=== PATIENT | female | born 1980 | race Caucasian/White ===

== ENCOUNTER 2024-07-22 09:44 | Outpatient (OUT) | payer OTHER, SELFPAY ==
[2024-07-22 10:13] LABS: Basophils Absolute Auto 0.1 10^3/uL (0.0-0.1); Basophils Percent Auto 0.7 % (0.2-2.0); Eosinophils Absolute Auto 0.2 10^3/uL (0.0-0.7); Eosinophils Percent Auto 1.9 % (0.9-7.0); Hematocrit 39.9 % (36.0-48.0); Hemoglobin 12.9 g/dL (12.0-16.0); Immature Granulocytes Abs Auto 0.02 10^3/uL (0.00-0.03); Immature Granulocytes Pct Auto 0.2 % (0.0-0.5); Lymphocytes Absolute Auto 3.5 10^3/uL (1.2-3.8); Lymphocytes Percent Auto 35.7 % (20.5-60.0); Mean Corpuscular HGB Conc 32.3 g/dL (29.9-35.2); Mean Corpuscular Hemoglobin 29.5 pg (26.7-34.0); Mean Corpuscular Volume 91.3 fL (81.0-99.0); Mean Platelet Volume 10.3 fL (9.5-13.5); Monocytes Absolute Auto 0.6 10^3/uL (0.3-0.8); Monocytes Percent Auto 6.1 % (1.7-12.0); Neutrophils Absolute Auto 5.4 10^3/uL (1.4-6.5); Neutrophils Percent Auto 55.4 % (43.0-75.0); Platelet Count 408 10^3/uL (150-450); Red Blood Count 4.37 10^6/uL (4.20-5.40); Red Cell Distribution Width 13.2 % (11.0-15.0); White Blood Count 9.7 10^3/uL (4.0-11.0)
[2024-07-22 10:34] LABS: Free T4 1.15 ng/dL (0.76-1.46)
[2024-07-22 10:35] LABS: Estimated Average Glucose 108 mg/dL; Glycohemoglobin A1C 5.4 % (4.5-6.2); Partial Thromboplastin Time 30.6 sec (22.3-36.2); Prothrombin Time 9.7 sec (9.0-11.6)
[2024-07-22 10:48] LABS: Thyroid Stimulating Hormone 0.806 uIU/mL (0.358-3.740)
[2024-07-22 11:08] LABS: HCG Quantitative <1 mIU/mL
[2024-07-22 11:19] LABS: INR <0.93
== END 2024-07-22 09:45 | disposition home or self-care (01) ==
LOC: LAB 09:44
PROVIDERS: PCP Nurse Practitioner; Visit Provider Obstetrics & Gynecology
DX: D21.9 Benign neoplasm of connective and other soft tissue, unspecified (principal)
CPT/HCPCS: 36415; 83036; 84439; 84443; 84702; 85025; 85610; 85730

== ENCOUNTER 2024-07-27 08:03 | Outpatient (OUT) | payer OTHER, SELFPAY ==
--- NOTE | 2024-07-27 08:04 | US_ITS ---
The [address] [address] Patient Name: SIOBHAN ROBLES MRN: [id number] date: 1980 Sex: F Assigned Patient Location: [facility] Current Patient Location: Accession/Order Number: [id number] Exam Date: 07/27/2024 08:05 Report Date: 07/28/2024 04:29 At the request of: KIT STOCKTON Procedure: US pelvis w/ transvaginal EXAMINATION: US pelvis w/ transvaginal HISTORY: FIBROIDS COMPARISON: No relevant comparison available. TECHNIQUE: Transabdominal and/or transvaginal sonographic examination was performed as indicated by examination type. FINDINGS: UTERUS: Rounded heterogeneous mass within anterior fundal myometrium, 4.1 x 3.9 x 3.5 cm. Uterus size: 10.1 x 6.5 x 7.5 cm ENDOMETRIUM: Normal homogeneous appearance. Endometrial thickness: 8 mm RIGHT OVARY: Normal size and appearance. Duplex Doppler demonstrates normal waveform and flow; resistive index 0.5. Ovary size: 2.9 x 1.5 x 1.4 cm LEFT OVARY: Normal size and appearance. Duplex Doppler demonstrates normal waveform and flow; resistive index 0.6. Ovary size: 3.9 x 2.0 x 2.7 cm CUL-DE-SAC: Unremarkable. No significant free fluid. BLADDER: Unremarkable. OTHER: None. US/US pelvis w/ transvaginal IMPRESSION: 1. Within the anterior fundal myometrium is a 4.1 cm mass favoring a leiomyoma. This appears to contact the myometrial-endometrial margin. Electronically authenticated by: JORGE LUIS GRIJALVA Date: 07/28/2024 04:29
== END 2024-07-27 08:04 | disposition home or self-care (01) ==
LOC: NOMS 08:03
PROVIDERS: PCP Nurse Practitioner; Visit Provider Physician Assistant
DX: D21.9 Benign neoplasm of connective and other soft tissue, unspecified (principal)
CPT/HCPCS: 76830; 76856

== ENCOUNTER 2024-08-01 13:10 | Outpatient (REF) | payer OTHER, SELFPAY ==
--- OUTSIDE RECORDS SUMMARY | 2024-08-01 13:21 | XMS_ITS | CCD ---
Author Organization [facility] ion [facility] Care Team Providers Care Mat Roller Name Role Phone GUILHERME, DR PARADA Admitting Unavailable GUILHERME, DR PARADA Attending Unavailable BRISTOL, DR ROMANO Primary Care Unavailable GUILHERME, DR PARADA Consulting Unavailable GUILHERME, DR PARADA Admitting Unavailable GUILHERME, DR PARADA Attending Unavailable BRISTOL, DR ROMANO Primary Care Unavailable GUILHERME, DR PARADA Admitting Unavailable GUILHERME, DR PARADA Attending Unavailable BRISTOL, DR ROMANO Primary Care Unavailable GUILHERME, DR PARADA Consulting Unavailable GUILHERME, DR PARADA Admitting Unavailable GUILHERME, DR PARADA Attending Unavailable BRISTOL, DR ROMANO Primary Care Unavailable GUILHERME, DR PARADA Consulting Unavailable MICKY, BAKARI Consulting Unavailable KUCHIPUDI, DARNELL Consulting Unavailable GUILHERME, DR PARADA Admitting Unavailable GUILHERME, DR PARADA Attending Unavailable BRISTOL, DR ROMANO Primary Care Unavailable GUILHERME, DR PARADA Consulting Unavailable ZIEBER, DR JORGE LUIS Smith Consulting Unavailable DeenaFabiana Primary Care Physician [phone] Deena, GURMEET Jung L Attending Unavailable Deena, GURMEET Jung L Admitting Unavailable Deena, GURMEET Jung L Attending Unavailable NOTAMARA PAREKH Referring Unavailable Unavailable Primary Care Provider Unavailabl e KARMA VANEGAS Attending Unavailable Allergies Allergy Classification Reported Allergen(s) Allergy Type Date of Onset Reaction(s) Facility (1 source) No Known Medication Allergies; Translations: [No Known Medication Allergies] Propensity to adverse reactions (disorder) [facility] Repository Problems Active Problems Problem Classification Problem Date Documented Da te Episodic/Chronic Abdominal pain (5 sources) Pelvic and perineal pain; Translations: [PELVIC AND PERINEAL PAIN] Onset: 07-09-2022 Episodic Administrative/social admission (1 source) Encounter for pre-employment examination; Translations: [Encounter for pre-employment examination] Onset: 12-01-2023 Episodic Allergic reactions (1 source) Eczema 06-05-2020 Episodic Anxiety disorders (1 source) Anxiety disorder, unspecified; Translations: [ANXIETY DISORDER UNSPECIFIED] Onset: 09-09-2022 Chronic Benign neoplasm of uterus (1 source) Leiomyoma of uterus, unspecified; Translations: [LEIOMYOMA OF UTERUS UNSPECIFIED] Onset: 09-09-2022 Episodic Menstrual disorders (6 sources) Excessive and frequent menstruation with irregular cycle; Translations: [Excessive and frequent menstruation with regular cycle] Onset: 09-02-2022 Chronic Nonmalignant breast conditions (1 source) Cellulitis of breast 06-06-2020 Episodic Other endocrine disorders (1 source) Polycystic ovarian syndrome; Translations: [POLYCYSTIC OVARIAN SYNDROME] Onset: 09-09-2022 Chronic Other endocrine disorders (1 source) Polycystic ovary syndrome 10-06-2023 Chronic Other female genital disorders (1 source) Hypertrophy of uterus; Translations: [HYPERTROPHY OF UTERUS] Onset: 09-09-2022 Episodic Residual codes; unclassified (1 source) Acquired absence of other specified parts of digestive tract; Translations: [ACQ ABSENCE OTH PART DIGESTV TRACT] Onset: 09-09-2022 Episodic Residual codes; unclassified (1 source) Tobacco user 06-06-2020 Episodic Unclassified (1 source) CONTACT W/AND (SUSP) EXPOS COVID-19; Translations: [CONTACT W/AND (SUSP) EXPOS COVID-19] Onset: 09-03-2022 Unclassified (3 sources) Patient encounter status 10-06-2023 Past or Other Problems Problem Classification Problem Date Documented Date Episodic/Chronic Immunizations and screening for infectious disease (1 source) Encounter for screening for human papillomavirus (HPV); Translations: [ENC SCREENING HUMAN PAPILLOMAVIRUS] Onset: 01-01-2022 Episodic Other screening for suspected conditions (not mental disorders or infectious disease) (4 sources) Encounter for screening for malignant neoplasm of cervix; Translations: [ENC SCREENING MALIG NEOPLASM CERV] Onset: 12-31-2021 Episodic Results Test Name Value Interpretation Reference Range Facility ALL CBC WITH AUTO DIFFon BASOPHILS ABSOLUTE AUTO 0.1 [facility] Basophils/100 WBC (Bld) 0.7 % 0.2 - 2.0 % [facility] Eosinophils/100 WBC (Bld) 1.9 % 0.9 - 7.0 % [facility] Erythrocyte distribution width (RBC) [Ratio] 13.2 % 11.0 - 15.0 % [facility] Hematocrit (Bld) [Volume fraction] 39.9 % 36.0 - 48.0 % [facility] Hemoglobin (Bld) [Mass/Vol] 12.9 g/dL 12.0 - 16.0 g/dL [facility] IMMATURE GRANULOCYTES ABS AUTO 0.02 [facility] Immature granulocytes/100 WBC (Bld) 0.2 % 0.0 - 0.5 % [facility] LYMPHOCYTES ABSOLUTE AUTO 3.5 [facility] Lymphocytes/100 WBC (Bld) 35.7 % 20.5 - 60.0 % [facility] MCH (RBC) [Entitic mass] 29.5 pg 26.7 - 34.0 pg [facility] MCHC (RBC) [Mass/Vol] 32.3 g/dL 29.9 - 35.2 g/dL [facility] MCV (RBC) [Entitic vol] 91.3 fL 81.0 - 99.0 fL [facility] MONOCYTES ABSOLUTE AUTO 0.6 [facility] Monocytes/100 WBC (Bld) 6.1 % 1.7 - 12.0 % [facility] NEUTROPHILS ABSOLUTE AUTO 5.4 [facility] Neutrophils/100 WBC (Bld) 55.4 % 43.0 - 75.0 % [facility] Platelet mean volume (Bld) [Entitic vol] 10.3 fL 9.5 - 13.5 fL [facility] PLT 408 [facility] RBC 4.37 [facility] WBC 9.7 [facility] XR CHEST 2 VWSon 12-01-2023 XR CHEST 2 VWS XR CHEST 2 VWS PA and lateral chest: HISTORY: Preemployment evaluation. 2 views of the chest are obtained. Cardiac and mediastinal contours are within normal limits. Lungs are clear. There is no vascular congestion, effusion, or pneumothorax. The osseous structures appear intact. IMPRESSION: No acute findings. Finalized by Ashok Chaudhary MD on 12/01/2023 1:43 PM Normal [facility] Reminderson 10-08-2023 Reminders - From: Fabiana Marquis To: [facility] - Clinical; Sent: 10/08/2023 09:06:01 EST Show up: 10/08/2023 09:06:00 EST Subject: Ambulatory Reminder Due Date/Time: 10/09/2023 09:05:00 EST Labs look good. Calcium is just below normal. She could start taking calcium supplement if she would like Results: Date Result Name Ind Value Ref Range 10/06/2023 16:38 WBC ((H)) 12.5 E9/L (4.0 - 11.0) 10/06/2023 16:38 RBC 4.6 E12/L (4.3 - 5.9) 10/06/2023 16:38 HGB 13.3 gm/dL (12.0 - 16.0) 10/06/2023 16:38 Hct 41.5 % (34.0 - 46.0) 10/06/2023 16:38 MCV 90.5 fL (80.0 - 100.0) 10/06/2023 16:38 MCH 28.9 pg (27.0 - 34.0) 10/06/2023 16:38 MCHC 32.0 gm/dL (31.4 - 36.0) 10/06/2023 16:38 RDW ((H)) 14.4 % (10.9 - 14.2) 10/06/2023 16:38 Platelet 383.0 E9/L (150.0 - 500.0) 10/06/2023 16:38 MPV 10.0 fL (6.4 - 10.8) 10/06/2023 16:38 Neutro Auto 58.4 % (36.0 - 75.0) 10/06/2023 16:38 Lymph Auto 33.9 % (14.0 - 50.0) 10/06/2023 16:38 [place] Auto 4.8 % (4.0 - 14.0) 10/06/2023 16:38 Eos Auto 2.5 % (0.0 - 8.0) 10/06/2023 16:38 Basophil Auto 0.4 % (0.0 - 2.0) 10/06/2023 16:38 Neutro Absolute 7.3 E9/L (2.0 - 7.5) 10/06/2023 16:38 Lymph Absolute ((H)) 4.2 E9/L (1.0 - 4.0) 10/06/2023 16:38 [place] Absolute 0.6 E9/L (0.2 - 1.0) 10/06/2023 16:38 Eos Absolute 0.3 E9/L (0.0 - 0.5) 10/06/2023 16:38 Basophil Absolute 0.1 E9/L (0.0 - 0.2) 10/06/2023 16:38 Glucose Lvl 90 mg/dL (55 - 199) 10/06/2023 16:38 BUN 8 mg/dL (5 - 21) 10/06/2023 16:38 Creatinine 0.9 mg/dL (0.5 - 1.3) 10/06/2023 16:38 eGFR >60 mL/min/1.73 m2 (>=59 - ) 10/06/2023 16:38 BUN/Creat Ratio ((L)) 9 (10 - 20) 10/06/2023 16:38 Sodium Lvl 138 mmol/L (135 - 145) 10/06/2023 16:38 Potassium Lvl 3.8 mmol/L (3.5 - 5.3) 10/06/2023 16:38 Chloride 105 mmol/L (101 - 111) 10/06/2023 16:38 CO2 27 mmol/L (21 - 31) 10/06/2023 16:38 AGAP 10 mEq/L (6 - 16) 10/06/2023 16:38 Calcium Lvl ((L)) 8.8 mg/dL (8.9 - 11.1) 10/06/2023 16:38 Alk Phos 81 Int._Unit/L (21 - 98) 10/06/2023 16:38 ALT 18 Int._Unit/L (6 - 46) 10/06/2023 16:38 AST 13 Int._Unit/L (5 - 43) 10/06/2023 16:38 Total Protein 6.8 gm/dL (6.0 - 7.8) 10/06/2023 16:38 Albumin Lvl 4.0 gm/dL (3.3 - 5.0) 10/06/2023 16:38 Globulin 2.8 gm/dL (1.4 - 4.0) 10/06/2023 16:38 A/G Ratio 1.4 (1.1 - 2.2) 10/06/2023 16:38 Bili Total 0.2 mg/dL (0.0 - 1.1) 10/06/2023 16:38 Chol 158 mg/dL (120 - 200) 10/06/2023 16:38 Trig 142 mg/dL ( - <=149) 10/06/2023 16:38 HDL 48 mg/dL 10/06/2023 16:38 LDL Direct 100 mg/dL ( - <=129) 10/06/2023 16:38 VLDL 28 mg/dL (7 - 40) 10/06/2023 16:38 TSH 2.38 mcIU/mL (0.34 - 5.60) Pt calls in and notified. Normal [facility] Auto Diffon 10-07-2023 Basophils/100 WBC (Bld) 0.4 % Normal 0.0-2.0 [facility] Comment on above: Order Comment: Order Added by Discern Expert. Performed By: #### 2 031489, 38477953, 3149268, 2261883, 8042308, 9592609 #### [facility] [address] [place] [address] Basophils/Leukocy victoria Auto (Bld) [Pure # fraction] 0.1 E9/L Normal 0.0-0.2 [facility] Comment on above: Order Comment: Order Added by Discern Expert. Performed By: #### 2 242958, 12820199, 9548229, 2891173, 5689059, 3326891 #### [facility] [address] [place] [address] Eosinophils/100 WBC (Bld) 2.5 % Normal 0.0-8.0 [facility] Comment on above: Order Comment: Order Added by Discern Expert. Performed By: #### 2 913274, 00210672, 4671350, 4355592, 4923460, 9588705 #### [facility] [address] [place] [address] Eosinophils/Leuko cytes Auto (Bld) [Pure # fraction] 0.3 E9/L Normal 0.0-0.5 [facility] Comment on above: Order Comment: Order Added by Discern Expert. Performed By: #### 2 617538, 50456799, 5624395, 5672118, 6809417, 0192524 #### [facility] [address] [place] [address] Lymphocytes/100 WBC (Bld) 33.9 % Normal 14.0-50.0 [facility] Comment on above: Order Comment: Order Added by Discern Expert. Performed By: #### 2 171909, 16445623, 6727953, 3880090, 6568786, 5439688 #### [facility] [address] [place] [address] Lymphocytes/Leuko cytes Auto (Bld) [Pure # fraction] 4.2 E9/L High 1.0-4.0 [facility] Comment on above: Order Comment: Order Added by Discern Expert. Performed By: #### 2 643114, 74374499, 0685468, 1147662, 6240796, 0895698 #### [facility] [address] [place] [address] Monocytes/100 WBC (Bld) 4.8 % Normal 4.0-14.0 [facility] Comment on above: Order Comment: Order Added by Discern Expert. Performed By: #### 2 050677, 25944057, 4353357, 5453062, 7921066, 3969251 #### [facility] [address] [place] [address] Monocytes/Leukocy victoria Auto (Bld) [Pure # fraction] 0.6 E9/L Normal 0.2-1.0 [facility] Comment on above: Order Comment: Order Added by Discern Expert. Performed By: #### 2 155166, 76888738, 3209431, 6043538, 0568488, 3212117 #### [facility] [address] [place] [address] Neutrophils/100 WBC (Bld) 58.4 % Normal 36.0-75.0 [facility] Comment on above: Order Comment: Order Added by Discern Expert. Performed By: #### 2 348105, 46976046, 8522683, 9253218, 8592249, 4838998 #### [facility] [address] [place] [address] Neutrophils/Leuko cytes Auto (Bld) [Pure # fraction] 7.3 E9/L Normal 2.0-7.5 [facility] Comment on above: Order Comment: Order Added by Discern Expert. Performed By: #### 2 996301, 17368849, 9681465, 7041715, 3897425, 0526405 #### [facility] [address] [place] [address] CBC w/ Auto Diffon Erythrocyte distribution width (RBC) [Ratio] 14.4 % High 10.9-14.2 [facility] Comment on above: Performed By: #### 2 137771, 09207099, 1647838, 2017048, 0663323, 2820867 #### [facility] [address] [place] [address] Hematocrit (Bld) [Volume fraction] 41.5 % Normal 34.0-46.0 [facility] Comment on above: Performed By: #### 2 033509, 87945102, 1773720, 1221317, 6903240, 4782286 #### [facility] [address] [place] [address] Hemoglobin (Bld) [Mass/Vol] 13.3 g/dL Normal 12.0-16.0 [facility] Comment on above: Performed By: #### 2 787992, 64774079, 2950451, 7218407, 1180821, 5284591 #### [facility] [address] [place] [address] MCH (RBC) [Entitic mass] 28.9 pg Normal 27.0-34.0 [facility] Comment on above: Performed By: #### 2 682152, 47390698, 9943678, 7331484, 0741127, 7423690 #### [facility] [address] [place] [address] MCHC (RBC) [Mass/Vol] 32.0 g/dL Normal 31.4-36.0 [facility] Comment on above: Performed By: #### 2 166553, 92226621, 4013957, 9936926, 5391668, 0346590 #### [facility] [address] [place] [address] MCV (RBC) [Entitic vol] 90.5 fL Normal 80.0-100.0 [facility] Comment on above: Performed By: #### 2 069549, 15783190, 8015841, 0296248, 7767920, 0144533 #### [facility] [address] [place], [place] [address] Platelet mean volume (Bld) [Entitic vol] 10.0 fL Normal 6.4-10.8 [facility] Comment on above: Performed By: #### 2 028781, 00385446, 9583188, 8800420, 8527757, 2117821 #### [facility] [address] [place] [address] Platelets (Bld) [#/Vol] 383.0 E9/L Normal 150.0-500.0 [facility] Comment on above: Performed By: #### 2 381793, 76213688, 7735587, 5492438, 5217389, 7085318 #### [facility] [address] [place] [address] RBC (Bld) [#/Vol] 4.6 E12/L Normal 4.3-5.9 [facility] Comment on above: Performed By: #### 2 790052, 70014242, 0958748, 5936431, 9056018, 0216112 #### [facility] [address] [place] [address] WBC corrected for nucl RBC Auto (Bld) [#/Vol] 12.5 E9/L High 4.0-11.0 [facility] Comment on above: Result Comment: Slid e reviewed by ZEYNEP. Performed By: #### 2 080163, 61657782, 7099780, 5912098, 1900297, 8790035 #### [facility] [address] [place] [address] CMPon 10-07-2023 Albumin [Mass/Vol] 4.0 g/dL Normal 3.3-5.0 [facility] Comment on above: Performed By: #### 2 265940, 72398179, 8543199, 9981401, 2861021, 1758859 #### [facility] [address] [place] [address] Albumin/Globulin [Mass ratio] 1.4 {ratio} Normal 1.1-2.2 [facility] Comment on above: Performed By: #### 2 794390, 81457832, 6509107, 6055132, 5887671, 2286190 #### [facility] [address] [place] [address] Alk Phos 81 Int._Unit/L Normal 21-98 [facility] Comment on above: Performed By: #### 2 069224, 63156501, 6405288, 7085691, 8318843, 0398361 #### [facility] [address] [place] [address] ALT 18 Int._Unit/L Normal 6-46 [facility] Comment on above: Performed By: #### 2 514416, 46641985, 3439581, 7738040, 0349620, 7676168 #### [facility] [address] [place] [address] Anion gap [Moles/Vol] 10 mmol/L Normal 6-16 [facility] Comment on above: Performed By: #### 2 683434, 55043551, 4938988, 6000313, 5009121, 2702267 #### [facility] [address] [place] [address] AST 13 Int._Unit/L Normal 5-43 [facility] Comment on above: Performed By: #### 2 383076, 86214196, 7082738, 1050065, 2773240, 5283181 #### [facility] [address] [place] [address] Bili Total 0.2 mg/dL Normal 0.0-1.1 [facility] Comment on above: Performed By: #### 2 871545, 92111117, 9666782, 5023346, 0231692, 4108447 #### [facility] [address] [place] [address] BUN/Creat Ratio 9 No Units Low 10-20 [facility] Comment on above: Performed By: #### 2 077594, 11754617, 9226391, 7505392, 9730243, 6770723 #### [facility] [address] [place] [address] Calcium [Mass/Vol] 8.8 mg/dL Low 8.9-11.1 [facility] Comment on above: Performed By: #### 2 647562, 25225782, 2613577, 7723533, 4291030, 5146096 #### [facility] [address] [place] [address] Chloride [Moles/Vol] 105 mmol/L Normal 101-111 [facility] Comment on above: Performed By: #### 2 818364, 07154938, 2411780, 3987137, 7428330, 3419851 #### [facility] [address] [place] [address] CO2 [Moles/Vol] 27 mmol/L Normal 21-31 [facility] Comment on above: Performed By: #### 2 505002, 84906075, 2200474, 5294855, 9118733, 5782339 #### [facility] [address] [place] [address] Creatinine [Mass/Vol] 0.9 mg/dL Normal 0.5-1.3 [facility] Comment on above: Performed By: #### 2 304605, 45502427, 4683691, 8922463, 2278121, 8950323 #### [facility] [address] [place] [address] Globulin (S) [Mass/Vol] 2.8 g/dL Normal 1.4-4.0 [facility] Comment on above: Performed By: #### 2 216559, 71071072, 1922352, 9170273, 7191944, 2197759 #### [facility] [address] [place] [address] Glucose [Mass/Vol] 90 mg/dL Normal 55-199 [facility] Comment on above: Performed By: #### 2 138392, 94025555, 2171886, 7290302, 5312331, 0942815 #### [facility] [address] [place] [address] Potassium [Moles/Vol] 3.8 mmol/L Normal 3.5-5.3 [facility] Comment on above: Performed By: #### 2 624403, 39219951, 6629026, 0983670, 5444611, 5418959 #### [facility] [address] [place] [address] Protein [Mass/Vol] 6.8 g/dL Normal 6.0-7.8 [facility] Comment on above: Performed By: #### 2 326485, 71177493, 1240174, 0542224, 7915713, 8823152 #### [facility] [address] [place] [address] Sodium [Moles/Vol] 138 mmol/L Normal 135-145 [facility] Comment on above: Performed By: #### 2 406104, 82593476, 6664681, 1678660, 3793602, 2448851 #### [facility] [address] [place] [address] Urea nitrogen [Mass/Vol] 8 mg/dL Normal 5-21 [facility] Comment on above: Performed By: #### 2 794916, 30662114, 3167202, 6850565, 7923265, 0210658 #### [facility] [address] [place] [address] Lipid Panelon 10-07-2023 Cholesterol [Mass/Vol] 158 mg/dL Normal 120-200 [facility] Comment on above: Performed By: #### 2 427296, 49273262, 5313541, 1185348, 1444211, 4762756 #### [facility] [address] [place] [address] Cholesterol in HDL [Mass/Vol] 48 mg/dL Invalid Interpretation Code [facility] Comment on above: Result Comment: '>= 60 LOW RISK' '<= 40 HIGH RISK' Performed By: #### 2 942445, 89549077, 5916275, 0193804, 8776609, 8355837 #### [facility] [address] [place] [address] Cholesterol in LDL [Mass/Vol] 100 mg/dL Normal <=129 [facility] Comment on above: Performed By: #### 2 126309, 22523669, 1535955, 8574061, 5070610, 0420626 #### [facility] [address] [place] [address] Cholesterol in VLDL [Mass/Vol] 28 mg/dL Normal 7-40 [facility] Comment on above: Performed By: #### 2 074382, 63850193, 2620941, 5337430, 4905924, 3570757 #### [facility] [address] [place] [address] Triglyceride [Mass/Vol] 142 mg/dL Normal <=149 [facility] Comment on above: Performed By: #### 2 364363, 17192860, 4462839, 4125808, 1658963, 4214993 #### [facility] [address] [place] [address] TSHon 10-07-2023 TSH Qn 2.38 m[IU]/L Normal 0.34-5.60 [facility] Comment on above: Performed By: #### 2 134835, 28893751, 2872059, 1747602, 1498315, 5275202 #### [facility] [address] [place] [address] eGFRon 10-07-2023 GFR/1.73 sq M.predicted among non-blacks MDRD (S/P/Bld) [Vol rate/Area] mL/min/{1.73_m2} Normal >=59 [facility] Comment on above: Order Comment: Order added by Discern Expert. Performed By: #### 2 547188, 87913420, 1993640, 0768611, 8033667, 4746745 #### [facility] [address] [place] [address] Ambulatory Visit Summaryon 1 12-07-2022 Ambulatory Visit Summary SIOBHAN ROBLES :1980 Visit Date:10/06/2023 Ambulatory Visit Instructions Your Diagnosis Wellness examination PCOS (polycystic ovarian syndrome) Vaping nicotine dependence, non-tobacco product Screening for hyperlipidemia Screening for thyroid disorder BMI 34.0-34.9,adult Your Care Team Attending Physician - Fabiana Marquis Primary Care Physician - Fabiana Marquis Procedures Performed Dilation and curettage (10/18/2014), Cholecystectomy (10/18/2008). Discharge Vitals Heart Rate (Peripheral) 88 Respiratory Rate 16 Blood Pressure 126/86 Height 165.5 cm Height 65 in Weight 95.1 kg Weight 209.22 lb BMI 34.72 Allergies No Known Allergies No Known Medication Allergies Problems Ongoing - Any problem that you are currently receiving treatment for. Cellulitis of left breast Eczema Menometrorrhagia PCOS (polycystic ovarian syndrome) Screening for hyperlipidemia Screening for thyroid disorder Tobacco use Wellness examination Patient Survey You may receive a survey via text or e-mail asking about your office visit. Please share your experience with us by completing your survey. We appreciate your feedback and thank you for choosing us for your care. Normal [facility] Ambulatory Visit Summary SIOBHAN ROBLES :1980 Visit Date:10/06/2023 Ambulatory Visit Instructions Your Diagnosis Wellness examination PCOS (polycystic ovarian syndrome) Vaping nicotine dependence, non-tobacco product Screening for hyperlipidemia Screening for thyroid disorder BMI 34.0-34.9,adult Your Care Team Attending Physician - Fabiana Marquis Primary Care Physician - Fabiana Marquis Procedures Performed Dilation and curettage (10/18/2014), Cholecystectomy (10/18/2008). Discharge Vitals Heart Rate (Peripheral) 88 Respiratory Rate 16 Blood Pressure 126/86 Height 165.5 cm Height 65 in Weight 95.1 kg Weight 209.22 lb BMI 34.72 Allergies No Known Allergies No Known Medication Allergies Problems Ongoing - Any problem that you are currently receiving treatment for. Cellulitis of left breast Eczema Menometrorrhagia PCOS (polycystic ovarian syndrome) Screening for hyperlipidemia Screening for thyroid disorder Tobacco use Wellness examination Patient Survey You may receive a survey via text or e-mail asking about your office visit. Please share your experience with us by completing your survey. We appreciate your feedback and thank you for choosing us for your care. 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 A1c 01/2022 5.4, Dr Matos Last provider: Dr Mccracken Any recent labs: around 08/2022 [facility] labs surgery Health Maintenance UTD: Colonoscopy: no Mammogram: had order but never had it done Pelvic/Pap: 08/2022 normal Acute: Current issues/complaints:FYI Pt states she will be having hysterectomy has to have that scheduled History of Present Illness pt presents today to establish care/ wellness visit Review of Systems PHQ Score Initial Depression Screen Score: 1 SCORE ROS - Provider Constitutional: no fever, no chills, no sweats, no fatigue Respiratory: no shortness of breath, no cough, no orthopnea, no wheezing. Cardiovascular: no chest pain, no palpitations, no edema. Neurologic: no headache, no dizziness, no numbness, no weakness. Physical Exam Vitals & Measurements HR: 88(Peripheral) RR: 16 BP: 126/86 SpO2: 99% HT: 65 in HT: 165.5 cm WT: 95.1 kg WT: 209.22 lb BMI: 34.72 General: alert, no acute distress ENMT: oral mucosa moist, no pharyngeal erythema or exudate Cardiovascular: regular rate and rhythm, normal peripheral perfusion Respiratory: Lungs CTA, respirations non labored Extremities: no deformity, no trauma Neurological: oriented x 4, LOC appropriate for age, CN II-XII intact, motor strength equal & normal bilaterally, speech normal Assessment/Plan 1. Wellness examination (Z00.00: Encounter for general adult medical examination without abnormal findings) pt presents today to establish care. needs annual wellness labs drawn today. physical exam WNL. labs drawn in office today. All questions answered. RTC as needed Ordered: CBC w/ Auto Diff Comprehensive Metabolic Panel Lipid Panel Thyroid Stimulating Hormone 2. PCOS (polycystic ovarian syndrome) (E28.2: Polycystic ovarian syndrome) has pcos was taking metformin but is no longer taking it. has fibroids and is going to schedule hyst with Dr. Guilherme cai Ordered: CBC w/ Auto Diff Comprehensive Metabolic Panel Lipid Panel Thyroid Stimulating Hormone 3. Vaping nicotine dependence, non-tobacco product (F17.200: Nicotine dependence, unspecified, uncomplicated) continue not smoking Ordered: CBC w/ Auto Diff Comprehensive Metabolic Panel Lipid Panel Thyroid Stimulating Hormone 4. Screening for hyperlipidemia (Z13.220: Encounter for screening for lipoid disorders) lipid panel drawn in office today Ordered: CBC w/ Auto Diff Comprehensive Metabolic Panel Lipid Panel Thyroid Stimulating Hormone 5. Screening for thyroid disorder (Z13.29: Encounter for screening for other suspected endocrine disorder) TSH drawn in office today Ordered: CBC w/ Auto Diff Comprehensive Metabolic Panel Lipid Panel Thyroid Stimulating Hormone 6. BMI 34.0-34.9,adult (Z68.34: Body mass index [BMI] 34.0-34.9, adult) BMI education complete Ordered: CBC w/ Auto Diff Comprehensive Metabolic Panel Lipid Panel Thyroid Stimulating Hormone Follow-up No qualifying data available Problem List/Past Medical History Ongoing Cellulitis of left breast Eczema Menometrorrhagia PCOS (polycystic ovarian syndrome) Screening for hyperlipidemia Screening for thyroid disorder Tobacco use Wellness examination Historical No qualifying data Procedure/Surgical History Dilation and curettage (10/18/2014), Cholecystectomy (10/18/2008). Medications No active medications Allergies No Known Allergies No Known Medication Allergies Social History Alcohol - Denies Alcohol Use, 06/06/2020 Tobacco Former smoker, quit more than 30 days ago Tobacco Use:. Current vaping or e-cigarette use Smokeless Tobacco Use:. Cigarettes, Ready to change: Yes. Household tobacco concerns: No., 10/06/2023 Family History Diabetes mellitus type 2: Mother and Father. Hypertension: Mother and Father. Renal failure syndrome: Mother. Normal [facility] Comment on above: Result Comment: Elec tronically Signed By: Deena LEVI, Fabiana Titus\.br\Date and Time Signed: 10/06/23 16:35 EST CBC AUTO DIFFon 08-31-2022 BASO # 0.1 103/ul Normal 0.0-0.1 [facility] Comment on above: Performed By: #### C BC #### [facility] [address] [place] [address] Dr. Demetri Rosales Basophils/100 WBC (Bld) 0.5 % Normal 0.2-2.0 [facility] Comment on above: Performed By: #### C BC #### [facility] [address] [place] [address] Dr. Demetri Rosales EO # 0.3 103/ul Normal 0.0-0.7 [facility] Comment on above: Performed By: #### C BC #### [facility] [address] [place] [address] Dr. Demetri Rosales Eosinophils/100 WBC (Bld) 2.6 % Normal 0.9-7.0 [facility] Comment on above: Performed By: #### C BC #### [facility] [address] [place] [address] Dr. Demetri Rosales Erythrocyte distribution width (RBC) [Ratio] 13.2 % Normal 11.0-15.0 [facility] Comment on above: Performed By: #### C BC #### [facility] [address] [place] [address] Dr. Demetri Rosales Hematocrit (Bld) [Volume fraction] 40.1 % Normal 36.0-48.0 [facility] Comment on above: Performed By: #### C BC #### [facility] [address] [place] [address] Dr. Demetri Rosales Hemoglobin (Bld) [Mass/Vol] 13.2 g/dL Normal 12.0-16.0 [facility] Comment on above: Performed By: #### C BC #### [facility] [address] [place] [address] Dr. Demetri Rosales IG # 0.04 10e3/ul Critically high 0.00-0.03 [facility] Comment on above: Performed By: #### C BC #### [facility] [address] [place] [address] Dr. Demetri Rosales IG % 0.4 % Normal 0.0-0.5 [facility] Comment on above: Performed By: #### C BC #### [facility] [address] [place] [address] Dr. Demetri Rosales LYMPH # 4.1 103/ul Critically high 1.2-3.8 [facility] Comment on above: Performed By: #### C BC #### [facility] [address] [place] [address] Dr. Demetri Rosales Lymphocytes/100 WBC (Bld) 38.2 % Normal 20.5-60.0 [facility] Comment on above: Performed By: #### C BC #### [facility] [address] [place] [address] Dr. Demetri Rosales MANUAL DIFF REQ NO Normal [facility] Comment on above: Performed By: #### C BC #### [facility] [address] [place] [address] Dr. Demetri Rosales MCH (RBC) [Entitic mass] 30.4 pg Normal 26.7-34.0 [facility] Comment on above: Performed By: #### C BC #### [facility] [address] [place] [address] Dr. Demetri Rosales MCHC (RBC) [Mass/Vol] 32.9 g/dL Normal 29.9-35.2 [facility] Comment on above: Performed By: #### C BC #### [facility] [address] [place] [address] Dr. Demetri Rosales MCV (RBC) [Entitic vol] 92.4 fL Normal 81.0-99.0 [facility] Comment on above: Performed By: #### C BC #### [facility] [address] [place] [address] Dr. Demetri Rosales MONO # 0.5 103/ul Normal 0.3-0.8 [facility] Comment on above: Performed By: #### C BC #### [facility] [address] [place] [address] Dr. Demetri Rosales Monocytes/100 WBC (Bld) 4.8 % Normal 1.7-12.0 [facility] Comment on above: Performed By: #### C BC #### [facility] [address] [place] [address] Dr. Demetri Rosales NEUT # 5.7 103/ul Normal 1.4-6.5 [facility] Comment on above: Performed By: #### C BC #### [facility] [address] [place] [address] Dr. Demetri Rosales Neutrophils/100 WBC (Bld) 53.5 % Normal 43.0-75.0 [facility] Comment on above: Performed By: #### C BC #### [facility] [address] [place] [address] Dr. Demetri Rosales Platelet mean volume (Bld) [Entitic vol] 10.0 fL Normal 9.5-13.5 [facility] Comment on above: Performed By: #### C BC #### [facility] [address] [place] [address] Dr. Demetri Rosales PLT 314 103/ul Normal 150-450 [facility] Comment on above: Performed By: #### C BC #### [facility] [address] [place] [address] Dr. Demetri Rosales RBC 4.34 106/ul Normal 4.20-5.40 [facility] Comment on above: Performed By: #### C BC #### [facility] [address] [place] [address] Dr. Demetri Rosales WBC 10.7 103/ul Normal 4.0-11.0 [facility] Comment on above: Performed By: #### C BC #### [facility] [address] [place] [address] Dr. Demetri Rosales Covid-19 PCR ([facility])on 08-18 SARS-CoV-2 (COVID-19) RNA ROMANA+probe Ql (Unsp spec) Not detected Normal NOT DETECTED [facility] Comment on above: Result Comment: This test is not yet approved or cleared by the [place] FDA. When there are no FDA-approved or cleared tests available, and other criteria are met, FDA can make tests available under an emergency access mechanism called an Emergency Use Authorization (EUA). The EUA for this test is supported by the [employer] of Health and Human Service's (HHS's) declaration that circumstances exist to justify the emergency use of in vitro diagnostics for the detection and/or diagnosis of the virus that causes COVID-19. This EUA will remain in effect (meaning this test can be used) for the duration of the COVID-19 declaration justifying emergency of IVDs, unless it is terminated or revoked by FDA (after which the test may no longer be used). When diagnostic testing is negative, the possibility of a false negative should be considered in the context of a patient's recent exposures and the presence of clinical signs and symptoms consistent with SARS-CoV-2. Performed By: #### C VDTB #### [facility] [address] [place] [address] Dr. Deemtri Rosales PREG QUANT HCGon 08-31-2022 HCG QUANT <1 Normal [facility] Comment on above: Performed By: #### P REGQNT #### [facility] [address] [place] [address] Dr. Demetri Rosales HCG RANGE SEE BELOW Normal [facility] Comment on above: Result Comment: 5-50 0.2-1 WEEK 50-500 1-2 WEEKS 100-5,000 2-3 WEEKS 500-10,000 3-4 WEEKS 1,000-50,000 4-5 WEEKS 10,000-100,000 5-6 WEEKS 15,000-200,000 6-8 WEEKS 10,000-100,000 2-3 MONTHS Performed By: #### P REGQNT #### [facility] [address] [address] [address] Demetri Rosales US PELVIS AND TRANSVAGon US PELVIS AND TRANSVAG EXAMINATION: US PELVIS AND TRANSVAG HISTORY: Pelvic and perineal pain COMPARISON: Ultrasound pelvis 01/02/2021 TECHNIQUE: Transabdominal and transvaginal sonographic examination. FINDINGS: UTERUS: Isoechoic 4.1 cm round mass within the anterior myometrium contacting the endometrial margin. A few small nabothian cysts within cervix. Uterus size: 9.7 x 6.7 x 6.3 cm ENDOMETRIUM: Normal homogeneous appearance. Endometrial thickness: 8 mm RIGHT OVARY: Contains a 3.1 cm benign-appearing cyst. Duplex Doppler demonstrates normal waveform and flow; resistive index 0.5. Ovary size: 3.8 x 3.6 x 2.7 cm LEFT OVARY: Normal size and appearance, containing a few dominant follicles. Duplex Doppler demonstrates normal waveform and flow; resistive index 0.3. Ovary size: 3.5 x 2.9 x 1.8 cm CUL-DE-SAC: Unremarkable. No significant free fluid. BLADDER: Unremarkable. OTHER: None. IMPRESSION: 1. Stable anterior uterine myometrial mass contacting the endometrial margin. 2. Benign-appearing ovarian cysts/follicles. Electronically authenticated by: JORGE LUIS GRIJALVA Date: 2022-07-09 13:59 Normal [facility] PAP ACOG PANEL 2: 30 to 65on 01-07-2022 . . Normal [facility] Comment on above: Result Comment: Perf ormed at: WB Performed By: #### [id number] #### [facility] [address] [address] [address] Demetri Rosales Age Gdln ACOG Testing 30-65 Normal [facility] Comment on above: Performed By: #### [id number] #### [facility] [address] [address] [address] Demetri Rosales DIAGNOSIS: Comment Normal [facility] Comment on above: Result Comment: NEGA TIVE FOR INTRAEPITHELIAL LESION OR MALIGNANCY. Performed at: WB Performed By: #### [id number] #### [facility] [address] [address] [address] Demetri Rosales HPV Aptima Negative Normal Negative [facility] Comment on above: Result Comment: This nucleic acid amplification test detects fourteen high-risk HPV types (16,18,31,33,35,39,45,51,52,56,58,59,66,68) without differentiation. Performed at: =G Performed By: #### [id number] #### [facility] [address] [place] [address] Dr. Demetri Rosales Methodology: Comment Normal [facility] Comment on above: Result Comment: This liquid based ThinPrep(R) pap test was screened with the use of an image guided system. Performed at: WB Performed By: #### [id number] #### [facility] [address] [place] [address] Dr. Demetri Rosales Note: Comment Normal [facility] Comment on above: Result Comment: The Pap smear is a screening test designed to aid in the detection of premalignant and malignant conditions of the uterine cervix. It is not a diagnostic procedure and should not be used as the sole means of detecting cervical cancer. Both false-positive and false-negative reports do occur. . Performed at: WB Performed By: #### [id number] #### [facility] [address] [place] [address] Dr. Demetri Rosales Performed by: Comment Normal [facility] Comment on above: Result Comment: Eva Casas, Supervisor [place] (ASCP) Performed at: WB Performed By: #### [id number] #### [facility] [address] [place] [address] Dr. Demetri Rosales Specimen adequacy: Comment Normal [facility] Comment on above: Result Comment: Sati sfactory for evaluation. Endocervical and/or squamous metaplastic cells (endocervical component) are present. Performed at: WB Performed By: #### [id number] #### [facility] [address] [place] [address] Dr. Demetri Rosales Encounters Encounter Date Encounter Type Care Provider Facility Start: 07-22-2024 End: 07-22-2024 Clinisync Result Encounter Karma Chriso DO Work Phone: [facility] Unsolicited Start: 07-22-2024 End: 07-22-2024 Clinisync Result Encounter Karma Vanegas DO Work Phone: [facility] Unsolicited Start: 07-17-2024 End: 07-18-2024 Telephone encounter Soni Myrick JUAQUIN Work Phone: [facility] Start: 07-17-2024 End: 07-17-2024 ambulatory KARMA VANEGAS Not Available Start: 12-01-2023 End: 12-05-2023 ambulatory TAMARA Boyle [facility] Start: 10-06-2023 End: 10-07-2023 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 Facility:[facility] Start: 10-06-2023 End: 10-06-2023 Lab Drop off Fabiana L Deena [facility] Start: 09-03-2022 Encounter for preprocedural laboratory examination DR KARMA VANEGAS [facility] Start: 09-02-2022 End: 09-02-[address] KARMA VANEGAS Facility:[facility] Start: 08-31-2022 End: 09-01-[address] KARMA VANEGAS Facility:[facility] Start: 08-31-2022 End: 09-01-2022 Encounter for preprocedural laboratory examination DR KARMA VANEGAS Facility:[facility] Start: 08-30-2022 Encounter for other preprocedural examination DR KARMA VANEGAS [facility] Start: 08-25-2022 End: 08-26-[address] KARMA VANEGAS Facility:[facility] Start: 08-25-2022 End: 08-26-2022 Encounter for other preprocedural examination DR KARMA VANEGAS Facility:[facility] Start: 07-09-2022 End: 07-10-[address] KARMA VANEGAS Facility:[facility] Start: 12-31-2021 End: 12-31-[address] KARMA VANEGAS Facility:[facility] Procedures Date Procedure Procedure Detail Performing Clinician Start: 07-22-2024 ALL CBC WITH AUTO DIFF Karma Vanegas DO Work Phone: Start: 10-18-2014 Dilation and curettage Fabiana Deena Start: 10-18-2008 Cholecystectomy Fabiana Bang hwab Plan of Treatment Date Care Activity Detail Author Start: 08-01-2024 End: 08-01-2024 Patient encounter procedure 08/01/2024 8:30 AM EDT Office Visit [facility] [address] [place] [address] Karma Vanegas, DO [address] [place] [address] [facility] Start: 07-27-2024 End: 07-27-2024 Professional / ancillary services management 07/27/2024 8:00 AM EDT Ancillary Procedure [facility] [address] [place] [address] [facility] Payers Date Payer Category Payer Unknown [id number] 2018 Private Health Insurance [facility] [id number] 2018-Present [address] [address] [place] [address] [id number] 2018 Private Health Insurance [id number] 1982 Unknown [id number] 1982 Unknown [id number] 1982 Unknown [id number] 1982 Unknown [id number] 1982 Unknown [id number] 1982 Unknown [id number] 1982 Unknown [id number] 1982 Unknown [id number] 1959 Unknown [id number] Social History Date Type Detail Facility Start: 10-06-2023 Tobacco smoking status Ex-smoker (finding) [facility] [place] Sex Assigned At Female [facility] Tobacco smoking status NHIS Tobacco smoking consumption unknown [facility] Work Phone: Start: 1980 Sex assigned at Not on file [facility] Telephone encounter Note 07-17-2024 Telephone Encounter - JUAQUIN Mixon - 07/17/2024 2:17 PM EDT Note Date & Type Note Facility 07-17-2024 Telephone encount er Note Obtain Op Report and any pathology from surgery in August 2022. [facility] Healthcare Note 07-17-2024 Telephone Encounter - JUAQUIN Mixon - 07/17/2024 2:17 PM EDT Note Date & Type Note Facility 07-17-2024 Miscellaneous Notes Formattin g of this note might be different from the original. Obtain Op Report and any pathology from surgery in August 2022. documented in this encounter [facility] Healthcare Evaluation + Plan note 10-06-2023 Note Date & Type Note Facility 10-06-2023 Evaluation + Plan note [facility] 10/06/23Comprehensive Metabolic Panel 10/06/23Lipid Panel 10/06/23Thyroid Stimulating Hormone 10/06/23 [facility] Clinical Note 09-02-2022 Note Date & Type Note Facility 09-02-2022 Note OP Note OPERATION DATE: 09/02/2022 PROCEDURE: D AND C hysteroscopy, diagnostic laparoscopy. PREOPERATIVE DIAGNOSIS: Menorrhagia, pelvic pain, enlarged uterus. POSTOPERATIVE DIAGNOSIS: Menorrhagia, pelvic pain, enlarged uterus, adenomyosis. ANESTHESIA: General. SURGEON: Karma Vanegas D.O. MACHINE ADJUSTER LEADER CASE TRIM: JOSETTE Pacheco URINE OUTPUT: Yellow and clear. BLOOD LOSS: 5 mL. FINDINGS: Fluffy appearing endometrium. No gross evidence of polyps, fibroids or malignancy. Both ostia seen. Normal appearing ovaries and tubes. Adenomyotic appearing uterus. SPECIMEN: Endometrial curettings. PROCEDURE: The patient was taken back to the Operating Room where she was placed in dorsal lithotomy position after given general anesthesia. The patient was prepped and draped in normal sterile fashion. A sponge stick was placed into the patient's vagina. Attention was turned to the patient's abdomen, where a small umbilical incision was made. The fascia was tented using Mervin clamps and the fascia was entered sharply. Confirmation of intra-abdominal placement of the 10 mm port was confirmed under direct visualization using a laparoscope. The patient's abdomen was then insufflated using CO2 gas with approximately 4 liters. A second port was placed left laterally, this was done under direct visualization with a 5 mm port. Survey of the patient's abdomen demonstrated normal liver and gallbladder. Survey of the patient's pelvic anatomy demonstrated normal appearing ovaries and tubes as well as normal appearing uterus. No endometrial implants could be noted, no evidence of any pelvic disease was seen, normal appearing pelvic cavity. All instruments were removed from the patient's abdomen. The patient's abdomen was desufflated of CO2 gas. The patient tolerated the procedure well. Sponge stick was removed from the patient's vagina. The patient's infraumbilical fascia was closed using #0 Vicryl on a GI needle. The patient's skin was closed laterally and infraumbilically using 4-0 Vicryl. The patient tolerated the procedure well. Sponge, lap and needle counts were correct x 2. The patient was taken to Recovery Room in stable condition. The patient was taken back to the Operating Room where she was prepped and draped in normal sterile fashion after being placed under general anesthesia without difficulty. She was also placed in the dorsal lithotomy position. A weighted speculum was placed in the patient's vagina. The anterior lip of the cervix was identified and grasped with a single tooth tenaculum. The patient's uterus was then sounded roughly to [ ] cm. The patient was then gently dilated using Hegar dilators. The hysteroscope was passed through the patient's cervix into the uterus. Both ostia were identified. Normal appearing endometrium. No gross evidence of polyps, fibroids or malignancy. The hysteroscope was then removed from the patient's uterus. At that point, gentle curettage was performed until a gritty texture was noted. The endometrial curettings were sent out to pathology. The single tooth tenaculum was then removed from the patient's anterior lip of the cervix where excellent hemostasis was noted. All instruments were removed from the patient's vagina. The patient tolerated the procedure well. Sponge, lap and needle counts were correct times two. The patient was taken to the Recovery Room in stable condition. [facility] course Narrative Note Date & Type Note Facility Hospital course Narrative No data available for this section [facility] Hospital Discharge instructions Note Date & Type Note Facility Hospital Discharge instructions No data available for this section [facility] Progress note Note Date & Type Note Facility Progress note No data available for this section [facility] Summary Purpose Family History No Family History Records Found No data available for this section No Family History Records FoundNo Family History Records FoundNo Family History Records Found Advance Directives No Advanced Directives Records FoundNo Advanced Directives Records FoundNo Advanced Directives Records FoundNo Advanced Directives Records Found Additional Source Comments INFORMATION SOURCE (unrecogn ized section and content) DATE CREATED AUTHOR 10/28/2022 [facility] DATE CREATED AUTHOR AUTHOR'S ORGANIZ ATION 10/08/2023 [facility] DATE CREATED AUTHOR AUTHOR'S ORGANIZ ATION 12/06/2023 [facility] DATE CREATED AUTHOR AUTHOR'S ORGANIZ ATION 07/29/2024 [facility] EPIC Patient Care team informatio n (unrecognized section and content) Personnel Name: Fabiana Marquis Address: Address: [address] [place] [phone] FOR RECORDS PERTAINING TO PATIENTS WHO ARE OR HAVE BEEN ENROLLED IN A CHEMICAL DEPENDENCY/SUBSTANCEABUSE PROGRAM, SOME INFORMATION MAY BE OMITTED. This clinical summary was aggregated from multiple sources. Caution should be exercised in using it in the provision of clinical care. This summary normalizes information from multiple sources, and as a consequence, information in this document may materially change the coding, format and clinical context of patient data. In addition, data may be omitted in some cases. CLINICAL DECISIONS SHOULD BE BASED ON THE PRIMARY CLINICAL RECORDS. [facility]. provides no warranty or guarantee of the accuracy or completeness of information in this document.
[2024-08-04 12:10] LABS: Age Gdln ACOG Testing Note (.); HPV Aptima Negative (Negative); IGP, Aptima HPV, rfx 16/18,45 Note (.)
== END 2024-08-01 13:11 | disposition home or self-care (01) ==
LOC: LAB 13:10
PROVIDERS: PCP Nurse Practitioner; Visit Provider Obstetrics & Gynecology
DX: Z01.419 Encounter for gynecological examination (general) (routine) without abnormal findings (principal)
CPT/HCPCS: 87624; 88175

== ENCOUNTER 2024-08-04 09:30 | Outpatient (OUT) | payer OTHER, SELFPAY ==
--- OUTSIDE RECORDS SUMMARY | 2024-08-04 09:35 | XMS_ITS | CCD ---
Author Organization [facility] ion [facility] Care Team Providers Care Erp Implementation Consultant Name Role Phone GUILHERME, DR PARADA Admitting [...] ZIEBER, DR JORGE LUIS Smith Consulting Unavailable Deena, Fabiana Titus Primary Care Physician Deena, PARTS PERSON Fabiana L Attending Unavailable Deena, PARTS PERSON Fabiana L Admitting Unavailable Deena, PARTS PERSON Fabiana L Attending Unavailable NOTAMARA PAREKH Referring Unavailable Unavailable Primary Care Provider Unavailabl e KARMA VANEGAS Attending Unavailable GUILHERMEKARMA Attending Unavailable Allergies Allergy Classification Reported Allergen(s) Allergy Type Date of Onset Reaction(s) Facility (1 source) No Known Medication Allergies; Translations: [No Known Medication Allergies] Propensity to adverse reactions (disorder) [facility] Repository Problems Active Problems Problem Classification Problem [...] Translations: [HYPERTROPHY OF UTERUS] Onset: 09-09-2022 Episodic Other screening for suspected conditions (not mental disorders or infectious disease) (6 sources) Encounter for screening for malignant neoplasm of cervix; Translations: [Patient encounter status] Onset: 12-31-2021 Episodic Residual codes; unclassified (1 source) Acquired [...] [ENC SCREENING HUMAN PAPILLOMAVIRUS] Onset: 01-01-2022 Episodic Results Test Name Value Interpretation Reference Range Facility ALL CBC WITH AUTO DIFFon BASOPHILS ABSOLUTE AUTO 0.1 [facility] Basophils/100 WBC (Bld) 0.7 % 0.2 - 2.0 % [facility] Eosinophils/100 WBC (Bld) 1.9 % 0.9 - 7.0 % [facility] Erythrocyte distribution width (RBC) [Ratio] 13.2 % 11.0 - 15.0 % [facility] Hematocrit (Bld) [Volume fraction] 39.9 % 36.0 - 48.0 % [facility] Hemoglobin (Bld) [Mass/Vol] 12.9 g/dL 12.0 - 16.0 g/dL [facility] IMMATURE GRANULOCYTES ABS AUTO 0.02 [facility] Immature granulocytes/100 WBC (Bld) 0.2 % 0.0 - 0.5 % [facility] LYMPHOCYTES ABSOLUTE AUTO 3.5 [facility] Lymphocytes/100 WBC (Bld) 35.7 % 20.5 - 60.0 % [facility] MCH (RBC) [Entitic mass] 29.5 pg 26.7 - 34.0 pg [facility] MCHC (RBC) [Mass/Vol] 32.3 g/dL 29.9 - 35.2 g/dL [facility] MCV (RBC) [Entitic vol] 91.3 fL 81.0 - 99.0 fL [facility] MONOCYTES ABSOLUTE AUTO 0.6 [facility] Monocytes/100 WBC (Bld) 6.1 % 1.7 - 12.0 % [facility] NEUTROPHILS ABSOLUTE AUTO 5.4 [facility] Neutrophils/100 WBC (Bld) 55.4 % 43.0 - 75.0 % [facility] Platelet mean volume (Bld) [Entitic vol] 10.3 fL 9.5 - 13.5 fL [facility] TBH EO # 0.2 [facility] PLT 408 [facility] RBC 4.37 [facility] WBC 9.7 [facility] XR CHEST 2 VWSon 12-01-2023 XR CHEST [...] Chaudhary MD on 12/01/2023 1:43 PM Normal [facility] Reminderson 10-08-2023 Reminders - From: Fabiana [...] 33.9 % (14.0 - 50.0) 10/06/2023 16:38 [place] Auto 4.8 % (4.0 - 14.0) 10/06/2023 16:38 Eos Auto 2.5 % (0.0 - 8.0) 10/06/2023 16:38 Basophil Auto 0.4 % (0.0 - 2.0) 10/06/2023 16:38 Neutro Absolute 7.3 E9/L (2.0 - 7.5) 10/06/2023 16:38 Lymph Absolute ((H)) 4.2 E9/L (1.0 - 4.0) 10/06/2023 16:38 Monona Absolute 0.6 E9/L (0.2 - 1.0) 10/06/2023 [...] 5.60) Pt calls in and notified. Normal [facility] Auto Diffon 10-07-2023 Basophils/100 WBC (Bld) 0.4 % Normal 0.0-2.0 [facility] Comment on above: Order Comment: Order Added by Discern Expert. Performed By: #### 2 [id number], [id number], 0678689, 1025224, 5392798, 3979634 #### [facility] [address] [place] [address] Basophils/Leukocy victoria Auto (Bld) [Pure # fraction] 0.1 E9/L Normal 0.0-0.2 [facility] Comment on above: Order Comment: Order Added by Discern Expert. Performed By: #### 2 621950, 01401095, 1456075, 2024355, 8518982, 2394429 #### [facility] [address] [place] [address] Eosinophils/100 WBC (Bld) 2.5 % Normal 0.0-8.0 [facility] Comment on above: Order Comment: Order Added by Discern Expert. Performed By: #### 2 046607, 11467987, 2788356, 8851560, 7079921, 1044480 #### [facility] [address] [place] [address] Eosinophils/Leuko cytes Auto (Bld) [Pure # fraction] 0.3 E9/L Normal 0.0-0.5 [facility] Comment on above: Order Comment: Order Added by Discern Expert. Performed By: #### 2 904418, 40686178, 4128578, 6751163, 8597290, 9659243 #### [facility] [address] [place] [address] Lymphocytes/100 WBC (Bld) 33.9 % Normal 14.0-50.0 [facility] Comment on above: Order Comment: Order Added by Discern Expert. Performed By: #### 2 975664, 15377724, 7480462, 9210617, 4696277, 3079254 #### [facility] [address] [place] [address] Lymphocytes/Leuko cytes Auto (Bld) [Pure # fraction] 4.2 E9/L High 1.0-4.0 [facility] Comment on above: Order Comment: Order Added by Discern Expert. Performed By: #### 2 115564, 53245286, 0434487, 1126131, 6802913, 3696045 #### [facility] [address] [place] [address] Monocytes/100 WBC (Bld) 4.8 % Normal 4.0-14.0 [facility] Comment on above: Order Comment: Order Added by Discern Expert. Performed By: #### 2 503465, 80853944, 4872609, 0664352, 8388603, 1336457 #### [facility] [address] [place] [address] Monocytes/Leukocy victoria Auto (Bld) [Pure # fraction] 0.6 E9/L Normal 0.2-1.0 [facility] Comment on above: Order Comment: Order Added by Discern Expert. Performed By: #### 2 353263, 92722455, 7938436, 0347684, 0920870, 3452542 #### [facility] [address] [place] [address] Neutrophils/100 WBC (Bld) 58.4 % Normal 36.0-75.0 [facility] Comment on above: Order Comment: Order Added by Discern Expert. Performed By: #### 2 329640, 23482932, 1329107, 0257647, 7398102, 1081011 #### [facility] [address] [place] [address] Neutrophils/Leuko cytes Auto (Bld) [Pure # fraction] 7.3 E9/L Normal 2.0-7.5 [facility] Comment on above: Order Comment: Order Added by Discern Expert. Performed By: #### 2 873575, 24033152, 7687724, 5220482, 4697084, 3809010 #### [facility] [address] [place] [address] CBC w/ Auto Diffon 3 Erythrocyte distribution width (RBC) [Ratio] 14.4 % High 10.9-14.2 [facility] Comment on above: Performed By: #### 2 128740, 83160383, 3878521, 4540903, 2745898, 1717681 #### [facility] [address] [place] [address] Hematocrit (Bld) [Volume fraction] 41.5 % Normal 34.0-46.0 [facility] Comment on above: Performed By: #### 2 016689, 50221923, 0497752, 5096569, 1909206, 4003569 #### [facility] [address] [place] [address] Hemoglobin (Bld) [Mass/Vol] 13.3 g/dL Normal 12.0-16.0 [facility] Comment on above: Performed By: #### 2 173225, 89386747, 1537507, 2380441, 2940053, 9239955 #### [facility] [address] [place] [address] MCH (RBC) [Entitic mass] 28.9 pg Normal 27.0-34.0 [facility] Comment on above: Performed By: #### 2 483141, 03891483, 2768014, 5068851, 3962965, 3415993 #### [facility] [address] [id number] MCHC (RBC) [Mass/Vol] 32.0 g/dL Normal 31.4-36.0 [facility] Comment on above: Performed By: #### 2 246638, 85268372, 5530179, 2790863, 0520483, 2501647 #### [facility] [address] [address] MCV (RBC) [Entitic vol] 90.5 fL Normal 80.0-100.0 [facility] Comment on above: Performed By: #### 2 251850, 74890988, 0481881, 9418507, 6871434, 0942662 #### [facility] [address] [place] [address] Platelet mean volume (Bld) [Entitic vol] 10.0 fL Normal 6.4-10.8 [facility] Comment on above: Performed By: #### 2 160134, 64206277, 3446618, 6680062, 5906531, 6921172 #### [facility] [address] [place], [place] [address] Platelets (Bld) [#/Vol] 383.0 E9/L Normal 150.0-500.0 [facility] Comment on above: Performed By: #### 2 360783, 99856820, 2345348, 1649430, 7200433, 3522025 #### [facility] [address] [place] [address] RBC (Bld) [#/Vol] 4.6 E12/L Normal 4.3-5.9 [facility] Comment on above: Performed By: #### 2 333972, 32445635, 5212613, 4142075, 8590817, 7864131 #### [facility] [address] [place] [address] WBC corrected for nucl RBC Auto (Bld) [#/Vol] 12.5 E9/L High 4.0-11.0 [facility] Comment on above: Result Comment: Slid e reviewed by ZEYNEP. Performed By: #### 2 191703, 91969558, 1155202, 3948400, 8696952, 0387017 #### [facility] [address] [place] [address] CMPon 10-07-2023 Albumin [Mass/Vol] 4.0 g/dL Normal 3.3-5.0 [facility] Comment on above: Performed By: #### 2 801879, 56760972, 1549489, 0059795, 7862786, 0775031 #### [facility] [address] [place] [address] Albumin/Globulin [Mass ratio] 1.4 {ratio} Normal 1.1-2.2 [facility] Comment on above: Performed By: #### 2 944267, 74523481, 4321791, 2496904, 7105069, 9991984 #### [facility] [address] [place] [address] Alk Phos 81 Int._Unit/L Normal 21-[address] [facility] Comment on above: Performed By: #### 2 542085, 05960518, 6770597, 9486507, 4682634, 3204285 #### [facility] [address] [place] [address] ALT 18 Int._Unit/L Normal 6-[address] [facility] Comment on above: Performed By: #### 2 512046, 46569214, 0606527, 9217550, 5177783, 7015933 #### [facility] [address] [place] [address] Anion gap [Moles/Vol] 10 mmol/L Normal 6-16 [facility] Comment on above: Performed By: #### 2 209519, 62756102, 0070576, 8717435, 0091154, 0635835 #### [facility] [address] [place] [address] AST 13 Int._Unit/L Normal 5-[address] [facility] Comment on above: Performed By: #### 2 990431, 66340248, 0121415, 5182586, 0223114, 4205301 #### [facility] [address] [place] [address] Bili Total 0.2 mg/dL Normal 0.0-1.1 [facility] Comment on above: Performed By: #### 2 297533, 17544153, 4135190, 9318290, 7714336, 9610361 #### [facility] [address] [place] [address] BUN/Creat Ratio 9 No Units Low 10-20 [facility] Comment on above: Performed By: #### 2 184201, 77853512, 5632407, 6278129, 6520938, 1594511 #### [facility] [address] [place] [address] Calcium [Mass/Vol] 8.8 mg/dL Low 8.9-11.1 [facility] Comment on above: Performed By: #### 2 977667, 64504375, 5518176, 9630688, 7253410, 0983513 #### [facility] [address] [place] [address] Chloride [Moles/Vol] 105 mmol/L Normal 101-111 [facility] Comment on above: Performed By: #### 2 523767, 19868947, 8418330, 2849562, 1832205, 8516074 #### [facility] [address] [place] [address] CO2 [Moles/Vol] 27 mmol/L Normal 21-31 [facility] Comment on above: Performed By: #### 2 326976, 00309265, 6557774, 5171082, 1789051, 1705032 #### [facility] [address] [place] [address] Creatinine [Mass/Vol] 0.9 mg/dL Normal 0.5-1.3 [facility] Comment on above: Performed By: #### 2 401886, 38880958, 7037189, 0614267, 7716116, 7312675 #### [facility] [address] [place] [address] Globulin (S) [Mass/Vol] 2.8 g/dL Normal 1.4-4.0 [facility] Comment on above: Performed By: #### 2 921440, 28184986, 5530795, 3715396, 8653500, 9104677 #### [facility] [address] [place] [address] Glucose [Mass/Vol] 90 mg/dL Normal 55-199 [facility] Comment on above: Performed By: #### 2 522205, 08796135, 0167421, 7815756, 4009585, 3675804 #### [facility] [address] [place] [address] Potassium [Moles/Vol] 3.8 mmol/L Normal 3.5-5.3 [facility] Comment on above: Performed By: #### 2 181665, 68817092, 0945107, 5677727, 5397486, 2669771 #### [facility] [address] [place] [address] Protein [Mass/Vol] 6.8 g/dL Normal 6.0-7.8 [facility] Comment on above: Performed By: #### 2 630851, 19374290, 5916421, 2898622, 3594276, 5693381 #### [facility] [address] [place] [address] Sodium [Moles/Vol] 138 mmol/L Normal 135-145 [facility] Comment on above: Performed By: #### 2 016142, 92402417, 4611064, 2264289, 4982775, 8310946 #### [facility] [address] [place] [address] Urea nitrogen [Mass/Vol] 8 mg/dL Normal 5-21 [facility] Comment on above: Performed By: #### 2 580000, 20213942, 1597635, 7322905, 0576535, 5888340 #### [facility] [address] [place] [address] Lipid Panelon 10-07-2023 Cholesterol [Mass/Vol] 158 mg/dL Normal 120-200 [facility] Comment on above: Performed By: #### 2 999843, 65462757, 3734561, 1366998, 6122505, 0997874 #### [facility] [address] [place] [address] Cholesterol in HDL [Mass/Vol] 48 mg/dL Invalid Interpretation Code [facility] Comment on above: Result Comment: '>= 60 LOW RISK' '<= 40 HIGH RISK' Performed By: #### 2 469046, 48106400, 3258397, 1880353, 7198435, 5884272 #### [facility] [address] [place] [address] Cholesterol in LDL [Mass/Vol] 100 mg/dL Normal <=129 [facility] Comment on above: Performed By: #### 2 043989, 49718798, 8681137, 4040141, 6559801, 4240524 #### [facility] [address] [place] [address] Cholesterol in VLDL [Mass/Vol] 28 mg/dL Normal 7-40 [facility] Comment on above: Performed By: #### 2 274538, 96442365, 9933470, 7888511, 4970805, 8971674 #### [facility] [address] [place] [address] Triglyceride [Mass/Vol] 142 mg/dL Normal <=149 [facility] Comment on above: Performed By: #### 2 542732, 19351966, 7925070, 3434683, 2361382, 2538320 #### [facility] [address] [place] [address] TSHon 12-21-2023 TSH Qn 2.38 m[IU]/L Normal 0.34-5.60 [facility] Comment on above: Performed By: #### 2 250405, 47544994, 1566850, 2540291, 5971825, 2735819 #### [facility] [address] [place] [address] eGFRon 10-07-2023 GFR/1.73 sq M.predicted among non-blacks MDRD (S/P/Bld) [Vol rate/Area] mL/min/{1.73_m2} Normal >=59 [facility] Comment on above: Order Comment: Order added by Discern Expert. Performed By: #### 2 555016, 94612468, 1351973, 4010657, 6227027, 4711795 #### [facility] [address] [place] [address] Ambulatory Visit Summaryon 1 12-07-2022 Ambulatory Visit [...] for choosing us for your care. Normal [facility] Ambulatory Visit Summary SIOBHAN ROBLES :1980 Visit [...] for choosing us for your care. Normal [facility] Family Medicine Office/Clini c Noteon 10-06-2023 Family Medicine Office/Clinic Note HPI Staff Siobhan is a 43 year old female presenting for [facility] Establish Care: History: Any previous diagnosis: Anxiety, PCOS History of seeing any specialist: immunohematologist A1c 01/2022 5.4, Dr Matos Last provider: Dr Mccracken Any recent labs: around 08/2022 [facility] labs surgery Health Maintenance UTD: Colonoscopy: [...] and Father. Renal failure syndrome: Mother. Normal [facility] Comment on above: Result Comment: Elec tronically Signed By: Deena LEVI, Fabiana Titus\.br\Date and Time Signed: 10/06/23 16:35 EST CBC AUTO DIFFon 08-31-2022 BASO # 0.1 103/ul Normal 0.0-0.1 [facility] Comment on above: Performed By: #### C BC #### [facility] [address] [place] [address] Dr. Demetri Rosales Basophils/100 WBC (Bld) 0.5 % Normal 0.2-2.0 [facility] Comment on above: Performed By: #### C BC #### [facility] [address] [place] [address] Dr. Demetri Rosales EO # 0.3 103/ul Normal 0.0-0.7 [facility] Comment on above: Performed By: #### C BC #### [facility] [address] [place] [address] Dr. Demetri Rosales Eosinophils/100 WBC (Bld) 2.6 % Normal 0.9-7.0 [facility] Comment on above: Performed By: #### C BC #### [facility] [address] [place] [address] Dr. Demetri Rosales Erythrocyte distribution width (RBC) [Ratio] 13.2 % Normal 11.0-15.0 [facility] Comment on above: Performed By: #### C BC #### [facility] [address] [place] [address] Dr. Demetri Rosales Hematocrit (Bld) [Volume fraction] 40.1 % Normal 36.0-48.0 [facility] Comment on above: Performed By: #### C BC #### [facility] [address] [place] [address] Dr. Demetri Rosales Hemoglobin (Bld) [Mass/Vol] 13.2 g/dL Normal 12.0-16.0 [facility] Comment on above: Performed By: #### C BC #### [facility] [address] [place] [address] Dr. Demetri Rosales IG # 0.04 10e3/ul Critically high 0.00-0.03 [facility] Comment on above: Performed By: #### C BC #### [facility] [address] [place] [address] Dr. Demetri Rosales IG % 0.4 % Normal 0.0-0.5 [facility] Comment on above: Performed By: #### C BC #### [facility] [address] [place] [address] Dr. Demetri Rosales LYMPH # 4.1 103/ul Critically high 1.2-3.8 [facility] Comment on above: Performed By: #### C BC #### [facility] [address] [place] [address] Dr. Demetri Rosales Lymphocytes/100 WBC (Bld) 38.2 % Normal 20.5-60.0 [facility] Comment on above: Performed By: #### C BC #### [facility] [address] [place] [address] Dr. Demetri Rosales MANUAL DIFF REQ NO Normal [facility] Comment on above: Performed By: #### C BC #### [facility] [address] [place] [address] Dr. Demetri Rosales MCH (RBC) [Entitic mass] 30.4 pg Normal 26.7-34.0 [facility] Comment on above: Performed By: #### C BC #### [facility] [address] [place] [address] Dr. Demetri Rosales MCHC (RBC) [Mass/Vol] 32.9 g/dL Normal 29.9-35.2 [facility] Comment on above: Performed By: #### C BC #### [facility] [address] [place] [address] Dr. Demetri Rosales MCV (RBC) [Entitic vol] 92.4 fL Normal 81.0-99.0 [facility] Comment on above: Performed By: #### C BC #### [facility] [address] [place] [address] Dr. Demetri Rosales MONO # 0.5 103/ul Normal 0.3-0.8 [facility] Comment on above: Performed By: #### C BC #### [facility] [address] [place] [address] Dr. Demetri Rosales Monocytes/100 WBC (Bld) 4.8 % Normal 1.7-12.0 [facility] Comment on above: Performed By: #### C BC #### [facility] [address] [place] [address] Dr. Demetri Rosales NEUT # 5.7 103/ul Normal 1.4-6.5 [facility] Comment on above: Performed By: #### C BC #### [facility] [address] [place] [address] Dr. Demetri Rosales Neutrophils/100 WBC (Bld) 53.5 % Normal 43.0-75.0 [facility] Comment on above: Performed By: #### C BC #### [facility] [address] [place] [address] Dr. Demetri Rosales Platelet mean volume (Bld) [Entitic vol] 10.0 fL Normal 9.5-13.5 [facility] Comment on above: Performed By: #### C BC #### [facility] [address] [place] [address] Dr. Demetri Rosales PLT 314 103/ul Normal 150-450 [facility] Comment on above: Performed By: #### C BC #### [facility] [address] [place] [address] Dr. Demetri Rosales RBC 4.34 106/ul Normal 4.20-5.40 [facility] Comment on above: Performed By: #### C BC #### [facility] [address] [place] [address] Dr. Demetri Rosales WBC 10.7 103/ul Normal 4.0-11.0 [facility] Comment on above: Performed By: #### C BC #### [facility] [address] [place] [address] Dr. Demetri Rosales Covid-19 PCR ([facility])on 08-18 SARS-CoV-2 (COVID-19) RNA ROMANA+probe Ql (Unsp spec) Not detected Normal NOT DETECTED [facility] Comment on above: Result Comment: This test is not yet approved or cleared by the [place] FDA. When there are no FDA-approved or cleared tests available, and other criteria are met, FDA can make tests available under an emergency access mechanism called an Emergency Use Authorization (EUA). The EUA for this test is supported by the [employer] Operator of Health and Human Service's (HHS's) declaration [...] SARS-CoV-2. Performed By: #### C VDTB #### [facility] [address] [place] [address] Dr. Demetri Rosales PREG QUANT HCGon 08-31-2022 HCG QUANT <1 Normal [facility] Comment on above: Performed By: #### P REGQNT #### [facility] [address] [place], [place] [address] Dr. Demetri Rosales HCG RANGE SEE BELOW Normal [facility] Comment on above: Result Comment: 5-50 0.2-1 WEEK 50-500 1-2 WEEKS 100-5,000 2-3 WEEKS 500-10,000 3-4 WEEKS 1,000-50,000 4-5 WEEKS 10,000-100,000 5-6 WEEKS 15,000-200,000 6-8 WEEKS 10,000-100,000 2-3 MONTHS Performed By: #### P REGQNT #### [facility] [address] [address] [address] Demetri Rosales US PELVIS AND TRANSVAGon [...] JORGE LUIS GRIJALVA Date: 2022-07-09 13:59 Normal [facility] PAP ACOG PANEL 2: 30 to 65on 01-07-2022 . . Normal [facility] Comment on above: Result Comment: Perf ormed at: WB Performed By: #### 4 [id number] #### [facility] [address] [address] [address] Demetri Rosales Age Gdln ACOG Testing 30-65 Normal [facility] Comment on above: Performed By: #### 4 177813 #### [facility] [address] [address] [address] Demetri Rosales DIAGNOSIS: Comment Normal [facility] Comment on above: Result Comment: NEGA TIVE FOR INTRAEPITHELIAL LESION OR MALIGNANCY. Performed at: WB Performed By: #### 4 [id number] #### [facility] [address] [address] [address] Demetri Rosales HPV Aptima Negative Normal Negative [facility] Comment on above: Result Comment: This nucleic acid amplification test detects fourteen high-risk HPV types (16,18,31,33,35,39,45,51,52,56,58,59,66,68) without differentiation. Performed at: =G Performed By: #### [id number] #### [facility] [address] [place] [address] Dr. Demetri Rosales Methodology: Comment Normal [facility] Comment on above: Result Comment: This liquid based ThinPrep(R) pap test was screened with the use of an image guided system. Performed at: WB Performed By: #### [id number] #### [facility] [address] [place] [address] Dr. Demetri Rosales Note: Comment Normal [facility] Comment on above: Result Comment: The Pap smear is a screening test designed to aid in the detection of premalignant and malignant conditions of the uterine cervix. It is not a diagnostic procedure and should not be used as the sole means of detecting cervical cancer. Both false-positive and false-negative reports do occur. . Performed at: WB Performed By: #### [id number] #### [facility] [address] [place] [address] Dr. Demetri Rosales Performed by: Comment Normal [facility] Comment on above: Result Comment: Eva Casas, Toll Patrolman (ASCP) Performed at: WB Performed By: #### [id number] #### [facility] [address] [place] [address] Dr. Demetri Rosales Specimen adequacy: Comment Normal [facility] Comment on above: Result Comment: Sati sfactory for evaluation. Endocervical and/or squamous metaplastic cells (endocervical component) are present. Performed at: WB Performed By: #### [id number] #### [facility] [address] [place] [address] Dr. Demetri Rosales Vital Signs Date Time Vital Sign Value Performing Clinician Radhai maninder 08-01-2024 08:47-0400 Body mass index (BMI) [Ratio] 29.92 kg/m2 Karmasarai Chriso [employer] Work Phone: [facility] 08-01-2024 08:47-0400 Body weight 84.1 kg Karma Guilherme DO Work Phone: [facility] 08-01-2024 08:47-0400 Diastolic blood pressure 74 mm[Hg] Karma Guilherme DO Work Phone: [facility] 08-01-2024 08:47-0400 Systolic blood pressure 116 mm[Hg] Karma Guilherme DO Work Phone: [facility] Encounters Encounter Date Encounter Type Care Provider Facility Start: 08-01-2024 End: 08-01-2024 Bamboo flowsheet Karma Guilherme DO Work Phone: [facility] Start: 08-01-2024 End: 08-01-2024 Bamboo flowsheet Karma Guilherme DO Work Phone: [facility] Start: 08-01-2024 End: 08-01-2024 Patient encounter procedure Karma Guilherme DO Work Phone: [facility] Work Phone: Start: 08-01-2024 End: 08-01-2024 Periodic preventive med est patient 40-64yrs Karma Guilherme DO Work Phone: [facility] Comment on above: Well woman exam with routine gynecological exam; Breast cancer screening by mammogram Start: 08-01-2024 End: 08-01-2024 ambulatory KARMA GUILHERME Not Available Start: 07-22-2024 End: 07-22-2024 Clinisync Result Encounter Karma Guilherme DO Work Phone: [facility] External Department Unsolicited Start: 07-22-2024 End: 07-22-2024 Clinisync Result Encounter Karma Guilherme DO Work Phone: [facility] External Department Unsolicited Start: 07-17-2024 End: 07-18-2024 Telephone encounter Soni REZA Work Phone: [facility] Start: 07-17-2024 End: 07-17-2024 ambulatory KARMA GUILHERME Not Available Start: 12-01-2023 End: 12-05-2023 ambulatory TAMARA Boyle [facility] Start: 10-06-2023 End: 10-07-2023 ambulatory PARTS PERSON Fabiana Titus Deena Facility[place] Start: 10-06-2023 End: 10-06-2023 Lab Drop off Fabiana Shaffer [facility] Start: 09-03-2022 Encounter for preprocedural laboratory examination DR KARMA VANEGAS [facility] Start: 09-02-2022 End: 09-02-[address] KARMA VANEGAS Facility:[facility] Start: 08-31-2022 End: 09-01-[address] KARMA VANEGAS Facility:[facility] Start: 08-31-2022 End: 09-01-2022 Encounter for preprocedural laboratory examination DR KARMA VANEGAS Facility:[facility] Start: 08-30-2022 Encounter for other preprocedural examination DR KARMA VANEGAS [facility] Start: 08-25-2022 End: 08-26-[address] KARMA [...] curettage Fabiana Deena Start: 10-18-2008 Cholecystectomy Fabiana Cuenca hwab Plan of Treatment Date Care Activity Detail Author Start: 10-02-2024 End: 10-02-2024 Patient encounter procedure 10/02/2024 1:30 PM EST Procedure Visit [facility] [address] [place] [id number] Karma Vanegas, DO [address] [place] [address] [facility] Start: 08-01-2024 End: 10-01-2025 MG Breast - bilateral Screening Bilateral screening mammogram Imaging Routine Breast cancer screening by mammogram Expected: 08/01/2024 (Approximate), Expires: 10/01/2025 [facility] Work Phone: Comment on above: Expected: 08/01/2024 (Approximate), Expires: 10/01/2025 Start: 08-01-2024 End: 08-01-2024 Patient encounter procedure [facility] Comment on above: Arrived Start: 07-27-2024 End: 07-27-2024 Professional / ancillary services management 07/27/2024 8:00 AM EDT Ancillary Procedure [facility] [address] [place] [id number] [facility] THIN PREP TIS PAP AN D HR HPV DNA THIN PREP TIS PAP AND HR HPV DNA Pathology and Cytology Routine Well woman exam with routine gynecological exam Ordered: 08/01/2024 [facility] Comment on above: Ordered: 08/01/2024 Payers Date Payer Category Payer Unknown [id number] 2018 Private Health Insurance [id number] 2018 Private Health Insurance [id number] 1980 Unknown [id number] 2.16.84 [id number] 1980 Unknown [id number] 2.16.84 [id number] 1982 Unknown [id number] 2.16.84 [id number] 1982 Unknown [id number] 2.16.84 [id number] 1982 Unknown [id number] 2.16.84 [id number] 1982 Unknown [id number] 2.16.8 [id number] 1982 Unknown [id number] 2.16.8 [id number] 1982 Unknown [id number] 2.16.84 [id number] 1982 Unknown [id number] 2.16.84 [id number] 1959 Unknown [id number] Social History Date Type Detail Facility Start: 10-06-2023 Tobacco smoking status Ex-smoker (finding) [facility] Sex Assigned At Female [facility] Tobacco smoking status PAIS Tobacco smoking consumption unknown [facility] Work Phone: Start: 1980 Sex assigned at Not on file [facility] History of Present illness Narrative 08-01-2024 Roseann Barbour - 08/01/2024 8:30 AM EDT Note Date & Type Note Facility 08-01-2024 History of Presen t illness Narrative Reason for Appointment: Patient ID: Siobhan Robles is a 44 y.o. female who presents for Well Women Visit Patient presents today for Annual Exam. MEDICATIONS No current outpatient medications ALLERGIES No Known Allergies PROBLEMS Active Ambulatory Problems Diagnosis Date Noted No Active Ambulatory Problems Resolved Ambulatory Problems Diagnosis Date Noted No Resolved Ambulatory Problems No Additional Past Medical History HISTORY PAST MEDICAL HISTORY SOCIAL HISTORY History reviewed. No pertinent past medical history. Social History Tobacco Use Smoking status: Not on file Smokeless tobacco: Not on file Substance Use Topics Alcohol use: Not on file Drug use: Not on file FAMILY HISTORY No family history on file. SURGICAL HISTORY Past Surgical History: Procedure Laterality Date CHOLECYSTECTOMY 2007 or 2009 DILATION AND CURETTAGE OF UTERUS x3....1st-not sure the date,, REVIEW OF SYSTEMS Review of Systems: Review of Systems Constitutional: Negative. HENT: Negative. Eyes: Negative. Respiratory: Negative. Cardiovascular: Negative. Gastrointestinal: Negative. Genitourinary: Positive for dyspareunia, menstrual problem and pelvic pain. Musculoskeletal: Negative. Skin: Negative. Neurological: Negative. All other systems reviewed and are negative. Hematological: Negative. Endocrine: Negative. Allergic/Immunologic: Negative. OBJECTIVE Objective: Physical Exam Constitutional: Appearance: Normal appearance. She is well-developed. Genitourinary: Vulva normal. Cardiovascular: Rate and Rhythm: Normal rate and regular rhythm. Pulmonary: Effort: Pulmonary effort is normal. Breath sounds: Normal breath sounds. Abdominal: General: Bowel sounds are normal. There is no distension. Palpations: Abdomen is soft. Tenderness: There is no abdominal tenderness. There is no guarding or rebound. Musculoskeletal: General: No swelling. Normal range of motion. Right lower leg: No edema. Left lower leg: No edema. Neurological: Mental Status: She is alert and oriented to person, place, and time. Skin: General: Skin is warm and dry. Psychiatric: Mood and Affect: Mood normal. Behavior: Behavior normal. Vitals and nursing note reviewed. Exam conducted with a university services program associate present. Vitals: Estimated body mass index is 29.92 kg/m as calculated from the following: Height as of 07/17/24: 5' 6 . Weight as of this encounter: 185 lb 6.4 oz. BP: 116/74 Patient's last menstrual period was 05/18/2024. ASSESSMENT & PLAN ICD-10-CM 1. Well woman exam with routine gynecological exam Z01.419 THIN PREP TIS PAP AND HR HPV DNA 2. Breast cancer screening by mammogram Z12.31 Bilateral screening mammogram Bilateral screening mammogram Annual Exam: Patient presents today for an annual exam. Patient states she is doing well but has complaints of bleeding and pelvic pain. Patient said she is having extremely irregular bleeding and she is tired of it. Patient had a D&C Hysteroscopy/Diagnostic Laparoscopy in the past and recent ultrasound performed on 07/28/2024 showed a 4.1 cm leiomyoma in the myometrial-endometrial margin. Discussed with the patient about moving forward with a hysterectomy and patient stated that she wishes to schedule at this time. Patient will be placed on surgical schedule and will return for pre op/endometrial biopsy appointment. Pap was obtained without difficulty during today's visit. Orders Placed This Encounter Procedures Bilateral screening mammogram Follow Up: Patient is to return for pre op/endometrial biopsy appointment. Documented by Glendy Love LPN on behalf of: Karma Vanegas DO documented in this encounter [facility] Telephone encounter Note 07-17-2024 Telephone Encounter - JUAQUIN Mixon - 07/17/2024 2:17 PM EDT Note Date & Type Note Facility 07-17-2024 Telephone encount er Note Obtain Op Report and any pathology from surgery in August 2022. [facility] Note 07-17-2024 Telephone Encounter - JUAQUIN Mixon - 07/17/2024 2:17 PM EDT Note Date & Type Note Facility 07-17-2024 Miscellaneous Notes Formattin g of this note might be different from the original. Obtain Op Report and any pathology from surgery in August 2022. documented in this encounter [facility] Evaluation + Plan note 10-06-2023 Note Date & Type Note Facility 10-06-2023 [facility] + [facility]06/23Comprehensive Metabolic Panel 10/06/23Lipid Panel 10/06/23Thyroid Stimulating Hormone 10/06/23 [facility] Clinical Note 09-02-2022 Note Date & Type Note Facility 09-02-2022 Note OP Note OPERATION DATE: 09/02/2022 PROCEDURE: D AND C hysteroscopy, diagnostic laparoscopy. PREOPERATIVE DIAGNOSIS: Menorrhagia, pelvic pain, enlarged uterus. POSTOPERATIVE DIAGNOSIS: Menorrhagia, pelvic pain, enlarged uterus, adenomyosis. ANESTHESIA: General. SURGEON: Karma Vanegas D.O. [employer]: JOSETTE Pacheco URINE OUTPUT: Yellow and clear. [...] the Recovery Room in stable condition. [facility] note Note Date & Type Note Facility Evaluation note Diagnosis Well woman exam with routine gynecological exam Routine gynecological examination Breast cancer screening by mammogram documented in this encounter [facility] Hospital course Narrative Note Date & Type Note Facility Hospital course Narrative No data available for this section [facility] Hospital Discharge instructions Note Date & Type Note Facility Hospital Discharge instructions No data available for this section [facility] Progress note Note Date & Type Note Facility Progress note No data available for this section [facility] Summary Purpose Family History No Family History Records Found No data available for this section No Family History Records FoundNo Family History Records FoundNo Family History Records Found Advance Directives No Advanced Directives Records FoundNo Advanced Directives Records FoundNo Advanced Directives Records FoundNo Advanced Directives Records Found Additional Source Comments INFORMATION SOURCE (unrecogn ized section and content) DATE CREATED AUTHOR 10/28/2022 [facility] DATE CREATED AUTHOR AUTHOR'S ORGANIZ ATION 10/08/2023 [facility] DATE CREATED AUTHOR AUTHOR'S ORGANIZ ATION 12/06/2023 [facility] DATE CREATED AUTHOR AUTHOR'S ORGANIZ ATION 08/03/[address] [facility] EPIC Patient Care team informatio n (unrecognized section and content) Personnel Name: Fabiana Marquis Address: Address: [address] [place] [address]- Reason for Visit (unrecogniz ed section and content) Reason Comments Well Women Visit FOR RECORDS PERTAINING TO PATIENTS WHO ARE [...] BE BASED ON THE PRIMARY CLINICAL RECORDS. [facility]. provides no warranty or guarantee of the accuracy or completeness of information in this document.
--- NOTE | 2024-08-04 10:02 | MM_ITS ---
Patient Name: SIOBHAN ROBLES MR#: [id number] : 1980 Exam Date: 08/04/2024 Ordering Doctor: DR Daren Vanegas . RADIOLOGY REPORT PROCEDURE: MM TOMOSYNTHESIS SCREENING BI COMPARISON: None. INDICATIONS: Screening Calculator Name NCI Breast Cancer Risk Assessment Tool 5 Year Breast Cancer Risk 0.60% Lifetime Breast Cancer Risk 9.70% Personal Breast Cancer No Personal Ovarian Cancer No Treatments None Family Cancers Grandmother-maternal with breast cancer at age 42; Grandmother-paternal with pancreatic cancer at age 74. LOCATION: [facility] BREAST COMPOSITION: The breasts are heterogeneously dense,which may obscure small masses. FINDINGS: DIAGNOSTIC CATEGORY 0--INCOMPLETE: NEED ADDITIONAL IMAGING EVALUATION. Scattered benign-appearing calcifications are present. Scattered benign-appearing lymph nodes are present. RIGHT BREAST: 8.3 mm partially circumscribed nodule upper outer quadrant, 10 o'clock position, mid to posterior. Ultrasound follow-up recommended. LEFT BREAST: No significant suspicious finding. RECOMMENDATIONS: ULTRASOUND: RIGHT BREAST PLEASE NOTE: A NORMAL MAMMOGRAM DOES NOT EXCLUDE THE POSSIBILITY OF BREAST CANCER. A CLINICALLY SUSPICIOUS PALPABLE LUMP SHOULD BE BIOPSIED. Dictated by: Clark Hay MD on 08/04/2024 at 12:43 Approved by: Clark Hay MD on 08/04/2024 at 12:45
== END 2024-08-04 09:31 | disposition home or self-care (01) ==
LOC: MAMMO 09:31
PROVIDERS: PCP Nurse Practitioner; Visit Provider Obstetrics & Gynecology
DX: Z12.31 Encounter for screening mammogram for malignant neoplasm of breast (principal); Z80.3 Family history of malignant neoplasm of breast; Z80.8 Family history of malignant neoplasm of other organs or systems
CPT/HCPCS: 77063; 77067

== ENCOUNTER 2024-08-07 11:33 | Outpatient (OUT) | payer OTHER, SELFPAY ==
--- OUTSIDE RECORDS SUMMARY | 2024-08-07 11:36 | XMS_ITS | CCD ---
Author Organization [facility] ion [facility] Care Team Providers Care Client Success Manager Name Role Phone GUILHERME, DR PARADA Admitting Unavailable GUILHERME, DR PARADA Attending Unavailable BRISTOL, DR ROAMNO Primary Care Unavailable GUILHERME, DR PARADA Consulting [...] Unavailable Deena, Fabiana Titus Primary Care Physician [phone] Deena, CHEMISTS Fabiana L Attending Unavailable Deena, CHEMISTS Fabiana L Admitting Unavailable Deena, CHEMISTS Fabiana L Attending Unavailable NOTAMARA PAREKH Referring Unavailable Unavailable Primary Care Provider Unavailabl e KARMA VANEGAS Attending Unavailable GUILHERMEKARMA Attending Unavailable Allergies Allergy Classification Reported Allergen(s) Allergy Type Date of Onset Reaction(s) Facility (1 source) No Known Medication Allergies; Translations: [No Known Medication Allergies] Propensity to adverse reactions (disorder) [facility] Repository Problems Active Problems Problem Classification Problem [...] Test Name Value Interpretation Reference Range Facility IGP,APTIMA HPV,AGE GDLNon AGE GDLN ACOG TESTING Note . [facility] Comment on above: TESTS RESULT FLAG UN ITS REF RANGE LAB Clinician Provided Cytology Information Source.............Cervix No. of containers..01 ThinPrep Vial Age Florenciao ACOG Victoria... FLAG LEGEND: L-Low Normal,H-High Normal,LL-Alert Low,HH-Alert High <-Panic Low,>-Panic High,A-Abnormal,AA-Critical Abnormal Performed at: 01 =G [address] [address] Chyna Guzmán MD, HPV APTIMA Negative Negative [facility] Comment on above: This nucleic acid am plification test detects fourteen high- risk HPV types (16,18,31,33,35,39,45,51,52,56,58,59,66,68) without differentiation. Performed at: =[address] [id number] Head Cager: Chyna Guzmán MD, Phone: [phone] Performed at: - [address] [id number] Head Cager: Chyna Guzmán MD, Phone: [phone] IGP, APTIMA HPV, RFX 16/18,45 Note . [facility] Comment on above: TESTS RESULT [facility] REF RANGE LAB DIAGNOSIS: 02 NEGATIVE FOR INTRAEPITHELIAL LESION OR MALIGNANCY. Specimen adequacy: 02 Satisfactory for evaluation. Endocervical and/or squamous metaplastic cells (endocervical component) are present. Performed by: 02 Angelica Cochran Nurse Emergency ([facility]) . 02 Note: Note 02 The Pap smear is a screening test designed to aid in the detection of premalignant and malignant conditions of the uterine cervix. It is not a diagnostic procedure and should not be used as the sole means of detecting cervical cancer. Both false-positive and false-negative reports do occur. Test Methodology: Note 02 This liquid based ThinPrep(R) pap test was screened with the use of an image guided system. HPV Genotype Reflex Note 02 Criteria not met, HPV Genotype not performed. FLAG LEGEND: L-Low Normal,H-High Normal,LL-Alert Low,HH-Alert High <-Panic Low,>-Panic High,A-Abnormal,AA-Critical Abnormal Performed at: [address] [place] [address] Chyna Guzmán MD, BRUSH-SPATULA CERVIX [facility] ALL CBC WITH AUTO DIFFon BASOPHILS ABSOLUTE AUTO 0.1 [facility] Basophils/100 WBC (Bld) 0.7 % 0.2 - 2.0 % [facility] Eosinophils/100 WBC (Bld) 1.9 % 0.9 - 7.0 % [facility] Erythrocyte distribution width (RBC) [Ratio] 13.2 % 11.0 - 15.0 % [facility] Hematocrit (Bld) [Volume fraction] 39.9 % 36.0 - 48.0 % [facility] Hemoglobin (Bld) [Mass/Vol] 12.9 g/dL 12.0 - 16.0 g/dL [facility] IMMATURE GRANULOCYTES ABS AUTO 0.02 [facility] Immature granulocytes/100 WBC (Bld) 0.2 % 0.0 - 0.5 % [facility] LYMPHOCYTES ABSOLUTE AUTO 3.5 [facility] Lymphocytes/100 WBC (Bld) 35.7 % 20.5 - 60.0 % [facility] MCH (RBC) [Entitic mass] 29.5 pg 26.7 - 34.0 pg [facility] MCHC (RBC) [Mass/Vol] 32.3 g/dL 29.9 - 35.2 g/dL [facility] MCV (RBC) [Entitic vol] 91.3 fL 81.0 - 99.0 fL [facility] MONOCYTES ABSOLUTE AUTO 0.6 [facility] Monocytes/100 WBC (Bld) 6.1 % 1.7 - 12.0 % [facility] NEUTROPHILS ABSOLUTE AUTO 5.4 [facility] Neutrophils/100 WBC (Bld) 55.4 % 43.0 - 75.0 % [facility] Platelet mean volume (Bld) [Entitic vol] 10.3 fL 9.5 - 13.5 fL [facility] TBH EO # 0.2 [facility] PLT [address] [facility] RBC 4.37 [facility] WBC 9.7 [facility] XR CHEST 2 VWSon 12-01-2023 XR [...] Chaudhary MD on 12/01/2023 1:43 PM Normal [facility] Reminderson 10-08-2023 Reminders - From: Fabiana Marquis [...] 33.9 % (14.0 - 50.0) 10/06/2023 16:38 [place] Auto 4.8 % (4.0 - 14.0) 10/06/2023 16:38 Eos Auto 2.5 % (0.0 - 8.0) 10/06/2023 16:38 Basophil Auto 0.4 % (0.0 - 2.0) 10/06/2023 16:38 Neutro Absolute 7.3 E9/L (2.0 - 7.5) 10/06/2023 16:38 Lymph Absolute ((H)) 4.2 E9/L (1.0 - 4.0) 10/06/2023 16:38 [place] Absolute 0.6 E9/L (0.2 - 1.0) 10/06/2023 [...] 5.60) Pt calls in and notified. Normal [facility] Auto Diffon 10-07-2023 Basophils/100 WBC (Bld) 0.4 % Normal 0.0-2.0 [facility] Comment on above: Order Comment: Order Added by Discern Expert. Performed By: #### 2 548114, 19655783, 4385309, 9803634, 1304641, 6824311 #### [facility] [address] [place] [address] Basophils/Leukocy victoria Auto (Bld) [Pure # fraction] 0.1 E9/L Normal 0.0-0.2 [facility] Comment on above: Order Comment: Order Added by Discern Expert. Performed By: #### 2 362011, 86470174, 7604641, 3393331, 4405314, 2587882 #### [facility] [address] [place] [address] Eosinophils/100 WBC (Bld) 2.5 % Normal 0.0-8.0 [facility] Comment on above: Order Comment: Order Added by Discern Expert. Performed By: #### 2 180631, 66379085, 6868677, 7506605, 1186320, 2253273 #### [facility] [address] [place] [address] Eosinophils/Leuko cytes Auto (Bld) [Pure # fraction] 0.3 E9/L Normal 0.0-0.5 [facility] Comment on above: Order Comment: Order Added by Discern Expert. Performed By: #### 2 632669, 49397512, 2619529, 6630365, 5000073, 3401187 #### [facility] [address] [place] [address] Lymphocytes/100 WBC (Bld) 33.9 % Normal 14.0-50.0 [facility] Comment on above: Order Comment: Order Added by Discern Expert. Performed By: #### 2 372833, 70451213, 8962086, 8175031, 0471356, 7899416 #### [facility] [address] [place] [address] Lymphocytes/Leuko cytes Auto (Bld) [Pure # fraction] 4.2 E9/L High 1.0-4.0 [facility] Comment on above: Order Comment: Order Added by Leana Expert. Performed By: #### 2 414608, 25788106, 8928510, 2879125, 7646106, 0426585 #### [facility] [address] [place] [address] Monocytes/100 WBC (Bld) 4.8 % Normal 4.0-14.0 [facility] Comment on above: Order Comment: Order Added by Leana Expert. Performed By: #### 2 108880, 29093689, 5088044, 1415753, 1754320, 8633293 #### [facility] [address] [place] [address] Monocytes/Leukocy victoria Auto (Bld) [Pure # fraction] 0.6 E9/L Normal 0.2-1.0 [facility] Comment on above: Order Comment: Order Added by Leana Expert. Performed By: #### 2 152872, 41552892, 6901149, 4462690, 5369065, 7599470 #### [facility] [address] [place] [address] Neutrophils/100 WBC (Bld) 58.4 % Normal 36.0-75.0 [facility] Comment on above: Order Comment: Order Added by Discern Expert. Performed By: #### 2 141576, 70857801, 4840144, 3412937, 1701777, 0739888 #### [facility] [address] [place] [address] Neutrophils/Leuko cytes Auto (Bld) [Pure # fraction] 7.3 E9/L Normal 2.0-7.5 [facility] Comment on above: Order Comment: Order Added by Discern Expert. Performed By: #### 2 207377, 68672169, 8101642, 3948057, 4258844, 3976964 #### [facility] [address] [place] [address] CBC w/ Auto Diffon 3 Erythrocyte distribution width (RBC) [Ratio] 14.4 % High 10.9-14.2 [facility] Comment on above: Performed By: #### 2 125547, 18928663, 3666744, 3754979, 6491685, 5320256 #### [facility] [address] [place] [address] Hematocrit (Bld) [Volume fraction] 41.5 % Normal 34.0-46.0 [facility] Comment on above: Performed By: #### 2 491125, 30093205, 6214956, 2418708, 7750652, 9304624 #### [facility] [address] [place] [address] Hemoglobin (Bld) [Mass/Vol] 13.3 g/dL Normal 12.0-16.0 [facility] Comment on above: Performed By: #### 2 341176, 84525269, 6545188, 0236036, 0520004, 3447324 #### [facility] [address] [place] [address] MCH (RBC) [Entitic mass] 28.9 pg Normal 27.0-34.0 [facility] Comment on above: Performed By: #### 2 225951, 51170864, 0617389, 3622924, 5175169, 3768487 #### [facility] [address] [place] [address] MCHC (RBC) [Mass/Vol] 32.0 g/dL Normal 31.4-36.0 [facility] Comment on above: Performed By: #### 2 983772, 56440510, 9667926, 4393276, 2132859, 8932974 #### [facility] [address] [place] [address] MCV (RBC) [Entitic vol] 90.5 fL Normal 80.0-100.0 [facility] Comment on above: Performed By: #### 2 521774, 23089258, 2886822, 7439249, 9098263, 7497370 #### [facility] [address] [place] [address] Platelet mean volume (Bld) [Entitic vol] 10.0 fL Normal 6.4-10.8 [facility] Comment on above: Performed By: #### 2 847731, 31590154, 6452745, 7287538, 9992012, 6038570 #### [facility] [address] [place] [address] Platelets (Bld) [#/Vol] 383.0 E9/L Normal 150.0-500.0 [facility] Comment on above: Performed By: #### 2 629076, 66827963, 9536166, 7280716, 9566995, 7646512 #### [facility] [address] [place] [address] RBC (Bld) [#/Vol] 4.6 E12/L Normal 4.3-5.9 [facility] Comment on above: Performed By: #### 2 034119, 01942208, 3752038, 7846281, 8342236, 2103818 #### [facility] [address] [place] [address] WBC corrected for nucl RBC Auto (Bld) [#/Vol] 12.5 E9/L High 4.0-11.0 [facility] Comment on above: Result Comment: Slid e reviewed by ZEYNEP. Performed By: #### 2 619261, 53319813, 8324182, 1505425, 9572373, 2768394 #### [facility] [address] [place] [address] CMPon 10-07-2023 Albumin [Mass/Vol] 4.0 g/dL Normal 3.3-5.0 [facility] Comment on above: Performed By: #### 2 234579, 82257435, 1567467, 4829060, 0992536, 3875211 #### [facility] [address] [place] [address] Albumin/Globulin [Mass ratio] 1.4 {ratio} Normal 1.1-2.2 [facility] Comment on above: Performed By: #### 2 768881, 28669570, 2301970, 7539924, 9169906, 5558414 #### [facility] [address] [place] [address] Alk Phos 81 Int._Unit/L Normal 21-98 [facility] Comment on above: Performed By: #### 2 527499, 44827821, 0277767, 0995281, 3709943, 7618400 #### [facility] [address] [place] [address] ALT 18 Int._Unit/L Normal 6-46 [facility] Comment on above: Performed By: #### 2 344494, 44450900, 7454064, 0846866, 3587033, 1908213 #### [facility] [address] [place] [address] Anion gap [Moles/Vol] 10 mmol/L Normal 6-16 [facility] Comment on above: Performed By: #### 2 227737, 50118670, 6019685, 5112757, 8567546, 7194385 #### [facility] [address] [place] [address] AST 13 Int._Unit/L Normal 5-43 [facility] Comment on above: Performed By: #### 2 346316, 21175888, 3230364, 6485970, 9492201, 7462788 #### [facility] [address] [place] [address] Bili Total 0.2 mg/dL Normal 0.0-1.1 [facility] Comment on above: Performed By: #### 2 379280, 51454455, 4880425, 7738787, 0023119, 7029541 #### [facility] [address] [place] [address] BUN/Creat Ratio 9 No Units Low 10-20 [facility] Comment on above: Performed By: #### 2 602086, 54721105, 1692681, 8905267, 1497359, 6248573 #### [facility] [address] [place] [address] Calcium [Mass/Vol] 8.8 mg/dL Low 8.9-11.1 [facility] Comment on above: Performed By: #### 2 959490, 91331876, 1951985, 7704202, 6613858, 5729956 #### [facility] [address] [place] [address] Chloride [Moles/Vol] 105 mmol/L Normal 101-111 [facility] Comment on above: Performed By: #### 2 242090, 47360834, 5233411, 0469093, 0550193, 4293139 #### [facility] [address] [place] [address] CO2 [Moles/Vol] 27 mmol/L Normal 21-31 [facility] Comment on above: Performed By: #### 2 296300, 12081083, 5311243, 9898478, 2733171, 9647960 #### [facility] [address] [place] [address] Creatinine [Mass/Vol] 0.9 mg/dL Normal 0.5-1.3 [facility] Comment on above: Performed By: #### 2 262143, 07617022, 5647965, 3673089, 4034965, 5584931 #### [facility] [address] [place] [address] Globulin (S) [Mass/Vol] 2.8 g/dL Normal 1.4-4.0 [facility] Comment on above: Performed By: #### 2 916507, 23849942, 9477458, 9599216, 9501838, 3876202 #### [facility] [address] [place] [address] Glucose [Mass/Vol] 90 mg/dL Normal 55-199 [facility] Comment on above: Performed By: #### 2 825644, 27240485, 0068380, 4654889, 7868405, 0227228 #### [facility] [address] [place] [address] Potassium [Moles/Vol] 3.8 mmol/L Normal 3.5-5.3 [facility] Comment on above: Performed By: #### 2 392259, 15250520, 1051298, 0696133, 3821112, 4541594 #### [facility] [address] [place] [address] Protein [Mass/Vol] 6.8 g/dL Normal 6.0-7.8 [facility] Comment on above: Performed By: #### 2 141770, 40856711, 9807202, 9400531, 4500113, 9795018 #### [facility] [address] [place] [address] Sodium [Moles/Vol] 138 mmol/L Normal 135-145 [facility] Comment on above: Performed By: #### 2 973004, 54026850, 3543498, 1810865, 9923781, 4023131 #### [facility] [address] [place] [address] Urea nitrogen [Mass/Vol] 8 mg/dL Normal 5-21 [facility] Comment on above: Performed By: #### 2 880594, 69707986, 5202583, 9193844, 8250760, 6361807 #### [facility] [address] [place] [address] Lipid Panelon 10-07-2023 Cholesterol [Mass/Vol] 158 mg/dL Normal 120-200 [facility] Comment on above: Performed By: #### 2 049237, 83545917, 0895886, 0098402, 6006613, 1151056 #### [facility] [address] [place] [address] Cholesterol in HDL [Mass/Vol] 48 mg/dL Invalid Interpretation Code [facility] Comment on above: Result Comment: '>= 60 LOW RISK' '<= 40 HIGH RISK' Performed By: #### 2 683844, 31756832, 0702038, 1784628, 2971094, 1715842 #### [facility] [address] [place] [address] Cholesterol in LDL [Mass/Vol] 100 mg/dL Normal <=129 [facility] Comment on above: Performed By: #### 2 086614, 12428259, 8353253, 4032436, 7375335, 0167233 #### [facility] [address] [place] [address] Cholesterol in VLDL [Mass/Vol] 28 mg/dL Normal 7-40 [facility] Comment on above: Performed By: #### 2 641638, 69552371, 8358450, 2285466, 9856440, 1902337 #### [facility] [address] [place] [address] Triglyceride [Mass/Vol] 142 mg/dL Normal <=149 [facility] Comment on above: Performed By: #### 2 131200, 12861068, 7924254, 8513384, 0639250, 2026570 #### [facility] [address] [place] [address] TSHon 10-07-2023 TSH Qn 2.38 m[IU]/L Normal 0.34-5.60 [facility] Comment on above: Performed By: #### 2 730384, 10592253, 4046301, 4154809, 6924592, 9035867 #### [facility] [address] [place] [address] eGFRon 10-07-2023 GFR/1.73 sq M.predicted among non-blacks MDRD (S/P/Bld) [Vol rate/Area] mL/min/{1.73_m2} Normal >=59 [facility] Comment on above: Order Comment: Order added by Discern Expert. Performed By: #### 2 856504, 08543152, 3678598, 8093234, 0755266, 9103307 #### [facility] [address] [place] [address] Ambulatory Visit Summaryon 1 12-07-2022 Ambulatory Visit Summary TRAVIS SIOBHAN C :1980 Visit Date:10/06/2023 Ambulatory Visit Instructions Your [...] for choosing us for your care. Normal [facility] Ambulatory Visit Summary SIOBHAN ROBLES :1980 Visit [...] for choosing us for your care. 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 Renal failure syndrome: Mother. Normal [facility] Comment on above: Result Comment: Elec tronically Signed By: Fabiana Marquis\.br\Date and Time Signed: 10/06/23 16:35 EST CBC AUTO DIFFon 08-31-2022 BASO # 0.1 103/ul Normal 0.0-0.1 [facility] Comment on above: Performed By: #### C BC #### [facility] [address] [address] [address] Demetri Rosales Basophils/100 WBC (Bld) 0.5 % Normal 0.2-2.0 [facility] Comment on above: Performed By: #### C BC #### [facility] [address] [place] [address] Dr. Demetri Rosales EO # 0.3 103/ul Normal 0.0-0.7 [facility] Comment on above: Performed By: #### C BC #### [facility] [address] [address] [address] Demetri Rosales Eosinophils/100 WBC (Bld) 2.6 % Normal 0.9-7.0 [facility] Comment on above: Performed By: #### C BC #### [facility] [address] [place] [address] Dr. Demetri Rosales Erythrocyte distribution width (RBC) [Ratio] 13.2 % Normal 11.0-15.0 [facility] Comment on above: Performed By: #### C BC #### [facility] [address] [place] [address] Dr. Demetri Rosales Hematocrit (Bld) [Volume fraction] 40.1 % Normal 36.0-48.0 [facility] Comment on above: Performed By: #### C BC #### [facility] [address] [place] [address] Dr. Demetri Rosales Hemoglobin (Bld) [Mass/Vol] 13.2 g/dL Normal 12.0-16.0 [facility] Comment on above: Performed By: #### C BC #### [facility] [address] [address] [address] Demetri Rosales IG # 0.04 10e3/ul Critically high 0.00-0.03 [facility] Comment on above: Performed By: #### C BC #### [facility] [address] [address] [address] Demetri Rosales IG % 0.4 % Normal 0.0-0.5 [facility] Comment on above: Performed By: #### C BC #### [facility] [address] [place] [address] Dr. Demetri Rosales LYMPH # 4.1 103/ul Critically high 1.2-3.8 [facility] Comment on above: Performed By: #### C BC #### [facility] [address] [place] [address] Dr. Demetri Rosales Lymphocytes/100 WBC (Bld) 38.2 % Normal 20.5-60.0 [facility] Comment on above: Performed By: #### C BC #### [facility] [address] [place] [address] Dr. Demetri Rosales MANUAL DIFF REQ NO Normal [facility] Comment on above: Performed By: #### C BC #### [facility] [address] [place] [address] Dr. Demetri Rosales MCH (RBC) [Entitic mass] 30.4 pg Normal 26.7-34.0 [facility] Comment on above: Performed By: #### C BC #### [facility] [address] [place] [address] Dr. Demetri Rosales MCHC (RBC) [Mass/Vol] 32.9 g/dL Normal 29.9-35.2 [facility] Comment on above: Performed By: #### C BC #### [facility] [address] [place] [address] Dr. Demetri Rosales MCV (RBC) [Entitic vol] 92.4 fL Normal 81.0-99.0 [facility] Comment on above: Performed By: #### C BC #### [facility] [address] [place] [address] Dr. Demetri Rosales MONO # 0.5 103/ul Normal 0.3-0.8 [facility] Comment on above: Performed By: #### C BC #### [facility] [address] [place] [address] Dr. Demetri Rosales Monocytes/100 WBC (Bld) 4.8 % Normal 1.7-12.0 [facility] Comment on above: Performed By: #### C BC #### [facility] [address] [place] [address] Dr. Demetri Rosales NEUT # 5.7 103/ul Normal 1.4-6.5 [facility] Comment on above: Performed By: #### C BC #### [facility] [address] [place] [address] Dr. Demetri Rosales Neutrophils/100 WBC (Bld) 53.5 % Normal 43.0-75.0 [facility] Comment on above: Performed By: #### C BC #### [facility] [address] [place] [address] Dr. Demetri Rosales Platelet mean volume (Bld) [Entitic vol] 10.0 fL Normal 9.5-13.5 [facility] Comment on above: Performed By: #### C BC #### [facility] [address] [place] [address] Dr. Demetri Rosales PLT 314 103/ul Normal 150-450 [facility] Comment on above: Performed By: #### C BC #### [facility] [address] [place] [address] Dr. Demetri Rosales RBC 4.34 106/ul Normal 4.20-5.40 [facility] Comment on above: Performed By: #### C BC #### [facility] [address] [place] [address] Dr. Demetri Rosales WBC 10.7 103/ul Normal 4.0-11.0 [facility] Comment on above: Performed By: #### C BC #### [facility] [address] [place] [address] Dr. Demetri Rosales Covid-19 PCR (CVDTB)on 08-18 SARS-CoV-2 (COVID-19) RNA ROMANA+probe Ql (Unsp spec) Not detected Normal NOT DETECTED [facility] Comment on above: Result Comment: This test is not yet approved or cleared by the [place] FDA. When there are no FDA-approved or cleared tests available, and other criteria are met, FDA can make tests available under an emergency access mechanism called an Emergency Use Authorization (EUA). The EUA for this test is supported by the [place] of Health and Human Service's (HHS's) declaration [...] consistent with SARS-CoV-2. Performed By: #### C VDTBH #### [facility] [address] [address] [address] Demetri Rosales PREG QUANT HCGon 08-31-2022 HCG QUANT <1 Normal [facility] Comment on above: Performed By: #### P REGQNT #### [facility] [address] [address] [address] Demetri Rosales HCG RANGE SEE BELOW Normal [facility] Comment on above: Result Comment: 5-50 0.2-1 WEEK 50-500 1-2 WEEKS 100-5,000 2-3 WEEKS 500-10,000 3-4 WEEKS 1,000-50,000 4-5 WEEKS 10,000-100,000 5-6 WEEKS 15,000-200,000 6-8 WEEKS 10,000-100,000 2-3 MONTHS Performed By: #### P REGQNT #### [facility] [address] [place] [address] Dr. Demetri Rosales US PELVIS AND TRANSVAGon [...] JORGE LUIS GRIJALVA Date: 2022-07-09 13:59 Normal [facility] PAP ACOG PANEL 2: 30 to 65on 01-07-2022 . . Normal [facility] Comment on above: Result Comment: Perf ormed at: WB Performed By: #### 4 [id number] #### [facility] [address] [place] [address] Dr. Demetri Rosales Age Gdln ACOG Testing 30-65 Normal [facility] Comment on above: Performed By: #### 4 [id number] #### [facility] [address] [address] [address] Demetri Rosales DIAGNOSIS: Comment Normal [facility] Comment on above: Result Comment: NEGA TIVE FOR INTRAEPITHELIAL LESION OR MALIGNANCY. Performed at: WB Performed By: [id number] #### [facility] [address] [place] [address] Dr. Demetri Rosales HPV Aptima Negative Normal Negative [facility] Comment on above: Result Comment: This nucleic acid amplification test detects fourteen high-risk HPV types (16,18,31,33,35,39,45,51,52,56,58,59,66,68) without differentiation. Performed at: =G Performed By: #### [id number] #### [facility] [address] [place] [address] Dr. Demetri Rosales Methodology: Comment [facility] Comment on above: Result Comment: This liquid based ThinPrep(R) pap test was screened with the use of an image guided system. Performed at: WB Performed By: #### [id number] #### [facility] [address] [place] [address] Dr. Demetri Rosales Note: Comment Normal [facility] Comment on above: Result Comment: The Pap smear is a screening test designed to aid in the detection of premalignant and malignant conditions of the uterine cervix. It is not a diagnostic procedure and should not be used as the sole means of detecting cervical cancer. Both false-positive and false-negative reports do occur. . Performed at: WB Performed By: #### [id number] #### [facility] [address] [place] [address] Dr. Demetri Rosales Performed by: Comment Normal [facility] Comment on above: Result Comment: Eva Casas, Nurse Emergency (ASCP) Performed at: WB Performed By: #### [id number] #### [facility] [address] [place] [address] Dr. Demetri Rosales Specimen adequacy: Comment [facility] Comment on above: Result Comment: Sati sfactory for evaluation. Endocervical and/or squamous metaplastic cells (endocervical component) are present. Performed at: WB Performed By: #### [id number] #### [facility] [address] [place] [address] Dr. Demetri Rosales Vital Signs Date Time Vital Sign Value Performing Clinician Nandini dickens 08-01-2024 08:47-0400 Body mass index (BMI) [Ratio] 29.92 kg/m2 [employer] Work Phone: [facility] 08-01-2024 08:47-0400 Body weight 84.1 kg [employer] Work Phone: [facility] 08-01-2024 08:47-0400 Diastolic blood pressure 74 mm[Hg] Karma Guilherme DO Work Phone: [facility] 08-01-2024 08:47-0400 Systolic blood pressure 116 mm[Hg] Karma Guilherme DO Work Phone: [facility] Healthcare Encounters Encounter Date Encounter Type Care Provider Facility Start: 08-01-2024 End: 08-01-2024 Bamboo flowsheet Karma Guilherme DO Work Phone: [facility] Start: 08-01-2024 End: 08-04-2024 Bamboo flowsheet Karma Guilherme DO Work Phone: [facility] Start: 08-01-2024 End: 08-04-2024 Clinisync Result Encounter Karma Guilherme DO Work Phone: [facility] External Department Unsolicited Start: 08-01-2024 End: 08-01-2024 Patient encounter procedure Karma Guilherme DO Work Phone: [facility] Work Phone: Start: 08-01-2024 End: 08-01-2024 Periodic preventive med est patient 40-64yrs Karma Guilherme DO Work Phone: [facility] Comment on above: Well woman exam with routine gynecological exam; Breast cancer screening by mammogram Start: 08-01-2024 End: 08-01-2024 ambulatory KARMA GUILHERME Not Available Start: 07-22-2024 End: 07-22-2024 Clinisync Result Encounter Karma Guilherme DO Work Phone: [facility] External Department Unsolicited Start: 07-22-2024 End: 07-22-2024 Clinisync Result Encounter Karma Guilherme DO Work Phone: [facility] External Department Unsolicited Start: 07-17-2024 End: 07-18-2024 Telephone encounter Soni REZA Work Phone: [facility] Start: 07-17-2024 End: 07-17-2024 ambulatory KARMA GUILHERME Not Available Start: 12-01-2023 End: 12-05-2023 ambulatory TAMARA Boyle [facility] Start: 10-06-2023 End: 10-07-2023 ambulatory CHEMISTS Fabiana Titus Deena Facility:[facility] Start: 10-06-2023 End: 10-06-2023 Lab Drop off Fabiana Shaffer [facility] Start: 09-03-2022 Encounter for preprocedural laboratory examination DR KARMA VANEGAS [facility] Start: 09-02-2022 End: 09-02-[address] KARMA VANEGAS Facility:[facility] Start: 08-31-2022 End: 09-01-[address] KARMA VANEGAS Facility:[facility] Start: 08-31-2022 End: 09-01-2022 Encounter for preprocedural laboratory examination DR KARMA VANEGAS Facility:[facility] Start: 08-30-2022 Encounter for other preprocedural examination DR KARMA VANEGAS [facility] Start: 08-25-2022 End: 08-26-[address] KARMA VANEGAS Facility:[facility] Start: 08-25-2022 End: 08-26-2022 Encounter for other preprocedural examination DR KARMA VANEGAS Facility:[facility] Start: 07-09-2022 End: 07-10-[address] KARMA VANEGAS Facility:[facility] Start: 12-31-2021 End: 12-31-[address] KARMA VANEGAS Facility:[facility] Procedures Date Procedure Procedure Detail Performing Clinician Start: 08-01-2024 IGP,APTIMA HPV,AGE GDLN Karma Vanegas DO Work Phone: Start: 07-22-2024 ALL CBC WITH AUTO DIFF Karma Vanegas DO Work Phone: Start: 10-18-2014 Dilation and curettage Fabiana Deena Start: 10-18-2008 Cholecystectomy Fabiana Cuenca hwab Plan of Treatment Date Care Activity Detail Author Start: 10-02-2024 End: 10-02-2024 Patient encounter procedure 10/02/2024 1:30 PM EST Procedure Visit [facility] [address] [place] [address] Karma Vanegas, DO [address] [place] [address] [facility] Start: 08-01-2024 End: 10-01-2025 MG Breast - bilateral Screening Bilateral screening mammogram Imaging Routine Breast cancer screening by mammogram Expected: 08/01/2024 (Approximate), Expires: 10/01/2025 [facility] Work Phone: Comment on above: Expected: 08/01/2024 (Approximate), Expires: 10/01/2025 Start: 08-01-2024 End: 08-01-2024 Patient encounter procedure [facility] Comment on above: Arrived Start: 07-27-2024 End: 07-27-2024 Professional / ancillary services management 07/27/2024 8:00 AM EDT Ancillary Procedure [facility] [address] [place] [address] [facility] THIN PREP TIS PAP AN D HR HPV DNA THIN PREP TIS PAP AND HR HPV DNA Pathology and Cytology Routine Well woman exam with routine gynecological exam Ordered: 08/01/2024 [facility] Comment on above: Ordered: 08/01/2024 Payers Date Payer Category Payer Unknown [id number] 2018 Private Health Insurance [id number] 2018 Private Health Insurance [id number] 1980 Unknown [id number] 2.16.84 [id number] 1980 Unknown [id number] 2.16.84 [id number] 1982 Unknown [id number] 2.16.84 [id number] 1982 Unknown [id number] 2.16.84 [id number] 1982 Unknown [id number] 2.16.84 [id number] 1982 Unknown [id number] 2.16.8 [id number] 1982 Unknown [id number] 2.16.8 [id number] 1982 Unknown [id number] 2.16.84 [id number] 1982 Unknown [id number] 2.16.84 [id number] 1959 Unknown [id number] Social History Date Type Detail Facility Start: 10-06-2023 Tobacco smoking status Ex-smoker (finding) [facility] [place] Sex Assigned At Female [facility] Tobacco smoking status [facility] Tobacco smoking consumption unknown [facility] Work [...] AND CURETTAGE OF UTERUS x3....1st-not sure the date,2nd-2020, -2021 REVIEW OF SYSTEMS Review of Systems: Review [...] nursing note reviewed. Exam conducted with a newspaper illustrator present. Vitals: Estimated body mass index is [...] Karma Vanegas DO documented in this encounter [facility] Telephone encounter Note 07-17-2024 Telephone Encounter - JUAQUIN Mixon - 07/17/2024 2:17 PM EDT Note Date & Type Note Facility 07-17-2024 Telephone encount er Note Obtain Op Report and any pathology from surgery in August 2022. [facility] Healthcare Note 07-17-2024 Telephone Encounter - JUAQUIN Mixon - 07/17/2024 2:17 PM EDT Note Date & Type Note Facility 07-17-2024 Miscellaneous Notes Formattin g of this note might be different from the original. Obtain Op Report and any pathology from surgery in August 2022. documented in this encounter [facility] Evaluation + Plan note 10-06-2023 Note Date & Type Note Facility 10-06-2023 Evaluation + Plan note Diagnostic Tests PendingPSYCHIATRIC w/ Auto Diff 10/06/23Comprehensive Metabolic Panel 10/06/23Lipid Panel 10/06/23Thyroid Stimulating Hormone 10/06/23 [facility] Clinical Note 09-02-2022 Note Date & Type Note Facility 09-02-2022 Note OP Note OPERATION DATE: 09/02/2022 PROCEDURE: D AND C hysteroscopy, diagnostic laparoscopy. PREOPERATIVE DIAGNOSIS: Menorrhagia, pelvic pain, enlarged uterus. POSTOPERATIVE DIAGNOSIS: Menorrhagia, pelvic pain, enlarged uterus, adenomyosis. ANESTHESIA: General. SURGEON: Karma Vanegas D.O. AUTOMATION TECH: JOSETTE Pacheco URINE OUTPUT: Yellow and clear. [...] the Recovery Room in stable condition. [facility] Evaluation note Note Date & Type Note Facility Evaluation note Diagnosis Well woman exam with routine gynecological exam Routine gynecological examination Breast cancer screening by mammogram documented in this encounter [facility] Hospital course Narrative Note Date & Type Note Facility Hospital course Narrative No data available for this section [facility] Hospital Discharge instructions Note Date & Type Note Facility Hospital Discharge instructions No data available for this section [facility] Progress note Note Date & Type Note Facility Progress note No data available for this section [facility] Summary Purpose Family History No Family History Records Found No data available for this section No Family History Records FoundNo Family History Records FoundNo Family History Records Found Advance Directives No Advanced Directives Records FoundNo Advanced Directives Records FoundNo Advanced Directives Records FoundNo Advanced Directives Records Found Additional Source Comments INFORMATION SOURCE (unrecogn ized section and content) DATE CREATED AUTHOR 10/28/2022 [facility] DATE CREATED AUTHOR AUTHOR'S ORGANIZ ATION 10/08/2023 [facility] DATE CREATED AUTHOR AUTHOR'S ORGANIZ ATION 12/06/2023 [facility] DATE CREATED AUTHOR AUTHOR'S ORGANIZ ATION 08/03/2024 [facility] EPIC Patient Care team informatio n (unrecognized section and content) Personnel Name: Fabiana Marquis Address: Address: [address] [place] [phone]- Reason for Visit (unrecogniz ed section and [...] BE BASED ON THE PRIMARY CLINICAL RECORDS. [facility]. provides no warranty or guarantee of the accuracy or completeness of information in this document.
--- NOTE | 2024-08-07 11:37 | US_ITS ---
Patient Name: SIOBHAN ROBLES MR#: [id number] : 1980 Exam Date: 08/07/2024 Ordering Doctor: DR Daren Vanegas . RADIOLOGY REPORT PROCEDURE: US BREAST RT LIMITED COMPARISON: MM TOMOSYNTHESIS SCREENING BI, 08/04/2024. INDICATIONS: Abnormal Mammogram TECHNIQUE: Breast ultrasound was performed, with evaluation focusing only on specific areas of concern. FINDINGS: DIAGNOSTIC CATEGORY 2--BENIGN FINDING: Ultrasound demonstrates 2 areas of anechoic echogenicity 1 at the 10 o'clock position measures 8.7 x 3.8 x 6.3 cm a 2nd at 10 o'clock position 1.3 cm from 1st lesion measures 0.6 x 0.6 x 0.6 cm. Two simple cysts are favored. The larger lesion corresponds to the mammographic abnormality. RECOMMENDATIONS: ROUTINE MAMMOGRAM AND CLINICAL EVALUATION IN 12 MONTHS. PLEASE NOTE: A NORMAL ULTRASOUND EXAMINATION DOES NOT EXCLUDE THE POSSIBILITY OF BREAST CANCER. A CLINICALLY SUSPICIOUS PALPABLE LUMP SHOULD BE BIOPSIED. Dictated by: Clark Hay MD on 08/07/2024 at 12:03 Approved by: Clark Hay MD on 08/07/2024 at 12:04
== END 2024-08-07 11:34 | disposition home or self-care (01) ==
LOC: US 11:33
PROVIDERS: PCP Nurse Practitioner; Visit Provider Obstetrics & Gynecology
DX: R92.8 Other abnormal and inconclusive findings on diagnostic imaging of breast (principal)
CPT/HCPCS: 76642

== ENCOUNTER 2024-10-02 15:26 | Outpatient (REF) | payer OTHER, SELFPAY ==
--- OUTSIDE RECORDS SUMMARY | 2024-10-04 15:49 | XMS_ITS | CCD ---
Author Organization [facility] ion [facility] Care Team Providers Care Telephone Coin Box Collector Name Role Phone GUILHERME, DR PARADA Admitting [...] Deena, Fabiana Titus Primary Care Physician Deena, SENIOR JAVA ARCHITECT Fabiana L Attending Unavailable Deena, SENIOR JAVA ARCHITECT Fabiana L Admitting Unavailable Deena, SENIOR JAVA ARCHITECT Fabiana L Attending Unavailable NOTAMARA PAREKH Referring Unavailable Unavailable Primary Care Provider Unavailabl e KARMA VANEGAS Attending Unavailable GUILHERMEKARMA Attending Unavailable Allergies Allergy Classification Reported Allergen(s) Allergy Type Date of Onset Reaction(s) Facility (1 source) No Known Medication Allergies; Translations: [No Known Medication Allergies] Propensity to adverse reactions (disorder) [facility] Repository Problems Active Problems Problem Classification [...] Low,>-Panic High,A-Abnormal,AA-Critical Abnormal Performed at: 01 =G [address] [phone] Chyna Guzmán MD, HPV APTIMA Negative Negative [facility] Comment on above: This nucleic acid am plification test detects fourteen high- risk HPV types (16,18,31,33,35,39,45,51,52,56,58,59,66,68) without differentiation. Performed at: =[address] [id number] Geek Squad Manager: Chyna Guzmán MD, Phone: [phone] Performed at: - [address] [id number] Geek Squad Manager: Chyna Guzmán MD, Phone: [phone] IGP, APTIMA HPV, RFX 16/18,45 Note . [facility] Comment on above: TESTS RESULT [facility] REF RANGE LAB DIAGNOSIS: 02 NEGATIVE FOR INTRAEPITHELIAL LESION OR MALIGNANCY. Specimen adequacy: 02 Satisfactory for evaluation. Endocervical and/or squamous metaplastic cells (endocervical component) are present. Performed by: 02 Angelica Cochran Leader Writer ([facility]) . 02 Note: Note 02 The Pap [...] Low,>-Panic High,A-Abnormal,AA-Critical Abnormal Performed at: [address] [place] [address] Chyna Guzmán MD, BRUSH-SPATULA CERVIX [facility] ALL CBC WITH AUTO DIFFon BASOPHILS ABSOLUTE AUTO 0.1 [facility] Basophils/100 WBC (Bld) 0.7 % 0.2 - 2.0 % [facility] Eosinophils/100 WBC (Bld) 1.9 % 0.9 - 7.0 % [facility] Erythrocyte distribution width (RBC) [Ratio] 13.2 % 11.0 - 15.0 % [facility] Hematocrit (Bld) [Volume fraction] 39.9 % 36.0 - 48.0 % [facility] Hemoglobin (Bld) [Mass/Vol] 12.9 g/dL 12.0 - 16.0 g/dL [facility] IMMATURE GRANULOCYTES ABS AUTO 0.02 [facility] Immature granulocytes/100 WBC (Bld) 0.2 % 0.0 - 0.5 % [facility] LYMPHOCYTES ABSOLUTE AUTO 3.5 [facility] Lymphocytes/100 WBC (Bld) 35.7 % 20.5 - 60.0 % [facility] MCH (RBC) [Entitic mass] 29.5 pg 26.7 - 34.0 pg [facility] MCHC (RBC) [Mass/Vol] 32.3 g/dL 29.9 - 35.2 g/dL [facility] MCV (RBC) [Entitic vol] 91.3 fL 81.0 - 99.0 fL [facility] MONOCYTES ABSOLUTE AUTO 0.6 [facility] Monocytes/100 WBC (Bld) 6.1 % 1.7 - 12.0 % [facility] NEUTROPHILS ABSOLUTE AUTO 5.4 [facility] Neutrophils/100 WBC (Bld) 55.4 % 43.0 - 75.0 % [facility] Platelet mean volume (Bld) [Entitic vol] 10.3 fL 9.5 - 13.5 fL [facility] TBH EO # 0.2 [facility] PLT 408 [facility] RBC 4.37 [facility] WBC 9.7 [facility] XR CHEST 2 VWSon 12-01-2023 XR CHEST [...] Chaudhary MD on 12/01/2023 1:43 PM Normal [facility] Reminderson 10-08-2023 Reminders - From: Fabiana Marquis [...] 33.9 % (14.0 - 50.0) 10/06/2023 16:38 [place] Auto 4.8 % (4.0 - 14.0) 10/06/2023 16:38 Eos Auto 2.5 % (0.0 - 8.0) 10/06/2023 16:38 Basophil Auto 0.4 % (0.0 - 2.0) 10/06/2023 16:38 Neutro Absolute 7.3 E9/L (2.0 - 7.5) 10/06/2023 16:38 Lymph Absolute ((H)) 4.2 E9/L (1.0 - 4.0) 10/06/2023 16:38 [place] Absolute 0.6 E9/L (0.2 - 1.0) 10/06/2023 [...] 5.60) Pt calls in and notified. Normal [facility] Auto Diffon 10-07-2023 Basophils/100 WBC (Bld) 0.4 % Normal 0.0-2.0 [facility] Comment on above: Order Comment: Order Added by Discern Expert. Performed By: #### 2 833477, 90008809, 4552632, 4182157, 7986596, 1768143 #### [facility] [address] [place] [address] Basophils/Leukocy victoria Auto (Bld) [Pure # fraction] 0.1 E9/L Normal 0.0-0.2 [facility] Comment on above: Order Comment: Order Added by Discern Expert. Performed By: #### 2 180583, 96938982, 3400068, 0506077, 7952897, 3449462 #### [facility] [address] [place] [address] Eosinophils/100 WBC (Bld) 2.5 % Normal 0.0-8.0 [facility] Comment on above: Order Comment: Order Added by Discern Expert. Performed By: #### 2 336066, 78010105, 5487047, 7483313, 9693473, 3388069 #### [facility] [address] [place] [address] Eosinophils/Leuko cytes Auto (Bld) [Pure # fraction] 0.3 E9/L Normal 0.0-0.5 [facility] Comment on above: Order Comment: Order Added by Discern Expert. Performed By: #### 2 263483, 04245698, 3256152, 0727528, 7913829, 1542441 #### [facility] [address] [place] [address] Lymphocytes/100 WBC (Bld) 33.9 % Normal 14.0-50.0 [facility] Comment on above: Order Comment: Order Added by Discern Expert. Performed By: #### 2 150337, 22729410, 9807861, 2842054, 5462183, 8351037 #### [facility] [address] [place] [address] Lymphocytes/Leuko cytes Auto (Bld) [Pure # fraction] 4.2 E9/L High 1.0-4.0 [facility] Comment on above: Order Comment: Order Added by Leana Expert. Performed By: #### 2 093057, 52656671, 2771127, 9878984, 4213350, 8885770 #### [facility] [address] [place] [address] Monocytes/100 WBC (Bld) 4.8 % Normal 4.0-14.0 [facility] Comment on above: Order Comment: Order Added by Leana Expert. Performed By: #### 2 997219, 69217529, 9480144, 5148061, 2187578, 2366385 #### [facility] [address] [place] [address] Monocytes/Leukocy victoria Auto (Bld) [Pure # fraction] 0.6 E9/L Normal 0.2-1.0 [facility] Comment on above: Order Comment: Order Added by Leana Expert. Performed By: #### 2 289759, 05002352, 5564135, 2880878, 4338392, 2403998 #### [facility] [address] [place] [address] Neutrophils/100 WBC (Bld) 58.4 % Normal 36.0-75.0 [facility] Comment on above: Order Comment: Order Added by Discern Expert. Performed By: #### 2 506753, 89174482, 1790923, 2681813, 8965234, 7928449 #### [facility] [address] [place] [address] Neutrophils/Leuko cytes Auto (Bld) [Pure # fraction] 7.3 E9/L Normal 2.0-7.5 [facility] Comment on above: Order Comment: Order Added by Discern Expert. Performed By: #### 2 092398, 86294899, 5063685, 4200107, 1259484, 8796309 #### [facility] [address] [place] [address] CBC w/ Auto Diffon 3 Erythrocyte distribution width (RBC) [Ratio] 14.4 % High 10.9-14.2 [facility] Comment on above: Performed By: #### 2 304535, 90758576, 9144863, 4827741, 7543148, 5263068 #### [facility] [address] [place] [address] Hematocrit (Bld) [Volume fraction] 41.5 % Normal 34.0-46.0 [facility] Comment on above: Performed By: #### 2 997229, 46046806, 6418916, 1067538, 9136951, 4350775 #### [facility] [address] [place] [address] Hemoglobin (Bld) [Mass/Vol] 13.3 g/dL Normal 12.0-16.0 [facility] Comment on above: Performed By: #### 2 055601, 58572600, 7951057, 2119247, 6480814, 9525963 #### [facility] [address] [place] [address] MCH (RBC) [Entitic mass] 28.9 pg Normal 27.0-34.0 [facility] Comment on above: Performed By: #### 2 420388, 73512202, 7868419, 2109946, 6593978, 0078227 #### [facility] [address] [place] [address] MCHC (RBC) [Mass/Vol] 32.0 g/dL Normal 31.4-36.0 [facility] Comment on above: Performed By: #### 2 245686, 30649857, 3955571, 0980424, 9246453, 7718650 #### [facility] [address] [place] [address] MCV (RBC) [Entitic vol] 90.5 fL Normal 80.0-100.0 [facility] Comment on above: Performed By: #### 2 065151, 60248003, 3764965, 0032296, 0430612, 1472088 #### [facility] [address] [place] [address] Platelet mean volume (Bld) [Entitic vol] 10.0 fL Normal 6.4-10.8 [facility] Comment on above: Performed By: #### 2 946601, 72073147, 9844536, 8032672, 3155152, 1883262 #### [facility] [address] [place] [address] Platelets (Bld) [#/Vol] 383.0 E9/L Normal 150.0-500.0 [facility] Comment on above: Performed By: #### 2 674869, 40502362, 7853936, 0370258, 0009437, 7079162 #### [facility] [address] [place] [address] RBC (Bld) [#/Vol] 4.6 E12/L Normal 4.3-5.9 [facility] Comment on above: Performed By: #### 2 088841, 45396780, 9396671, 2131861, 5853018, 0592247 #### [facility] [address] [place] [address] WBC corrected for nucl RBC Auto (Bld) [#/Vol] 12.5 E9/L High 4.0-11.0 [facility] Comment on above: Result Comment: Slid e reviewed by ZEYNEP. Performed By: #### 2 859229, 56101536, 6651088, 2660846, 1287922, 3901126 #### [facility] [address] [place] [address] CMPon 10-07-2023 Albumin [Mass/Vol] 4.0 g/dL Normal 3.3-5.0 [facility] Comment on above: Performed By: #### 2 297544, 59027625, 5329943, 1182000, 1209289, 0034968 #### [facility] [address] [place] [address] Albumin/Globulin [Mass ratio] 1.4 {ratio} Normal 1.1-2.2 [facility] Comment on above: Performed By: #### 2 333120, 12104300, 9020845, 3853668, 6939574, 5660774 #### [facility] [address] [place] [address] Alk Phos 81 Int._Unit/L Normal 21-98 [facility] Comment on above: Performed By: #### 2 970717, 60426051, 9396869, 4359519, 0567484, 5229839 #### [facility] [address] [place] [address] ALT 18 Int._Unit/L Normal 6-46 [facility] Comment on above: Performed By: #### 2 378571, 89531190, 2323857, 2812085, 1165695, 1832881 #### [facility] [address] [place] [address] Anion gap [Moles/Vol] 10 mmol/L Normal 6-16 [facility] Comment on above: Performed By: #### 2 107098, 63588846, 7227247, 7268090, 8625168, 1810318 #### [facility] [address] [place] [address] AST 13 Int._Unit/L Normal 5-43 [facility] Comment on above: Performed By: #### 2 637349, 94444462, 5439708, 0113127, 1135381, 8814620 #### [facility] [address] [place] [address] Bili Total 0.2 mg/dL Normal 0.0-1.1 [facility] Comment on above: Performed By: #### 2 156687, 64788672, 7288112, 6585817, 4095772, 5889770 #### [facility] [address] [place] [address] BUN/Creat Ratio 9 No Units Low 10-20 [facility] Comment on above: Performed By: #### 2 563643, 30826102, 1742376, 5074998, 1315846, 2224581 #### [facility] [address] [place] [address] Calcium [Mass/Vol] 8.8 mg/dL Low 8.9-11.1 [facility] Comment on above: Performed By: #### 2 149825, 84985386, 0920137, 0969052, 7137187, 0221275 #### [facility] [address] [place] [address] Chloride [Moles/Vol] 105 mmol/L Normal 101-111 [facility] Comment on above: Performed By: #### 2 959346, 15587582, 0843829, 5634150, 7049143, 5666932 #### [facility] [address] [place] [address] CO2 [Moles/Vol] 27 mmol/L Normal 21-31 [facility] Comment on above: Performed By: #### 2 493378, 92461611, 8102777, 0021961, 2068867, 9924429 #### [facility] [address] [place] [address] Creatinine [Mass/Vol] 0.9 mg/dL Normal 0.5-1.3 [facility] Comment on above: Performed By: #### 2 151737, 29242432, 1102471, 9062239, 3271457, 8421868 #### [facility] [address] [place] [address] Globulin (S) [Mass/Vol] 2.8 g/dL Normal 1.4-4.0 [facility] Comment on above: Performed By: #### 2 310938, 49926484, 6261210, 9794690, 6107655, 6629436 #### [facility] [address] [place] [address] Glucose [Mass/Vol] 90 mg/dL Normal 55-199 [facility] Comment on above: Performed By: #### 2 910188, 36511556, 5639242, 4891642, 6455407, 8927160 #### [facility] [address] [place] [address] Potassium [Moles/Vol] 3.8 mmol/L Normal 3.5-5.3 [facility] Comment on above: Performed By: #### 2 583696, 15983912, 4884405, 8463974, 2042737, 3410521 #### [facility] [address] [place] [address] Protein [Mass/Vol] 6.8 g/dL Normal 6.0-7.8 [facility] Comment on above: Performed By: #### 2 710614, 40397386, 5335451, 9824187, 2273193, 5657649 #### [facility] [address] [place] [address] Sodium [Moles/Vol] 138 mmol/L Normal 135-145 [facility] Comment on above: Performed By: #### 2 100152, 82063383, 7624184, 0962541, 2460858, 3846560 #### [facility] [address] [place] [address] Urea nitrogen [Mass/Vol] 8 mg/dL Normal 5-21 [facility] Comment on above: Performed By: #### 2 716787, 24833243, 3771391, 4442044, 8965446, 3497931 #### [facility] [address] [place] [address] Lipid Panelon 10-07-2023 Cholesterol [Mass/Vol] 158 mg/dL Normal 120-200 [facility] Comment on above: Performed By: #### 2 655500, 98832069, 3980893, 5058914, 4215689, 3288039 #### [facility] [address] [place] [address] Cholesterol in HDL [Mass/Vol] 48 mg/dL Invalid Interpretation Code [facility] Comment on above: Result Comment: '>= 60 LOW RISK' '<= 40 HIGH RISK' Performed By: #### 2 671614, 28246824, 7891155, 8169268, 1355758, 5685814 #### [facility] [address] [place] [address] Cholesterol in LDL [Mass/Vol] 100 mg/dL Normal <=129 [facility] Comment on above: Performed By: #### 2 539699, 31579677, 5490671, 7261207, 7034348, 3799701 #### [facility] [address] [place] [address] Cholesterol in VLDL [Mass/Vol] 28 mg/dL Normal 7-40 [facility] Comment on above: Performed By: #### 2 775311, 36169421, 0639587, 8437494, 7483582, 6893976 #### [facility] [address] [place] [address] Triglyceride [Mass/Vol] 142 mg/dL Normal <=149 [facility] Comment on above: Performed By: #### 2 300025, 76821368, 8694752, 8970200, 3124964, 8212610 #### [facility] [address] [place] [address] TSHon 10-07-2023 TSH Qn 2.38 m[IU]/L Normal 0.34-5.60 [facility] Comment on above: Performed By: #### 2 714557, 37434401, 6982471, 9299395, 2559497, 9508194 #### [facility] [address] [place] [address] eGFRon 10-07-2023 GFR/1.73 sq M.predicted among non-blacks MDRD (S/P/Bld) [Vol rate/Area] mL/min/{1.73_m2} Normal >=59 [facility] Comment on above: Order Comment: Order added by Discern Expert. Performed By: #### 2 998463, 83673898, 3870670, 9557647, 0490235, 4931853 #### [facility] [address] [place] [address] Ambulatory Visit Summaryon 1 12-07-2022 Ambulatory Visit [...] for choosing us for your care. Normal [facility] Ambulatory Visit Summary SIOBHAN ROBLES :1980 [...] for choosing us for your care. 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 Renal failure syndrome: Mother. Normal [facility] Comment on above: Result Comment: Elec tronically Signed By: Fabiana Marquis\.br\Date and Time Signed: 10/06/23 16:35 EST CBC AUTO DIFFon 08-31-2022 BASO # 0.1 103/ul Normal 0.0-0.1 [facility] Comment on above: Performed By: #### C BC #### [facility] [address] [address] [address] Demetri Rosales Basophils/100 WBC (Bld) 0.5 % Normal 0.2-2.0 [facility] Comment on above: Performed By: #### C BC #### [facility] [address] [place] [address] Dr. Demetri Rosales EO # 0.3 103/ul Normal 0.0-0.7 [facility] Comment on above: Performed By: #### C BC #### [facility] [address] [address] [address] Demetri Rosales Eosinophils/100 WBC (Bld) 2.6 % Normal 0.9-7.0 [facility] Comment on above: Performed By: #### C BC #### [facility] [address] [place] [address] Dr. Demetri Rosales Erythrocyte distribution width (RBC) [Ratio] 13.2 % Normal 11.0-15.0 [facility] Comment on above: Performed By: #### C BC #### [facility] [address] [place] [address] Dr. Demetri Rosales Hematocrit (Bld) [Volume fraction] 40.1 % Normal 36.0-48.0 [facility] Comment on above: Performed By: #### C BC #### [facility] [address] [place] [address] Dr. Demetri Rosales Hemoglobin (Bld) [Mass/Vol] 13.2 g/dL Normal 12.0-16.0 [facility] Comment on above: Performed By: #### C BC #### [facility] [address] [address] [address] Demetri Rosales IG # 0.04 10e3/ul Critically high 0.00-0.03 [facility] Comment on above: Performed By: #### C BC #### [facility] [address] [address] [address] Demetri Rosales IG % 0.4 % Normal 0.0-0.5 [facility] Comment on above: Performed By: #### C BC #### [facility] [address] [place] [address] Dr. Demetri Rosales LYMPH # 4.1 103/ul Critically high 1.2-3.8 [facility] Comment on above: Performed By: #### C BC #### [facility] [address] [place] [address] Dr. Demetri Rosales Lymphocytes/100 WBC (Bld) 38.2 % Normal 20.5-60.0 [facility] Comment on above: Performed By: #### C BC #### [facility] [address] [place] [address] Dr. Demetri Rosales MANUAL DIFF REQ NO Normal [facility] Comment on above: Performed By: #### C BC #### [facility] [address] [place] [address] Dr. Demetri Rosales MCH (RBC) [Entitic mass] 30.4 pg Normal 26.7-34.0 [facility] Comment on above: Performed By: #### C BC #### [facility] [address] [place] [address] Dr. Demetri Rosales MCHC (RBC) [Mass/Vol] 32.9 g/dL Normal 29.9-35.2 [facility] Comment on above: Performed By: #### C BC #### [facility] [address] [place] [address] Dr. Demetri Rosales MCV (RBC) [Entitic vol] 92.4 fL Normal 81.0-99.0 [facility] Comment on above: Performed By: #### C BC #### [facility] [address] [place] [address] Dr. Demetri Rosales MONO # 0.5 103/ul Normal 0.3-0.8 [facility] Comment on above: Performed By: #### C BC #### [facility] [address] [place] [address] Dr. Demetri Rosales Monocytes/100 WBC (Bld) 4.8 % Normal 1.7-12.0 [facility] Comment on above: Performed By: #### C BC #### [facility] [address] [place] [address] Dr. Demetri Rosales NEUT # 5.7 103/ul Normal 1.4-6.5 [facility] Comment on above: Performed By: #### C BC #### [facility] [address] [place] [address] Dr. Demetri Rosales Neutrophils/100 WBC (Bld) 53.5 % Normal 43.0-75.0 [facility] Comment on above: Performed By: #### C BC #### [facility] [address] [place] [address] Dr. Demetri Rosales Platelet mean volume (Bld) [Entitic vol] 10.0 fL Normal 9.5-13.5 [facility] Comment on above: Performed By: #### C BC #### [facility] [address] [place] [address] Dr. Demetri Rosales PLT 314 103/ul Normal 150-450 [facility] Comment on above: Performed By: #### C BC #### [facility] [address] [place] [address] Dr. Demetri Rosales RBC 4.34 106/ul Normal 4.20-5.40 [facility] Comment on above: Performed By: #### C BC #### [facility] [address] [place] [address] Dr. Demetri Rosales WBC 10.7 103/ul Normal 4.0-11.0 [facility] Comment on above: Performed By: #### C BC #### [facility] [address] [place] [address] Dr. Demetri Rosales Covid-19 PCR (CVDTB)on 08-18 SARS-CoV-2 (COVID-19) RNA ROMANA+probe Ql (Unsp spec) Not detected Normal NOT DETECTED [facility] Comment on above: Result Comment: This test is not yet approved or cleared by the [place] FDA. When there are no FDA-approved or cleared tests available, and other criteria are met, FDA can make tests available under an emergency access mechanism called an Emergency Use Authorization (EUA). The EUA for this test is supported by the Spot Wel[employer] of Health and Human Service's (HHS's) declaration [...] SARS-CoV-2. Performed By: #### C VDTBH #### [facility] [address] [address] [address] Demetri Rosales PREG QUANT HCGon 08-31-2022 HCG QUANT <1 Normal [facility] Comment on above: Performed By: #### P REGQNT #### [facility] [address] [address] [address] Demetri Rosales HCG RANGE SEE BELOW Normal [facility] Comment on above: Result Comment: 5-50 0.2-1 WEEK 50-500 1-2 WEEKS 100-5,000 2-3 WEEKS 500-10,000 3-4 WEEKS 1,000-50,000 4-5 WEEKS 10,000-100,000 5-6 WEEKS 15,000-200,000 6-8 WEEKS 10,000-100,000 2-3 MONTHS Performed By: #### P REGQNT #### [facility] [address] [place] [address] Dr. Demetri Rosales US PELVIS AND TRANSVAGon [...] JORGE LUIS GRIJALVA Date: 2022-07-09 13:59 Normal [facility] PAP ACOG PANEL 2: 30 to 65on 01-07-2022 . . Normal [facility] Comment on above: Result Comment: Perf ormed at: WB Performed By: #### 4 [id number] #### [facility] [address] [place] [address] Dr. Demetri Rosales Age Gdln ACOG Testing 30-65 Normal [facility] Comment on above: Performed By: #### 4 [id number] #### [facility] [address] [address] [address] Demetri Rosales DIAGNOSIS: Comment Normal [facility] Comment on above: Result Comment: NEGA TIVE FOR INTRAEPITHELIAL LESION OR MALIGNANCY. Performed at: WB Performed By: #### 4 [id number] #### [facility] [address] [place] [address] Dr. Demetri Rosales HPV Aptima Negative Normal Negative [facility] Comment on above: Result Comment: This nucleic acid amplification test detects fourteen high-risk HPV types (16,18,31,33,35,39,45,51,52,56,58,59,66,68) without differentiation. Performed at: =G Performed By: [id number] #### [facility] [address] [place] [address] Dr. Demetri Rosales Methodology: Comment [facility] Comment on above: Result Comment: This liquid based ThinPrep(R) pap test was screened with the use of an image guided system. Performed at: WB Performed By: #### [id number] #### [facility] [address] [place] [address] Dr. Demetri Rosales Note: Comment Normal [facility] Comment on above: Result [...] Performed at: WB Performed By: #### [id number] #### [facility] [address] [place] [address] Dr. Demetri Rosales Performed by: Comment Normal [facility] Comment on above: Result Comment: Eva Casas, Leader Writer (ASCP) Performed at: WB Performed By: #### [id number] #### [facility] [address] [place] [address] Dr. Demetri Rosales Specimen adequacy: Comment [facility] Comment on above: Result Comment: Sati sfactory for evaluation. Endocervical and/or squamous metaplastic cells (endocervical component) are present. Performed at: WB Performed By: #### [id number] #### [facility] [address] [place] [address] Dr. Demetri Rosales Vital Signs Date Time Vital Sign Value Performing Clinician Nandini dickens 08-01-2024 08:47-0400 Body mass index (BMI) [Ratio] 29.92 kg/m2 [employer] Work Phone: [facility] 08-01-2024 08:47-0400 Body weight 84.1 kg [employer] Work Phone: [facility] 08-01-2024 08:47-0400 Diastolic blood pressure 74 mm[Hg] Karma Guilherme DO Work Phone: [facility] 08-01-2024 08:47-0400 Systolic blood pressure 116 mm[Hg] Karma Guilherme DO Work Phone: [facility] Encounters Encounter Date Encounter Type Care Provider Facility Start: 08-01-2024 End: 08-01-2024 Bamboo flowsheet Karma Guilherme DO Work Phone: [facility] Start: 08-01-2024 End: 08-04-2024 Bamboo flowsheet Karma Guilherme DO Work Phone: [facility] Start: 08-01-2024 End: 08-04-2024 Clinisync Result Encounter Karma Guilherme DO Work Phone: [facility] External Department Unsolicited Start: 08-01-2024 End: 08-01-2024 Patient encounter procedure Karma Guilherme DO Work Phone: [facility] Work Phone: Start: 08-01-2024 End: 08-01-2024 Periodic preventive med est patient 40-64yrs Karma Guilherme DO Work Phone: [facility] Comment on above: Well [...] 07-18-2024 Telephone encounter Soni REZA Work Phone: [facility] Start: 07-17-2024 End: 07-17-2024 ambulatory KARMA GUILHERME Not Available Start: 12-01-2023 End: 12-05-2023 ambulatory TAMARA [facility] Start: 10-06-2023 End: 10-07-2023 ambulatory SENIOR JAVA ARCHITECT Fabiana Titus Deena Facility:[facility] Start: 10-06-2023 End: 10-06-2023 Lab Drop off Fabiana Shaffer [facility] Start: 09-03-2022 Encounter for preprocedural laboratory examination DR KARMA VANEGAS [facility] Start: 09-02-2022 End: 09-02-[address] KARMA VANEGAS Facility:[facility] Start: 08-31-2022 End: 09-01-[address] KARMA VANEGAS Facility:[facility] Start: 08-31-2022 End: 09-01-2022 Encounter for preprocedural laboratory examination DR KARMA VANEGAS Facility:[facility] Start: 08-30-2022 Encounter for other preprocedural examination DR KARMA VANEGAS [facility] Start: 08-25-2022 End: 08-26-2022 ambulatory [...] EST Procedure Visit [facility] [address] [place] [address] Karma Vanegas, DO [address] [place] [address] [facility] Start: 08-01-2024 End: 10-01-2025 [...] EDT Ancillary Procedure [facility] [address] [place] [address] [facility] THIN PREP TIS PAP AN D HR HPV DNA THIN PREP TIS PAP AND HR HPV DNA Pathology and Cytology Routine Well woman exam with routine gynecological exam Ordered: 08/01/2024 [facility] Comment on above: Ordered: 08/01/2024 Payers Date Payer Category Payer Unknown [id number] 2018 Private Health Insurance [id number] 2018 Private Health Insurance [id number] 1982 Unknown [id number] 2.16.84 [id number] 1982 Unknown [id number] 2.16.84 [id number] 1982 Unknown [id number] 2.16.84 [id number] 1982 Unknown [id number] 2.16.84 [id number] 1982 Unknown [id number] 2.16.84 [id number] 1982 Unknown [id number] 2.16.8 [id number] 1982 Unknown [id number] 2.16.8 [id number] 1982 Unknown [id number] 2.16.84 [id number] 1982 Unknown [id number] 2.16.84 [id number] 1959 Unknown [id number] Social History Date Type Detail Facility Start: 10-06-2023 Tobacco smoking status Ex-smoker (finding) [facility] [place] Sex Assigned At Female [facility] Tobacco smoking status [facility] Tobacco smoking consumption unknown [facility] Work [...] nursing note reviewed. Exam conducted with a battery container inspector present. Vitals: Estimated body mass index is [...] Karma Vanegas DO documented in this encounter [facility] Telephone encounter Note 07-17-2024 Telephone Encounter - JUAQUIN Mixon - 07/17/2024 2:17 PM EDT Note Date & Type Note Facility 07-17-2024 Telephone encount er Note Obtain Op Report and any pathology from surgery in August 2022. [facility] Note 07-17-2024 Telephone Encounter - JUAQUIN Mixon - 07/17/2024 2:17 PM EDT Note Date & Type Note Facility 07-17-2024 Miscellaneous Notes Formattin g of this note might be different from the original. Obtain Op Report and any pathology from surgery in August 2022. documented in this encounter [facility] Evaluation + Plan note 10-06-2023 Note Date & Type Note Facility 10-06-2023 Evaluation + [facility] 10/06/23Comprehensive Metabolic Panel 10/06/23Lipid Panel 10/06/23Thyroid Stimulating Hormone 10/06/23 [facility] Clinical Note 09-02-2022 Note Date & Type Note Facility 09-02-2022 Note OP Note OPERATION DATE: 09/02/2022 PROCEDURE: D AND C hysteroscopy, diagnostic laparoscopy. PREOPERATIVE DIAGNOSIS: Menorrhagia, pelvic pain, enlarged uterus. POSTOPERATIVE DIAGNOSIS: Menorrhagia, pelvic pain, enlarged uterus, adenomyosis. ANESTHESIA: General. SURGEON: Karma Vanegas D.O. SENIOR TELECOMMUNICATIONS TECHNICIAN: JOSETTE Pacheco URINE OUTPUT: Yellow and clear. [...] the Recovery Room in stable condition. [facility] Evaluation note Note Date & Type Note Facility Evaluation note Diagnosis Well woman exam with routine gynecological exam Routine gynecological examination Breast cancer screening by mammogram documented in this encounter [facility] Hospital course Narrative Note Date & Type Note Facility Hospital course Narrative No data available for this section [facility] Hospital Discharge instructions Note Date & Type Note Facility Hospital Discharge instructions No data available for this section [facility] Progress note Note Date & Type Note Facility Progress note No data available for this section [facility] Summary Purpose Family History No Family History Records Found No data available for this section No Family History Records FoundNo Family History Records FoundNo Family History Records Found Advance Directives No Advanced Directives Records FoundNo Advanced Directives Records FoundNo Advanced Directives Records FoundNo Advanced Directives Records Found Additional Source Comments INFORMATION SOURCE (unrecogn ized section and content) DATE CREATED AUTHOR 10/28/2022 [facility] DATE CREATED AUTHOR AUTHOR'S ORGANIZ ATION 10/08/2023 [facility] DATE CREATED AUTHOR AUTHOR'S ORGANIZ ATION 12/06/2023 [facility] DATE CREATED AUTHOR AUTHOR'S ORGANIZ ATION 08/03/2024 [facility] EPIC Patient Care team informatio n (unrecognized section and content) Personnel Name: Fabiana Marquis Address: Address: [address] [place] [phone] Reason for Visit (unrecogniz ed section and [...] BE BASED ON THE PRIMARY CLINICAL RECORDS. [facility]. provides no warranty or guarantee of the accuracy or completeness of information in this document.
== END 2024-10-02 15:27 | disposition home or self-care (01) ==
LOC: LAB 15:26
PROVIDERS: PCP Nurse Practitioner; Visit Provider Obstetrics & Gynecology
DX: N92.0 Excessive and frequent menstruation with regular cycle (principal)
CPT/HCPCS: 88305

== ENCOUNTER 2024-11-27 09:55 | Outpatient (OUT) | payer OTHER, SELFPAY ==
--- OUTSIDE RECORDS SUMMARY | 2024-11-27 10:02 | XMS_ITS | CCD ---
Author Organization [facility] Inform ion [facility] Care Team Providers Care Teacher'S Aide Name Role Phone GUILHERME, DR PARADA Admitting [...] Care Unavailable GUILHERME, DR PARADA Consulting Unavailable MICKYBAKARI Consulting Unavailable KUCHIPUDI, DARNELL Consulting Unavailable GUILHERME, DR PARADA Admitting Unavailable GUILHERME, DR PARADA Attending Unavailable BRISTOL, DR ROMANO Primary Care Unavailable GUILHERME, DR PARADA Consulting Unavailable ZIEBER, DR JORGE LUIS Smith Consulting Unavailable Deena, Fabiana L Primary Care Physician Deena, SUPERVISOR ACCOUNTING CLERKS Fabiana L Attending Unavailable Deena, SUPERVISOR ACCOUNTING CLERKS Fabiana L Admitting Unavailable Deena, SUPERVISOR ACCOUNTING CLERKS Fabiana L Attending Unavailable NOTAMARA PAREKH Referring Unavailable Unavailable Primary Care Provider Unavailabl e KARMA VANEGAS Attending Unavailable GUILHERME, KARMA Attending Unavailable GUILHERME, KARMA Attending Unavailable Guilherme, Karma Attending Unavailable Karma Vanegas Admitting Unavailable Allergies Allergy Classification Reported Allergen(s) Allergy Type Date of Onset Reaction(s) Facility (1 source) No Known Medication Allergies; Translations: [No Known Medication Allergies] Propensity to adverse reactions (disorder) [facility] Repository Problems Active Problems Problem Classification [...] Results Test Name Value Interpretation Reference Range [facility] 10-02-2024 L - -------- Specimen: [id number] Received: 10/03/24 Status: CHEO Pugh Num: [id number] Spec Type: Surgical Subm Dr: Karma Vanegas Tissues: A Endometrium - Biopsy (ENDOMETRIAL BX) Procedures: HE/Alba Guido/Sia Duran -------- Age/ Patient Sex Location Account Attending Physician -------- Siobahn Robles 44/F [facility] [id number] Karma Vanegas -------- SPEC NUM: [id number] RECD: 10/03/24 STATUS: CHEO PUGH NUM: [id number] YUNG: 10/02/24- SUBM DR: Karma Vanegas ENTERED: 10/03/24 [facility] DR: Philomena,Lab SPEC TYPE: Surgical DEPT: GIOVANNA JENKINS ENTERED BY: [id number] RECV BY: [id number] ORDERED: HE/2, Gross/Micro L4 ORDERED: HE/2, Gross/Micro L4 Pathological Diagnosis Endometrium, biopsy: Secretory endometrium. Clinical Information Menorrhagia N92.0 excessive and frequent menstruation with regular cycle Gross Description Part A is received in formalin labeled with the patients name, date of , and Endo BX are singer-pink to red-brown, delicate tissue fragments, 2.5 x 1.4 x 0.3 cm in aggregate. The specimen is filtered and entirely submitted in a single cassette. (1, ns, [id number]) CPT Codes 33122 -------- -------- Specimen: [id number] Received: 10/03/24 Status: [facility] Lexy Num: [id number] Spec Type: Surgical Subm Dr: Karma Vanegas Tissues: A Endometrium - Biopsy (ENDOMETRIAL BX) Procedures: HE/2, Gross/Micro L4 -------- Patient: Siobhan Robles [id number] (Continued) -------- Signed (signature on file) Jack Cárdenas MD 10/04/24 1441 Normal [facility] IGP,APTIMA HPV,AGE GDLNon AGE GDLN ACOG TESTING Note . [facility] Comment on above: TESTS RESULT FLAG UN ITS REF RANGE LAB Clinician Provided Cytology Information Source.............Cervix No. of containers..01 ThinPrep Vial Age Algo ACOG Victoria... 30-65 01 FLAG LEGEND: L-Low Normal,H-High Normal,LL-Alert Low,HH-Alert High <-Panic Low,>-Panic High,A-Abnormal,AA-Critical Abnormal Performed at: 01 =[address] [place] [address] Chyna Guzmán MD, HPV APTIMA Negative Negative [facility] Comment on above: This nucleic acid am plification test detects fourteen high- risk HPV types (16,18,31,33,35,39,45,51,52,56,58,59,66,68) without differentiation. Performed at: =[address] [id number] Author'S Agent: Chyna Guzmán MD, Phone: [phone] Performed at: [address], [place] [id number] Author'S Agent: Chyna Guzmán MD, Phone: [phone] IGP, APTIMA HPV, RFX 16/18,45 Note . [facility] Comment on above: TESTS RESULT FLAG UN ITS REF RANGE LAB DIAGNOSIS: 02 NEGATIVE FOR INTRAEPITHELIAL LESION OR MALIGNANCY. Specimen adequacy: 02 Satisfactory for evaluation. Endocervical and/or squamous metaplastic cells (endocervical component) are present. Performed by: Jony Cochran, Tractor Trailer Technician (ASCP) . 02 Note: Note 02 The Pap [...] Low,>-Panic High,A-Abnormal,AA-Critical Abnormal Performed at: [address] [phone] Chyna Guzmán MD, BRUSH-SPATULA CERVIX [facility] ALL CBC WITH AUTO DIFFon BASOPHILS ABSOLUTE AUTO 0.1 [facility] Basophils/100 WBC (Bld) 0.7 % 0.2 - 2.0 % [facility] Eosinophils/100 WBC (Bld) 1.9 % 0.9 - 7.0 % [facility] Erythrocyte distribution width (RBC) [Ratio] 13.2 % 11.0 - 15.0 % [facility] Hematocrit (Bld) [Volume fraction] 39.9 % 36.0 - 48.0 % [facility] Hemoglobin (Bld) [Mass/Vol] 12.9 g/dL 12.0 - 16.0 g/dL [facility] IMMATURE GRANULOCYTES ABS AUTO 0.02 [facility] Immature granulocytes/100 WBC (Bld) 0.2 % 0.0 - 0.5 % [facility] LYMPHOCYTES ABSOLUTE AUTO 3.5 [facility] Lymphocytes/100 WBC (Bld) 35.7 % 20.5 - 60.0 % [facility] MCH (RBC) [Entitic mass] 29.5 pg 26.7 - 34.0 pg [facility] MCHC (RBC) [Mass/Vol] 32.3 g/dL 29.9 - 35.2 g/dL [facility] MCV (RBC) [Entitic vol] 91.3 fL 81.0 - 99.0 fL [facility] MONOCYTES ABSOLUTE AUTO 0.6 [facility] Monocytes/100 WBC (Bld) 6.1 % 1.7 - 12.0 % [facility] NEUTROPHILS ABSOLUTE AUTO 5.4 [facility] Neutrophils/100 WBC (Bld) 55.4 % 43.0 - 75.0 % [facility] Platelet mean volume (Bld) [Entitic vol] 10.3 fL 9.5 - 13.5 fL [facility] EO # 0.2 [facility] PLT 408 [facility] RBC 4.37 [facility] WBC 9.7 [facility] XR CHEST 2 VWSon [...] Chaudhary MD on 12/01/2023 1:43 PM Normal [facility] Reminderson 10-08-2023 Reminders - From: [...] 33.9 % (14.0 - 50.0) 10/06/2023 16:38 [place] Auto 4.8 % (4.0 - 14.0) 10/06/2023 16:38 Eos Auto 2.5 % (0.0 - 8.0) 10/06/2023 16:38 Basophil Auto 0.4 % (0.0 - 2.0) 10/06/2023 16:38 Neutro Absolute 7.3 E9/L (2.0 - 7.5) 10/06/2023 16:38 Lymph Absolute ((H)) 4.2 E9/L (1.0 - 4.0) 10/06/2023 16:38 [place] Absolute 0.6 E9/L (0.2 - 1.0) 10/06/2023 [...] 5.60) Pt calls in and notified. Normal [facility] Auto Diffon 10-07-2023 Basophils/100 WBC (Bld) 0.4 % Normal 0.0-2.0 [facility] Comment on above: Order Comment: Order Added by Discern Expert. Performed By: #### 2 866002, 26351548, 6317245, 8648943, 2599903, 0004006 #### [facility] [address] [place] [address] Basophils/Leukocy victoria Auto (Bld) [Pure # fraction] 0.1 E9/L Normal 0.0-0.2 [facility] Comment on above: Order Comment: Order Added by Discern Expert. Performed By: #### 2 843902, 15095684, 5233146, 8419886, 9324424, 2460323 #### [facility] [address] [place] [address]36 Eosinophils/100 WBC (Bld) 2.5 % Normal 0.0-8.0 [facility] Comment on above: Order Comment: Order Added by Discern Expert. Performed By: #### 2 303294, 50050516, 3344712, 6013636, 7322283, 3464002 #### [facility] [address] [place] [address] Eosinophils/Leuko cytes Auto (Bld) [Pure # fraction] 0.3 E9/L Normal 0.0-0.5 [facility] Comment on above: Order Comment: Order Added by Discern Expert. Performed By: #### 2 955287, 16378032, 7191548, 4999679, 1299532, 7155455 #### [facility] [address] [place] [address] Lymphocytes/100 WBC (Bld) 33.9 % Normal 14.0-50.0 [facility] Comment on above: Order Comment: Order Added by Discern Expert. Performed By: #### 2 183947, 65634114, 4416775, 7581011, 4088008, 6828782 #### [facility] [address] [place] [address] Lymphocytes/Leuko cytes Auto (Bld) [Pure # fraction] 4.2 E9/L High 1.0-4.0 [facility] Comment on above: Order Comment: Order Added by Discern Expert. Performed By: #### 2 561842, 08513652, 8913201, 9471063, 3329280, 6863463 #### [facility] [address] [place] [address]3567 Monocytes/100 WBC (Bld) 4.8 % Normal 4.0-14.0 [facility] Comment on above: Order Comment: Order Added by Discern Expert. Performed By: #### 2 166153, 82583367, 2854091, 9559623, 8353092, 3386406 #### [facility] [address] [place] [address] Monocytes/Leukocy victoria Auto (Bld) [Pure # fraction] 0.6 E9/L Normal 0.2-1.0 [facility] Comment on above: Order Comment: Order Added by Discern Expert. Performed By: #### 2 130381, 81124856, 9663903, 1360925, 2627071, 2542221 #### [facility] [address] [place] [address] Neutrophils/100 WBC (Bld) 58.4 % Normal 36.0-75.0 [facility] Comment on above: Order Comment: Order Added by Discern Expert. Performed By: #### 2 521079, 39079246, 6848308, 4164899, 9581446, 1529636 #### [facility] [address] [place] [address] Neutrophils/Leuko cytes Auto (Bld) [Pure # fraction] 7.3 E9/L Normal 2.0-7.5 [facility] Comment on above: Order Comment: Order Added by Discern Expert. Performed By: #### 2 101657, 02426641, 1448889, 7031701, 4433328, 7667279 #### [facility] [address] [place] [address] CBC w/ Auto Diffon 3 Erythrocyte distribution width (RBC) [Ratio] 14.4 % High 10.9-14.2 [facility] Comment on above: Performed By: #### 2 533617, 57330171, 7940077, 4157061, 2388872, 0817864 #### [facility] [address] [place] [address] Hematocrit (Bld) [Volume fraction] 41.5 % Normal 34.0-46.0 [facility] Comment on above: Performed By: #### 2 422590, 98700310, 6852395, 9129657, 9228782, 1489318 #### [facility] [address] [place] [address] Hemoglobin (Bld) [Mass/Vol] 13.3 g/dL Normal 12.0-16.0 [facility] Comment on above: Performed By: #### 2 088043, 03722466, 5206218, 6967690, 6940668, 2515876 #### [facility] [address] [place] [address]645 MCH (RBC) [Entitic mass] 28.9 pg Normal 27.0-34.0 [facility] Comment on above: Performed By: #### 2 377511, 70739079, 4869806, 1317397, 0405288, 3689343 #### [facility] [address] [place] [address]861 MCHC (RBC) [Mass/Vol] 32.0 g/dL Normal 31.4-36.0 [facility] Comment on above: Performed By: #### 2 858396, 67385319, 1989423, 4676502, 3006788, 4998641 #### [facility] [address] [place] [address]7543 MCV (RBC) [Entitic vol] 90.5 fL Normal 80.0-100.0 [facility] Comment on above: Performed By: #### 2 808563, 50296843, 4738322, 2638549, 8990946, 8465046 #### [facility] [address] [place] [address] Platelet mean volume (Bld) [Entitic vol] 10.0 fL Normal 6.4-10.8 [facility] Comment on above: Performed By: #### 2 539802, 05257446, 7920429, 0377952, 3992652, 9625900 #### [facility] [address] [place] [address] Platelets (Bld) [#/Vol] 383.0 E9/L Normal 150.0-500.0 [facility] Comment on above: Performed By: #### 2 430237, 28036551, 9940331, 7756920, 7407596, 7492762 #### [facility] [address] [place] [address] RBC (Bld) [#/Vol] 4.6 E12/L Normal 4.3-5.9 [facility] Comment on above: Performed By: #### 2 046737, 71071412, 5075020, 1521410, 6759473, 4044206 #### [facility] [address] [place] [address] WBC corrected for nucl RBC Auto (Bld) [#/Vol] 12.5 E9/L High 4.0-11.0 [facility] Comment on above: Result Comment: Slid e reviewed by ZEYNEP. Performed By: #### 2 500163, 47247236, 9344198, 5458451, 6915525, 1267467 #### [facility] [address] [place] [address] CMPon 10-07-2023 Albumin [Mass/Vol] 4.0 g/dL Normal 3.3-5.0 [facility] Comment on above: Performed By: #### 2 274181, 93575622, 2209643, 4522997, 9483841, 3795248 #### [facility] [address] [place] [address] Albumin/Globulin [Mass ratio] 1.4 {ratio} Normal 1.1-2.2 [facility] Comment on above: Performed By: #### 2 655518, 46707820, 8464085, 7289577, 9747865, 5416797 #### [facility] [address] [place] [address] Alk Phos 81 Int._Unit/L Normal 21-98 [facility] Comment on above: Performed By: #### 2 835791, 21782485, 0665332, 7289410, 3722146, 4672058 #### [facility] [address] [address] ALT 18 Int._Unit/L Normal 6-46 [facility] Comment on above: Performed By: #### 2 055488, 98741377, 1013405, 6079367, 4504177, 2361675 #### [facility] [address] [address] Anion gap [Moles/Vol] 10 mmol/L Normal 6-16 [facility] Comment on above: Performed By: #### 2 959017, 39602178, 1811483, 9708281, 3278038, 4408720 #### [facility] [address] 6749[address] AST 13 Int._Unit/L Normal 5-43 [facility] Comment on above: Performed By: #### 2 738752, 24939333, 6877673, 3942821, 3537030, 7098203 #### [facility] [address] 67[address] Bili Total 0.2 mg/dL Normal 0.0-1.1 [facility] Comment on above: Performed By: #### 2 891838, 59423046, 8658062, 9153579, 8030745, 7007850 #### [facility] [address] [place], [place] [address] BUN/Creat Ratio 9 No Units Low 10-20 [facility] Comment on above: Performed By: #### 2 480092, 37843391, 9012658, 5353239, 0895986, 4173013 #### [facility] [address] [address] Calcium [Mass/Vol] 8.8 mg/dL Low 8.9-11.1 [facility] Comment on above: Performed By: #### 2 417769, 34138484, 2558035, 2861005, 1769103, 6139687 #### [facility] [address] [place] [address] Chloride [Moles/Vol] 105 mmol/L Normal 101-111 [facility] Comment on above: Performed By: #### 2 699021, 78291207, 7213771, 4488247, 1718110, 2285540 #### [facility] [address] [place] [address] CO2 [Moles/Vol] 27 mmol/L Normal 21-31 [facility] Comment on above: Performed By: #### 2 662201, 46601699, 8572383, 4017316, 5812128, 5151002 #### [facility] [address] [place] [address] Creatinine [Mass/Vol] 0.9 mg/dL Normal 0.5-1.3 [facility] Comment on above: Performed By: #### 2 563286, 47395608, 9928301, 0806269, 2283597, 1199555 #### [facility] [address] [place] [address] Globulin (S) [Mass/Vol] 2.8 g/dL Normal 1.4-4.0 [facility] Comment on above: Performed By: #### 2 111311, 39019480, 2363923, 1573142, 5743920, 3379449 #### [facility] [address] [place] [address] Glucose [Mass/Vol] 90 mg/dL Normal 55-199 [facility] Comment on above: Performed By: #### 2 535992, 51939307, 8275453, 3195661, 1910111, 9176610 #### [facility] [address] [place] [address] Potassium [Moles/Vol] 3.8 mmol/L Normal 3.5-5.3 [facility] Comment on above: Performed By: #### 2 943138, 46563552, 0102885, 1578567, 6481141, 3784396 #### [facility] [address] [place] [address] Protein [Mass/Vol] 6.8 g/dL Normal 6.0-7.8 [facility] Comment on above: Performed By: #### 2 953146, 03718951, 9642252, 3683321, 0738720, 4219018 #### [facility] [address] [place] [address] Sodium [Moles/Vol] 138 mmol/L Normal 135-145 [facility] Comment on above: Performed By: #### 2 808620, 97799942, 2256662, 6574767, 4404976, 6245910 #### [facility] [address] [place] [address] Urea nitrogen [Mass/Vol] 8 mg/dL Normal 5-21 [facility] Comment on above: Performed By: #### 2 599535, 52199844, 4085462, 4767602, 7970750, 1248465 #### [facility] [address] [place] [address] Lipid Panelon 10-07-2023 Cholesterol [Mass/Vol] 158 mg/dL Normal 120-200 [facility] Comment on above: Performed By: #### 2 469257, 41963431, 9119800, 2827570, 5729643, 3835378 #### [facility] [address] [place] [address] Cholesterol in HDL [Mass/Vol] 48 mg/dL Invalid Interpretation Code [facility] Comment on above: Result Comment: '>= 60 LOW RISK' '<= 40 HIGH RISK' Performed By: #### 2 228635, 29209326, 4907308, 8733591, 4450450, 7069969 #### [facility] [address] [place] [address] Cholesterol in LDL [Mass/Vol] 100 mg/dL Normal <=129 [facility] Comment on above: Performed By: #### 2 391472, 78641510, 3303697, 9481507, 1216948, 7684659 #### [facility] [address] [place] [address] Cholesterol in VLDL [Mass/Vol] 28 mg/dL Normal 7-40 [facility] Comment on above: Performed By: #### 2 184690, 30224811, 1299175, 9167583, 9357479, 2585106 #### [facility] [address] [place] [address] Triglyceride [Mass/Vol] 142 mg/dL Normal <=149 [facility] Comment on above: Performed By: #### 2 516431, 26177262, 7154814, 1681504, 1427222, 8682597 #### [facility] [address] [place] [address] TSHon 10-07-2023 TSH Qn 2.38 m[IU]/L Normal 0.34-5.60 [facility] Comment on above: Performed By: #### 2 277911, 77451525, 2027744, 3729492, 2936627, 9619213 #### [facility] [address] [place] [address] eGFRon 10-07-2023 GFR/1.73 sq M.predicted among non-blacks MDRD (S/P/Bld) [Vol rate/Area] mL/min/{1.73_m2} Normal >=59 [facility] Comment on above: Order Comment: Order added by Discern Expert. Performed By: #### 2 839420, 65447215, 6665501, 5120025, 2468861, 4988238 #### [facility] [address] [place] [address] Ambulatory Visit Summaryon 1 12-07-2022 Ambulatory Visit Summary JOSSELYN ROBLESCOURTNEY Monte :1980 Visit Date:10/06/2023 Ambulatory Visit Instructions Your [...] for choosing us for your care. Normal [facility] Ambulatory Visit Summary SIOBHAN ROBLES :1980 [...] you for choosing us for your care. 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 Renal failure syndrome: Mother. Normal [facility] Comment on above: Result Comment: Elec tronically Signed By: Fabiana Marquis\.br\Date and Time Signed: 10/06/23 16:35 EST CBC AUTO DIFFon 08-31-2022 BASO # 0.1 103/ul Normal 0.0-0.1 [facility] Comment on above: Performed By: #### C BC #### [facility] [address] [place] [address] Dr. Demetri Rosales Basophils/100 WBC (Bld) 0.5 % Normal 0.2-2.0 [facility] Comment on above: Performed By: #### C BC #### [facility] [address] [address] [address] Demetri Rosales EO # 0.3 103/ul Normal 0.0-0.7 [facility] Comment on above: Performed By: #### C BC #### [facility] [address] [address] [address] Demetri Rosales Eosinophils/100 WBC (Bld) 2.6 % Normal 0.9-7.0 [facility] Comment on above: Performed By: #### C BC #### [facility] [address] [place] [address] Dr. Demetri Rosales Erythrocyte distribution width (RBC) [Ratio] 13.2 % Normal 11.0-15.0 [facility] Comment on above: Performed By: #### C BC #### [facility] [address] [place] [address] Dr. Demetri Rosales Hematocrit (Bld) [Volume fraction] 40.1 % Normal 36.0-48.0 [facility] Comment on above: Performed By: #### C BC #### [facility] [address] [place] [address] Dr. Demetri Rosales Hemoglobin (Bld) [Mass/Vol] 13.2 g/dL Normal 12.0-16.0 [facility] Comment on above: Performed By: #### C BC #### [facility] [address] [place] [address] Dr. Demetri Rosales IG # 0.04 10e3/ul Critically high 0.00-0.03 [facility] Comment on above: Performed By: #### C BC #### [facility] [address] [place] [address] Dr. Demetri Rosales IG % 0.4 % Normal 0.0-0.5 [facility] Comment on above: Performed By: #### C BC #### [facility] [address] [place] [address] Dr. Demetri Rosales LYMPH # 4.1 103/ul Critically high 1.2-3.8 [facility] Comment on above: Performed By: #### C BC #### [facility] [address] [place] [address] Dr. Demetri Rosales Lymphocytes/100 WBC (Bld) 38.2 % Normal 20.5-60.0 [facility] Comment on above: Performed By: #### C BC #### [facility] [address] [place] [address] Dr. Demetri Rosales MANUAL DIFF REQ NO Normal [facility] Comment on above: Performed By: #### C BC #### [facility] [address] [place] [address] Dr. Demetri Rosales MCH (RBC) [Entitic mass] 30.4 pg Normal 26.7-34.0 [facility] Comment on above: Performed By: #### C BC #### [facility] [address] [place] [address] Dr. Demetri Rosales MCHC (RBC) [Mass/Vol] 32.9 g/dL Normal 29.9-35.2 [facility] Comment on above: Performed By: #### C BC #### [facility] [address] [place] [address] Dr. Demetri Rosales MCV (RBC) [Entitic vol] 92.4 fL Normal 81.0-99.0 [facility] Comment on above: Performed By: #### C BC #### [facility] [address] [place] [address] Dr. Demetri Rosales MONO # 0.5 103/ul Normal 0.3-0.8 [facility] Comment on above: Performed By: #### C BC #### [facility] [address] [place] [address] Dr. Demetri Rosales Monocytes/100 WBC (Bld) 4.8 % Normal 1.7-12.0 [facility] Comment on above: Performed By: #### C BC #### [facility] [address] [place] [address] Dr. Demetri Rosales NEUT # 5.7 103/ul Normal 1.4-6.5 [facility] Comment on above: Performed By: #### C BC #### [facility] [address] [place] [address] Dr. Demetri Rosales Neutrophils/100 WBC (Bld) 53.5 % Normal 43.0-75.0 [facility] Comment on above: Performed By: #### C BC #### [facility] [address] [place] [address] Dr. Demetri Rosales Platelet mean volume (Bld) [Entitic vol] 10.0 fL Normal 9.5-13.5 [facility] Comment on above: Performed By: #### C BC #### [facility] [address] [address] [address] Demetri Rosales PLT 314 103/ul Normal 150-450 [facility] Comment on above: Performed By: #### C BC #### [facility] [address] [address] [address] Demetri Rosales RBC 4.34 106/ul Normal 4.20-5.40 [facility] Comment on above: Performed By: #### C BC #### [facility] [address] [id number] Demetri Rosales WBC 10.7 103/ul Normal 4.0-11.0 [facility] Comment on above: Performed By: #### C BC #### [facility] [address] [place] [address] Dr. Demetri Rosales Covid-19 PCR (CVDTB)on 08-18 SARS-CoV-2 (COVID-19) RNA ROMANA+probe Ql (Unsp spec) Not detected Normal NOT DETECTED [facility] Comment on above: Result Comment: This test is not yet approved or cleared by the [place] FDA. When there are no FDA-approved or cleared tests available, and other criteria are met, FDA can make tests available under an emergency access mechanism called an Emergency Use Authorization (EUA). The EUA for this test is supported by the [place] of Health and Human Service's (HHS's) declaration [...] SARS-CoV-2. Performed By: #### C VDTBH #### [facility] [address] [address] [address] Demetri Rosales PREG QUANT HCGon 08-31-2022 HCG QUANT <1 Normal [facility] Comment on above: Performed By: #### P REGQNT #### [facility] [address] [address] [address] Demetri Rosales HCG RANGE SEE BELOW Normal [facility] Comment on above: Result Comment: 5-50 0.2-1 WEEK 50-500 1-2 WEEKS 100-5,000 2-3 WEEKS 500-10,000 3-4 WEEKS 1,000-50,000 4-5 WEEKS 10,000-100,000 5-6 WEEKS 15,000-200,000 6-8 WEEKS 10,000-100,000 2-3 MONTHS Performed By: #### P REGQNT #### [facility] [address] [place] [address] Dr. Demetri Rosales US PELVIS AND TRANSVAGon [...] JORGE LUIS GRIJALVA Date: 2022-07-09 13:59 Normal [facility] PAP ACOG PANEL 2: 30 to 65on 01-07-2022 . . Normal [facility] Comment on above: Result Comment: Perf ormed at: WB Performed By: #### [id number] #### [facility] [address] [place] [address] Dr. Demetri Rosales Age Gdln ACOG Testing 30-65 [facility] Comment on above: Performed By: #### [id number] #### [facility] [address] [place] [address] Dr. Demetri Rosales DIAGNOSIS: Comment Normal [facility] Comment on above: Result Comment: NEGA TIVE FOR INTRAEPITHELIAL LESION OR MALIGNANCY. Performed at: WB Performed By: #### [id number] #### [facility] [address] [place] [address] Dr. Demetri Rosales HPV Aptima Negative Normal [facility] Comment on above: Result Comment: This nucleic acid amplification test detects fourteen high-risk HPV types (16,18,31,33,35,39,45,51,52,56,58,59,66,68) without differentiation. Performed at: =G Performed By: #### [id number] #### [facility] [address] [place] [address] Dr. Demetri Rosales Methodology: Comment [facility] Comment on above: Result Comment: This liquid based ThinPrep(R) pap test was screened with the use of an image guided system. Performed at: WB Performed By: #### [id number] #### [facility] [address] [place] [address] Dr. Demetri Rosales Note: Comment Normal [facility] Comment on above: Result Comment: The Pap smear is a screening test designed to aid in the detection of premalignant and malignant conditions of the uterine cervix. It is not a diagnostic procedure and should not be used as the sole means of detecting cervical cancer. Both false-positive and false-negative reports do occur. . Performed at: WB Performed By: #### [id number] #### [facility] [address] [place] [address] Dr. Demetri Rosales Performed by: Comment Normal [facility] Comment on above: Result Comment: Eva Casas Tractor Trailer Technician (ASCP) Performed at: WB Performed By: #### [id number] #### [facility] [address] [place], [place] [address] Dr. Demetri Rosales Specimen adequacy: Comment Normal [facility] Comment on above: Result Comment: Sati sfactory for evaluation. Endocervical and/or squamous metaplastic cells (endocervical component) are present. Performed at: WB Performed By: #### [id number] #### [facility] [address] [place], [place] [address] Dr. Demetri Rosales Vital Signs Date Time Vital Sign Value Performing Clinician Faci lity 08-01-2024 08:47-0400 Body mass index (BMI) [Ratio] 29.92 kg/m2 Karma Guilherme DO Work Phone: [facility] 08-01-2024 08:47-0400 Body weight 84.1 kg Karma Guilherme DO Work Phone: [facility] 08-01-2024 08:47-0400 Diastolic blood pressure 74 mm[Hg] Karma Guilherme DO Work Phone: [facility] 08-01-2024 08:47-0400 Systolic blood pressure 116 mm[Hg] Karma Guilherme DO Work Phone: [facility] Healthcare Encounters Encounter Date Encounter Type Care Provider Facility Start: 10-02-2024 End: 10-02-2024 ambulatory KARMA GUILHERME Not Available Start: 08-01-2024 End: 08-01-2024 Bamboo flowsheet Karma Guilherme DO Work Phone: [facility] Start: 08-01-2024 End: 08-04-2024 Bamboo flowsheet Karma Guilherme DO Work Phone: [facility] Start: 08-01-2024 End: 08-04-2024 Clinisync Result Encounter Karma Guilherme DO Work Phone: [facility] External Department Unsolicited Start: 08-01-2024 End: 08-01-2024 Patient encounter procedure Karma Guilherme DO Work Phone: [facility] Work Phone: Start: 08-01-2024 End: 08-01-2024 Periodic preventive med est patient 40-64yrs Karma Guilherme DO Work Phone: [facility] Comment on above: Well woman [...] 07-18-2024 Telephone encounter Soni REZA Work Phone: [facility] Start: 07-17-2024 End: 07-17-2024 ambulatory KARMA GUILHERME Not Available Start: 12-01-2023 End: 12-05-2023 ambulatory [facility] Start: 10-06-2023 End: 10-07-2023 ambulatory SUPER[employer]OR [employer]OUNT[employer] Fabiana L Deena Facility[place] Start: 10-06-2023 End: 10-06-2023 Lab Drop off Fabiana Titus Deena [facility] Start: 09-03-2022 Encounter for preprocedural laboratory examination DR KARMA VANEGAS [facility] Start: 09-02-2022 End: 09-02-[address] KARMA VANEGAS Facility:[facility] Start: 08-31-2022 End: 09-01-[address] KARMA VANEGAS Facility:[facility] Start: 08-31-2022 End: 09-01-2022 Encounter for preprocedural laboratory examination DR KARMA VANEGAS Facility:[facility] Start: 08-30-2022 Encounter for [facility] Start: 08-25-2022 End: 08-26-[address] KARMA [...] EST Procedure Visit [facility] [address] [place] [id number] Karma Vanegas, DO [address] [place] [address] [facility] Start: 08-01-2024 End: 10-01-2025 [...] AM EDT Ancillary Procedure [facility] [address] [place] [address] [place] [phone] [facility] OB THIN PREP TIS PAP AN D HR HPV DNA THIN PREP TIS PAP AND HR HPV DNA Pathology and Cytology Routine Well woman exam with routine gynecological exam Ordered: 08/01/2024 [facility] Comment on above: Ordered: 08/01/2024 Payers Date Payer Category Payer Self-pay 2023 Unknown [id number] 2018 Private Health Insurance [id number] 2018 Private Health Insurance [id number] 1980 Unknown [id number] 2.16.84 [id number] 1982 Unknown [id number] 2.16.84 [id number] 1982 Unknown [id number] 2.16.84 [id number] 1982 Unknown [id number] 2.16.84 [id number] 1982 Unknown [id number] 2.16.84 [id number] 1982 Unknown [id number] 2.16.8 [id number] 1982 Unknown [id number] 2.16.8 [id number] 1982 Unknown [id number] 2.16.84 [id number] 1982 Unknown [id number] 2.16.84 [id number] 1982 Unknown [id number] 2.16.84 [id number] 1959 Unknown [id number] Unknown [id number] 2.16.8 [id number] Social History Date Type Detail Facility Start: 10-06-2023 Tobacco smoking status Ex-smoker (finding) [facility] [place] Sex Assigned At Female [facility] Tobacco smoking status NHIS Tobacco smoking consumption unknown [facility] Work [...] nursing note reviewed. Exam conducted with a jitney driver present. Vitals: Estimated body mass index is [...] Karma Vanegas DO documented in this encounter [facility] Telephone encounter Note 07-17-2024 Telephone Encounter - JUAQUIN Mixon - 07/17/2024 2:17 PM EDT Note Date & Type Note Facility 07-17-2024 Telephone encount er Note Obtain Op Report and any pathology from surgery in August 2022. [facility] Note 07-17-2024 Telephone Encounter - JUAQUIN Mixon - 07/17/2024 2:17 PM EDT Note Date & Type Note Facility 07-17-2024 Miscellaneous Notes Formattin g of this note might be different from the original. Obtain Op Report and any pathology from surgery in August 2022. documented in this encounter [facility] Evaluation + Plan note 10-06-2023 Note Date & Type Note Facility 10-06-2023 Evaluation + Plan [facility] 10/06/23Comprehensive Metabolic Panel 10/06/23Lipid Panel 10/06/23Thyroid Stimulating Hormone 10/06/23 [facility] Clinical Note 09-02-2022 Note Date & Type Note Facility 09-02-2022 Note OP Note OPERATION DATE: 09/02/2022 PROCEDURE: D AND C hysteroscopy, diagnostic laparoscopy. PREOPERATIVE DIAGNOSIS: Menorrhagia, pelvic pain, enlarged uterus. POSTOPERATIVE DIAGNOSIS: Menorrhagia, pelvic pain, enlarged uterus, adenomyosis. ANESTHESIA: General. SURGEON: Karma Vanegas D.O. RESPONDER: JOSETTE Pacheco URINE OUTPUT: Yellow and clear. [...] the Recovery Room in stable condition. [facility] Evaluation note Note Date & Type Note Facility Evaluation note Diagnosis Well woman exam with routine gynecological exam Routine gynecological examination Breast cancer screening by mammogram documented in this encounter [facility] Hospital course Narrative Note Date & Type Note Facility Hospital course Narrative No data available for this section [facility] Hospital Discharge instructions Note Date & Type Note Facility Hospital Discharge instructions No data available for this section [facility] Progress note Note Date & Type Note Facility Progress note No data available for this section [facility] Summary Purpose Family History No Family History [...] and content) DATE CREATED AUTHOR 10/28/2022 [facility] DATE CREATED AUTHOR AUTHOR'S ORGANIZ ATION 10/08/2023 [facility] DATE CREATED AUTHOR AUTHOR'S ORGANIZ ATION 12/06/2023 [facility] DATE CREATED AUTHOR AUTHOR'S ORGANIZ ATION 10/04/2024 [facility] EPIC DATE CREATED AUTHOR AUTHOR'S ORGANIZ ATION 10/06/2024 [facility] Patient Care team informatio n (unrecognized section and content) Personnel Name: Fabiana Marquis Address: Address: [address] [place] [address]- Reason for Visit (unrecogniz ed section and [...] BE BASED ON THE PRIMARY CLINICAL RECORDS. [facility] [employer] [facility]. provides no warranty or guarantee of the accuracy or completeness of information in this document.
--- NOTE | 2024-11-27 10:29 | XR_ITS ---
The [address] [address] Patient Name: SIOBHAN ROBLES MRN: [id number] date: 1980 Sex: F Assigned Patient Location: [facility]GRUST Current Patient Location: Accession/Order Number: [id number] Exam Date: 11/27/2024 10:40 Report Date: 11/28/2024 10:13 At the request of: KARMA WISEMAN Procedure: XR chest 2V EXAMINATION: XR chest 2V HISTORY: Preop exam COMPARISON: No relevant comparison available. TECHNIQUE: PA and lateral FINDINGS: LUNGS: No significant pulmonary parenchymal abnormalities. VASCULATURE: No increased pulmonary vasculature. PLEURA: No pneumothorax, effusion, or pleural thickening. CARDIAC: No cardiomegaly or cardiac silhouette abnormality. MEDIASTINUM: No visible mass or adenopathy. BONES: No fracture or visible bone lesion. OTHER: Negative. XR/XR chest 2V IMPRESSION: No acute disease. Electronically authenticated by: CLAUDY SAMANIEGO Date: 11/28/2024 10:13
[2024-11-27 10:43] LABS: Basophils Absolute Auto 0.1 10^3/uL (0.0-0.1); Basophils Percent Auto 0.4 % (0.2-2.0); Eosinophils Absolute Auto 0.1 10^3/uL (0.0-0.7); Eosinophils Percent Auto 0.9 % (0.9-7.0); Hematocrit 40.1 % (36.0-48.0); Hemoglobin 13.4 g/dL (12.0-16.0); Immature Granulocytes Abs Auto 0.03 10^3/uL (0.00-0.03); Immature Granulocytes Pct Auto 0.2 % (0.0-0.5); Lymphocytes Absolute Auto 4.3 10^3/uL (1.2-3.8); Lymphocytes Percent Auto 35.5 % (20.5-60.0); Mean Corpuscular HGB Conc 33.4 g/dL (29.9-35.2); Mean Corpuscular Volume 89.7 fL (81.0-99.0); Mean Platelet Volume 9.9 fL (9.5-13.5); Monocytes Absolute Auto 0.7 10^3/uL (0.3-0.8); Monocytes Percent Auto 6.1 % (1.7-12.0); Neutrophils Absolute Auto 6.9 10^3/uL (1.4-6.5); Neutrophils Percent Auto 56.9 % (43.0-75.0); Platelet Count 403 10^3/uL (150-450); Red Blood Count 4.47 10^6/uL (4.20-5.40); Red Cell Distribution Width 12.7 % (11.0-15.0); White Blood Count 12.2 10^3/uL (4.0-11.0)
--- NOTE | 2024-11-27 10:52 | PM.PRESUREVA ---
History of Present Illness History of Present Illness Chief complaint: Menorrhagia, pelvic pain, dyspareunia, dysmenorrha Narrative: Patient presents for presurgical testing. The patient reports pelvic pain, heavy painful periods, and uterine fibroids. The patient denies nausea, vomiting, fever, or any other complaints. She takes ibuprofen and Tylenol as needed to help with her discomfort. Review of Systems ROS Narrative REVIEW OF SYSTEMS: Negative except as stated in HPI, ten or more systems reviewed. Constitutional: No fever, chills, weakness ENT: No sore throat or epistaxis Cardiovascular: No edema, chest pain, palpitations, or activity intolerance Respiratory: No shortness of breath, cough, or wheezing Musculoskeletal: No joint pain or swelling Gastrointestinal: No abdominal pain, constipation, diarrhea, or vomiting Genitourinary: No dysuria or hematuria Neurological: No numbness, tingling, weakness, or headache Psychiatric: No mood changes PFSH [facility] Medical History (Updated 11/27/24 @ 10:28 by Symone Lieberman NP) Anemia ?D64.9 - Anemia, unspecified (ICD-10) Depression ?F32.A - Depression, unspecified (ICD-10) Panic attacks ?F41.0 - Panic disorder [episodic paroxysmal anxiety] (ICD-10) Anxiety ?F41.9 - Anxiety disorder, unspecified (ICD-10) Electronic cigarette use ?Z78.9 - Other specified health status (ICD-10) Fibroid ?D21.9 - Benign neoplasm of connective and other soft tissue, unspecified (ICD-10) Dyspareunia Dysmenorrhea ?N94.6 - Dysmenorrhea, unspecified (ICD-10) Pelvic pain ?R10.2 - Pelvic and perineal pain (ICD-10) Menorrhagia ?N92.0 - Excessive and frequent menstruation with regular cycle (ICD-10) GERD (gastroesophageal reflux disease) ?K21.9 - Gastro-esophageal reflux disease without esophagitis (ICD-10) Insulin resistance ?E88.819 - Insulin resistance, unspecified (ICD-10) Breast cyst ?N60.09 - Solitary cyst of unspecified breast (ICD-10) Surgical History (Updated 11/27/24 @ 10:25 by Symone Lieberman NP) History of dilation and curettage ?Z98.890 - Other specified postprocedural states (ICD-10) History of cholecystectomy ?Z90.49 - Acquired absence of other specified parts of digestive tract (ICD-10) Family History (Updated 11/27/24 @ 10:24 by Symone Lieberman NP) Other Family history of breast cancer Family history of cancer Family history of diabetes mellitus Family history of hypertension Family history of myocardial infarction Family history of pancreatic cancer SVT (supraventricular tachycardia) Social History (Updated 11/27/24 @ 10:22 by Symone Lieberman NP) Within the past year, how often did you have a drink containing alcohol: never Score interpretation: A score less than 3 is consistent with normal alcohol consumption. 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 Highest level of school completed/degree received: Associate degree: occupational, technical, vocational program Meds Home Medications and Allergies Allergies Allergy/AdvReac Type Severity Reaction Status Date / Time No Known Drug Allergies Allergy Verified 11/27/24 10:20 Exam Narrative Exam Narrative: Constitutional: Awake, alert, comfortable, well-appearing, nontoxic, interactive, vital signs as charted Head: Normocephalic, atraumatic Neck: Supple, normal appearance, normal range of motion, no meningeal signs, no lymphadenopathy Respiratory: No respiratory distress, breath sounds clear Cardiovascular: Regular rate and rhythm, strong and regular heart tones Abdomen: Nontender, normal bowel sounds, soft, no CVA tenderness Musculoskeletal: Normal gait, no swelling or edema Skin: No rashes or induration, no lesions, only visible skin inspected Neuro: No neurological deficits, normal sensation Psychiatric: Oriented ?3, normal affect Assessment and Plan Assessment and Plan (1) Menorrhagia: (2) Pelvic pain: (3) Dysmenorrhea: (4) Dyspareunia: (5) Fibroid: Plan Robot-assisted laparoscopic hysterectomy, possible BSO, possible cystoscopy, possible exploratory laparotomy scheduled with Dr. Vanegas December 13, 2024.
[2024-11-27 10:59] LABS: Anion Gap 13.9; BUN Creatinine Ratio 5.1; Chloride 102 mmol/L (98-107); Estimated GFR (African America >60 (>=60 mL/min/1.73m^2); Estimated GFR (Non-African Ame >60 (>=60 mL/min/1.73m^2); Glucose 105 mg/dL (74-106); Potassium 3.9 mmol/L (3.5-5.1); Sodium 139 mmol/L (136-145)
[2024-11-27 11:03] LABS: INR 0.96; Partial Thromboplastin Time 30.8 sec (22.3-36.2); Prothrombin Time 10.2 sec (9.0-11.6)
[2024-11-27 11:37] LABS: Alanine Aminotransferase 20 U/L (14-59); Albumin Globulin Ratio 0.9; Albumin Level 3.7 g/dL (3.4-5.0); Alkaline Phosphatase 91 U/L (46-116); Aspartate Amino Transferase 11 U/L (15-37); Bilirubin Direct <0.1 mg/dL (0.0-0.2); Bilirubin Total 0.2 mg/dL (0.2-1.0); Globulin 3.9 g/dL; Total Protein 7.6 g/dL (6.4-8.2)
== END 2024-11-27 09:56 | disposition home or self-care (01) ==
LOC: PST 09:56
PROVIDERS: PCP Nurse Practitioner; Visit Provider Obstetrics & Gynecology
DX: Z01.810 Encounter for preprocedural cardiovascular examination (principal); Z01.812 Encounter for preprocedural laboratory examination; Z01.818 Encounter for other preprocedural examination; N92.0 Excessive and frequent menstruation with regular cycle; R10.2 Pelvic and perineal pain; N94.6 Dysmenorrhea, unspecified
CPT/HCPCS: 71046; 80048; 80076; 85025; 85610; 85730; G0463

== ENCOUNTER 2024-12-11 07:32 | Outpatient (OUT) | payer OTHER, SELFPAY | END 2024-12-11 07:33 | disposition home or self-care (01) | LOC: LAB 07:33 | PROVIDERS: PCP Nurse Practitioner; Visit Provider Obstetrics & Gynecology | DX: Z01.812 Encounter for preprocedural laboratory examination (principal); N92.0 Excessive and frequent menstruation with regular cycle; R10.2 Pelvic and perineal pain; N94.6 Dysmenorrhea, unspecified; D21.9 Benign neoplasm of connective and other soft tissue, unspecified; N94.10 Unspecified dyspareunia | CPT/HCPCS: 36415; 86850; 86900; 86901 ==

== ENCOUNTER 2024-12-13 06:18 | Day surgery (SDC) | payer OTHER, SELFPAY ==
[2024-11-27 10:38] VITALS: BP 137/83; PULSE 62; TEMP 36.3; O2SAT 97; BMI 32.2
[2024-12-13] VITALS (21 sets, daily range): BP systolic 121–182; BP diastolic 77–94; PULSE 66–106; TEMP 36.1–36.8; O2SAT 91–96; BMI 32.0
--- OUTSIDE RECORDS SUMMARY | 2024-12-13 06:22 | XMS_ITS | CCD ---
Author Organization [facility] ion [facility] Care Team Providers Care Bill Collector Name Role Phone GUILHERME, DR PARADA [...] Care Unavailable GUILHERME, DR PARADA Consulting Unavailable MICKYHAFSABAKARI Consulting Unavailable KUCHIPUDI, DARNELL Consulting Unavailable GUILHERME, DR PARADA Admitting Unavailable GUILHERME, DR PARADA Attending Unavailable BRISTOL, DR ROMANO Primary Care Unavailable GUILHERME, DR PARADA Consulting Unavailable ZIEBER, DR JORGE LUIS Smith Consulting Unavailable Deena, Fabiana Titus Primary Care Physician [phone] Deena, [place] [employer] GU[employer] Fabiana L Attending Unavailable Deena, [place] [employer] Fabiana L Admitting Unavailable Deena, [place] [employer] Fabiana L Attending Unavailable NOTAMARA PAREKH Referring Unavailable Unavailable Primary Care Provider Unavailabl e KARMA VANEGAS Attending Unavailable KARMA VANEGAS Attending Unavailable KARMA VANEGAS Attending Unavailable Karma Vanegas Attending Unavailable Karma Vanegas Admitting Unavailable Allergies Allergy Classification Reported Allergen(s) Allergy Type Date of Onset Reaction(s) Facility (1 source) No Known Medication Allergies; Translations: [No Known Medication Allergies] Propensity to adverse reactions (disorder) [facility] Repository Problems Active Problems Problem Classification Problem Date Documented Da te Episodic/Chronic Abdominal pain (6 sources) Pelvic and perineal pain; Translations: [Pain in female pelvis] Onset: 07-09-2022 Episodic Administrative/social admission (1 source) Encounter for pre-employment examination; Translations: [Encounter for pre-employment examination] Onset: 12-01-2023 Episodic Allergic reactions (1 source) Eczema 06-05-2020 Episodic Anxiety disorders (1 source) Anxiety disorder, unspecified; Translations: [ANXIETY DISORDER UNSPECIFIED] Onset: 09-09-2022 Chronic Benign neoplasm of uterus (1 source) Leiomyoma of uterus, unspecified; Translations: [LEIOMYOMA OF UTERUS UNSPECIFIED] Onset: 09-09-2022 Episodic Menstrual disorders (12 sources) Excessive and frequent menstruation with irregular cycle; Translations: [Excessive and frequent menstruation with regular cycle] Onset: 09-02-2022 Chronic Nonmalignant breast conditions (1 source) Cellulitis of breast 06-06-2020 Episodic Other and unspecified benign neoplasm (7 sources) Leiomyoma; Translations: [Benign neoplasm of connective and other soft tissue, unspecified] Onset: 10-02-2024 10-02-2024 Episodic Other endocrine disorders (1 source) Polycystic ovarian syndrome; Translations: [POLYCYSTIC OVARIAN SYNDROME] Onset: 09-09-2022 Chronic Other endocrine disorders (1 source) Polycystic ovary syndrome 10-06-2023 Chronic Other female genital disorders (1 source) Pain in female genitalia on intercourse; Translations: [Unspecified dyspareunia] 10-02-2024 Chronic Other female genital disorders (1 source) [...] Name Value Interpretation Reference Range Facility ALL TYPE AND SCREENon 2024 ABO and Rh group Nom (Bld) Blood group O Rh(D) positive [facility] , [facility] XR CHEST 2Von 11-28-2024 [place] [address] XRay Report Signed Patient: SIOBHAN ROBLES MR#: [id number] : 1980 Acct:[id number] Age/Sex: 44 / F ADM Date: 11/27/24 Loc: [facility] Attending Dr: Karma Vanegas D.O. Ordering Physician: Karma Vanegas D.O. Date of Service: 11/27/24 Procedure(s): XR chest 2V Accession Number(s): [id number] cc: Karma Vanegas D.O.; FABIANA VICTOR [place] [id number] Patient Name: SIOBHAN ROBLES MRN: [id number] date: 1980 Sex: F Assigned Patient Location: [facility] Current Patient Location: Accession/Order Number: [id number] Exam Date: 11/27/2024 10:40 Report Date: 11/28/2024 10:13 At the request of: KARMA VANEGAS Procedure: XR chest 2V EXAMINATION: XR chest 2V HISTORY: Preop exam COMPARISON: No relevant comparison available. TECHNIQUE: PA and lateral FINDINGS: LUNGS: No significant pulmonary parenchymal abnormalities. VASCULATURE: No increased pulmonary vasculature. PLEURA: No pneumothorax, effusion, or pleural thickening. CARDIAC: No cardiomegaly or cardiac silhouette abnormality. MEDIASTINUM: No visible mass or adenopathy. BONES: No fracture or visible bone lesion. OTHER: Negative. XR/XR chest 2V IMPRESSION: No acute disease. Electronically authenticated by: CLAUDY SAMANIEGO Date: 11/28/2024 10:13 Dictated By: Claudy Samaniego M.D. Signed By: 11/28/24 1016 DD/ 1013 TD/TT: Blanker Press Operator: [facility] Radiology, Radiologist, - 11/28/2024 [place] [address] XRay Report Signed Patient: SIOBHAN ROBLES MR#: [id number] : 1980 Acct:[id number] Age/Sex: 44 / F ADM Date: 11/27/24 Loc: [facility] Attending Dr: Karma Vanegas D.O. Ordering Physician: Karma Vanegas D.O. Date of Service: 11/27/24 Procedure(s): XR chest 2V Accession Number(s): [id number] cc: Karma Vanegas D.O.; FABIANA VICTOR [place] [id number] Patient Name: SIOBHAN ROBLES MRN: [facility]:[id number] date: 1980 Sex: F Assigned Patient Location: [facility] Current Patient Location: Accession/Order Number: [id number] Exam Date: 11/27/2024 10:40 Report Date: 11/28/2024 10:13 At the request of: KARMA VANEGAS Procedure: XR chest 2V EXAMINATION: XR chest 2V HISTORY: Preop exam COMPARISON: No relevant comparison available. TECHNIQUE: PA and lateral FINDINGS: LUNGS: No significant pulmonary parenchymal abnormalities. VASCULATURE: No increased pulmonary vasculature. PLEURA: No pneumothorax, effusion, or pleural thickening. CARDIAC: No cardiomegaly or cardiac silhouette abnormality. MEDIASTINUM: No visible mass or adenopathy. BONES: No fracture or visible bone lesion. OTHER: Negative. XR/XR chest 2V IMPRESSION: No acute disease. Electronically authenticated by: CLAUDY SAMANIEGO Date: 11/28/2024 10:13 Dictated By: Claudy Samaniego M.D. Signed By: 11/28/24 1016 DD/ 1013 TD/TT: Blanker Press Operator: [facility] Radiology Study observation (narrative) [facility] XR CHEST 2VOrdered By: Radio logist Radiology on 11-28-2024 [facility] Work Phone: ALL CBC WITH AUTO DIFFon BASOPHILS ABSOLUTE AUTO 0.1 [facility] Basophils/100 WBC (Bld) 0.4 % 0.2 - 2.0 % [facility] Eosinophils/100 WBC (Bld) 0.9 % 0.9 - 7.0 % [facility] Erythrocyte distribution width (RBC) [Ratio] 12.7 % 11.0 - 15.0 % [facility] Hematocrit (Bld) [Volume fraction] 40.1 % 36.0 - 48.0 % [facility] Hemoglobin (Bld) [Mass/Vol] 13.4 g/dL 12.0 - 16.0 g/dL [facility] IMMATURE GRANULOCYTES ABS AUTO 0.03 [facility] Immature granulocytes/100 WBC (Bld) 0.2 % 0.0 - 0.5 % [facility] Interpretation and review of laboratory results Abnormal [facility] LYMPHOCYTES ABSOLUTE AUTO 4.3 High [facility] Lymphocytes/100 WBC (Bld) 35.5 % 20.5 - 60.0 % [facility] MCH (RBC) [Entitic mass] 30 pg 26.7 - 34.0 pg [facility] MCHC (RBC) [Mass/Vol] 33.4 g/dL 29.9 - 35.2 g/dL [facility] MCV (RBC) [Entitic vol] 89.7 fL 81.0 - 99.0 fL [facility] MONOCYTES ABSOLUTE AUTO 0.7 [facility] Monocytes/100 WBC (Bld) 6.1 % 1.7 - 12.0 % [facility] NEUTROPHILS ABSOLUTE AUTO 6.9 High [facility] Neutrophils/100 WBC (Bld) 56.9 % 43.0 - 75.0 % [facility] Platelet mean volume (Bld) [Entitic vol] 9.9 fL 9.5 - 13.5 fL [facility] EO # 0.1 [facility] PLT 403 [facility] RBC 4.47 [facility] WBC 12.2 High [facility] Chacho 10-02-2024 L - -------- Specimen: [id number] Received: 10/03/24 Status: CHEO Pugh Num: [id number] Spec Type: Surgical Subm Dr: Karma Vanegas Tissues: A Endometrium - Biopsy (ENDOMETRIAL BX) Procedures: HE/2, Gross/Micro L4 -------- Age/ Patient Sex Location Account Attending Physician -------- Siobhan Robles 44/F [facility] [id number] Karma Vanegas -------- SPEC NUM: [id number] RECD: 10/03/24 STATUS: CHEO PUGH NUM: [id number] YUNG: 10/02/24- SUBM : Karma Vanegas ENTERED: 10/03/24 CURTIS ALVAREZ: Philomena,Lab SPEC TYPE: Surgical DEPT: GIOVANNA JENKINS ENTERED BY: [id number] RECV BY: [id number] ORDERED: HE/2, Gross/Micro L4 ORDERED: HE/2, Gross/Micro [...] submitted in a single cassette. (1, ns, [id number]) CPT Codes 79771 -------- -------- Specimen: [id number] Received: 10/03/24 Status: CHEO uPgh Num: [id number] Spec Type: Surgical Subm Dr: Karma Vanegas Tissues: A Endometrium - Biopsy (ENDOMETRIAL BX) Procedures: HE/2, Gross/Micro L4 -------- Patient: Siobhan Robles [id number] (Continued) -------- Signed (signature on file) Jack Cárdenas MD 10/04/24 1441 Normal [facility] IGP,APTIMA HPV,AGE GDLNon AGE GDLN ACOG TESTING Note . [facility] Comment on above: TESTS RESULT FLAG U NITS REF RANGE LAB Clinician Provided Cytology Information Source.............Cervix No. of containers..01 ThinPrep Vial Age Algo ACOG Victoria... 67 01 FLAG LEGEND: L-Low Normal,H-High Normal,LL-Alert Low,HH-Alert High <-Panic Low,>-Panic High,A-Abnormal,AA-Critical Abnormal Performed at: 01 =G [facility] [place] [address] Chyna Guzmán MD, HPV APTIMA Negative Negative [facility] Comment on above: This nucleic acid am plification test detects fourteen high- risk HPV types (16,18,31,33,35,39,45,51,52,56,58,59,66,68) without differentiation. Performed at: = - [facility] [id number] Keno Writer: Chyna Guzmán MD, Phone: [phone] Performed at: - [facility], [place] [id number] Keno Writer: Chyna Guzmán MD, Phone: [phone] IGP, APTIMA HPV, RFX 16/18,45 Note . [facility] Comment on above: TESTS RESULT FLAG UN ITS REF RANGE LAB DIAGNOSIS: 02 NEGATIVE FOR INTRAEPITHELIAL LESION OR MALIGNANCY. Specimen adequacy: 02 Satisfactory for evaluation. Endocervical and/or squamous metaplastic cells (endocervical component) are present. Performed by: 02 Angelica Cochran, Product Owner (ASCP) . 02 Note: Note 02 The [...] Low,>-Panic High,A-Abnormal,AA-Critical Abnormal Performed at: 02 WB [facility] [address] [address] Chyna Guzmán MD, BRUSH-SPATULA CERVIX [facility] ALL CBC WITH AUTO DIFFon BASOPHILS ABSOLUTE AUTO 0.1 [facility] Basophils/100 WBC (Bld) 0.7 % 0.2 - 2.0 % [facility] Eosinophils/100 WBC (Bld) 1.9 % 0.9 - 7.0 % [facility] Erythrocyte distribution width (RBC) [Ratio] 13.2 % 11.0 - 15.0 % [facility] Hematocrit (Bld) [Volume fraction] 39.9 % 36.0 - 48.0 % [facility] Hemoglobin (Bld) [Mass/Vol] 12.9 g/dL 12.0 - 16.0 g/dL [facility] IMMATURE GRANULOCYTES ABS AUTO 0.02 [facility] Immature granulocytes/100 WBC (Bld) 0.2 % 0.0 - 0.5 % [facility] LYMPHOCYTES ABSOLUTE AUTO 3.5 [facility] Lymphocytes/100 WBC (Bld) 35.7 % 20.5 - 60.0 % [facility] MCH (RBC) [Entitic mass] 29.5 pg 26.7 - 34.0 pg [facility] MCHC (RBC) [Mass/Vol] 32.3 g/dL 29.9 - 35.2 g/dL [facility] MCV (RBC) [Entitic vol] 91.3 fL 81.0 - 99.0 fL [facility] MONOCYTES ABSOLUTE AUTO 0.6 [facility] Monocytes/100 WBC (Bld) 6.1 % 1.7 - 12.0 % [facility] NEUTROPHILS ABSOLUTE AUTO 5.4 [facility] Neutrophils/100 WBC (Bld) 55.4 % 43.0 - 75.0 % [facility] Platelet mean volume (Bld) [Entitic vol] 10.3 fL 9.5 - 13.5 fL [facility] TBH EO # 0.2 [facility] PLT 408 [facility] RBC 4.37 [facility] WBC 9.7 [facility] XR CHEST 2 VWSon 12-01-2023 XR CHEST [...] MD on 12/01/2023 1:43 PM Normal [facility] 10-08-2023 Reminders - From: Fabiana Marquis To: [facility] - Clinical; Sent: 10/08/2023 09:06:01 EST Show [...] 33.9 % (14.0 - 50.0) 10/06/2023 16:38 [place] Auto 4.8 % (4.0 - 14.0) 10/06/2023 16:38 Eos Auto 2.5 % (0.0 - 8.0) 10/06/2023 16:38 Basophil Auto 0.4 % (0.0 - 2.0) 10/06/2023 16:38 Neutro Absolute 7.3 E9/L (2.0 - 7.5) 10/06/2023 16:38 Lymph Absolute ((H)) 4.2 E9/L (1.0 - 4.0) 10/06/2023 16:38 [place] Absolute 0.6 E9/L (0.2 - 1.0) 10/06/2023 [...] 5.60) Pt calls in and notified. Normal [facility] Auto Diffon 10-07-2023 Basophils/100 WBC (Bld) 0.4 % Normal 0.0-2.0 [facility] Comment on above: Order Comment: Order Added by Discern Expert. Performed By: #### 2 634507, 31174712, 1109124, 3946577, 8418843, 0177017 #### [facility] Laboratory [address] [place] [address] Basophils/Leukocyte s Auto (Bld) [Pure # fraction] 0.1 E9/L Normal 0.0-0.2 [facility] Comment on above: Order Comment: Order Added by Discern Expert. Performed By: #### 2 763170, 31803405, 6800381, 8011359, 7276535, 6016557 #### [facility] [address] [place] [address] Eosinophils/100 WBC (Bld) 2.5 % Normal 0.0-8.0 [facility] Comment on above: Order Comment: Order Added by Discern Expert. Performed By: #### 2 303850, 03565674, 1152599, 5360395, 0487824, 9272866 #### [facility] [address] [place] [address] Eosinophils/Leukocy victoria Auto (Bld) [Pure # fraction] 0.3 E9/L Normal 0.0-0.5 [facility] Comment on above: Order Comment: Order Added by Discern Expert. Performed By: #### 2 169347, 84419602, 8830974, 5249315, 3263928, 8835229 #### [facility] [address] [place] [address] Lymphocytes/100 WBC (Bld) 33.9 % Normal 14.0-50.0 [facility] Comment on above: Order Comment: Order Added by Discern Expert. Performed By: #### 2 379133, 67693075, 5242892, 1498783, 2336919, 3241400 #### [facility] [address] [place] [address] Lymphocytes/Leukocy vict[place] Auto (Bld) [Pure # fraction] 4.2 E9/L High 1.0-4.0 [facility] Comment on above: Order Comment: Order Added by Discern Expert. Performed By: #### 2 129339, 66296622, 5842073, 0922730, 3769552, 7219834 #### [facility] [address] [place] [address]189 Monocytes/100 WBC (Bld) 4.8 % Normal 4.0-14.0 [facility] Comment on above: Order Comment: Order Added by Discern Expert. Performed By: #### 2 762764, 19445439, 2483335, 2686902, 2996756, 6301880 #### [facility] [address] [place] [address] Monocytes/Leukocyte s Auto (Bld) [Pure # fraction] 0.6 E9/L Normal 0.2-1.0 [facility] Comment on above: Order Comment: Order Added by Discern Expert. Performed By: #### 2 335815, 46138255, 6202571, 3454655, 1856997, 9376588 #### [facility] [address] [place] [address] Neutrophils/100 WBC (Bld) 58.4 % Normal 36.0-75.0 [facility] Comment on above: Order Comment: Order Added by Discern Expert. Performed By: #### 2 688739, 76437101, 8430930, 0577669, 7142448, 4347759 #### [facility] [address] [place] [address] Neutrophils/Leukocy vict[place] Auto (Bld) [Pure # fraction] 7.3 E9/L Normal 2.0-7.5 [facility] Comment on above: Order Comment: Order Added by Discern Expert. Performed By: #### 2 942684, 18125867, 8065700, 9977976, 9122444, 8743660 #### [facility] [address] [place] [address]37 CBC w/ Auto Diffon 3 Erythrocyte distribution width (RBC) [Ratio] 14.4 % High 10.9-14.2 [facility] Comment on above: Performed By: #### 2 510185, 10901114, 0984457, 7393244, 7791376, 2236753 #### [facility] [address] [place] [address] 50127 Hematocrit (Bld) [Volume fraction] 41.5 % Normal 34.0-46.0 [facility] Comment on above: Performed By: #### 2 356540, 50565718, 6865036, 5240020, 0875278, 4593803 #### [facility] [address] [place] [address] 46167 Hemoglobin (Bld) [Mass/Vol] 13.3 g/dL Normal 12.0-16.0 [facility] Comment on above: Performed By: #### 2 869432, 68785995, 0010543, 3585573, 2775917, 6589331 #### [facility] [address] [place] [address] 25835 MCH (RBC) [Entitic mass] 28.9 pg Normal 27.0-34.0 [facility] Comment on above: Performed By: #### 2 198501, 60701089, 1703685, 8845313, 4625095, 0156763 #### [facility] [address] [place] [address] 39156 MCHC (RBC) [Mass/Vol] 32.0 g/dL Normal 31.4-36.0 [facility] Comment on above: Performed By: #### 2 528672, 76302222, 7918694, 6695934, 2606946, 8270844 #### [facility] [address] [place] [address] 82060 MCV (RBC) [Entitic vol] 90.5 fL Normal 80.0-100.0 [facility] Comment on above: Performed By: #### 2 118734, 51771605, 8504122, 3209718, 5568589, 8002615 #### [facility] [address] [place] [address] 40937 Platelet mean volume (Bld) [Entitic vol] 10.0 fL Normal 6.4-10.8 [facility] Comment on above: Performed By: #### 2 332327, 41367134, 3867874, 0192241, 4699979, 7789072 #### [facility] [address] [place] [address] 33656 Platelets (Bld) [#/Vol] 383.0 E9/L Normal 150.0-500.0 [facility] Comment on above: Performed By: #### 2 903673, 77792604, 0185080, 4371759, 2133908, 2510991 #### [facility] [address] [place] [address] RBC (Bld) [#/Vol] 4.6 E12/L Normal 4.3-5.9 [facility] Comment on above: Performed By: #### 2 163910, 72069168, 3954622, 2536052, 9012130, 3369313 #### [facility] [address] [place] [address] WBC corrected for nucl RBC Auto (Bld) [#/Vol] 12.5 E9/L High 4.0-11.0 [facility] Comment on above: Result Comment: Slid e reviewed by ZEYNEP. Performed By: #### 2 321252, 53144577, 3867529, 3242300, 1690769, 1595903 #### [facility] [address] [place] [address]1477 CMPon 10-07-2023 Albumin [Mass/Vol] 4.0 g/dL Normal 3.3-5.0 [facility] Comment on above: Performed By: #### 2 020777, 74191989, 3579546, 1483707, 9723533, 6502596 #### [facility] [address] [place] [address] 27738 Albumin/Globulin [Mass ratio] 1.4 {ratio} Normal 1.1-2.2 [facility] Comment on above: Performed By: #### 2 881767, 44769454, 6217365, 5435495, 3042196, 6973125 #### [facility] [address] [place] [address] Alk Phos 81 Int._Unit/L Normal 21-98 [facility] Comment on above: Performed By: #### 2 244637, 05354321, 7126044, 0243485, 5475225, 5060557 #### [facility] [address] [place] [address] ALT 18 Int._Unit/L Normal 6-46 [facility] Comment on above: Performed By: #### 2 898111, 63920296, 6231944, 4040871, 8690403, 7544029 #### [facility] [address] [place] [address] Anion gap [Moles/Vol] 10 mmol/L Normal 6-16 [facility] Comment on above: Performed By: #### 2 900663, 97619414, 2459866, 9205088, 3589677, 5119489 #### [facility] [address] [place] [address] AST 13 Int._Unit/L Normal 5-43 [facility] Comment on above: Performed By: #### 2 199689, 30544789, 7671516, 6853176, 8969770, 1101861 #### [facility] [address] [place] [address] Bili Total 0.2 mg/dL Normal 0.0-1.1 [facility] Comment on above: Performed By: #### 2 956111, 27490420, 9380520, 4754411, 0143261, 5869976 #### [facility] [address] [place] [address] BUN/Creat Ratio 9 No Units Low 10-20 [facility] Comment on above: Performed By: #### 2 167639, 42065275, 4062489, 4657037, 1695281, 2594996 #### [facility] [address] [place] [address] Calcium [Mass/Vol] 8.8 mg/dL Low 8.9-11.1 [facility] Comment on above: Performed By: #### 2 672651, 37024603, 4999630, 9187011, 9361101, 7132821 #### [facility] [address] [place] [address] Chloride [Moles/Vol] 105 mmol/L Normal 101-111 [facility] Comment on above: Performed By: #### 2 537468, 71960655, 4956977, 8060899, 0713200, 5171363 #### [facility] [address] [place] [address] CO2 [Moles/Vol] 27 mmol/L Normal 21-31 [facility] Comment on above: Performed By: #### 2 367219, 53410991, 9179755, 8923073, 3302653, 3927278 #### [facility] [address] [place] [address] Creatinine [Mass/Vol] 0.9 mg/dL Normal 0.5-1.3 [facility] Comment on above: Performed By: #### 2 207344, 97524226, 9767849, 7496961, 0284034, 0237864 #### [facility] [address] [place] [address] Globulin (S) [Mass/Vol] 2.8 g/dL Normal 1.4-4.0 [facility] Comment on above: Performed By: #### 2 001024, 26895854, 6503913, 2481487, 1443092, 5314956 #### [facility] [address] [place] [address] Glucose [Mass/Vol] 90 mg/dL Normal 55-199 [facility] Comment on above: Performed By: #### 2 598287, 71313283, 2462229, 6890601, 4263909, 4569755 #### [facility] [address] [place] [address] Potassium [Moles/Vol] 3.8 mmol/L Normal 3.5-5.3 [facility] Comment on above: Performed By: #### 2 577618, 03320654, 4076389, 2863796, 8343663, 2321667 #### [facility] [address] [place] [address] Protein [Mass/Vol] 6.8 g/dL Normal 6.0-7.8 [facility] Comment on above: Performed By: #### 2 979577, 64587224, 2489099, 7871799, 1069492, 2037818 #### [facility] [address] [place] [address] Sodium [Moles/Vol] 138 mmol/L Normal 135-145 [facility] Comment on above: Performed By: #### 2 177425, 36767241, 2283410, 2086747, 3411058, 9427902 #### [facility] [address] [place] [address] Urea nitrogen [Mass/Vol] 8 mg/dL Normal 5-21 [facility] Comment on above: Performed By: #### 2 662859, 07555126, 1297742, 2279891, 5896759, 7466357 #### [facility] [address] [place] [address] Lipid Panelon 10-07-2023 Cholesterol [Mass/Vol] 158 mg/dL Normal 120-200 [facility] Comment on above: Performed By: #### 2 860037, 27823274, 2877504, 8573496, 3238116, 4337671 #### [facility] [address] [place] [address] Cholesterol in HDL [Mass/Vol] 48 mg/dL Invalid Interpretation Code [facility] Comment on above: Result Comment: '>= 60 LOW RISK' '<= 40 HIGH RISK' Performed By: #### 2 005142, 20788294, 9516661, 4269441, 0104092, 1445451 #### [facility] [address] [place] [address] Cholesterol in LDL [Mass/Vol] 100 mg/dL Normal <=129 [facility] Comment on above: Performed By: #### 2 244654, 58727820, 7195529, 2089642, 9742285, 4814400 #### [facility] [address] [place] [address] Cholesterol in VLDL [Mass/Vol] 28 mg/dL Normal 7-40 [facility] Comment on above: Performed By: #### 2 607246, 71881869, 8151790, 8714708, 2940767, 2850586 #### [facility] [address] [place] [address] Triglyceride [Mass/Vol] 142 mg/dL Normal <=149 [facility] Comment on above: Performed By: #### 2 615050, [id number], [id number], [id number], [id number], [id number] #### [facility] [address] [place] [address] TSHon 10-07-2023 TSH Qn 2.38 m[IU]/L Normal 0.34-5.60 [facility] Comment on above: Performed By: #### 2 [id number], [id number], [id number], [id number], [id number], [id number] #### [facility] [address] [place] [address] eGFRon 10-07-2023 GFR/1.73 sq M.predicted among non-blacks MDRD (S/P/Bld) [Vol rate/Area] mL/min/{1.73_m2} Normal >=59 [facility] Comment on above: Order Comment: Order added by Discern Expert. Performed By: #### 2 [id number], [id number], [id number], [id number] #### [facility] [address] [place] [address] Ambulatory Visit Summaryon 1 12-07-2022 Ambulatory Visit [...] you for choosing us for your care. [facility] Ambulatory Visit Summary SIOBHAN ROBLES :1980 [...] for choosing us for your care. 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 Renal failure syndrome: Mother. Normal [facility] Comment on above: Result Comment: Elec tronically Signed By: Fabiana Marquis\.br\Date and Time Signed: 10/06/23 16:35 EST CBC AUTO DIFFon 08-31-2022 BASO # 0.1 103/ul Normal 0.0-0.1 [facility] Comment on above: Performed By: #### C BC #### [facility] [address] [address] [address] Demetri Rosales Basophils/100 WBC (Bld) 0.5 % Normal 0.2-2.0 [facility] Comment on above: Performed By: #### C BC #### [facility] [address] [address] [address] Demetri Rosales EO # 0.3 103/ul Normal 0.0-0.7 [facility] Comment on above: Performed By: #### C BC #### [facility] [address] [address] [address] Demetri Rosales Eosinophils/100 WBC (Bld) 2.6 % Normal 0.9-7.0 [facility] Comment on above: Performed By: #### C BC #### [facility] [address] [place] [address] Dr. Demetri Rosales Erythrocyte distribution width (RBC) [Ratio] 13.2 % Normal 11.0-15.0 [facility] Comment on above: Performed By: #### C BC #### [facility] [address] [place] [address] Dr. Demetri Rosales Hematocrit (Bld) [Volume fraction] 40.1 % Normal 36.0-48.0 [facility] Comment on above: Performed By: #### C BC #### [facility] [address] [place] [address] Dr. Demetri Rosales Hemoglobin (Bld) [Mass/Vol] 13.2 g/dL Normal 12.0-16.0 [facility] Comment on above: Performed By: #### C BC #### [facility] [address] [place] [address] Dr. Demetri Rosales IG # 0.04 10e3/ul Critically high 0.00-0.03 [facility] Comment on above: Performed By: #### C BC #### [facility] [address] [place] [address] Dr. Demetri Rosales IG % 0.4 % Normal 0.0-0.5 [facility] Comment on above: Performed By: #### C BC #### [facility] [address] [place] [address] Dr. Demetri Rosales LYMPH # 4.1 103/ul Critically high 1.2-3.8 [facility] Comment on above: Performed By: #### C BC #### [facility] [address] [place] [address] Dr. Demetri Rosales Lymphocytes/100 WBC (Bld) 38.2 % Normal 20.5-60.0 [facility] Comment on above: Performed By: #### C BC #### [facility] [address] [place] [address] Dr. Demetri Rosales MANUAL DIFF REQ NO Normal [facility] Comment on above: Performed By: #### C BC #### [facility] [address] [place] [address] Dr. Demetri Rosales MCH (RBC) [Entitic mass] 30.4 pg Normal 26.7-34.0 [facility] Comment on above: Performed By: #### C BC #### [facility] [address] [place] [address] Dr. Demetri Rosales MCHC (RBC) [Mass/Vol] 32.9 g/dL Normal 29.9-35.2 [facility] Comment on above: Performed By: #### C BC #### [facility] [address] [place] [address] Dr. Demetri Rosalse MCV (RBC) [Entitic vol] 92.4 fL Normal 81.0-99.0 [facility] Comment on above: Performed By: #### C BC #### [facility] [address] [place] [address] Dr. Demetri Rosales MONO # 0.5 103/ul Normal 0.3-0.8 [facility] Comment on above: Performed By: #### C BC #### [facility] [address] [place] [address] Dr. Demetri Rosales Monocytes/100 WBC (Bld) 4.8 % Normal 1.7-12.0 [facility] Comment on above: Performed By: #### C BC #### [facility] [address] [place] [address] Dr. Dmeetri Rosales NEUT # 5.7 103/ul Normal 1.4-6.5 [facility] Comment on above: Performed By: #### C BC #### [facility] [address] [place] [address] Dr. Demetri oRsales Neutrophils/100 WBC (Bld) 53.5 % Normal 43.0-75.0 [facility] Comment on above: Performed By: #### C BC #### [facility] [address] [place] [address] Dr. Demetri Rosales Platelet mean volume (Bld) [Entitic vol] 10.0 fL Normal 9.5-13.5 [facility] Comment on above: Performed By: #### C BC #### [facility] [address] [place] [address] Dr. Demetri Rosales PLT 314 103/ul Normal 150-450 [facility] Comment on above: Performed By: #### C BC #### [facility] [address] [place] [address] Dr. Demetri Rosales RBC 4.34 106/ul Normal 4.20-5.40 [facility] Comment on above: Performed By: #### C BC #### [facility] [address] [place] [address] Dr. Demetri Rosales WBC 10.7 103/ul Normal 4.0-11.0 [facility] Comment on above: Performed By: #### C BC #### [facility] [address] [place] [address] Dr. Demetri Rosales Covid-19 PCR ([facility])on 08-18 SARS-CoV-2 (COVID-19) RNA ROMANA+probe Ql (Unsp spec) Not detected Normal NOT DETECTED [facility] Comment on above: Result Comment: This test is not yet approved or cleared by the [place] FDA. When there are no FDA-approved or cleared tests available, and other criteria are met, FDA can make tests available under an emergency access mechanism called an Emergency Use Authorization (EUA). The EUA for this test is supported by the [place] of Health and Human Service's (HHS's) declaration [...] SARS-CoV-2. Performed By: #### C VDTBH #### [facility] [address] [place] [address] Dr. Demetri Rosales PREG QUANT HCGon 08-31-2022 HCG QUANT <1 Normal [facility] Comment on above: Performed By: #### P REGQNT #### [facility] [address] [place], [place] [address] Dr. Demetri Rosales HCG RANGE SEE BELOW Normal [facility] Comment on above: Result Comment: 5-50 0.2-1 WEEK 50-500 1-2 WEEKS 100-5,000 2-3 WEEKS 500-10,000 3-4 WEEKS 1,000-50,000 4-5 WEEKS 10,000-100,000 5-6 WEEKS 15,000-200,000 6-8 WEEKS 10,000-100,000 2-3 MONTHS Performed By: #### P REGQNT #### [facility] [address] [id number] Demetri Rosales US PELVIS AND TRANSVAGon [...] 2. Benign-appearing ovarian cysts/follicles. Electronically authenticated by: JORG ELUIS GRIJALVA Date: 2022-07-09 13:59 Normal [facility] PAP ACOG PANEL 2: 30 to 65on 01-07-2022 . . Normal [facility] Comment on above: Result Comment: Perf ormed at: WB Performed By: #### 4 [id number] #### [facility] [address] [place] [address] Dr. Demetri Rosales Age Gdln ACOG Testing 30-65 Normal [facility] Comment on above: Performed By: #### 4 [id number] #### [facility] [address] [place] [address] Dr. Demetri Rosales DIAGNOSIS: Comment Normal [facility] Comment on above: Result Comment: NEGA TIVE FOR INTRAEPITHELIAL LESION OR MALIGNANCY. Performed at: WB Performed By: #### 4 [id number] #### [facility] [address] [place] [address] Dr. Demetri Rosales HPV Aptima Negative Normal Negative [facility] Comment on above: Result Comment: This nucleic acid amplification test detects fourteen high-risk HPV types (16,18,31,33,35,39,45,51,52,56,58,59,66,68) without differentiation. Performed at: =G Performed By: #### 4 [id number] #### [facility] [address] [place] [address] Dr. Demetri Rosales Methodology: Comment Normal [facility] Comment on above: Result Comment: This liquid based ThinPrep(R) pap test was screened with the use of an image guided system. Performed at: WB Performed By: #### 4 [id number] #### [facility] [address] [place] [address] Dr. Demetri Rosales Note: Comment Normal [facility] Comment on above: Result Comment: The Pap smear is a screening test designed to aid in the detection of premalignant and malignant conditions of the uterine cervix. It is not a diagnostic procedure and should not be used as the sole means of detecting cervical cancer. Both false-positive and false-negative reports do occur. . Performed at: WB Performed By: #### 4 [id number] #### [facility] [address] [place] [address] Dr. Demetri Rosales Performed by: Comment Normal [facility] Comment on above: Result Comment: Eva Casas Product Owner (ASCP) Performed at: WB Performed By: #### 4 [id number] #### [facility] [address] [place] [address] Dr. Demetri Rosales Specimen adequacy: Comment Normal [facility] Comment on above: Result Comment: Sati sfactory for evaluation. Endocervical and/or squamous metaplastic cells (endocervical component) are present. Performed at: WB Performed By: #### 4 [id number] #### [facility] [address] [place] [address] [id number] [address] Demetri Rosales Vital Signs Date Time Vital Sign Value Performing Clinician Faci lity 10-02-2024 13:54-0500 Body mass index (BMI) [Ratio] 30.96 kg/m2 Karma Guilherme DO Work Phone: [facility] 10-02-2024 13:54-0500 Body weight 87 kg Karma Giulherme DO Work Phone: [facility] 10-02-2024 13:54-0500 Diastolic blood pressure 78 mm[Hg] Karma Guilherme DO Work Phone: [facility] 10-02-2024 13:54-0500 Systolic blood pressure 104 mm[Hg] Karma Guilherme DO Work Phone: [facility] 08-01-2024 08:47-0400 Body mass index (BMI) [Ratio] 29.92 kg/m2 Karma Guilherme DO Work Phone: [facility] 08-01-2024 08:47-0400 Body weight 84.1 kg Karma Guilherme DO Work Phone: [facility] 08-01-2024 08:47-0400 Diastolic blood pressure 74 mm[Hg] Karma Guilherme DO Work Phone: [facility] 08-01-2024 08:47-0400 Systolic blood pressure 116 mm[Hg] Karma Guilherme DO Work Phone: [facility] 07-17-2024 13:53-0400 Body height 167.6 cm Karma Guilherme DO Work Phone: [facility] 07-17-2024 13:53-0400 Body mass index (BMI) [Ratio] 30.18 kg/m2 Karma Guilherme DO Work Phone: [facility] 07-17-2024 13:53-0400 Body weight 84.82 kg Karma Guilherme DO Work Phone: [facility] 07-17-2024 13:53-0400 Diastolic blood pressure 68 mm[Hg] Kamra Guilherme DO Work Phone: [facility] 07-17-2024 13:53-0400 Systolic blood pressure 110 mm[Hg] Karma Guilherme DO Work Phone: [facility] Encounters Encounter Date Encounter Type Care Provider Facility Start: 12-11-2024 End: 12-11-2024 Clinisync Result Encounter Karma Guilherme DO Work Phone: [facility] Unsolic[facility] Start: 12-11-2024 End: 12-11-2024 Clinisync Result Encounter Karma Guilherme DO Work Phone: [facility] Start: 11-28-2024 End: 11-28-2024 Clinisync Result Encounter Karma Guilherme DO Work Phone: [facility] Start: 11-28-2024 End: 11-28-2024 Clinisync Result Encounter Karma Guilherme DO Work Phone: [facility] Start: 11-27-2024 End: 11-27-2024 Clinisync Result Encounter Karma Guilherme DO Work Phone: [facility] Start: 11-27-2024 End: 11-27-2024 Clinisync Result Encounter Karma Guilherme DO Work Phone: [facility] Start: 10-02-2024 End: 10-02-2024 Patient encounter procedure Karma Guilherme DO Work Phone: [facility] Comment on above: Pre-op examination; Menorrhagia with regular cycle; Pelvic pain in female; Dyspareunia in female; Dysmenorrhea; Fibroids Start: 10-02-2024 End: 10-02-2024 Preprocedural examination done Karma Guilherme DO Work Phone: [facility] Start: 10-02-2024 End: 10-02-2024 ambulatory KARMA GUILHERME Not Available Start: 08-01-2024 End: 08-01-2024 Bamboo flowsheet Karma Guilherme DO Work Phone: [facility] Start: 08-01-2024 End: 08-04-2024 Bamboo flowsheet Karma Guilherme DO Work Phone: [facility] Start: 08-01-2024 End: 08-04-2024 Clinisync Result Encounter Karma Guilherme DO Work Phone: [facility] Start: 08-01-2024 End: 08-01-2024 [...] [facility] Start: 07-17-2024 End: 07-17-2024 Bamboo flowsheet Karma Guilherme DO Work Phone: [facility] Start: 07-17-2024 End: 07-17-2024 Bamboo flowsheet Karma Guilherme DO Work Phone: [facility] Start: 07-17-2024 End: 07-18-2024 Telephone encounter Soni REZA Work Phone: [facility] Start: 07-17-2024 End: 07-17-2024 Office outpatient visit 15 minutes Karma Vanegas DO Work Phone: [facility] Comment on above: Fibroids (Primary Dx ) Start: 07-17-2024 End: 07-17-2024 ambulatory KARMA VANEGAS Not Available Start: 12-01-2023 End: 12-05-2023 ambulatory TAMARA Boyle [facility] Start: 10-06-2023 End: 10-07-2023 ambulatory [place] Fabiana L Deena [place]: 10-06-2023 End: 10-06-2023 Lab Drop off Fabiana Tacho Deena [facility] Start: 09-03-2022 Encounter for preprocedural laboratory examination DR KARMA VANEGAS [facility] Start: 09-02-2022 End: 09-02-[address] KARMA VANEGAS Facility:[facility] Start: 08-31-2022 End: 09-01-[address] KARMA VANEGAS Facility:[facility] Start: 08-31-2022 End: 09-01-2022 Encounter for preprocedural laboratory examination DR KARMA VANEGAS Facility:[facility] Start: 08-30-2022 Encounter for other preprocedural examination DR KARMA VANEGAS [facility] Start: 08-25-2022 End: 08-26-[address] KARMA VANEGAS Facility:[facility] Start: 08-25-2022 End: 08-26-2022 Encounter for other preprocedural examination DR KARMA VANEGAS Facility:[facility] Start: 07-09-2022 End: 07-10-[address] KARMA VANEGAS Facility:[facility] Start: 12-31-2021 End: 12-31-[address] KARMA VANEGAS Facility:[facility] Procedures Date Procedure Procedure Detail Performing Clinician Start: 12-11-2024 Antibody screen Karma hernandez DO Work Phone: Start: 12-11-2024 ALL TYPE AND SCREEN Cor ey Guilherme DO Work Phone: Start: 11-28-2024 XR CHEST 2V Karma Fazi o DO Work Phone: Start: 11-27-2024 ALL CBC WITH AUTO DIFF Karma Guilherme DO Work Phone: Start: 08-01-2024 IGP,APTIMA HPV,AGE GDLN Karma Guilherme DO Work Phone: Start: 07-22-2024 ALL CBC WITH AUTO DIFF Karma Guilherme DO Work Phone: Start: 10-18-2014 Dilation and curettage Fabiana Deena Start: 10-18-2008 Cholecystectomy Fabiana Cuenca hwab Plan of Treatment Date Care Activity Detail Author Start: 10-02-2024 End: 10-02-2024 Patient encounter procedure 10/02/2024 1:30 PM EST Procedure Visit [facility] [address] [place] [address] Guilherme, Karma, DO [address] [place] [address] [facility] Start: 08-01-2024 End: 10-01-2025 [...] EDT Ancillary Procedure [facility] [address] [place] [address] [facility] Start: 07-17-2024 End: 07-17-2025 aPTT in Blood by Coagulation assay APTT Lab Routine Fibroids Expected: 07/17/2024 (Approximate), Expires: 07/17/2025 [facility] Comment on above: Expected: 07/17/2024 (Approximate), Expires: 07/17/2025 Start: 07-17-2024 End: 07-17-2025 US for US PELVIS-TRANSVAG IF INDICATED Imaging Routine Fibroids Expected: 07/17/2024 (Approximate), Expires: 07/17/2025 [facility] Comment on above: Expected: 07/17/2024 (Approximate), Expires: 07/17/2025 Start: 07-17-2024 End: 07-17-2024 Patient encounter procedure 07/17/2024 1:30 PM EDT Office Visit [facility] [address] [place] [id number] Karma Vanegas DO [address] [place] [address] Arrived [facility] Comment on above: Arrived CBC W Auto Different ial panel - Blood CBC and differential Lab Routine Fibroids Ordered: 07/17/2024 [facility] Work Phone: Comment on above: Ordered: 07/17/2024 hCG, quantitative, hCG, quantitative, Lab Routine Fibroids Ordered: 07/17/2024 [facility] Comment on above: Ordered: 07/17/2024 Hemoglobin A1c/Hemoglobin.total in Blood Hemoglobin A1c Lab Routine Fibroids Ordered: 07/17/2024 [facility] Comment on above: Ordered: 07/17/2024 Prothrombin time (PT ) in Blood by Coagulation assay Protime-INR Lab Routine Fibroids Ordered: 07/17/2024 [facility] Comment on above: Ordered: 07/17/2024 THIN PREP TIS PAP AN D HR HPV DNA THIN PREP TIS PAP AND HR HPV DNA Pathology and Cytology Routine Well woman exam with routine gynecological exam Ordered: 08/01/2024 [facility] Comment on above: Ordered: 08/01/2024 Thyrotropin [Units/volume] in Serum or Plasma TSH Lab Routine Fibroids Ordered: 07/17/2024 [facility] Comment on above: Ordered: 07/17/2024 Thyroxine (T4) free [Mass/volume] in Serum or Plasma T4, free Lab Routine Fibroids Ordered: 07/17/2024 [facility] Comment on above: Ordered: 07/17/2024 Payers Date Payer Category Payer Self-pay 2023 Unknown [id number] 2018 Private Health Insurance [id number] 2018 Private Health Insurance [id number] 1980 Unknown [id number] 2.16.84 [id number] 1980 Unknown [id number] 2.16.84 [id number] 1982 Unknown [id number] 2.16.84 [id number] 1982 Unknown [id number] 2.16.84 [id number] 1982 Unknown [id number] 2.16.84 [id number] 1982 Unknown [id number] 2.16.8 [id number] 1982 Unknown [id number] 2.16.8 [id number] 1982 Unknown [id number] 2.16.84 [id number] 1982 Unknown [id number] 2.16.84 [id number] 1982 Unknown [id number] 2.16.84 [id number] 1959 Unknown [id number] Unknown [id number] 2.16.8 [id number] Social History Date Type Detail Facility Start: 10-06-2023 Tobacco smoking status Ex-smoker (finding) [facility] [place] Sex Assigned At Female [facility] Tobacco smoking status NHIS Tobacco smoking consumption unknown [facility] Work Phone: Start: 1980 Sex assigned at Not on file [facility] Clinical Notes 09-02-2022 to 10-02-2024 Roseann Km - 10/02/2024 1:30 PM Megan Barbour - 08/01/2024 8:30 AM EDTTelephone Encounter - JUAQUIN Mixon - 07/17/2024 2:17 PM JUAQUIN Orellana - 07/17/2024 1:30 PM EDT Note Date & Type Note Facility 10-02-2024 History of Presen t illness Narrative Reason for Appointment: Patient ID: Siobhan Robles is a 44 y.o. female who presents for Menstrual Problem and Pre-op Visit Patient presents today for Pre Op/Endometrial Biopsy appointment. Patient is scheduled to undergo Da Lewis assisted Laparoscopic Hysterectomy, possible exploratory laparotomy, possible BSO, possible cystoscopy on 11/01/[address] Vanegas at [facility]. MEDICATIONS No current outpatient medications ALLERGIES No Known Allergies PROBLEMS Active Ambulatory Problems Diagnosis Date Noted Fibroids 10/02/2024 Irregular menstrual cycle 10/02/2024 Resolved Ambulatory Problems Diagnosis Date Noted No Resolved Ambulatory Problems No Additional Past Medical History HISTORY PAST MEDICAL HISTORY SOCIAL HISTORY No past medical history on file. Social History Tobacco Use Smoking status: Not [...] nursing note reviewed. Exam conducted with a medical office technology instructor present. Vitals: Estimated body mass index is 29.92 kg/m as calculated from the following: Height as of 07/17/24: 5' 6 . Weight as of 08/01/24: 185 lb 6.4 oz. BP: No LMP recorded. ASSESSMENT & PLAN ICD-10-CM 1. Pre-op examination Z01.818 2. Menorrhagia with regular cycle N92.0 3. Pelvic pain in female R10.2 4. Dyspareunia in female N94.10 5. Dysmenorrhea N94.6 6. Fibroids D21.9 EMBX: Patient was placed in dorsal lithotomy position with feet in stirrups. A sterile speculum was placed into the vagina and the cervix was visualized. The cervix was grasped with a single tooth tenaculum. The endometrial pipette was placed through the cervix into the uterus, endometrial curettage was performed and sampling was obtained, endometrial curettings were placed in formalin, and single tooth tenaculum was removed. Excellent hemostasis was assured. All instruments were removed from vagina. Pre Op: Patient is doing well but has complaints of pelvic pain, menorrhagia, dyspareunia, and dysmenorrhea. I have discussed conservative management vs. surgical management with the patient in detail and patient desires surgical management at this time. Patient will undergo Da Lewis assisted Laparoscopic Hysterectomy, possible exploratory laparotomy, possible BSO, possible cystoscopy on 11/01/2024. Surgical consents were signed, mmc was reviewed, and patient is to proceed to [facility] OR. Follow Up: Patient is to follow up at 1 & 6 weeks post operative to assess proper healing and recovery from procedure. Documented by Glendy Love LPN on behalf of: Karma Vanegas DO documented in this encounter [facility] 08-01-2024 History of Presen t illness Narrative [...] CURETTAGE OF UTERUS x3....1st-not sure the date,, -2021 REVIEW OF SYSTEMS Review of Systems: [...] nursing note reviewed. Exam conducted with a medical office technology instructor present. Vitals: Estimated body mass index is 29.92 kg/m as calculated from the following: Height as of 24: 5' 6 . Weight as of this [...] Karma Vanegas DO documented in this encounter [facility] 07-17-2024 Telephone encounter Note Obtain Op Report and any pathology from surgery in August 2022. [facility] 07-17-2024 Miscellaneous Notes Obtain Op Report and any pathology from surgery in August 2022. documented [facility] this [facility] [facility] History of Presen t illness Narrative Reason for Appointment: Patient ID: Siobhan Robles is a 44 y.o. female who presents for Fibroids Patient presents today for Consult appointment. MEDICATIONS No current outpatient medications ALLERGIES No [...] No family history on file. SURGICAL HISTORY History reviewed. No pertinent surgical history. REVIEW OF SYSTEMS Review of Systems: Review of Systems OBJECTIVE Objective: OBGyn Exam Vitals: Estimated body mass index is 30.18 kg/m as calculated from the following: Height as of this encounter: 5' 6 . Weight as of this encounter: 187 lb. BP: 110/68 Patient's last menstrual period was 05/18/2024. ASSESSMENT & PLAN Patient presents today to discuss hysterectomy. Patient voiced she has history of Endometrial ablation August 2022 and is still having vaginal bleeding and history of uterine fibroids. Patient to return to clinic in 2 weeks for annual and review labs and ultrasound. Nursing will obtain previous notes for Operative procedure and this will also be reviewed at next appointment. Documented by Ashley Castro LPN on behalf of: Karma Vanegas DO documented in this encounter [facility] 10-06-2023 Evaluation + Plan note [facility] Auto Diff 10/06/23Comprehensive Metabolic Panel 10/06/23Lipid Panel 10/06/23Thyroid Stimulating Hormone 10/06/23 [facility] 09-02-2022 Note OP Note OPERATION DATE: 09/02/2022 PROCEDURE: D AND C hysteroscopy, diagnostic laparoscopy. PREOPERATIVE DIAGNOSIS: Menorrhagia, pelvic pain, enlarged uterus. POSTOPERATIVE DIAGNOSIS: Menorrhagia, pelvic pain, enlarged uterus, adenomyosis. ANESTHESIA: General. SURGEON: Karma Vanegas D.O. [employer] TANKER DRIVER: JOSETTE Pacheco URINE OUTPUT: Yellow and clear. [...] the Recovery Room in stable condition. [facility] Evaluation note Diagnosis Well woman exam with routine gynecological exam Routine gynecological examination Breast cancer screening by mammogram documented in this encounter [facility] note* Diagnosis Pre-op examination Menorrhagia with regular cycle Pelvic pain in female Unspecified symptom associated with female genital organs Dyspareunia in female Dysmenorrhea Fibroids Leiomyoma of uterus, unspecified documented in this encounter [facility] note* Diagnosis Fibroids- Primary Leiomyoma of uterus, unspecified [facility] N[facility] No data available for this section [facility] No data available for this section [facility] No data available for this section [facility] Summary Purpose Family History No Family History [...] and content) DATE CREATED AUTHOR 10/28/2022 [facility] DATE CREATED AUTHOR AUTHOR'S ORGANIZ ATION 10/08/2023 [facility] DATE CREATED AUTHOR AUTHOR'S ORGANIZ ATION 12/06/2023 [facility] DATE CREATED AUTHOR AUTHOR'S ORGANIZ ATION 10/04/2024 [facility] DATE CREATED AUTHOR AUTHOR'S ORGANIZ ATION 10/06/[address] [facility] Patient Care team informatio n (unrecognized section and content) Personnel Name: Fabiana Marquis Address: Address: [address] [place] [address]- Reason for Visit (unrecogniz ed section and content) Reason Comments Well Women Visit Reason Comments Menstrual Problem Pre-op Visit Reason Comments Fibroids FOR RECORDS PERTAINING TO PATIENTS WHO ARE [...] BE BASED ON THE PRIMARY CLINICAL RECORDS. [facility] [employer] [facility]. provides no warranty or guarantee of the accuracy or completeness of information in this document.
[2024-12-13 06:28] LABS: Basophils Absolute Auto 0.1 10^3/uL (0.0-0.1); Basophils Percent Auto 0.4 % (0.2-2.0); Eosinophils Absolute Auto 0.1 10^3/uL (0.0-0.7); Eosinophils Percent Auto 1.1 % (0.9-7.0); Hemoglobin 13.4 g/dL (12.0-16.0); Immature Granulocytes Abs Auto 0.04 10^3/uL (0.00-0.03); Immature Granulocytes Pct Auto 0.3 % (0.0-0.5); Lymphocytes Absolute Auto 4.3 10^3/uL (1.2-3.8); Lymphocytes Percent Auto 36.8 % (20.5-60.0); Mean Corpuscular HGB Conc 33.5 g/dL (29.9-35.2); Mean Corpuscular Hemoglobin 30.3 pg (26.7-34.0); Mean Corpuscular Volume 90.5 fL (81.0-99.0); Mean Platelet Volume 10.2 fL (9.5-13.5); Monocytes Absolute Auto 0.8 10^3/uL (0.3-0.8); Monocytes Percent Auto 6.6 % (1.7-12.0); Neutrophils Absolute Auto 6.4 10^3/uL (1.4-6.5); Neutrophils Percent Auto 54.8 % (43.0-75.0); Platelet Count 318 10^3/uL (150-450); Red Blood Count 4.42 10^6/uL (4.20-5.40); Red Cell Distribution Width 12.8 % (11.0-15.0); White Blood Count 11.8 10^3/uL (4.0-11.0)
[2024-12-13] MEDS: LACTATED RINGER'S SOLUTION 1,000 ML 50 ML IV ×2 (06:56→08:13)
[2024-12-13 07:11] LABS: HCG Quantitative <1 mIU/mL
[2024-12-13] MEDS: CEFAZOLIN SODIUM 2 GM/50 ML D5W PREMIX IV (07:38)
--- NOTE | 2024-12-13 11:03 | P.ON_ITS ---
Brief Operative Note Date of procedure: 12/13/24 Pre-op diagnosis general: menorrhagia, aub, pelvic pain, dysmenorrhea, dyspare unia Post-op diagnosis: same as pre-op Procedure: NAME OF PROCEDURE: ? Robotic assisted laparoscopic hysterectomy with cystoscopy, bilateral salpingectomy PROCEDURE:? The patient was taken back to the operating room, where she was prepped and draped in the normal sterile fashion after being placed in the dorsal lithotomy position.? Patient?s anesthesia was found to be adequate.? Surgical timeout was performed using two patient identifiers.? SCDs were on and in place.? Two grams of Ancef were given prior to the surgery.? Sterile Vargas catheter was inserted.? Standard size VCare was secured to the uterine cervix and the surgeon changed gloves.? Attention then was turned to the patient's abdomen, where a supraumbilical incision was then made.? Two S retractors were used to identify the patient?s fascia.? The fascia was then tented up using Mervin clamps and the patient?s fascia was incised sharply.? Patient?s abdomen was identified and entered bluntly.? The patient had the trocar placed and a pneumoperitoneum was obtained.? Approximately 4 liters of CO2 gas was used.? The camera was then placed through the trocar.? At this time, two robot trocars were placed in the patient?s left and right side, two hand widths from the midline, and this was placed under direct visualization.? The patient?s tube on the right side was tented up and the vessel sealer was then used to come across the mesosalpinx, and this was carried down to the uterine ovarian ligament.? The vessel sealer was carried down serially to the broad ligament, to the area of the bladder flap, which was then created anteriorly, and the uterine arteries were skeletonized and sealed using the vessel sealer.? The colpotomy was made using the monopolar cautery on cut, and this was carried circumferentially, posteriorly to anteriorly, until the uterus was amputated.? The specimen was then removed intact through the vagina, without difficulty.? The vagina was then closed using two running V-Loc in a non-lock fashion.? The robot was undocked.? The abdomen was desufflated.? The skin defects were closed using 4-0 Vicryl.? Please note, the fascia was closed using 0 Vicryl.? Sponge, lap and needle counts were correct x2.? Patient was taken to recovery room in stable condition .? The patient was awakened by Anesthesia first.? Patient tolerated procedure well.??Please note left ovarian cystectomy was performed using the vessel sealer Anesthesia: JUANITA Surgeon: Daren Vanegas [employer] Developer: Italia Felipe Estimated blood loss (mL): 150 Pathology: other (uterus and tubes) Condition: stable Disposition: PACU Urinary Catheter Management Urinary Catheter Management Urethral: Cath placed during this visit: no
--- NOTE | 2024-12-13 11:51 | PC.NURSE ---
when asked how pain was patient stated her pain was ok for now.
[2024-12-13] MEDS: HYDROMORPHONE HCL 0.5 MG/0.5 ML SYRINGE IV (11:54)
[2024-12-13] MEDS: LACTATED RINGER'S SOLUTION 1,000 ML 125 ML IV (11:57)
[2024-12-13] MEDS: CEFAZOLIN SODIUM 2,000 MG in 0.9 % SODIUM CHLORIDE 50 ML 100 MG IV (13:09)
[2024-12-13] MEDS: ONDANSETRON PF 4 MG/2 ML VIAL IV (14:11)
[2024-12-13] MEDS: OXYCODONE HCL/ACETAMINOPHEN 5MG/325MG 1 TAB PO (14:52)
[2024-12-13 17:08] LABS: Basophils Percent Auto 0.1 % (0.2-2.0); Eosinophils Percent Auto 0.1 % (0.9-7.0); Hematocrit 39.7 % (36.0-48.0); Hemoglobin 13.1 g/dL (12.0-16.0); Immature Granulocytes Abs Auto 0.07 10^3/uL (0.00-0.03); Immature Granulocytes Pct Auto 0.4 % (0.0-0.5); Lymphocytes Absolute Auto 0.9 10^3/uL (1.2-3.8); Lymphocytes Percent Auto 5.3 % (20.5-60.0); Mean Corpuscular Hemoglobin 29.9 pg (26.7-34.0); Mean Corpuscular Volume 90.6 fL (81.0-99.0); Mean Platelet Volume 10.1 fL (9.5-13.5); Monocytes Absolute Auto 0.5 10^3/uL (0.3-0.8); Neutrophils Absolute Auto 14.7 10^3/uL (1.4-6.5); Neutrophils Percent Auto 91.1 % (43.0-75.0); Platelet Count 336 10^3/uL (150-450); Red Blood Count 4.38 10^6/uL (4.20-5.40); White Blood Count 16.1 10^3/uL (4.0-11.0)
== END 2024-12-13 17:45 | disposition home or self-care (01) ==
LOC: SURGOUT 11:06 → MS 12:31
PROVIDERS: PCP Nurse Practitioner; Visit Provider Obstetrics & Gynecology
PROC: (CPT 840; principal; 2024-12-13 07:30)
DX: N92.0 Excessive and frequent menstruation with regular cycle (principal); R10.2 Pelvic and perineal pain; N94.6 Dysmenorrhea, unspecified; N94.10 Unspecified dyspareunia; N72 Inflammatory disease of cervix uteri; N80.03 Adenomyosis of the uterus; Z90.49 Acquired absence of other specified parts of digestive tract; F17.290 Nicotine dependence, other tobacco product, uncomplicated
CPT/HCPCS: 58571; 36415; 84702; 85025; 88305; 94667; J0131; J0690; J1100; J1171; J1885; J2250; J2405; J2704; J3010

== ENCOUNTER 2025-02-05 14:00 | Emergency (ER) | payer OTHER, SELFPAY ==
[2025-02-05 14:03] VITALS: BP 154/103; PULSE 134; TEMP 37; O2SAT 97; BMI 32.8
[2025-02-05 14:10] VITALS: BP 138/84
--- NOTE | 2025-02-05 14:17 | ED_ITS ---
HPI HPI - General Adult General Chief complaint: Abdominal Pain Stated complaint: POST OP PAINS Time Seen by Provider: 02/05/25 14:00 Source: patient Mode of arrival: walk-in History of Present Illness HPI narrative: Is a 45-year-old female who underwent a partial hysterectomy on 12/13/2024. States she had her 6-week follow-up and things were looking good around January 24 she had a Pap test done and was more active than she had been recently and noted some increasing lower pelvic pain. She denies any current discharge or drainage states symptoms slowed at the 6-week appointment. She describes it as a crampin g discomfort moderate nonradiating she is currently taking Cipro and finished Pyridium following a office visit last patient was also given a prescription for outpatient CT scan and a breast ultrasound. Patient denies any chest pain or shortness of breath she has a history of cholecystectomy and states she typically has soft or diarrhea type stools. She reports bowel movements have been regular, slightly more frequent with Cipro use. She denies any dysuria. Patient has been without fever. She is notably tachycardic on arrival and she admits to a history of anxiety and feeling anxious regarding her persistent symptoms. Patient notes that she felt well for 6 weeks following her surgery and then noted symptoms worsening after the January 24 appointment. Patient appears nontoxic but anxious on exam. Onset (ago): day(s) (12 days) Location: Reports abdomen and pelvis Radiation: Reports non-radiation Severity: moderate Quality: Reports aching and constant Pain Consistency: Reports constant Relieving factors: Reports none Exacerbating factors: Reports movement Related Data Home Medications ?Medication ?Instructions ?Recorded ?Confirmed ciprofloxacin HCl 500 mg tablet 500 mg PO BID 02/05/25 02/05/25 Previous Rx's ?Medication ?Instructions ?Recorded diclofenac sodium 75 mg 75 mg PO BID PRN pain, moderate 02/05/25 tablet,delayed release #14 tabs Allergies Allergy/AdvReac Type Severity Reaction Status Date / Time No Known Drug Allergies Allergy Verified 11/27/24 10:20 Opioid HPI Opioid Management Most Recent Opioid Data: Last Pain Scale 4 12/13/24 16:28 12/13/24 Review of Systems ROS Constitutional Denies: fever or chills Eyes Denies: change in vision Ears, nose, mouth, and throat Denies: throat pain, neck pain, throat swelling or difficulty swallowing Cardiovascular Denies: chest pain, palpitations, swelling of feet/ankles or leg pain with exertion Respiratory Denies: shortness of breath or cough Gastrointestinal Reports: abdominal pain; Denies: nausea, vomiting, coffee grounds in vomit, heartburn, diarrhea, constipation, bloating or belching Genitourinary Denies: painful urination Musculoskeletal Denies: back pain, neck pain or extremity pain Integumentary/Breast Denies: rash, itching, redness or skin pain Neurological Denies: headache or numbness in extremities Psychiatric Denies: anxiety Endocrine Denies: excessive urination Allergic/Immunologic Denies: hives [facility] Medical History (Updated 02/05/25 @ 16:07 by JUAQUIN Wilson) Anemia ?D64.9 - Anemia, unspecified (ICD-10) Depression ?F32.A - Depression, unspecified (ICD-10) Panic attacks ?F41.0 - Panic disorder [episodic paroxysmal anxiety] (ICD-10) Anxiety ?F41.9 - Anxiety disorder, unspecified (ICD-10) Electronic cigarette use ?Z78.9 - Other specified health status (ICD-10) Fibroid ?D21.9 - Benign neoplasm of connective and other soft tissue, unspecified (ICD-10) Dyspareunia Dysmenorrhea ?N94.6 - Dysmenorrhea, unspecified (ICD-10) Pelvic pain ?R10.2 - Pelvic and perineal pain (ICD-10) Menorrhagia ?N92.0 - Excessive and frequent menstruation with regular cycle (ICD-10) GERD (gastroesophageal reflux disease) ?K21.9 - Gastro-esophageal reflux disease without esophagitis (ICD-10) Insulin resistance ?E88.819 - Insulin resistance, unspecified (ICD-10) Breast cyst ?N60.09 - Solitary cyst of unspecified breast (ICD-10) Surgical History (Updated 11/27/24 @ 10:25 by Symone Lieberman NP) History of dilation and curettage ?Z98.890 - Other specified postprocedural states (ICD-10) History of cholecystectomy ?Z90.49 - Acquired absence of other specified parts of digestive tract (ICD- 10) Family History (Updated 11/27/24 @ 10:24 by Symone Lieberman NP) Other Family history of breast cancer Family history of cancer Family history of diabetes mellitus Family history of hypertension Family history of myocardial infarction Family history of pancreatic cancer SVT (supraventricular tachycardia) Social History (Updated 11/27/24 @ 10:22 by Symone Lieberman NP) Within the past year, how often did you have a drink containing alcohol: never Score interpretation: A score less than 3 is consistent with normal alcohol consumption. Smoking status: Former smoker Do you use any of these nicotine containing products: e-cigarettes and vaping products Non-prescribed substance use: cannabis (any form) Previous occupational history: [employer] Highest level of school completed/degree received: Associate degree: occ upational, technical, vocational program Little interest or pleasure in doing things: not at all Feeling down, depressed, or hopeless: not at all Exam Narrative Exam Narrative: Nurses notes and vital signs reviewed and patient is not hypoxic. General: The patient appears well and in no apparent distress. Patient is resting comfortably on cart. Skin: Warm, dry, no pallor noted. No evidence of rash Head: Normocephalic, atraumatic Neck: Supple, trachea mid-line, no tenderness, no lymphadenopathy Eye: Pupils are equal, round and reactive to light, EOMI Ears, Nose, Mouth, and Throat: TM are clear, normal light reflex, oral mucosa is moist, no posterior oropharynx erythema or hypertrophy, uvula is mid-line Cardiovascular: Regular Rate and Rhythm Respiratory: Patient is in no distress, no accessory muscle use, lungs are c lear to auscultation, no wheezing, rales or rhonchi. Back: non-tender, no CVA tenderness Musculoskeletal: normal ROM, no tenderness, no swelling GI: Normal bowel sounds portal scars well-healed no erythema warmth or drainage. Notable tenderness in the right lower and left lower quadrant, slight guarding noted no rebound or rigidity. Upper right and upper left quadrants are nontender. Neurological: A&O x4 Psychiatric: Cooperative Constitutional Vital Signs, click to edit/add: Last Vital Signs Temp 98.6 F 02/05/25 14:03 Pulse 112 H 02/05/25 14:39 Resp 20 02/05/25 14:39 BP 138/84 02/05/25 14:10 Pulse Ox 99 02/05/25 14:39 O2 Del Method Room Air 02/05/25 14:39 Course Vital Signs Vital signs: Vital Signs Temperature 98.6 F 02/05/25 14:03 Pulse Rate 134 H 02/05/25 14:03 Respiratory Rate 20 02/05/25 14:03 Blood Pressure 154/103 H 02/05/25 14:03 Pulse Oximetry 97 02/05/25 14:03 Oxygen Delivery Method Room Air 02/05/25 14:03 Temperature 98.6 F 02/05/25 14:03 Pulse Rate 112 H 02/05/25 14:39 Respiratory Rate 20 02/05/25 14:39 Blood Pressure 138/84 02/05/25 14:10 Pulse Oximetry 99 02/05/25 14:39 Oxygen Delivery Method Room Air 02/05/25 14:39 Medical Decision Making MDM Narrative Medical decision making narrative: Patient presents with worsening pelvic pain after the last 12 days she admits doing well postoperatively but then was active after her 6-week appointment going to her place of work for medical slips and getting Paps test done. Patient states she made an appointment with her surgeon on February 01 and was placed on Cipro and Pyridium but symptoms have persisted despite giving it time to the weekend. She denies a history of Crohn's or colitis she is agreeable to a CT evaluation as recommended by her physician especially given the worsening s ymptoms and ultrasound to assess for vascular supply to her ovaries. Patient was given 1 L IV fluids and Toradol 30 mg IV. Patient reevaluated, she reports pain being tolerable. We discussed her imaging studies and her case was also reviewed with her certified medical coding specialist. He would like to see her in 1 week in the office for reevaluation. She may return to the ER if symptoms worsen. She is recommended to take an [id number] probiotic with her antibiotic use. She will hold her Motrin use and try diclofenac for more pain relief we discussed using Tylenol up to 1 g 3 times a day. Patient than bee had no further concerns or questions. The patient is to followup with primary care physician in next 2-3 days or as needed. Make appt with OBGYN in 7 days or to return to the emergency department should any of the signs or symptoms worsen or new symptoms develop. Patient had questions answered. The patient agrees with the following Diagnosis and Treatment plan and the patient will be discharged home. Lab Data Lab results reviewed: Yes I reviewed the patient's lab results Labs: Lab Results 02/05/25 02/05/25 Range/Units 14:30 15:40 WBC 13.1 H (4.0-11.0) 10^3/uL RBC 4.38 (4.20-5.40) 10^6/uL Hgb 13.2 (12.0-16.0) g/dL Hct 39.8 (36.0-48.0) % MCV 90.9 (81.0-99.0) fL MCH 30.1 (26.7-34.0) pg MCHC 33.2 (29.9-35.2) g/dL RDW 13.1 (11.0-15.0) % Plt Count 466 H (150-450) 10^3/uL MPV 10.2 (9.5-13.5) fL Neut % (Auto) 71.9 (43.0-75.0) % Lymph % (Auto) 22.2 (20.5-60.0) % [place] % (Auto) 4.8 (1.7-12.0) % Eos % (Auto) 0.3 L (0.9-7.0) % Baso % (Auto) 0.4 (0.2-2.0) % Neut # (Auto) 9.4 H (1.4-6.5) 10^3/uL Lymph # (Auto) 2.9 (1.2-3.8) 10^3/uL [place] # (Auto) 0.6 (0.3-0.8) 10^3/uL Eos # (Auto) 0.0 (0.0-0.7) 10^3/uL Baso # (Auto) 0.1 (0.0-0.1) 10^3/uL Abs Immat Gran (auto) 0.05 H (0.00-0.03) 10^3/uL Imm/Tot Granulo (auto) 0.4 (0.0-0.5) % Sodium 137 (136-145) mmol/L Potassium 3.3 L (3.5-5.1) mmol/L Chloride 100 (98-107) mmol/L Carbon Dioxide 24.4 (21.0-32.0) mmol/L Anion Gap 15.9 BUN 6.0 L (7.0-18.0) mg/dL Creatinine 1.02 (0.55-1.02) mg/dL Est GFR ( Amer) >60 (>=60 mL/min/1.73m^2) Est GFR (Non-Af Amer) 59 L (>=60 mL/min/1.73m^2) BUN/Creatinine Ratio 5.9 Glucose 149 H (74-106) mg/dL Lactate 2.1 H* (0.4-2.0) mmol/L Calcium 8.7 (8.5-10.1) mg/dL Total Bilirubin 0.4 (0.2-1.0) mg/dL AST 15 (15-37) U/L ALT 25 (14-59) U/L Alkaline Phosphatase 86 (46-116) U/L Total Protein 7.9 (6.4-8.2) g/dL Albumin 3.7 (3.4-5.0) g/dL Globulin 4.2 g/dL Albumin/Globulin Ratio 0.9 Lipase 16.0 (16.0-77.0) U/L Urine Color Lt. yellow (YELLOW) Urine Clarity Clear (CLEAR) Urine pH 6.0 (5.0-9.0) Ur Specific [place] <=1.005 A (1.005-1.025) Urine Protein Negative (NEG/TRACE) mg/dL Urine Glucose (UA) Negative (NEGATIVE) mg/dL Urine Ketones Negative (NEGATIVE) mg/dL Urine Occult Blood Negative (NEGATIVE) Urine Nitrite Negative (NEGATIVE) Urine Bilirubin Negative (NEGATIVE) Urine Urobilinogen 0.2 (0.2-1.0) EU/dL Ur Leukocyte Esterase Negative (NEGATIVE) Urine RBC None seen (0-2) #/HPF Urine WBC None seen (NONE SEEN) #/HPF Ur Squamous Epith Cells Moderate A (NONE/RARE) #/LPF Urine Crystals None seen (None Seen) #/HPF Urine Bacteria Trace A (NONE SEEN) #/HPF Urine Casts None seen (NONE SEEN) #/LPF Urine Mucus Trace A (NONE SEEN) Ur Culture Indicated? No Imaging Data US/ Vasc Pelvis: Radiologist's impression: Ultrasound pelvis transabdominal and transvaginal: Findings hysterectomy, right cyst 27 x 28 mm and 25 x 22 mm, ovaries and bilateral adnexal Doppler evaluation otherwise appear normal. No other cyst or other pelvic mass. No free fluid. Impression right ovarian cyst. CT scan - abdomen: Radiologist's impression: CT abdomen and pelvis with IV contrast no acute abnormality seen bladder unremarkable 27 x 27 mm right adnexal cyst. Appendix was visualized and unremarkable. No free air or abscess. Discharge Plan Discharge Chief Complaint: Abdominal Pain Clinical Impression: Abdominal pain, Ovarian cyst Patient Disposition: Home, Self-Care Time of Disposition Decision: 16:57 Condition: Good Prescriptions / Home Meds: New diclofenac sodium 75 mg tablet,delayed release (DR/EC) 75 mg PO BID PRN (Reason: pain, moderate) Qty: 14 0RF No Action ciprofloxacin HCl 500 mg tablet 500 mg PO BID Print Language: Slovenian Instructions: Ovarian Cyst (ED), Abdominal Pain (ED) Additional Instructions: Recommend [id number] probiotic, contact Dr. Vanegas's office tomorrow to discuss a follow-up appointment in 1 week per his recommendations. Return to the ER if symptoms worsen or new symptoms develop ( hold Motrin use) while on Diclofenac Referrals: Daren Vanegas DO [Physician] - 1 week JERED VICTOR [Primary Care Provider] - As needed
[2025-02-05] MEDS: 0.9 % SODIUM CHLORIDE 1,000 ML 999 ML IV (14:28)
[2025-02-05] MEDS: KETOROLAC TROMETHAMINE 30 MG/ML VIAL IVP (14:29)
[2025-02-05 14:39] VITALS: PULSE 112; O2SAT 99
[2025-02-05 14:41] LABS: Basophils Absolute Auto 0.1 10^3/uL (0.0-0.1); Basophils Percent Auto 0.4 % (0.2-2.0); Eosinophils Percent Auto 0.3 % (0.9-7.0); Hematocrit 39.8 % (36.0-48.0); Hemoglobin 13.2 g/dL (12.0-16.0); Immature Granulocytes Abs Auto 0.05 10^3/uL (0.00-0.03); Immature Granulocytes Pct Auto 0.4 % (0.0-0.5); Lymphocytes Absolute Auto 2.9 10^3/uL (1.2-3.8); Lymphocytes Percent Auto 22.2 % (20.5-60.0); Mean Corpuscular HGB Conc 33.2 g/dL (29.9-35.2); Mean Corpuscular Hemoglobin 30.1 pg (26.7-34.0); Mean Corpuscular Volume 90.9 fL (81.0-99.0); Mean Platelet Volume 10.2 fL (9.5-13.5); Monocytes Absolute Auto 0.6 10^3/uL (0.3-0.8); Monocytes Percent Auto 4.8 % (1.7-12.0); Neutrophils Absolute Auto 9.4 10^3/uL (1.4-6.5); Neutrophils Percent Auto 71.9 % (43.0-75.0); Platelet Count 466 10^3/uL (150-450); Red Blood Count 4.38 10^6/uL (4.20-5.40); Red Cell Distribution Width 13.1 % (11.0-15.0); White Blood Count 13.1 10^3/uL (4.0-11.0)
[2025-02-05 14:56] LABS: Alanine Aminotransferase 25 U/L (14-59); Albumin Globulin Ratio 0.9; Albumin Level 3.7 g/dL (3.4-5.0); Alkaline Phosphatase 86 U/L (46-116); Anion Gap 15.9; Aspartate Amino Transferase 15 U/L (15-37); BUN Creatinine Ratio 5.9; Bilirubin Total 0.4 mg/dL (0.2-1.0); Calcium 8.7 mg/dL (8.5-10.1); Carbon Dioxide 24.4 mmol/L (21.0-32.0); Chloride 100 mmol/L (98-107); Estimated GFR (African America >60 (>=60 mL/min/1.73m^2); Estimated GFR (Non-African Ame 59 (>=60 mL/min/1.73m^2); Globulin 4.2 g/dL; Glucose 149 mg/dL (74-106); Potassium 3.3 mmol/L (3.5-5.1); Sodium 137 mmol/L (136-145); Total Protein 7.9 g/dL (6.4-8.2)
[2025-02-05 15:06] LABS: Lactate/Lactic Acid 2.1 mmol/L (0.4-2.0)
[2025-02-05 15:45] LABS: Bilirubin Urine NEGATIVE (NEGATIVE); Blood Urine NEGATIVE (NEGATIVE); Clarity Urine CLEAR (CLEAR); Color Urine LT. YELLOW (YELLOW); Glucose Urine UA NEGATIVE (NEGATIVE); Ketones Urine NEGATIVE (NEGATIVE); Leukocyte Esterase Urine NEGATIVE (NEGATIVE); Nitrite Urine NEGATIVE (NEGATIVE); Protein Urine NEGATIVE (NEG/TRACE); Specific Gravity Urine <=1.005 (1.005-1.025); Urobilinogen Urine 0.2 EU/dL (0.2-1.0)
[2025-02-05 15:52] LABS: Bacteria Urine TRACE #/HPF (NONE SEEN); Cast Seen? NONE SEEN #/LPF (NONE SEEN); Crystals Seen? None Seen #/HPF (None Seen); Mucus Urine TRACE (NONE SEEN); RBC Urine NONE SEEN #/HPF (0-2); Squamous Epithelial Cell Urine MODERATE #/LPF (NONE/RARE); Urine Culture Indicated NO; WBC Urine NONE SEEN #/HPF (NONE SEEN)
== END 2025-02-05 17:17 | disposition home or self-care (01) ==
PROVIDERS: Personal Emergency Response Attendant; Emergency Provider Emergency Medicine; PCP Nurse Practitioner
DX: R10.2 Pelvic and perineal pain (principal); N83.201 Unspecified ovarian cyst, right side; Z90.711 Acquired absence of uterus with remaining cervical stump; Z90.49 Acquired absence of other specified parts of digestive tract; F17.290 Nicotine dependence, other tobacco product, uncomplicated
CPT/HCPCS: 36415; 74177; 76830; 80053; 81001; 83605; 83690; 85025; 93975; 96374; 99285; J1885; Q9967

== ENCOUNTER 2025-02-17 18:44 | Emergency (ER) | payer OTHER, SELFPAY ==
[2025-02-17 18:57] VITALS: BP 131/84; PULSE 98; TEMP 37.1; O2SAT 98; BMI 32.3
--- NOTE | 2025-02-17 19:27 | ED.BACK1 ---
HPI HPI - Back Pain/Injury General Chief Complaint: Back Pain/Injury Stated Complaint: BACK AND GROIN PAIN Time Seen by Provider: 02/17/25 18:58 Source: patient Mode of arrival: walk-in Limitations: no limitations History of Present Illness HPI Narrative: The patient is a 45-year-old female presenting to the emergency department from home with her . Patient is coming in for evaluation today of abdominal and low back pain. Unfortunately, she been dealing with this back pain since November status post laparoscopic hysterectomy. The patient apparently then began having back pain since November. The patient has low back pain constantly that is progressively getting worse over the last several months. The patient states that she is not having any numbness or weakness in her bilateral lower extremities. However, the pain starts in her abdominal area and radiates to her back more on the right lower lumbar area. Occasionally patient has pain that radiates down the anterior and sometimes posterior thighs. Patient denies any loss of bowel or bladder. No urinary retention. Patient has followed up with her gynecology after her hysterectomy. Everything postoperatively seems to have gone okay. She saw her physician who ordered blood work, urine, and a CT scan of the chest, abdomen, and pelvis. No abnormalities were seen. The patient on 06 February was placed on a steroid taper and cyclobenzaprine. The patient states despite being compliant with her steroids and cyclobenzaprine she is having no pain relief. In fact, she feels like it is even getting worse. She is insomuch pain it is disrupting her activities of daily living. She is not able to be intimate with her . It is only happened 2 times since the hysterectomy. In addition, the patient states that if she is laying in bed she is not able to lay on either side and nobody is allowed to touch her because the pressure on her legs or her side is too unbearable. Pain is moderate to severe in intensity. Its dull and achy like in sensation. Radiation was already described. Patient is tearful. When I get talking about her family medical history, she indicates that both her dad and her brother have central canal stenosis. Both have had back surgeries and both are on gabapentin. 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 But she has been in too much pain to resume work. Related Data Home Medications ?Medication ?Instructions ?Recorded ?Confirmed cyclobenzaprine 10 mg tablet 10 mg PO Q8H PRN spasms 02/17/25 02/17/25 methylprednisolone 4 mg tablets in 4 mg PO DAILY 02/17/25 02/17/25 a dose pack Previous Rx's ?Medication ?Instructions ?Recorded gabapentin 300 mg capsule 300 mg PO TID #30 caps 02/17/25 hydrocodone 7.5 mg-acetaminophen 1 tab PO Q6H PRN pain #12 tabs 02/17/25 325 mg tablet Allergies Allergy/AdvReac Type Severity Reaction Status Date / Time No Known Drug Allergies Allergy Verified 02/17/25 19:03 Opioid HPI Opioid Management Most Recent Opioid Data: Last Pain Scale 10 Today, 19:51 Last ED Pain Assessment Today, 19:35 Last MAR Pain Assessment Today, 19:50 Review of Systems ROS Narrative 10 Systems were reviewed, and unless noted in the HPI, all other systems are reviewed, unremarkable, or noncontributory. [facility] Medical History Anemia ?D64.9 - Anemia, unspecified (ICD-10) Depression ?F32.A - Depression, unspecified (ICD-10) Panic attacks ?F41.0 - Panic disorder [episodic paroxysmal anxiety] (ICD-10) Anxiety ?F41.9 - Anxiety disorder, unspecified (ICD-10) Electronic cigarette use ?Z78.9 - Other specified health status (ICD-10) Fibroid ?D21.9 - Benign neoplasm of connective and other soft tissue, unspecified (ICD-10) Dyspareunia Dysmenorrhea ?N94.6 - Dysmenorrhea, unspecified (ICD-10) Pelvic pain ?R10.2 - Pelvic and perineal pain (ICD-10) Menorrhagia ?N92.0 - Excessive and frequent menstruation with regular cycle (ICD-10) GERD (gastroesophageal reflux disease) ?K21.9 - Gastro-esophageal reflux disease without esophagitis (ICD-10) Insulin resistance ?E88.819 - Insulin resistance, unspecified (ICD-10) Breast cyst ?N60.09 - Solitary cyst of unspecified breast (ICD-10) Surgical History History of dilation and curettage ?Z98.890 - Other specified postprocedural states (ICD-10) History of cholecystectomy ?Z90.49 - Acquired absence of other specified parts of digestive tract (ICD-10) Family History Other Family history of breast cancer Family history of cancer Family history of diabetes mellitus Family history of hypertension Family history of myocardial infarction Family history of pancreatic cancer SVT (supraventricular tachycardia) Social History Within the past year, how often did you have a drink containing alcohol: never Score interpretation: A score less than 3 is consistent with normal alcohol consumption. Smoking status: Former smoker Do you use any of these nicotine containing products: e-cigarettes and vaping products Non-prescribed substance use: cannabis (any form) Previous occupational history: [employer] Highest level of school completed/degree received: Associate degree: occupational, technical, vocational program Little interest or pleasure in doing things: not at all Feeling down, depressed, or hopeless: several days Exam Narrative Exam Narrative: Prior to examining the patient, I have washed with hospital approved and provided Antiseptic Hand Diamond Sawer and have also applied gloves.? Prior to touching the patient, I asked for consent to examine the patient.? General: Alert and oriented, well nourished, mild distress. Eye: PERRL, EOMI, normal conjunctiva. HENT: Normocephalic, normal hearing, moist oral mucosa, no scleral icterus, Lungs: Clear to auscultation and percussion, non-labored respiration. Heart: Normal rate, regular rhythm, no murmur, gallop or edema. Abdomen: Soft, tender bilateral lower quadrants of the abdomen and in the right upper quadrant. No guarding or rebound, non-distended, normal bowel sounds, no masses. Musculoskeletal: Normal range of motion and strength, no midline back point tenderness. She does have pain at the PSIS on the right side with paraspinal musculature tenderness. Skin: Skin is warm, dry and pink, no rashes or lesions. Neurologic: Awake, alert, and oriented X3, CN II-XII intact. Patient has 5 out of 5 and symmetrical muscle strength in dorsiflexion, plantarflexion, extensor hallucis longus, hip flexors, quadriceps, hamstrings. 2 out of 4 and symmetrical patellar reflexes. No clonus appreciated with ankle movement. Psychiatric: Cooperative, appropriate mood and affect.? Following the conclusion of the examination, I have washed my hands thoroughly after removing examination gloves. Constitutional Vital Signs, click to edit/add: Last Vital Signs Temp 98.8 F 02/17/25 18:57 Pulse 98 H 02/17/25 18:57 Resp 18 02/17/25 18:57 BP 131/84 02/17/25 18:57 Pulse Ox 98 02/17/25 18:57 O2 Del Method Room Air 02/17/25 18:57 Course Course Hospital Course: Patient was provided morphine 4 mg intramuscular, Toradol 15 mg intramuscular, and gabapentin 300 mg by mouth. I went back in and reassessed the patient at 21:15. The patient feels better but the pain is not resolved. I told her that I did not think it was reasonable to expect that she has had pain for several months for her to completely go away but it would be appropriate for her to leave here 50% improved. Patient will be given Alma 7.5 mg / 325 mg by mouth before she leaves since no pharmacies will be open tonight. Patient can pick her prescriptions up for Alma and gabapentin tomorrow. She could continue to take her steroid taper. Consultations Consultation #1: Patient has a phone consultation with Dr. Vanegas on Wednesday. Vital Signs Vital signs: Vital Signs Temperature 98.8 F 02/17/25 18:57 Pulse Rate 98 H 02/17/25 18:57 Respiratory Rate 18 02/17/25 18:57 Blood Pressure 131/84 02/17/25 18:57 Pulse Oximetry 98 02/17/25 18:57 Oxygen Delivery Method Room Air 02/17/25 18:57 Temperature 98.8 F 02/17/25 18:57 Pulse Rate 98 H 02/17/25 18:57 Respiratory Rate 18 02/17/25 18:57 Blood Pressure 131/84 02/17/25 18:57 Pulse Oximetry 98 02/17/25 18:57 Oxygen Delivery Method Room Air 02/17/25 18:57 MDM - Back Pain/Injury Differential Diagnosis Differential diagnosis: Likely lumbar radiculopathy, sciatica, strain of lumbar region, renal colic, pyelonephritis, discitis and other (Musculoskeletal strain, cervical spine stenosis) Medical Records Attestation: I reviewed the patient's medical records. Discharge Plan Discharge Chief Complaint: Back Pain/Injury Clinical Impression: Lumbar radiculopathy Patient Disposition: Home, Self-Care Condition: Good Mode of Transportation: EMS Prescriptions / Home Meds: New hydrocodone-acetaminophen 7.5-325 mg tablet 1 tab PO Q6H PRN (Reason: pain) Qty: 12 0RF gabapentin 300 mg capsule 300 mg PO TID Qty: 30 0RF No Action cyclobenzaprine 10 mg tablet 10 mg PO Q8H PRN (Reason: spasms) methylprednisolone 4 mg tablets,dose pack 4 mg PO DAILY Print Language: Kittitian Instructions: Lumbar Radiculopathy (ED) Additional Instructions: Ask for an MRI during your phone conference. Referrals: JERED VICTOR [Primary Care Provider, MANAGER BUSINESS INFORMATION] - 1 week
[2025-02-17] MEDS: GABAPENTIN 300 MG CAPSULE PO (19:50)
[2025-02-17] MEDS: MORPHINE SULFATE 4 MG/ML VIAL IM (19:50)
[2025-02-17] MEDS: KETOROLAC TROMETHAMINE 30 MG/ML VIAL 15 MG IM (19:51)
[2025-02-17] MEDS: HYDROCODONE/ACET 5-325 MG TABLET 1 TAB PO (21:21)
[2025-02-17 21:28] VITALS: BP 155/90; PULSE 78; O2SAT 97
== END 2025-02-17 21:30 | disposition home or self-care (01) ==
PROVIDERS: Emergency Provider Emergency Medicine; PCP Nurse Practitioner
DX: M54.16 Radiculopathy, lumbar region (principal); Z90.710 Acquired absence of both cervix and uterus; Z90.49 Acquired absence of other specified parts of digestive tract; Z87.891 Personal history of nicotine dependence
CPT/HCPCS: 96372; 99284; J1885; J2270

== ENCOUNTER 2025-03-02 08:28 | Outpatient (OUT) | payer OTHER, SELFPAY ==
--- NOTE | 2025-03-02 08:32 | MR_ITS ---
The [address] [address] Patient Name: SIOBHAN ROBLES MRN: [id number] date: 1980 Sex: F Assigned Patient Location: MRI Current Patient Location: MRI Accession/Order Number: [id number] Exam Date: 03/02/2025 11:46 Report Date: 03/02/2025 12:07 At the request of: JERED VICTOR Procedure: MR lumbar spine wo/w con MR lumbar spine wo/w con 03/02/2025 9:57 AM SIGNS AND SYMPTOMS: ^Pelvic And Perineal Pain, Lumbago, Retention Of Urine PROTOCOL: Multiplanar multisequence MR images of the lumbar spine were obtained with and without IV contrast CONTRAST: 80 mL of intravenous Dotarem COMPARISON: None. FINDINGS: The bones of the lumbar spine are in anatomic alignment. There is preservation of vertebral body heights and intervertebral disc spaces. The marrow signal is within normal limits. The conus terminates at the mid L1 vertebral body level. No epidural or paraspinous fluid collection is appreciated. There is no abnormal postcontrast enhancement. At T12-L1: There is a normal disc, central canal, and neural foramen. At L1-L2: There is a normal disc, central canal, and neural foramen. At L2-L3: There is a normal disc, central canal, and neural foramen. At L3-L4: There is a normal disc, central canal, and neural foramen. At L4-L5: There is a normal disc, central canal, and neural foramen. At L5-S1: There is a normal disc, central canal, and neural foramen. MR/MR lumbar spine wo/w con IMPRESSION: No significant spinal canal or neural foraminal stenosis. No abnormal post contrast-enhancement. Impression dictated by: Omar Rhodes M.D. 03/02/2025 12:07 PM Dictation Location: [place] [address] Electronically authenticated by: [id number] Y Date: 03/02/2025 12:07
--- OUTSIDE RECORDS SUMMARY | 2025-03-02 08:49 | XMS_ITS | CCD ---
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 Role Phone GUILHERME, DR PARADA Admitting [...] Unavailable GUILHERME, DR PARADA Consulting Unavailable MICKYBAKARI Rowan Consulting Unavailable KUCHIPBÁRBARA, DARNELL Consulting Unavailable GUILHERME, DR PARADA Admitting Unavailable GUILHERME, DR PARADA Attending Unavailable BRISTOL, DR ROMANO Primary Care Unavailable GUILHERME, DR PARADA Consulting Unavailable ZIERIKAER, DR JORGE LUIS Smith Consulting Unavailable Jered Victor Primary Care Physician [phone] TAMARA ORTEGA Referring Unavailable Unavailable Primary Care Provider Unavailabl e Daren Vanegas DO Attending Provider Daren Vanegas DO Attending Provider Soni Stockton PA-C Attending Provider Jered Do Primary Care Provider [phone] Daren Vanegas Admitting Unavailable Daren Vanegas Attending Unavailable Daren Vanegas Admitting Unavailable Daren Vanegas Attending Unavailable Jered Victor Primary Care Unavailable Soni Stockton Admitting Unavailable [place], Soni L Attending Unavailable SONI STOCKTON Attending Unavailable SONI STOCKTON Attending Unavailable GUILHERME, DAREN Attending Unavailable DAREN VANEGAS Attending Unavailable DAREN VANEGAS Attending Unavailable DAREN VANEGAS Attending Unavailable CARRIE VANEGASY Attending Unavailable Deena, GURMEET Jered L Attending Unavailable Deena, LINK WIRE FABRIC MACHINE TENDER Jered L Attending Unavailable Allergies Allergy Classification Reported Allergen(s) Allergy Type Date of Onset Reaction(s) Facility (1 source) No Known Medication Allergies; Translations: [No Known Medication Allergies] Propensity to adverse reactions (disorder) [facility] Repository Medications Current Medications Medication Drug Class(es) Dates Sig (Normalized) Sig (Original) acetaminophen 500 mg oral tablet (10 sources) take 2 tablets by mouth every six hours as needed for pain acetaminophen (Tylenol) 500 MG tablet Take 1,000 mg by mouth every 6 (six) hours if needed for mild pain Active ciprofloxacin 500 mg oral tablet (2 sources) Quinolone Antimicrobial Start: End: take 1 tablet by mouth in the morning ciprofloxacin (Cipro) 500 MG tablet Indications: Urinary Tract Infection Take 1 tablet (500 mg) by mouth in the morning and 1 tablet (500 mg) before bedtime. Do all this for 7 days. 14 tablet 02/01/2025 02/08/2025 Active cyclobenzaprine hydrochloride 10 mg oral tablet (4 sources) Muscle Relaxant Start: End: take 1 tablet by mouth three times daily as needed for muscle spasms cyclobenzaprine (Flexeril) 10 MG tablet Indications: Acute postoperative pain Take 1 tablet (10 mg) by mouth 3 (three) times a day as needed for muscle spasms for up to 10 days 30 tablet 02/14/2025 02/24/2025 Active ibuprofen 800 mg oral tablet (10 sources) Nonsteroidal Anti-inflammatory Drug ibuprofen 800 MG tablet Take 400 mg by mouth every 6 (six) hours if needed for mild pain Active methylPREDNISolone (4 sources) Corticosteroid Start: End: methylPREDNISolone (Medrol Dospak) 4 MG tablets Indications: Acute postoperative pain Follow schedule on package instructions 21 tablet 02/14/2025 02/21/2025 Active Completed/Discontinued Medications Medication Drug Class(es) Dates Sig (Normalized) Sig (Original) phenazopyridine hydrochloride 100 mg oral tablet (2 sources) Start: 02-01-2025 End: 02-04-2025 take 1 tablet by mouth three times daily as needed for muscle spasms phenazopyridine (Pyridium) 100 MG tablet Indications: Postop check , Pelvic pain in female , Urinary tract infection without hematuria, site unspecified Take 1 tablet (100 mg) by mouth 3 (three) times a day as needed for bladder spasms for up to 3 days 9 tablet 02/01/2025 02/04/2025 Problems Active Problems Problem Classification Problem Date Documented Date Episodic/Chronic Abdominal pain (10 sources) Pelvic and perineal pain; Translations: [Pain [...] UTERUS UNSPECIFIED] Onset: 09-09-2022 Episodic Menstrual disorders (20 sources) Excessive and frequent menstruation with irregular cycle; Translations: [Excessive and frequent menstruation with regular cycle] Onset: 09-02-2022 Chronic Nonmalignant breast conditions (13 sources) Cellulitis of breast; Translations: [Breast lump] Onset: 02-05-2025 06-06-2020 Episodic Other aftercare (8 sources) Surgical follow-up; Translations: [Encounter for follow-up examination after completed treatment for conditions other than malignant neoplasm] 12-20-2024 Episodic Other endocrine disorders (1 source) Polycystic ovarian syndrome; Translations: [POLYCYSTIC OVARIAN SYNDROME] Onset: 09-09-2022 Chronic Other endocrine disorders (1 source) Polycystic ovary syndrome 10-06-2023 Chronic Other female genital disorders (1 source) Pain in female genitalia on intercourse; Translations: [Unspecified dyspareunia] 10-02-2024 Chronic Other female genital disorders (1 source) Hypertrophy of uterus; Translations: [HYPERTROPHY OF UTERUS] Onset: 09-09-2022 Episodic Other nervous system disorders (4 sources) Chronic postoperative pain; Translations: [Other chronic postprocedural pain] 02-20-2025 Chronic Other nervous system disorders (2 sources) Acute postoperative pain; Translations: [Other acute postprocedural pain] 02-14-2025 Episodic Other screening for suspected conditions (not mental disorders or infectious disease) (6 sources) Encounter for screening for malignant neoplasm of cervix; Translations: [Patient encounter status] Onset: 12-31-2021 Episodic Ovarian cyst (2 sources) Cyst of ovary; Translations: [Unspecified ovarian cyst, unspecified side] 02-14-2025 Episodic Residual codes; unclassified (1 source) Acquired absence of other specified parts of digestive tract; Translations: [ACQ ABSENCE OTH PART DIGESTV TRACT] Onset: 09-09-2022 Episodic Residual codes; unclassified (1 source) Tobacco user 06-06-2020 Episodic Unclassified (1 source) CONTACT W/AND (SUSP) EXPOS COVID-19; Translations: [CONTACT W/AND (SUSP) EXPOS COVID-19] Onset: 09-03-2022 Unclassified (3 sources) Patient encounter status 10-06-2023 Urinary tract infections (2 sources) Urinary tract infectious disease; Translations: [Urinary tract infection, site not specified] 02-01-2025 Episodic Past or Other Problems Problem Classification Problem Date Documented Date Episodic/Chronic Immunizations and screening for infectious disease (1 source) Encounter for screening for human papillomavirus (HPV); Translations: [ENC SCREENING HUMAN PAPILLOMAVIRUS] Onset: 01-01-2022 Episodic Other and unspecified benign neoplasm (20 sources) Leiomyoma; Translations: [Benign neoplasm of connective and other soft tissue, unspecified] Onset: 10-02-2024 10-02-2024 Episodic Results Test Name Value Interpretation Reference Range Facility Ambulatory Visit Summaryon 0 02-27-2025 Ambulatory Visit Summary Ambulatory Visit Summary SIOBHAN ROBLES :1980 Visit Date:02/27/2025 Ambulatory Visit Instructions Your Diagnosis BMI 31.0-31.9,adult Tobacco use Marijuana smoker Your Care Team Attending Physician - Jered Marquis Primary Care Physician - Jered Marquis This Is Your Medications List gabapentin (gabapentin 300 mg Cap) meloxicam (meloxicam 15 mg Tab) Procedures Performed Dilation and curettage (10/18/2014), Cholecystectomy (10/18/2008). Discharge Vitals Heart Rate (Peripheral) 112 Respiratory Rate 18 Blood Pressure 146/84 Height 165.5 cm Height 65 in Weight 87.45 kg Weight 192.794 lb BMI 31.93 Medications What How Much When Instructions Unchanged gabapentin (gabapentin 300 mg Cap) 1 Capsules By Mouth 3 times a day Unchanged meloxicam (meloxicam 15 mg Tab) 1 Tablets By Mouth Every day Allergies No Known Allergies No Known Medication Allergies Problems Ongoing - Any problem that you are currently receiving treatment for. Cellulitis of left breast Eczema Hospital discharge follow-up Inconclusive mammogram Low back pain with sciatica Menometrorrhagia PCOS (polycystic ovarian syndrome) Pelvic pain Screening for hyperlipidemia Screening for thyroid disorder Tobacco use Urinary retention Wellness examination Patient Survey You may receive a survey via text or e-mail asking about your office visit. Please share your experience with us by completing your survey. We appreciate your feedback and thank you for choosing us for your care. Normal [facility] Family Medicine Office/Clini c Noteon 02-27-2025 Family Medicine Office/Clinic Note Family Medicine Office/Clinic Note HPI Staff Siobhan is a 45 year old female presenting for pelvic pain Patient starting physical therapy on Wednesday for pelvic pain Would like to go over EMG results Pt does also have a private matter that she needs to discuss. Pt mother does have SVT and pt has noticed her heart tracing anywhere from 100-135 would like to discuss anxiety HUEY 18, did take effoxer in the past but pt didn't like the way it made her feel. History of Present Illness pt presents today to discuss EMG results and to fill out FMLA paper work Review of Systems PHQ Score Initial Depression Screen Score: 0 SCORE Physical Exam Vitals & Measurements HR: 112(Peripheral) RR: 18 BP: 146/84 SpO2: 98% HT: 65 in HT: 165.5 cm WT: 192.794 lb WT: 87.45 kg BMI: 31.93 General: alert, no acute distress ENMT: oral mucosa moist, no pharyngeal erythema or exudate Cardiovascular: regular rate and rhythm, normal peripheral perfusion Respiratory: Lungs CTA, respirations non labored Extremities: no deformity, no trauma Neurological: oriented x 4, LOC appropriate for age, CN II-XII intact, motor strength equal & normal bilaterally, speech normal pt has difficulty walking, sitting standing due to severe pain Assessment/Plan 1. 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 She will start PT for this on Wednesday. pt will be seeing [facility] in [place] for second opinion. She feels all of these complications stemmed from her hysterectomy surgery. RTC 4 weeks for follow up. pt will keep provider posted through the portal. Ordered: MRI Spine Lumbar w/ + w/o Contrast 2. Pelvic pain (R10.2: Pelvic and perineal pain) pt is scheduled for Pelvic MRI on Wednesday and MRI of spine on Wednesday. 3. Low back pain with sciatica (M54.40: Lumbago with sciatica, unspecified side) pt continues having low back pain with sciatica. scheduled for MRI on Wednesday at [facility]. they are requesting new order for with and without contrast. order was faxed. pt is unable to work due to pain. will complete FMLA paper work. she is unable to lift more than 8 pounds Ordered: MRI Spine Lumbar w/ + w/o Contrast 4. Urinary retention (R33.9: Retention of urine, unspecified) pt does not have sensation of full bladder. will follow up with urogyn in [place] Ordered: MRI Spine Lumbar w/ + w/o Contrast 5. BMI 31.0-31.9,adult (Z68.31: Body mass index [BMI] 31.0-31.9, adult) BMI education given 6. Tobacco use (Z72.0: Tobacco use) consider not smoking 7. Marijuana smoker (F12.90: Cannabis use, unspecified, uncomplicated) consider not smoking Orders: methylPREDNISolone, = 1 packet(s), Oral, Once, as directed on package labeling, # 21 tab(s), Refills(s) 0, Pharmacy: [id number], 165.5, cm, 02/20/25 14:04:00 EDT, Height/Length Dosing, 91.2, kg, 02/20/25 14:04:00 EDT, Weight Dosing Follow-up No qualifying data available Problem List/Past Medical History Ongoing Cellulitis of left breast Eczema Hospital discharge follow-up Inconclusive mammogram Low back pain with sciatica Menometrorrhagia PCOS (polycystic ovarian syndrome) Pelvic pain Peroneal neuropathy Screening for hyperlipidemia Screening for thyroid disorder Tobacco use Urinary retention Wellness examination Historical No qualifying data Procedure/Surgical History Dilation and curettage (10/18/2014), Cholecystectomy (10/18/2008). Medications gabapentin 300 mg Cap, 300 mg= 1 cap(s), Oral, TID meloxicam 15 mg Tab, 15 mg= 1 tab(s), Oral, Daily, Not taking: pt hasn't started it yet she will start that tomorrow Allergies No Known Allergies No Known Medication Allergies Social History Alcohol - Denies Alcohol Use, 06/06/2020 Tobacco Former smoker, quit more than 30 days ago Tobacco Use:. Current vaping or e-cigarette use Smokeless Tobacco Use:. Cigarettes, Ready to change: Yes. Household tobacco concerns: No., 02/20/2025 Family History Diabetes mellitus type 2: Mother and Father. Hypertension: Mother and Father. Renal failure syndrome: Mother. Normal [facility] Comment on above: Result Comment: Elec tronically Signed By: Jered Marquis\.br\Date and Time Signed: 02/27/25 16:14 EDT Ambulatory Visit Summaryon 0 02-20-2025 Ambulatory Visit Summary Ambulatory Visit Summary SIOBHAN ROBLES :1980 Visit Date:02/20/2025 Ambulatory Visit Instructions Your Diagnosis Hospital discharge follow-up Low back pain with sciatica Pelvic pain Urinary retention Former smoker BMI 33.0-33.9,adult, Body mass index [BMI] 33.0-33.9, adult Class 1 obesity due to excess calories with body mass index (BMI) of 33.0 to 33.9 in adult Other obesity due to excess calories Tests Performed MRI Pelvis (Soft Tissue) w/o contrast -- Results Pending -- MRI Spine Lumbar w/o Contrast -- Results Pending -- Please visit your patient portal for your results or contact your primary care physician. Your Care Team Attending Physician - Jered Marquis Primary Care Physician - Jered Marquis This Is Your Medications List acetaminophen-hydrocod one (acetaminophen-hydroco done 325 mg-7.5 mg oral tablet) gabapentin (gabapentin 300 mg Cap) Procedures Performed Dilation and curettage (10/18/2014), Cholecystectomy (10/18/2008). Discharge Vitals Temperature (Oral) 36.5 ???C Heart Rate (Peripheral) 108 Respiratory Rate 20 Blood Pressure 132/86 Height 165.5 cm Height 65 in Weight 91.2 kg Weight 201.061 lb BMI 33.3 Medications What How Much When Instructions Unchanged acetaminophen-hydrocod one (acetaminophen-hydroco done 325 mg-7.5 mg oral tablet) 1 Tablets By Mouth Every 4 hours as needed for for pain Unchanged gabapentin (gabapentin 300 mg Cap) 1 Capsules By Mouth 3 times a day Allergies No Known Allergies No Known Medication Allergies Problems Ongoing - Any problem that you are currently receiving treatment for. Cellulitis of left breast Eczema Hospital discharge follow-up Inconclusive mammogram Low back pain with sciatica Menometrorrhagia PCOS (polycystic ovarian syndrome) Pelvic pain Screening for hyperlipidemia Screening for thyroid disorder Tobacco use Urinary retention Wellness examination Patient Survey You may receive a survey via text or e-mail asking about your office visit. Please share your experience with us by completing your survey. We appreciate your feedback and thank you for choosing us for your care. Normal [facility] Family Medicine Office/Clini c Noteon 02-20-2025 Family Medicine Office/Clinic Note Family Medicine Office/Clinic Note [facility] Staff Siobhan is a 45 year old female presenting with Groin, back, hips radiating down leg ER followup: Hospital: [facility] Visit date: 02/17/25 Symptoms the patient presented with: groin, back, hips radiating down leg Current concerns:December 13 Guilherme thinks she has underlining back issue that is causing pain Took 4 hours to do hysterectomy thinking being in that position for so long. Uterus was hanging over bladder kept folding since surgery she has had this pain Gabapentin is the only thing that is helping Taking Vicatin only 3x did not help takes the shooting pain away but It is very tender and pulls on her lower abdominal she feels like she is sitting on needles She does not get the urge to urinate she had UTI week before Easter She is requesting to get an MRI History of Present Illness pt presents today for ER follow up. having severe pelvic pain that radiates to her back and down her legs. Review of Systems PHQ Score Initial Depression Screen Score: 0 SCORE Physical Exam Vitals & Measurements T: 36.5 ???C(Oral) HR: 108(Peripheral) RR: 20 BP: 132/86 SpO2: 100% HT: 165.5 cm HT: 65 in WT: 201.061 lb WT: 91.2 kg BMI: 33.3 General: alert, no acute distress ENMT: oral mucosa moist, no pharyngeal erythema or exudate Cardiovascular: regular rate and rhythm, normal peripheral perfusion Respiratory: Lungs CTA, respirations non labored Extremities: no deformity, no trauma Neurological: oriented x 4, LOC appropriate for age, CN II-XII intact, motor strength equal & normal bilaterally, speech normal Assessment/Plan 1. Hospital discharge follow-up (Z09: Encounter for follow-up examination after completed treatment for conditions other than malignant neoplasm) pt presents today for ER discharge follow up. pt went to ER for pelvic, groin, back pain that radiates down her legs. pt had hysterectomy 11 weeks ago and the pain has been going on since then. pt states the surgery ended up being 4 hours. OBGYN doesn't feel this is related to her surgery. pt is very tearful. this has affected her activities of daily living. she is unable to return to work due to the pain. ER gave her gabapentin and norco. she does not take the norco. she feels the gabapentin does help the pain that is shooting down her legs. gabapentin refilled. MRI of lumbar spine and pelvis ordered. will await for those results. discussed possible referral to neuro surgeon vs. urology vs urogyn. pt feels her OBGYN has ruled out anything he is able to help with and recommended her to see her PCP. pt will bring in [facility] paperwork. I will take over her care as of February 15 on her paperwork. Ordered: MRI Pelvis (Soft Tissue) w/o contrast MRI Spine Lumbar w/o Contrast 2. Low back pain with sciatica (M54.40: Lumbago with sciatica, unspecified side) MRI of lumbar pain ordered Ordered: MRI Pelvis (Soft Tissue) w/o contrast MRI Spine Lumbar w/o Contrast 3. Pelvic pain (R10.2: Pelvic and perineal pain) pt is very very tearful during a visit. pelvic pain radiates down lower pelvic area around to her back and down her legs. pt can not even sit up straight in a chair due to the pain. Ordered: MRI Pelvis (Soft Tissue) w/o contrast MRI Spine Lumbar w/o Contrast 4. Urinary retention (R33.9: Retention of urine, unspecified) pt does not have any sensation of a full bladder. she forces her self to empty her bladder every 2 hours. Ordered: MRI Pelvis (Soft Tissue) w/o contrast MRI Spine Lumbar w/o Contrast 5. Former smoker (Z87.891: Personal history of nicotine dependence) continue not smoking Ordered: MRI Pelvis (Soft Tissue) w/o contrast MRI Spine Lumbar w/o Contrast 6. BMI 33.0-33.9,adult (Z68.33: Body mass index [BMI] 33.0-33.9, adult) BMI education given Ordered: MRI Pelvis (Soft Tissue) w/o contrast MRI Spine Lumbar w/o Contrast 7. Class 1 obesity due to excess calories with body mass index (BMI) of 33.0 to 33.9 in adult (E66.811: Obesity, class 1) see above Orders: gabapentin, 300 mg = 1 cap(s), Oral, TID, # 90 cap(s), Refills(s) 0, Pharmacy: [facility]/pharmacy #[id number], 165.5, cm, 02/20/25 14:04:00 EDT, Height/Length Dosing, 91.2, kg, 02/20/25 14:04:00 EDT, Weight Dosing Follow-up No qualifying data available Problem List/Past Medical History Ongoing Cellulitis of left breast Eczema Hospital discharge follow-up Inconclusive mammogram Low back pain with sciatica Menometrorrhagia PCOS (polycystic ovarian syndrome) Pelvic pain Screening for hyperlipidemia Screening for thyroid disorder Tobacco use Urinary retention Wellness examination Historical No qualifying data Procedure/Surgical History Dilation and curettage (10/18/2014), Cholecystectomy (10/18/2008). Medications acetaminophen-hydrocod one 325 mg-7.5 mg oral tablet, 1 tab(s), Oral, q4hr, PRN gabapentin 300 mg Cap, 300 mg= 1 cap(s), Oral, TID gabapentin 300 mg Cap, 300 mg= 1 cap(s), Oral, TID Allergies No (more content not included)... Normal [facility] Comment on above: Result Comment: Elec tronically Signed By: Jered Marquis\.br\Date and Time Signed: 02/20/25 15:59 EDT US breast RT limitedon 02-12 US breast RT limited [facility] [address] Ultrasound Report Signed Patient: Siobhan Robles MR#: [id number] : 1980 Acct:[id number] Age/Sex: 45 / F ADM Date: 02/12/25 Loc: [facility] Room: Type: [facility] Attending Dr: Soni Stockton PA-C Ordering Provider: Soni VERGARA Date of Service: 02/12/25 US/US breast RT limited: N64.4 Copies to: Soni VERGARA LIMITED RIGHT BREAST ULTRASOUND CLINICAL DATA: Pain at the right upper quadrant that extends to the axilla. Cysts on previous ultrasound COMPARISON: 08/07/2024 Real-time ultrasound evaluation of the right upper quadrant was performed. At 10:00, 8 cm from the nipple there is a cyst that measures 7 x 6 x 7 mm. At 10:00, 10 cm there is another cyst measuring 8 x 5 x 7 mm. These were also seen previously . No additional cystic or solid masses are identified in the field of view. US/US breast RT limited IMPRESSION: SMALL SIMPLE CYSTS AT THE 10:00 POSITION OF THE RIGHT BREAST. NO OTHER ULTRASOUND FINDINGS TO ACCOUNT FOR PATIENT'S PAIN. CLINICAL MANAGEMENT IS THEREFORE SUGGESTED. ROUTINE MAMMOGRAPHIC FOLLOW-UP IS RECOMMENDED AT THE TIME OF PATIENT'S NEXT ANNUAL BILATERAL MAMMOGRAM. Impression dictated by: Glendy Huynh M.D. 02/12/2025 1:41 PM Dictation Location: [facility] Tech: Hermila Malik Transcribed By: ABEL 02/12/25 1341 Dictated By: Glendy Huynh MD 02/12/25 1141 Signed By: 02/12/25 1341 Normal [facility] Urinalysis macro (dipstick) panel (U)on 01-24-2025 Bilirubin, UA Negative Negative - 4(70) +++ mg/dL [facility] Blood, UA Negative Negative - 50 Blaise/mcL [facility] Clarity, UA Clear [facility] Color, UA Yellow [facility] Glucose, UA Negative Negative - 1999(110) ++++ mg/dL [facility] Interpretation and review of laboratory results Normal [facility] Ketones, UA Negative Negative - 160(16) ++++ mg/dL [facility] Leukocytes, UA Negative Negative - 500+++ Adria/mcL [facility] Nitrite, UA Negative Negative - Positive [facility] pH, UA 5.5 5 - 9 [facility] Protein, UA Negative Negative - 1999(20) ++++ mg/dL [facility] Spec Grav, UA 1.03 1 - 1.03 [facility] Urobilinogen, UA 0.2 0.2 - 12 mg/dL [facility] ALL CBC WITH AUTO DIFFon BASOPHILS ABSOLUTE AUTO 0.1 [facility] Basophils/100 WBC (Bld) 0.4 % 0.2 - 2.0 % [facility] Eosinophils/100 WBC (Bld) 1.1 % 0.9 - 7.0 % [facility] Erythrocyte distribution width (RBC) [Ratio] 12.8 % 11.0 - 15.0 % [facility] Hematocrit (Bld) [Volume fraction] 40 % 36.0 - 48.0 % [facility] Hemoglobin (Bld) [Mass/Vol] 13.4 g/dL 12.0 - 16.0 g/dL [facility] IMMATURE GRANULOCYTES ABS AUTO 0.04 High [facility] Immature granulocytes/100 WBC (Bld) 0.3 % 0.0 - 0.5 % [facility] Interpretation and review of laboratory results Abnormal [facility] LYMPHOCYTES ABSOLUTE AUTO 4.3 High [facility] Lymphocytes/100 WBC (Bld) 36.8 % 20.5 - 60.0 % [facility] MCH (RBC) [Entitic mass] 30.3 pg 26.7 - 34.0 pg [facility] MCHC (RBC) [Mass/Vol] 33.5 g/dL 29.9 - 35.2 g/dL [facility] MCV (RBC) [Entitic vol] 90.5 fL 81.0 - 99.0 fL [facility] MONOCYTES ABSOLUTE AUTO 0.8 [facility] Monocytes/100 WBC (Bld) 6.6 % 1.7 - 12.0 % [facility] NEUTROPHILS ABSOLUTE AUTO 6.4 [facility] Neutrophils/100 WBC (Bld) 54.8 % 43.0 - 75.0 % [facility] Platelet mean volume (Bld) [Entitic vol] 10.2 fL 9.5 - 13.5 fL [facility] EO # 0.1 [facility] PLT 318 [facility] RBC 4.42 [facility] TB WBC 11.8 High [facility] [place] 12-13-2024 L -- ---- Specimen: [id number] Received: 12/14/24 Status: CHEO Pugh Num: [id number] Spec Type: Surgical Subm Dr: Daren Vanegas Tissues: A Uterus w/ or w/o tubes ovaries except neoplastic or prolap (UTERSU, CERVIX Procedures: HE/Millie, Gross/Micro L5 ---- Age/ Patient Sex Location Account Attending Physician ---- Siobhan Robles 44/F LABELL [id number] Daren Vanegas ---- SPEC NUM: [id number] RECD: 12/14/24 STATUS: CHEO PUGH NUM: [id number] YUNG: 12/13/24 [facility] DR: Daren Vanegas ENTERED: 12/14/24 [facility] DR: Philomena,Lab SPEC TYPE: Surgical DEPT: GIOVANNA JENKINS ENTERED BY: [id number] RECV BY: [id number] ORDERED: HE/9, Gross/Micro L5 ORDERED: HE/9, Gross/Micro L5 Pathological Diagnosis Uterus, cervix, and bilateral fallopian tubes, total hysterectomy with bilateral salpingectomy: -Cervix with mild chronic cervicitis including patchy mild squamous metaplasia without dysplasia -Corpus with slightly disordered proliferative endometrium of the mid to late phase type -Incidental mild hemorrhagic and myxoid degeneration of the superficial uterine mucosa of uncertain cause, otherwise without hyperplasia or atypia -Severe adenomyosis of the anterior wall without secondary hyperplasia or atypia -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 The uterine corpus is globoid and asymmetrical, 5.5 cm cornu to cornu, 6 cm anterior to posterior and 9.3 cm fundus to ectocervical face. 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- ---- Specimen: [id number] Received: 12/14/24 Status: CHEO Pugh Num: [id number] Spec Type: Surgical Subm Dr: Daren Vanegas Tissues: A Uterus w/ or w/o tubes ovaries except neoplastic or prolap (UTERSU, CERVIX Procedures: Gross/Micro L5 ---- Patient: TravisLa NenaSiobhan C [id number] (Continued) ---- Specimen: [id number] Received: 12/14/24 (Continued) Gross Description (Continued) Signed (signature on file) Jennifer Rosales MD 12/15/24 1838 ---- Specimen: [id number] Received: 12/14/24 Status: CHEO Pugh Num: [id number] Spec Type: Surgical Subm Dr: Daren Vanegas Tissues: A Uterus w/ or w/o tubes ovaries except neoplastic or prolap (UTERSU, CERVIX Procedures: Gross/Micro L5 ---- Patient: Siobhan Robles [id number] (Continued) ---- Specimen: [id number] Received: 12/14/24-7085 (Continued) Gross Description (Continued) pink, smooth and glistening. The ectocervical face is 1.3 cm in length by up to 4.2 cm in diameter, and exhibits singer- pink, focally erythematous, smooth, glistening mucosa. The cervical os is slitlike, up to 1.6 cm in diameter. The specimen is opened to reveal a singer-pink, wrinkled and glistening endocervical canal. The endometrial cavity is singer-pink, focally erythematous, glistening and triangular, 4 x 3.5 cm with endometrium, up to 0.3 cm in thickness. The myometrium is singer-pink and coarsely trabecular, up to 3.5 cm in thickness. Within the myometrium are vela-singer to pink, ill- defined, indurated regions, which extend as much as 3.1 cm into the myometrium. Upon further sectioning a 0.9 cm in greatest dimension, white, whirled, rubbery and uniform intramural nodule with no hemorrhage or degeneration is noted. The bilateral fallopian tubes with fimbriated distal ends are received detached, unoriented. The shorter tube is 4.3 x 0.9 cm, and the longer tube is 5 x 0.9 cm. The serosa is vela- purple, smooth and glistening. Serial sections reveal pinpoint lumen within each segment. Cassettes: A1 Cervix A2 Serosa (to include posterior cul-de-sac) A3-A4 Bisected full-t (more content not included)... Normal [facility] ALL TYPE AND SCREENon 2024 ABO and Rh group Nom (Bld) Blood group O Rh(D) positive [facility] XR CHEST 2Von 11-28-2024 [place] [address] XRay Report Signed Patient: SIOBHAN ROBLES MR#: [id number] : 1980 Acct:[id number] Age/Sex: 44 / F ADM Date: 11/27/24 Loc: PST Attending Dr: Daren Vanegas D.O. Ordering Physician: Daren Vanegas D.O. Date of Service: 11/27/24 Procedure(s): XR chest 2V Accession Number(s): [id number] cc: Daren Vanegas D.O.; JERED VICTOR [place] [id number] Patient Name: SIOBHAN ROBLES MRN: [id number] date: 1980 Sex: F Assigned Patient Location: [facility] Current Patient Location: Accession/Order Number: [id number] Exam Date: 11/27/2024 10:40 Report Date: 11/28/2024 10:13 At the request of: DAREN VANEGAS Procedure: XR chest 2V EXAMINATION: XR [...] Signed By: 11/28/24 1016 DD/ 1013 TD/TT: Treatment Plant Operator: [facility] Radiology, Radiologist, MD - 11/28/2024 [place] [address] XRay Report Signed Patient: SIOBHAN ROBLES MR#: [id number] : 1980 Acct:[id number] Age/Sex: 44 / F ADM Date: 11/27/24 Loc: [facility] Attending Dr: Daren Vanegas D.O. Ordering Physician: Daren Vanegas D.O. Date of Service: 11/27/24 Procedure(s): XR chest 2V Accession Number(s): [id number] cc: Daren Vanegas D.O.; JERED VICTOR [place] [id number] Patient Name: SIOBHAN ROBLES MRN: [facility]:[id number] date: 1980 Sex: F Assigned Patient Location: [facility] Current Patient Location: Accession/Order Number: [id number] Exam Date: 11/27/2024 10:40 Report Date: 11/28/2024 10:13 At the request of: DAREN VANEGAS Procedure: XR chest 2V EXAMINATION: XR [...] Signed By: 11/28/24 1016 DD/ 1013 TD/TT: Treatment Plant Operator: [facility] Radiology Study observation (narrative) [facility] XR CHEST 2VOrdered By: Radio logist Radiology on 11-28-2024 [facility] Work Phone: ALL CBC WITH AUTO DIFFon BASOPHILS ABSOLUTE AUTO 0.1 [facility] Basophils/100 WBC (Bld) 0.4 % 0.2 - 2.0 % [facility] Eosinophils/100 WBC (Bld) 0.9 % 0.9 - 7.0 % [facility] Erythrocyte distribution width (RBC) [Ratio] 12.7 % 11.0 - 15.0 % [facility] Hematocrit (Bld) [Volume fraction] 40.1 % 36.0 - 48.0 % [facility] Hemoglobin (Bld) [Mass/Vol] 13.4 g/dL 12.0 - 16.0 g/dL [facility] IMMATURE GRANULOCYTES ABS AUTO 0.03 [facility] Immature granulocytes/100 WBC (Bld) 0.2 % 0.0 - 0.5 % [facility] Interpretation and review of laboratory results Abnormal [facility] LYMPHOCYTES ABSOLUTE AUTO 4.3 High [facility] Lymphocytes/100 WBC (Bld) 35.5 % 20.5 - 60.0 % [facility] MCH (RBC) [Entitic mass] 30 pg 26.7 - 34.0 pg [facility] MCHC (RBC) [Mass/Vol] 33.4 g/dL 29.9 - 35.2 g/dL [facility] MCV (RBC) [Entitic vol] 89.7 fL 81.0 - 99.0 fL [facility] MONOCYTES ABSOLUTE AUTO 0.7 [facility] Monocytes/100 WBC (Bld) 6.1 % 1.7 - 12.0 % [facility] NEUTROPHILS ABSOLUTE AUTO 6.9 High [facility] Neutrophils/100 WBC (Bld) 56.9 % 43.0 - 75.0 % [facility] Platelet mean volume (Bld) [Entitic vol] 9.9 fL 9.5 - 13.5 fL [facility] TB EO # 0.1 [facility] TB PLT 403 [facility] RBC 4.47 [facility] WBC 12.2 High [facility] [place] 10-02-2024 L -- ---- Specimen: [id number] Received: 10/03/24 Status: BEREPieter Pugh Num: [id number] Spec Type: Surgical Subm Dr: Daren Vanegas Tissues: A Endometrium - Biopsy (ENDOMETRIAL BX) Procedures: HE/2, Gross/Micro L4 ---- Age/ Patient Sex Location Account Attending Physician ---- Siobhan Robles 44/F LABELL [id number] Daren Vanegas ---- SPEC NUM: [id number] RECD: 10/03/24 STATUS: BEREPieter PUGH NUM: [id number] YUNG: 10/02/24- SUBM : Daren Vanegas ENTERED: 10/03/[address]: Philomena,Lab SPEC TYPE: Surgical DEPT: GIOVANNA JENKINS ENTERED BY: [id number] RECV BY: [id number] ORDERED: HE/2, Gross/Micro L4 ORDERED: HE/2, Gross/Micro [...] submitted in a single cassette. (1, ns, [id number]) CPT Codes 10110 ---- ---- Specimen: [id number] Received: 10/03/24 Status: CHEO Pugh Num: [id number] Spec Type: Surgical Subm Dr: Daren Vanegas Tissues: A Endometrium - Biopsy (ENDOMETRIAL BX) Procedures: Alba MAJOR/Micro L4 ---- Patient: Siobhan Robles [id number] (Continued) ---- Signed (signature on file) Jack Cárdenas MD 10/04/24 1441 Normal [facility] IGP,APTIMA HPV,AGE GDLNon AGE GDLN ACOG TESTING Note . [facility] Comment on above: TESTS RESULT FLAG UN ITS REF RANGE LAB Clinician Provided Cytology Information Source.............Cervix No. of containers..01 ThinPrep Vial Age Algo ACOG Terri... 30- 01 FLAG LEGEND: L-Low Normal,H-High Normal,LL-Alert Low,HH-Alert High <-Panic Low,>-Panic High,A-Abnormal,AA-Critical Abnormal Performed at: 01 =G [facility] [address] Chyna Guzmán MD, HPV APTIMA Negative Negative [facility] Comment on above: This nucleic acid am plification test detects fourteen high- risk HPV types (16,18,31,33,35,39,45,51,52,56,58,59,66,68) without differentiation. Performed at: =G - [facility], [place] [id number] Pre School Manager: Chyna Guzmán MD, Phone: [phone] Performed at: - [facility], [place] [id number] Pre School Manager: Chyna Guzmán MD, Phone: [phone] IGP, APTIMA HPV, RFX 16/18,45 Note . [facility] Comment on above: TESTS RESULT FLAG UN ITS REF RANGE LAB DIAGNOSIS: 02 NEGATIVE FOR INTRAEPITHELIAL LESION OR MALIGNANCY. Specimen adequacy: 02 Satisfactory for evaluation. Endocervical and/or squamous metaplastic cells (endocervical component) are present. Performed by: Jony Cochran, Dairy Cattle Farmer (ASC) . 02 Note: Note 02 The Pap [...] High,A-Abnormal,AA-Critical Abnormal Performed at: 02 WB [facility] [address] [place] [address] Chyna Guzmán MD, BRUSH-SPATULA CERVIX [facility] Cytology Cervical or vaginal smear or scraping studyOrdered By: Maral Sheehan on 08-01-2024 [facility] ALL CBC WITH AUTO DIFFon BASOPHILS ABSOLUTE AUTO 0.1 [facility] Basophils/100 WBC (Bld) 0.7 % 0.2 - 2.0 % [facility] Eosinophils/100 WBC (Bld) 1.9 % 0.9 - 7.0 % [facility] Erythrocyte distribution width (RBC) [Ratio] 13.2 % 11.0 - 15.0 % [facility] Hematocrit (Bld) [Volume fraction] 39.9 % 36.0 - 48.0 % [facility] Hemoglobin (Bld) [Mass/Vol] 12.9 g/dL 12.0 - 16.0 g/dL [facility] IMMATURE GRANULOCYTES ABS AUTO 0.02 [facility] Immature granulocytes/100 WBC (Bld) 0.2 % 0.0 - 0.5 % [facility] LYMPHOCYTES ABSOLUTE AUTO 3.5 [facility] Lymphocytes/100 WBC (Bld) 35.7 % 20.5 - 60.0 % [facility] MCH (RBC) [Entitic mass] 29.5 pg 26.7 - 34.0 pg [facility] MCHC (RBC) [Mass/Vol] 32.3 g/dL 29.9 - 35.2 g/dL [facility] MCV (RBC) [Entitic vol] 91.3 fL 81.0 - 99.0 fL [facility] MONOCYTES ABSOLUTE AUTO 0.6 [facility] Monocytes/100 WBC (Bld) 6.1 % 1.7 - 12.0 % [facility] NEUTROPHILS ABSOLUTE AUTO 5.4 [facility] Neutrophils/100 WBC (Bld) 55.4 % 43.0 - 75.0 % [facility] Platelet mean volume (Bld) [Entitic vol] 10.3 fL 9.5 - 13.5 fL [facility] EO # 0.2 [facility] TB PLT 408 [facility] TB RBC 4.37 [facility] TB WBC 9.7 [facility] XR CHEST 2 VWSon 12-01-2023 XR CHEST [...] Chaudhary MD on 12/01/2023 1:43 PM Normal [facility] CBC AUTO DIFFon 08-31-2022 BASO # 0.1 103/ul Normal 0.0-0.1 [facility] Comment on above: Performed By: #### C BC #### [facility] [address] [place] [address] Dr. Demetri Rosales Basophils/100 WBC (Bld) 0.5 % Normal 0.2-2.0 [facility] Comment on above: Performed By: #### C BC #### [facility] [address] [place] [address] Dr. Demetri Rosales EO # 0.3 103/ul Normal 0.0-0.7 [facility] Comment on above: Performed By: #### C BC #### [facility] [address] [place] [address] Dr. Demetri Rosales Eosinophils/100 WBC (Bld) 2.6 % Normal 0.9-7.0 [facility] Comment on above: Performed By: #### C BC #### [facility] [address] [place] [address] Dr. Demetri Rosales Erythrocyte distribution width (RBC) [Ratio] 13.2 % Normal 11.0-15.0 [facility] Comment on above: Performed By: #### C BC #### [facility] [address] [place] [address] Dr. Demetri Rosales Hematocrit (Bld) [Volume fraction] 40.1 % Normal 36.0-48.0 [facility] Comment on above: Performed By: #### C BC #### [facility] [address] [place] [address] Dr. Demetri Rosales Hemoglobin (Bld) [Mass/Vol] 13.2 g/dL Normal 12.0-16.0 [facility] Comment on above: Performed By: #### C BC #### [facility] [address] [place] [address] Dr. Demetri Rosales IG # 0.04 10e3/ul Critically high 0.00-0.03 [facility] Comment on above: Performed By: #### C BC #### [facility] [address] [place] [address] Dr. Demteri Rosales IG % 0.4 % Normal 0.0-0.5 [facility] Comment on above: Performed By: #### C BC #### [facility] [address] [place] [address] Dr. Demetri Rosales LYMPH # 4.1 103/ul Critically high 1.2-3.8 [facility] Comment on above: Performed By: #### C BC #### [facility] [address] [place] [address] Dr. Demetri Rosales Lymphocytes/100 WBC (Bld) 38.2 % Normal 20.5-60.0 [facility] Comment on above: Performed By: #### C BC #### [facility] [address] [place] [address] Dr. Demetri Rosales MANUAL DIFF REQ NO Normal [facility] Comment on above: Performed By: #### C BC #### [facility] [address] [place] [address] Dr. Demetri Rosales MCH (RBC) [Entitic mass] 30.4 pg Normal 26.7-34.0 [facility] Comment on above: Performed By: #### C BC #### [facility] [address] [place] [address] Dr. Demetri Rosales MCHC (RBC) [Mass/Vol] 32.9 g/dL Normal 29.9-35.2 [facility] Comment on above: Performed By: #### C BC #### [facility] [address] [place] [address] Dr. Demetri Rosales MCV (RBC) [Entitic vol] 92.4 fL Normal 81.0-99.0 [facility] Comment on above: Performed By: #### C BC #### [facility] [address] [place] [address] Dr. Demetri Rosales MONO # 0.5 103/ul Normal 0.3-0.8 [facility] Comment on above: Performed By: #### C BC #### [facility] [address] [place] [address] Dr. Demetri Rosales Monocytes/100 WBC (Bld) 4.8 % Normal 1.7-12.0 [facility] Comment on above: Performed By: #### C BC #### [facility] [address] [place] [address] Dr. Demetri Rosales NEUT # 5.7 103/ul Normal 1.4-6.5 [facility] Comment on above: Performed By: #### C BC #### [facility] [address] [place] [address] Dr. Demetri Rosales Neutrophils/100 WBC (Bld) 53.5 % Normal 43.0-75.0 [facility] Comment on above: Performed By: #### C BC #### [facility] [address] [place] [address] Dr. Demetri Rosales Platelet mean volume (Bld) [Entitic vol] 10.0 fL Normal 9.5-13.5 [facility] Comment on above: Performed By: #### C BC #### [facility] [address] [place] [address] Dr. Demetri Rosales PLT 314 103/ul Normal 150-450 [facility] Comment on above: Performed By: #### C BC #### [facility] [address] [place] [address] Dr. Demetri Rosales RBC 4.34 106/ul Normal 4.20-5.40 [facility] Comment on above: Performed By: #### C BC #### [facility] [address] [place] [address] Dr. Demetri Rosales WBC 10.7 103/ul Normal 4.0-11.0 [facility] Comment on above: Performed By: #### C BC #### [facility] [address] [place] [address] Dr. Demetri Rosales Covid-19 PCR ([facility])on 08-18 SARS-CoV-2 (COVID-19) RNA ROMANA+probe Ql (Unsp spec) Not detected Normal NOT DETECTED [facility] Comment on above: Result Comment: This test is not yet approved or cleared by the [place] FDA. When there are no FDA-approved or cleared tests available, and other criteria are met, FDA can make tests available under an emergency access mechanism called an Emergency Use Authorization (EUA). The EUA for this test is supported by the [place] of Health and Human Service's (HHS's) declaration [...] SARS-CoV-2. Performed By: #### C VDTB #### [facility] [address] [place] [address] Dr. Demetri Rosales PREG QUANT HCGon 08-31-2022 HCG QUANT <1 Normal [facility] Comment on above: Performed By: #### P REGQNT #### [facility] [address] [place] [address] Dr. Demetri Rosales HCG RANGE SEE BELOW Normal [facility] Comment on above: Result Comment: 5-50 0.2-1 WEEK 50-500 1-2 WEEKS 100-5,000 2-3 WEEKS 500-10,000 3-4 WEEKS 1,000-50,000 4-5 WEEKS 10,000-100,000 5-6 WEEKS 15,000-200,000 6-8 WEEKS 10,000-100,000 2-3 MONTHS Performed By: #### P REGQNT #### [facility] [address] [place] [address] [address] Demetri Rosales US PELVIS AND TRANSVAGon [...] GRIJALVA Date: 2022-07-09 13:59 Normal [facility] PAP ACOG PANEL 2: 30 to 65on 01-07-2022 . . Normal [facility] Comment on above: Result Comment: Perf ormed at: WB Performed By: #### [id number] #### [facility] [address] [place] [address] [address] Demetri Rosales Age Gdln ACOG Testing 30-65 Normal [facility] Comment on above: Performed By: #### [id number] #### [facility] [address] [place] [address] [address] Demetri Rosales DIAGNOSIS: Comment Normal [facility] Comment on above: Result Comment: NEGA TIVE FOR INTRAEPITHELIAL LESION OR MALIGNANCY. Performed at: WB Performed By: #### [id number] #### [facility] [address] [place] [address] [address] Demetri Rosales HPV Aptima Negative Normal Negative [facility] Comment on above: Result Comment: This nucleic acid amplification test detects fourteen high-risk HPV types (16,18,31,33,35,39,45,51,52,56,58,59,66,68) without differentiation. Performed at: =G Performed By: #### [id number] #### [facility] [address] [place] [address] Dr. Demetri Rosales Methodology: Comment Normal [facility] Comment on above: Result Comment: This liquid based ThinPrep(R) pap test was screened with the use of an image guided system. Performed at: WB Performed By: #### [id number] #### [facility] [address] [place] [address] Dr. Demetri Rosales Note: Comment Normal [facility] Comment on above: Result Comment: The Pap smear is a screening test designed to aid in the detection of premalignant and malignant conditions of the uterine cervix. It is not a diagnostic procedure and should not be used as the sole means of detecting cervical cancer. Both false-positive and false-negative reports do occur. . Performed at: WB Performed By: #### [id number] #### [facility] [address] [place] [address] Dr. Demetri Rosales Performed by: Comment Normal [facility] Comment on above: Result Comment: Eva Casas, Dairy Cattle Farmer (ASCP) Performed at: WB Performed By: #### [id number] #### [facility] [address] [place] [address] Dr. Demetri Rosales Specimen adequacy: Comment Normal [facility] Comment on above: Result Comment: Sati sfactory for evaluation. Endocervical and/or squamous metaplastic cells (endocervical component) are present. Performed at: WB Performed By: #### [id number] #### [facility] [address] [place] [address] Dr. Demetri Rosales Vital Signs Date Time Vital Sign Value Performing Clinician Nandini dickens 02-14-2025 15:16-0400 Body mass index (BMI) [Ratio] 31.7 kg/m2 Darensarai ChrisCollege Book Renter Work Phone: [facility] 02-14-2025 15:16-0400 Body weight 89.09 kg Daren Guilherme DO Work Phone: [facility] 02-14-2025 15:16-0400 Diastolic blood pressure 82 mm[Hg] Daren Guilherme DO Work Phone: [facility] 02-14-2025 15:16-0400 Systolic blood pressure 122 mm[Hg] Daren Guilherme DO Work Phone: [facility] 02-01-2025 11:40-0400 Body mass index (BMI) [Ratio] 31.86 kg/m2 Daren Guilherme DO Work Phone: [facility] 02-01-2025 11:40-0400 Body weight 89.54 kg Daren Guilherme DO Work Phone: [facility] 02-01-2025 11:40-0400 Diastolic blood pressure 68 mm[Hg] Daren Guilherme DO Work Phone: [facility] 02-01-2025 11:40-0400 Systolic blood pressure 114 mm[Hg] Daren Guilherme DO Work Phone: [facility] 01-24-2025 11:08-0400 Body mass index (BMI) [Ratio] 31.82 kg/m2 Soni Stockton PA Work Phone: [facility] 01-24-2025 11:08-0400 Body weight 89.41 kg Soni Ramez PA Work Phone: [facility] 01-24-2025 11:08-0400 Diastolic blood pressure 82 mm[Hg] Soni [place] PA Work Phone: [facility] 01-24-2025 11:08-0400 Systolic blood pressure 130 mm[Hg] Soni Ramez PA Work Phone: [facility] 12-20-2024 15:02-0500 Body mass index (BMI) [Ratio] 31.44 kg/m2 Soni [place] PA Work Phone: [facility] 12-20-2024 15:02-0500 Body weight 88.36 kg Soni REZA Work Phone: [facility] 12-20-2024 15:02-0500 Diastolic blood pressure 78 mm[Hg] Soni REZA Work Phone: [facility] 12-20-2024 15:02-0500 Systolic blood pressure 120 mm[Hg] Soni REZA Work Phone: [facility] 10-02-2024 13:54-0500 Body mass index (BMI) [Ratio] 30.96 kg/m2 Daren Guilherme DO Work Phone: [facility] 10-02-2024 13:54-0500 Body weight 87 kg Daren Guilherme DO Work Phone: [facility] 10-02-2024 13:54-0500 Diastolic blood pressure 78 mm[Hg] Daren Guilherme DO Work Phone: [facility] 10-02-2024 13:54-0500 Systolic blood pressure 104 mm[Hg] Daren Guilherme DO Work Phone: [facility] 08-01-2024 08:47-0400 Body mass index (BMI) [Ratio] 29.92 kg/m2 Daren Guilherme DO Work Phone: [facility] 08-01-2024 08:47-0400 Body weight 84.1 kg Daren Guilherme DO Work Phone: [facility] 08-01-2024 08:47-0400 Diastolic blood pressure 74 mm[Hg] Daren Guilherme DO Work Phone: [facility] 08-01-2024 08:47-0400 Systolic blood pressure 116 mm[Hg] Daren Guilherme DO Work Phone: [facility] 07-17-2024 13:53-0400 Body height 167.6 cm Daren Guilherme DO Work Phone: [facility] 07-17-2024 13:53-0400 Body mass index (BMI) [Ratio] 30.18 kg/m2 Daren Guilherme DO Work Phone: [facility] 07-17-2024 13:53-0400 Body weight 84.82 kg Daren Guilherme DO Work Phone: [facility] 07-17-2024 13:53-0400 Diastolic blood pressure 68 mm[Hg] Daren Guilherme DO Work Phone: [facility] 07-17-2024 13:53-0400 Systolic blood pressure 110 mm[Hg] Daren Guilherme DO Work Phone: [facility] Encounters Encounter Date Encounter Type Care Provider Facility Start: 02-27-2025 End: 02-27-2025 ambulatory L[employer] TENDER Jered L Deena Facility: [facility] Start: 02-22-2025 ambulatory [employer] F[employer] MACHINE TENDER Jered Deena Facilit y:[facility] Start: 02-20-2025 End: 02-20-2025 ambulatory [employer] F[employer] M[employer]INE TENDER Jered L Deena Facility: [facility] Start: 02-20-2025 End: 02-20-2025 Online digital e/m svc est pt <7 d 5-10 minutes Daren Guilherme DO Work Phone: [facility] Comment on above: Chronic postoperativ e pain Start: 02-14-2025 End: 02-14-2025 ambulatory DAREN GUILHERME Not Available Start: 02-14-2025 End: 02-14-2025 Office outpatient visit 15 minutes Daren Guilherme DO Work Phone: [facility] Comment on above: Cyst of ovary, unspe cified laterality; Acute postoperative pain Start: 02-14-2025 End: 02-14-2025 Bamboo flowsheet Daren Guilherme DO Work Phone: [facility] Start: 02-14-2025 End: 02-14-2025 Bamboo flowsheet Daren Guilherme DO Work Phone: [facility] Start: 02-12-2025 End: 02-12-2025 Patient encounter procedure Jered Victor [employer]IC-C Work Phone: [facility] Start: 02-12-2025 End: 02-12-2025 ambulatory Jered Victor [employer] MECH[employer]IC-C Work Phone: [facility] Work Phone: Start: 02-01-2025 End: 02-01-2025 Bamboo flowsheet Daren Guilherme DO Work Phone: [facility] Start: 02-01-2025 End: 02-01-2025 Bamboo flowsheet Daren Guilherme DO Work Phone: [facility] Start: 02-01-2025 End: 02-01-2025 Postop follow up visit related to original px Daren Guilherme DO Work Phone: [facility] Comment on above: Postop check; Pelvic pain in female; Urinary tract infection without hematuria, site unspecified Start: 02-01-2025 End: 02-01-2025 ambulatory DAREN GUILHERME Not Available Start: 01-24-2025 End: 01-24-2025 Bamboo flowsheet Soni Stockton PA Work Phone: [facility] Start: 01-24-2025 End: 01-24-2025 Bamboo flowsheet Soni Stockton PA Work Phone: [facility] Start: 01-24-2025 End: 01-24-2025 ambulatory SONI STOCKTON Not Available Start: 01-24-2025 End: 01-24-2025 Postop follow up visit related to original px Soni Stockton PA Work Phone: [facility] Comment on above: Postoperative examin ation; Breast nodule; Breast pain, right Start: 12-20-2024 End: 12-20-2024 ambulatory SONI RAMEZ Not Available Start: 12-20-2024 End: 12-20-2024 Postop follow up visit related to original px Soni Stockton PA Work Phone: [facility] Comment on above: Postoperative examin ation Start: 12-20-2024 End: 12-20-2024 Bamboo flowsheet Soni Stockton PA Work Phone: [facility] Start: 12-20-2024 End: 12-20-2024 Bamboo flowsheet Soni REZA Work Phone: [facility] Start: 12-13-2024 End: 12-13-2024 Clinisync Result Encounter Daren Guilherme DO Work Phone: [facility] Unsolicited Start: 12-13-2024 End: 12-13-2024 Clinisync Result Encounter Daren Guilherme DO Work Phone: [facility] Unsolicited Start: 12-13-2024 End: 12-13-2024 [facility] Start: 12-13-2024 End: 12-13-2024 Departed Referred Daren Guilherme DO Work Phone: [facility] Start: 12-11-2024 End: 12-11-2024 Clinisync Result Encounter Daren Guilherme DO Work Phone: [facility] Unsolicited Start: 12-11-2024 End: 12-11-2024 Clinisync Result Encounter Daren Guilherme DO Work Phone: [facility] Unsolicited Start: 11-28-2024 End: 11-28-2024 Clinisync Result Encounter Daren Guilherme DO Work Phone: [facility] Unsolicited Start: 11-28-2024 End: 11-28-2024 Clinisync Result Encounter Daren Guilherme DO Work Phone: [facility] Unsolicited Start: 11-27-2024 End: 11-27-2024 Clinisync Result Encounter Daren Guilherme DO Work Phone: [facility] Unsolicited Start: 11-27-2024 End: 11-27-2024 Clinisync Result Encounter Daren Guilherme DO Work Phone: [facility] Unsolicited Start: 10-02-2024 End: 10-02-2024 Patient encounter procedure Daren Guilherme DO Work Phone: [facility] Comment on above: Pre-op examination; Menorrhagia with regular cycle; Pelvic pain in female; Dyspareunia in female; Dysmenorrhea; Fibroids Start: 10-02-2024 End: 10-02-2024 Preprocedural examination done Daren Guilherme DO Work Phone: [facility] Start: 10-02-2024 End: 10-02-2024 ambulatory Daren Guilherme Facility:[facility] Start: 10-02-2024 End: 10-02-2024 Departed Referred Daren Guilherme DO Work Phone: [facility] Start: 08-01-2024 End: 08-01-2024 Bamboo flowsheet Daren Guilherme DO Work Phone: [facility] Start: 08-01-2024 End: 08-04-2024 Bamboo flowsheet Daren Guilherme DO Work Phone: [facility] Start: 08-01-2024 End: 08-04-2024 Clinisync Result Encounter Daren Guilherme DO Work Phone: [facility] External Department Unsolicited Start: 08-01-2024 End: 08-01-2024 Patient encounter procedure Daren Guilherme DO Work Phone: [facility] Work Phone: Start: 08-01-2024 End: 08-01-2024 Periodic preventive med est patient 40-64yrs Daren Guilherme DO Work Phone: [facility] Comment on above: Well woman exam with routine gynecological exam; Breast cancer screening by mammogram Start: 08-01-2024 End: 08-01-2024 ambulatory DAREN GUILHERME Not Available Start: 07-22-2024 End: 07-22-2024 Clinisync Result Encounter Daren Guilherme DO Work Phone: [facility] Unsolicited Start: 07-22-2024 End: 07-22-2024 Clinisync Result Encounter Daren Guilherme DO Work Phone: [facility] Unsolicited Start: 07-17-2024 End: 07-17-2024 Bamboo flowsheet Daren Guilherme DO Work Phone: [facility] Start: 07-17-2024 End: 07-17-2024 Bamboo flowsheet Daren Guilherme DO Work Phone: [facility] Start: 07-17-2024 End: 07-18-2024 Telephone encounter Soni REZA Work Phone: [facility] Start: 07-17-2024 End: 07-17-2024 Office outpatient visit 15 minutes Daren Giulherme DO Work Phone: [facility] Comment on above: Fibroids (Primary Dx ) Start: 07-17-2024 End: 07-17-2024 ambulatory DAREN VANEGAS Not Available Start: 12-01-2023 End: 12-05-2023 ambulatory [facility] Start: 10-06-2023 End: 10-06-2023 Lab Drop off Jered Victor [facility] Start: 09-03-2022 Encounter for preprocedural laboratory examination DR DAREN VANEGAS [facility] Start: 09-02-2022 End: 09-02-[address] DAREN VANEGAS Facility:[facility] Start: 08-31-2022 End: 09-01-[address] DAREN VANEGAS Facility:[facility] Start: 08-31-2022 End: 09-01-2022 Encounter for preprocedural laboratory examination DR DAREN VANEGAS Facility:[facility] Start: 08-30-2022 Encounter for other preprocedural examination DR DAREN VANEGAS [facility] Start: 08-25-2022 End: 08-26-[address] DAREN VANEGAS Facility:[facility] Start: 08-25-2022 End: 08-26-2022 Encounter for other preprocedural examination DR DAREN VANEGAS Facility:[facility] Start: 07-09-2022 End: 07-10-[address] DAREN VANEGAS Facility:[facility] Start: 12-31-2021 End: 12-31-[address] DAREN VANEGAS Facility:[facility] Procedures Date Procedure Procedure Detail Performing Clinician Start: 02-12-2025 Ultrasonography of r ight breast Jered Victor [employer]-C Work Phone: Start: 01-24-2025 Urnls dip stick/tabl et rgnt non-auto w/o micrscp Daren Guilherme DO Work Phone: Start: 12-13-2024 ALL CBC WITH AUTO DIFF Daren Guilherme DO Work Phone: Start: 12-11-2024 Antibody screen Daren F azio DO Work Phone: Start: 12-11-2024 ALL TYPE AND SCREEN Cor ey Guilherme DO Work Phone: Start: 11-28-2024 XR CHEST 2V Daren Fazi o DO Work Phone: Start: 11-27-2024 ALL CBC WITH AUTO DIFF Daren Guilherme DO Work Phone: Start: 08-01-2024 IGP,APTIMA HPV,AGE GDLN Daren Guilherme DO Work Phone: Start: 08-01-2024 Cytp cerv/vag auto t hin layer prep mnl screen Daren Guilherme DO Work Phone: Start: 07-22-2024 ALL CBC WITH AUTO DIFF Daren Guilherme DO Work Phone: Start: 10-18-2014 Dilation and curettage Jered Victor Start: 10-18-2008 Cholecystectomy Jered Cuenca hwab Plan of Treatment Date Care Activity Detail Author Start: 02-20-2025 End: 02-20-2026 MR Pelvis WO and W contrast IV MR pelvis w and wo contrast Imaging Routine Chronic postoperative pain Expected: 02/20/2025, Expires: 02/20/2026 [facility] Work Phone: Comment on above: Expected: 02/20/2025 , Expires: 02/20/2026 Start: 02-19-2025 End: 02-19-2025 Patient encounter procedure [facility] Start: 02-14-2025 End: 02-14-2025 Patient encounter procedure 02/14/2025 2:30 PM EDT Office Visit [facility] [address] [address] Daren Vanegas, DO [address] [place], [place] [id number] [facility] Start: 02-05-2025 End: 02-05-2025 Patient encounter procedure 02/05/2025 1:30 PM EDT Consult [facility] [address] [place] [address] Leonid Schroeder, DO [address] [place] [address] [facility] Start: 02-01-2025 End: 02-01-2026 CT Abdomen and Pelvis WO and W contrast IV CT abdomen pelvis w and wo IV contrast Imaging Routine Postop check Pelvic pain in female Expected: 02/01/2025 (Approximate), Expires: 02/01/2026 [facility] Work Phone: Comment on above: Expected: 02/01/2025 (Approximate), Expires: 02/01/2026 Start: 02-01-2025 End: 02-01-2025 Patient encounter procedure 02/01/2025 11:30 AM EDT Office Visit [facility] [address] [place] [phone] Daren Vanegas, DO [address] [place], [place] [id number] Arrived [facility] Comment on above: Arrived Start: 01-24-2025 End: 01-24-2025 Patient encounter procedure 01/24/2025 2:50 PM EDT Office Visit [facility] [address] [place] [phone] Soni Stockton PA [address] [place] [address] [facility] Start: 01-24-2025 End: 03-26-2026 US Breast - right Right breast US complete Imaging Routine Breast nodule Breast pain, right Expected: 01/24/2025, Expires: 03/26/2026 [facility] Work Phone: Comment on above: Expected: 01/24/2025 , Expires: 03/26/2026 Start: 10-02-2024 End: 10-02-2024 Patient encounter procedure 10/02/2024 1:30 PM EST Procedure Visit [facility] [address] [place] [id number] Daren Vanegas DO [address] [place] [place], [place] [id number] [facility] Start: 08-01-2024 End: 10-01-2025 [...] EDT Ancillary Procedure [facility] [address] [address] [facility] Start: 07-17-2024 End: 07-17-2025 aPTT in Blood by Coagulation assay APTT Lab Routine Fibroids Expected: 07/17/2024 (Approximate), Expires: 07/17/2025 [facility] Comment on above: Expected: 07/17/2024 (Approximate), Expires: 07/17/2025 Start: 07-17-2024 End: 07-17-2025 US for US PELVIS-TRANSVAG IF INDICATED Imaging Routine Fibroids Expected: 07/17/2024 (Approximate), Expires: 07/17/2025 [facility] Comment on above: Expected: 07/17/2024 (Approximate), Expires: 07/17/2025 Start: 07-17-2024 End: 07-17-2024 Patient encounter procedure 07/17/2024 1:30 PM EDT Office Visit [facility] [address] [place] [phone] Daren Vanegas, DO [address] [place] [address] Arrived [facility] Comment on above: Arrived CBC W Auto Different ial panel - Blood CBC and differential Lab Routine Fibroids Ordered: 07/17/2024 [facility] Work Phone: Comment on above: Ordered: 07/17/2024 hCG, quantitative, hCG, quantitative, Lab Routine Fibroids Ordered: 07/17/2024 [facility] Comment on above: Ordered: 07/17/2024 Hemoglobin A1c/Hemoglobin.total in Blood Hemoglobin A1c Lab Routine Fibroids Ordered: 07/17/2024 [facility] Comment on above: Ordered: 07/17/2024 Prothrombin time (PT ) in Blood by Coagulation assay Protime-INR Lab Routine Fibroids Ordered: 07/17/2024 [facility] Comment on above: Ordered: 07/17/2024 THIN PREP TIS PAP AN D HR HPV DNA THIN PREP TIS PAP AND HR HPV DNA Pathology and Cytology Routine Well woman exam with routine gynecological exam Ordered: 08/01/2024 [facility] Comment on above: Ordered: 08/01/2024 Thyrotropin [Units/volume] in Serum or Plasma TSH Lab Routine Fibroids Ordered: 07/17/2024 [facility] Comment on above: Ordered: 07/17/2024 Thyroxine (T4) free [Mass/volume] in Serum or Plasma T4, free Lab Routine Fibroids Ordered: 07/17/2024 [facility] Comment on above: Ordered: 07/17/2024 Payers Date Payer Category Payer Self-pay 2018 Private Health Insurance [id number] 2018 Unknown [id number] 1982 Unknown [id number] 1982 Unknown [id number] 2.16.840.1.302041.3.579.2.59 1982 Unknown [id number] 2.840.1.999979.3.579.2.59 1982 Unknown [id number] 2.840.1.124357.3.579.2.59 1982 Unknown [id number] 2.16.840.1.860400.3.579.2.59 1982 Unknown [id number] 2.16.840.1.502911.3.579.2.125 1982 Unknown [id number] 2.16.840.1.159326.3.579.2.125 1982 Unknown [id number] 2.16.840.1.749876.3.579.2.125 1982 Unknown [id number] 2.16.840.1.800379.3.579.2.1258 1982 Unknown [id number] 2.16.840.1.918388.3.579.2.125 1982 Unknown [id number] 2.16.840.1.392250.3.579.2.1258 1982 Unknown [id number] 2.16.840.1.049400.3.579.2.1259 1982 Unknown [id number] 2.16.840.1.450075.3.579.2.727 1982 Unknown [id number] 2.16.840.1.672708.3.579.2.727 1959 Unknown [id number] Medicaid [place] [employer] [id number] Unknown [id number] [id number] Unknown [id number] 2.16.840.1.757261.3.579.2.531 Unknown [id number] [id number] Social History Date Type Detail Facility Start: 10-06-2023 Tobacco smoking status Ex-smoker (finding) [facility] Sex Assigned At Female [facility] Tobacco smoking status GAIS Tobacco smoking consumption unknown [facility] Work Phone: Start: 1980 Sex assigned at Not on file N [facility] Start: 12-15-2024 End: 02-13-2025 Sex Female (finding) [facility] Start: 1980 Sex Assigned At Female F [facility] Clinical Notes 09-02-2022 to 02-20-2025 Glendy Love LPN - 02/20/2025 1:00 PM Shan Love LPN - 02/14/2025 2:30 PM Anjali Castro LPN - 02/01/2025 11:30 AM Selma Pal NP - 01/24/2025 10:50 AM EDT Note Date & Type Note Facility 02-20-2025 History of Presen t illness Narrative Reason for Appointment: Patient ID: Siobhan Robles is a 45 y.o. female who presents for No chief complaint on file. Patient presents today via telephone call for a telehealth appointment. Patients Phone #: [phone] (mobile) Date: 02/20/2025 Time: 12:35 PM of the visit Platform Used: Audio call performed via in house telephone system. Location of Patient and Provider: Patient at home, provider at clinic Consent for Telehealth: Patient provided verbal consent to conduct the visit virtually via audio only phone call Current Medications: has a current medication list which includes the following prescription(s): acetaminophen, cyclobenzaprine, ibuprofen, and methylprednisolone. Medical History: Active Ambulatory Problems Diagnosis Date Noted Fibroids 10/02/2024 Irregular menstrual cycle 10/02/2024 Cyst of right breast 02/05/2025 Resolved Ambulatory Problems Diagnosis Date Noted No Resolved Ambulatory Problems Past Medical History: Diagnosis Date Polycystic ovarian syndrome Family History Problem Relation Name Age of Onset Heart disease Mother Diabetes Mother Heart disease Father Diabetes Father Diabetes Brother Polycystic ovary syndrome Daughter Insulin resistance Daughter Social History Tobacco Use Smoking status: Not on file Smokeless tobacco: Not on file Substance Use Topics Alcohol use: Not on file Drug use: Not on file Past Surgical History: Procedure Laterality Date CHOLECYSTECTOMY 2007 or 2009 DILATION AND CURETTAGE OF UTERUS x3....1st-not sure the date,-2019, 3rd-2021 ROBOTIC ASSISTED HYSTERECTOMY 12/13/2024 with Cystoscopy SALPINGECTOMY 12/13/2024 No Known Allergies Vitals: Estimated body mass index is 31.7 kg/m as calculated from the following: Height as of 07/17/24: 5' 6 . Weight as of 02/14/25: 196 lb 6.4 oz. BP: Patient's last menstrual period was 09/13/2024 (approximate). Assessment/Plan Encounter Diagnosis Name Primary? Chronic postoperative pain Pt was called for telehealth visit, pt still having pain postoperatively. Pt is currently taking muscle relaxer and was on a steroid to aid in pain. Pt was seen in ER on Wednesday evening. Pt to see PCP for pain control and MRI of abdomen/pelvis was ordered. Today's telehealth visit consisted of spending 10 minutes talking to patient on the phone. Documented by Glendy Love LPN on behalf of: Daren Vanegas DO documented in this encounter [facility] 02-14-2025 History of Presen t illness Narrative Reason for Appointment: Patient ID: Siobhan Robles is a 45 y.o. female who presents for ER Follow-up Patient presents today for Acute Visit. MEDICATIONS Current Outpatient Medications Medication Instructions acetaminophen (TYLENOL) 1,000 mg, Every 6 hours PRN ibuprofen 400 mg, Every 6 hours PRN ALLERGIES No Known Allergies PROBLEMS Active Ambulatory Problems Diagnosis Date Noted Fibroids 10/02/2024 Irregular menstrual cycle 10/02/2024 Cyst of right breast 02/05/2025 Resolved Ambulatory Problems Diagnosis Date Noted No [...] History: Procedure Laterality Date CHOLECYSTECTOMY 2007 or 2008 DILATION AND CURETTAGE OF UTERUS x3....1st-not sure the date,-2019, -2021 ROBOTIC ASSISTED HYSTERECTOMY 12/13/2024 with Cystoscopy SALPINGECTOMY 12/13/2024 REVIEW OF SYSTEMS Review of Systems: Review of Systems Constitutional: Negative. Negative for fever. HENT: Negative. Eyes: Negative. Respiratory: Negative. Cardiovascular: Negative. Gastrointestinal: Positive for abdominal pain and nausea. Negative for constipation, diarrhea and vomiting. Genitourinary: Negative. Negative for dysuria, frequency and hematuria. Musculoskeletal: Negative. Negative for arthralgias and myalgias. Skin: Negative. Neurological: Negative. Negative for headaches. All other systems reviewed and are negative. Hematological: Negative. Endocrine: Negative. Allergic/Immunologic: Negative. OBJECTIVE Objective: Physical Exam Constitutional: Appearance: Normal appearance. She is well-developed. Cardiovascular: Rate and Rhythm: Normal rate and [...] nursing note reviewed. Exam conducted with a tag writer present. Vitals: Estimated body mass index is 31.7 kg/m as calculated from the following: Height as of 07/17/24: 5' 6 . Weight as of this encounter: 196 lb 6.4 oz. BP: 122/82 Patient's last menstrual period was 09/13/2024 (approximate). ASSESSMENT & PLAN ICD-10-CM 1. Cyst of ovary, unspecified laterality N83.209 Pt presents as an ER follow up. pT still having pain on right side lower pelvis- CT scan was negative. Pt has radiating pain from front to back. Pt to start medrol dose pack - if pain isn't better then will refer to pain management, discussed physical therapy. Will review CT scan with spine. Will telehealth on Wednesday. Documented by Glendy Love LPN on behalf of: Daren Vanegas DO Answers submitted by the patient for this visit: Abdominal Pain Questionnaire (Submitted on 02/14/2025) Chief Complaint: Abdominal pain Chronicity: recurrent Onset: more than 1 month ago Frequency: constantly Progression since onset: waxing and waning Pain location: left flank, right flank Pain - numeric: 7/10 Pain quality: aching, burning, cramping, dull, a sensation of fullness, sharp Radiates to: back, left flank, right flank anorexia: Yes belching: Yes flatus: No hematochezia: No melena: No weight loss: No Aggravated by: certain positions, movement Relieved by: recumbency Diagnostic workup: CT scan, surgery, ultrasound documented in this encounter [facility] 02-12-2025 Radiology Diagnostic study note [facility] [place] [address] [place] [address] Ultrasound Report Signed Patient: Siobhan Robles MR#: [id number] : 1980 Acct:[id number] Age/Sex: 45 / F ADM Date: 5 Loc: [facility] Room: Type: [facility] Attending Dr: Soni Stockton PA-C Ordering Provider: Soni VERGARA Date of Service: 02/12/25 US/US breast RT limited: N64.4 Copies to: Soni VERGARA~ LIMITED RIGHT BREAST ULTRASOUND CLINICAL DATA: Pain at the right upper quadrant that extends to the axilla. Cysts on previous ultrasound COMPARISON: 08/07/2024 Real-time ultrasound evaluation of the right upper quadrant was performed. At 10:00, 8 cm from the nipple there is a cyst that measures 7 x 6 x 7 mm. At 10:00, 10 cm there is another cyst measuring 8 x 5 x 7 mm. These were also seen previously . No additional cystic or solid masses are identified in the field ofview. US/US breast RT limited IMPRESSION: SMALL SIMPLE CYSTS AT THE 10:00 POSITION OF THE RIGHT BREAST. NO OTHER ULTRASOUND FINDINGS TO ACCOUNT FOR PATIENT'S PAIN. CLINICAL MANAGEMENT IS THEREFORE SUGGESTED. ROUTINE MAMMOGRAPHIC FOLLOW-UP IS RECOMMENDED AT THE TIME OF PATIENT'S NEXT ANNUAL BILATERAL MAMMOGRAM. Impression dictated by: Glendy Huynh M.D. 02/12/2025 1:41 PM Dictation Location: [facility] Tech: Hermila Malik Transcribed By: ABEL 02/12/25 1341 Dictated By: Glendy Huynh MD 02/12/25 1141 Signed By: 02/12/25 1341 [facility] Work Phone: 02-01-2025 History of Presen t illness Narrative Reason for Appointment: Patient ID: Siobhan Robles is a 45 y.o. female who presents for Post-op Visit Patient presents today for 6 week [facility] Post Op Follow Up appointment. MEDICATIONS Current Outpatient Medications Medication Instructions acetaminophen (TYLENOL) 1,000 mg, Every 6 hours PRN ibuprofen 400 mg, Every 6 hours PRN ALLERGIES No Known Allergies PROBLEMS Active Ambulatory [...] AND CURETTAGE OF UTERUS x3....1st-not sure the date,-2019, 3rd-2021 ROBOTIC ASSISTED HYSTERECTOMY 12/13/2024 with Cystoscopy SALPINGECTOMY 12/13/2024 REVIEW OF SYSTEMS Review of Systems: Review of Systems Gastrointestinal: Positive for abdominal pain. All other systems reviewed and are negative. OBJECTIVE Objective: Physical Exam Constitutional: Appearance: Normal appearance. She is well-developed. Cardiovascular: Rate and Rhythm: Normal rate and [...] nursing note reviewed. Exam conducted with a tag writer present. Vitals: Estimated body mass index is 31.86 kg/m as calculated from the following: Height as of 07/17/24: 5' 6 . Weight as of this encounter: 197 lb 6.4 oz. BP: 114/68 Patient's last menstrual period was 09/13/2024 (approximate). ASSESSMENT & PLAN ICD-10-CM 1. Postop check Z09 Patient has hysterectomy on 12/13/24. Patient complaints of lower pelvic/ abdominal pain. Patient voiced she does not have the sensation to void. Patient to have a CT scan ordered--Office will precert CT Scan and notify patient if approved will then be able to be setup. Will send in antibiotic & pyridium to patients pharmacy. Patient to call office if pain subsides patient will contact office. Patient aware if symptoms worsen in the meantime she will be assessed at the ER. Documented by Ashley Castro LPN on behalf of: Daren Vanegas DO documented in this encounter [facility] 01-24-2025 History of Presen t illness Narrative Reason for Appointment: Patient ID: Siobhan Robles is a 45 y.o. female who presents for Post-op Visit Patient presents today for 6 week Hy Post Op Follow Up appointment. MEDICATIONS Current Outpatient Medications Medication Instructions acetaminophen (TYLENOL) 1,000 mg, Every 6 hours PRN ibuprofen 400 mg, Every 6 hours PRN ALLERGIES No Known Allergies PROBLEMS Active Ambulatory [...] AND CURETTAGE OF UTERUS x3....1st-not sure the date,2nd-2019, 3rd-2021 ROBOTIC ASSISTED HYSTERECTOMY 12/13/2024 with Cystoscopy SALPINGECTOMY 12/13/2024 REVIEW OF SYSTEMS Review of Systems: Review of Systems Breasts: Complaints of pain to right breast lateral OBJECTIVE Objective: Physical Exam Constitutional: Appearance: Normal appearance. She is well-developed. Genitourinary: Vulva normal. Genitourinary Comments: Complaints of tenderness with palpation to right lateral breast around 11'Oclock Vaginal cuff intact. Breasts: Breasts are soft. Left: Normal. Cardiovascular: Rate and Rhythm: Normal rate and [...] nursing note reviewed. Exam conducted with a tag writer present. Vitals: Estimated body mass index is 31.82 kg/m as calculated from the following: Height as of 07/17/24: 5' 6 . Weight as of this encounter: 197 lb 1.9 oz. BP: 130/82 Patient's last menstrual period was 09/13/2024 (approximate). ASSESSMENT & PLAN ICD-10-CM 1. Postoperative examination Z09 POCT urinalysis dipstick manually resulted 2. Breast nodule N63.0 Right breast US complete 3. Breast pain, right N64.4 Right breast US complete Post Op Follow Up: Patient presents today for a 6 week postop check following a Da Lewis assisted Laparoscopic Hysterectomy. Surgery execution and pathology results were discussed in great detail with the patient. Pelvic exam was performed and vaginal cuff was noted as healing well. Sutures were present and removed with ring forceps. Patient has been instructed to sustain from sexual intercourse for one more week. All other restrictions have otherwise been lifted. Follow Up: Patient with incisional sites healing well. She has complaints of pain to right lateral breast and had a diagnostic mammogram on 08/07/24 with two anechoic echogenicity at the 1 o'clock position and at the 10 o'clock position. The patient is given an order for ultrasound of the right breast. Patient will obtain repeat ultrasound and will refer to general surgery for further evaluation of the cyst. Documented by Vivian Pal NP on behalf of: JUAQUIN Mixon documented in this encounter [facility] 12-20-2024 History of Presen t illness Narrative Reason for Appointment: Patient ID: Siobhan Robles is a 44 y.o. female who presents for Post-op Visit Patient presents today for 1 Week Post Op Follow Up appointment. MEDICATIONS No current outpatient medications ALLERGIES [...] Past Surgical History: Procedure Laterality Date CHOLECYSTECTOMY 2008 or 2009 DILATION AND CURETTAGE OF UTERUS x3....1st-not sure the date,-2019, -2021 ROBOTIC ASSISTED HYSTERECTOMY 12/13/2024 with Cystoscopy SALPINGECTOMY 12/13/2024 REVIEW OF SYSTEMS Review of Systems: Review of Systems Constitutional: Negative. HENT: Negative. Eyes: Negative. Respiratory: Negative. Cardiovascular: Negative. Gastrointestinal: Negative. Musculoskeletal: Negative. Skin: Negative. Neurological: Negative. Psychiatric/Behavioral: Negative. All other systems reviewed and are negative. Hematological: Negative. Endocrine: Negative. OBJECTIVE Objective: Physical Exam Constitutional: Appearance: Normal appearance. She is normal weight. HENT: Head: Normocephalic. Cardiovascular: Rate and Rhythm: Normal rate. Pulses: Normal pulses. Pulmonary: Effort: Pulmonary effort is normal. Breath sounds: Normal breath sounds. Abdominal: Palpations: Abdomen is soft. Comments: Minimal abdominal ecchymosis noted at incision sites, other acevedo looks good, steri strips in place Musculoskeletal: General: Normal range of motion. Neurological: General: No focal deficit present. Mental Status: She is alert and oriented to person, place, and time. Psychiatric: Mood and Affect: Mood normal. Behavior: Behavior normal. Thought Content: Thought content normal. Judgment: Judgment normal. Vitals and nursing note reviewed. Vitals: Estimated body mass index is 31.44 kg/m as calculated from the following: Height as of 24: 5' 6 . Weight as of this encounter: 194 lb 12.8 oz. BP: 120/78 Patient's last menstrual period was 09/13/2024 (approximate). ASSESSMENT & PLAN ICD-10-CM 1. Postoperative examination Z09 Post Op Follow Up: Patient presents today for a one week postop check after having a Da Lewis assisted Laparoscopic Hysterectomy. Patient is doing well but has minor complaints of pain. Incisions has been noted as healing well with no signs and symptoms of infection. Follow Up: Patient is to return in 5 weeks for 6 week post operative evaluation Documented by JUAQUIN Mixon on behalf of: JUAQUIN Mixon documented in this encounter [facility] 10-02-2024 History of Presen t illness Narrative Reason for Appointment: Patient ID: Siobhan Robles is a 44 y.o. female who presents for Menstrual Problem and Pre-op Visit Patient presents today for Pre Op/Endometrial Biopsy appointment. Patient is scheduled to undergo Da Lewis assisted Laparoscopic Hysterectomy, possible exploratory laparotomy, possible BSO, possible cystoscopy on 11/01/[address] Vanegas at [facility]. MEDICATIONS No current outpatient medications ALLERGIES No [...] History: Procedure Laterality Date CHOLECYSTECTOMY 2007 or 2008 DILATION AND CURETTAGE OF UTERUS x3....1st-not sure [...] nursing note reviewed. Exam conducted with a tag writer present. Vitals: Estimated body mass index is [...] reviewed, and patient is to proceed to [facility]. Follow Up: Patient is to follow up at 1 & 6 weeks post operative to assess proper healing and recovery from procedure. Documented by Glendy Love LPN on behalf of: Daren Vanegas DO documented in this encounter [facility] 08-01-2024 History of Presen t illness Narrative [...] nursing note reviewed. Exam conducted with a tag writer present. Vitals: Estimated body mass index is [...] by Glendy Love LPN on behalf of: Daren Vanegas DO documented in this encounter [facility] 07-17-2024 Telephone encounter Note Obtain Op Report and any pathology from surgery in August 2022. [facility] 07-17-2024 Miscellaneous Notes Obtain Op Report and any pathology from surgery in August 2022. documented in this encounter [facility] 07-17-2024 History of Presen t illness Narrative [...] by Ashley Castro LPN on behalf of: Daren Vanegas DO documented in this encounter [facility] 10-06-2023 Evaluation + [facility]Comprehensive Metabolic Panel 10/06/23Lipid Panel 10/06/23Thyroid Stimulating Hormone 10/06/23 [facility] 09-02-2022 Note OP Note OPERATION DATE: 09/02/2022 PROCEDURE: D AND C hysteroscopy, diagnostic laparoscopy. PREOPERATIVE DIAGNOSIS: Menorrhagia, pelvic pain, enlarged uterus. POSTOPERATIVE DIAGNOSIS: Menorrhagia, pelvic pain, enlarged uterus, adenomyosis. ANESTHESIA: General. SURGEON: Daren Vanegas D.O. MANAGEMENT COORDINATOR: JOSETTE Pacheco URINE OUTPUT: Yellow and clear. [...] the Recovery Room in stable condition. [facility] Evaluation note Diagnosis Well woman exam with routine gynecological exam Routine gynecological examination Breast cancer screening by mammogram documented in this encounter [facility] HealthcareEvaluation note* Diagnosis Pre-op examination Menorrhagia with regular cycle Pelvic pain in female Unspecified symptom associated with female genital organs Dyspareunia in female Dysmenorrhea Fibroids Leiomyoma of uterus, unspecified documented [facility] encounter [facility]* Diagnosis Fibroids- Primary Leiomyoma of uterus, unspecified documented [facility] encounter [facility] noteNo assessment information [facility] Work Phone: Evaluation note* Diagnosis Postoperative examination Follow-up examination, following unspecified surgery documented in this encounter [facility] HealthcareEvaluation note* Diagnosis Postoperative examination Follow-up examination, following unspecified surgery Breast nodule Other (abnormal) findings on radiological examination of breast Breast pain, right documented in this encounter [facility] HealthcareEvaluation note* Diagnosis Postop check Follow-up examination, following unspecified surgery Pelvic pain in female Unspecified symptom associated with female genital organs Urinary tract infection without hematuria, site unspecified documented in this encounter [facility] HealthcareEvaluation note* Diagnosis Cyst of ovary, unspecified laterality Acute postoperative pain Other acute postoperative pain documented in this encounter [facility]* Diagnosis Chronic postoperative pain Other chronic postoperative pain documented in this encounter [facility] Healthcare[facility] course Narrative No data available for this section [facility] No data available for this section [facility] No data available for this section [facility] Summary Purpose Family History No Family History Records Found No data available for this section No Family History Records FoundNo Family History Records FoundNo Family History Records FoundNo Family History Records Found Advance Directives No Advanced Directives Records Found Advance Directive Response Recorded Date/ Time Advance Directives No February 08, 025 10:15am Additional Source Comments INFORMATION SOURCE (unrecogn ized section and content) DATE CREATED AUTHOR 10/28/2022 [facility] DATE CREATED AUTHOR AUTHOR'S ORGANIZ ATION 12/06/2023 [facility] DATE CREATED AUTHOR AUTHOR'S ORGANIZ ATION 02/15/2025 [facility] DATE CREATED AUTHOR AUTHOR'S ORGANIZ ATION 02/19/2025 [facility] DATE CREATED AUTHOR AUTHOR'S ORGANIZ ATION 02/28/2025 [facility] Patient Care team informatio n (unrecognized section and content) Team Status: Inactive Member Role Status Dates Daren Vanegas DO Attending Provider Active Start : October 02, 2024 End: October 02, 2024 Team Status: Inactive Member Role Status Dates Daren Vanegas DO Attending Provider Active Start : December 13, 2024 End: December 13, 2024 Team Status: Active Member Role Status Dates JAI Holguin Primary Care Provider Active Team Status: Inactive Member Role Status Dates Soni Stockton PA-C Attending Provider Active Sta rt: February 12, 2025 End: February 12, 2025 JAI Holguin Primary Care Provider Active Start: February 12, 2025 End: February 12, 2025 Reason for Visit (unrecogniz ed section and content) Reason Comments Well Women Visit Reason Comments Menstrual Problem Pre-op Visit Reason Comments Fibroids Reason Comments Post-op Visit Reason Comments Post-op Visit Reason Comments ER Follow-up Goals (unrecognized section and content) Goals may be documented in a n alternate section FOR RECORDS PERTAINING TO PATIENTS WHO ARE [...] BE BASED ON THE PRIMARY CLINICAL RECORDS. [employer] provides no warranty or guarantee of the accuracy or completeness of information in this document.
== END 2025-03-02 08:29 | disposition home or self-care (01) ==
LOC: MRI 08:28
PROVIDERS: PCP Nurse Practitioner; Visit Provider Nurse Practitioner
DX: R10.2 Pelvic and perineal pain (principal); R33.9 Retention of urine, unspecified; M54.40 Lumbago with sciatica, unspecified side; Z09 Encounter for follow-up examination after completed treatment for conditions other than malignant neoplasm; Z87.891 Personal history of nicotine dependence; Z68.33 Body mass index [BMI] 33.0-33.9, adult; G57.30 Lesion of lateral popliteal nerve, unspecified lower limb
CPT/HCPCS: 72148; 72158; A9575

== ENCOUNTER 2025-03-05 06:57 | Outpatient (OUT) | payer OTHER, SELFPAY ==
--- NOTE | 2025-03-05 06:57 | MR_ITS ---
The [address] [address] Patient Name: SIOBHAN ROBLES MRN: [id number] date: 1980 Sex: F Assigned Patient Location: MRI Current Patient Location: MRI Accession/Order Number: [id number] Exam Date: 03/07/2025 09:41 Report Date: 03/07/2025 09:49 At the request of: KARMA WISEMAN DO Procedure: MR pelvis wo con MR pelvis wo con 03/06/2025 11:13 AM SIGNS AND SYMPTOMS: Postoperative pelvic pain, low back pain, hysterectomy November 2024 TECHNIQUE: Multiplanar multisequence MR images of the pelvis were obtained without IV contrast. Images were limited as the study was terminated due to patient discomfort. COMPARISON: 02/05/2025. FINDINGS: Pelvis: Reproductive Organs: There is evidence of prior hysterectomy. There is a relatively simple appearing left adnexal cyst measuring 4.6 x 3.3 x 3.5 cm in greatest dimension. Normal-appearing follicles are noted in the right ovary. Larger follicles in the right ovary have resolved since the prior study. Ureters: Within normal limits. Bladder: Within normal limits. Bowel: Normal caliber. Mesenteric Lymph Nodes: No enlarged mesenteric lymph nodes. Peritoneum: No ascites or free air, no fluid collection. Vessels: Normal flow voids are noted in the common, internal, and external iliac arteries and veins. Retroperitoneum: Within normal limits. Abdominal Wall: Within normal limits. Bones: There is a small amount of soft tissue edema along the greater trochanters bilaterally suggesting mild trochanteric bursitis. This is more pronounced on the right compared to the left. Sciatic nerves: Within normal limits. MR/MR pelvis wo con IMPRESSION: There is evidence of prior hysterectomy. There is a relatively simple appearing left adnexal cyst measuring 4.6 x 3.3 x 3.5 cm in greatest dimension. Normal-appearing follicles are noted in the right ovary. Larger follicles in the right ovary have resolved since the prior study. No free fluid. Findings suggest trochanteric bursitis along the hips, right greater than left. Impression dictated by: Omar Rhodes M.D. 03/07/2025 9:49 AM Dictation [facility] Electronically authenticated by: [id number] Y Date: 03/07/2025 09:49
--- OUTSIDE RECORDS SUMMARY | 2025-03-05 06:59 | XMS_ITS | CCD ---
Author Organization [facility] Care Team Providers Care Director Of Industrial Relations Name Role Phone GUILHERME, DR PARADA Admitting [...] Consulting Unavailable Jered Victor Primary Care Physician [phone] TAMARA ORTEGA Referring Unavailable Unavailable Primary Care Provider Unavailabl e Daren Vanegas DO Attending Provider Daren Vanegas DO Attending Provider Soni Stockton PA-C Attending Provider [phone] Deena BOATENGCJered Primary Care Provider [phone] Daren Vanegas Admitting Unavailable Daren Vanegas Attending Unavailable Daren Vanegas Admitting Unavailable Daren Vanegas Attending Unavailable Jered Victor Primary Care Unavailable Soni Stockton Admitting Unavailable Lamont, Soni L Attending Unavailable SONI STOCKTON Attending Unavailable SONI STOCKTON Attending Unavailable GUILHERME, DAREN Attending Unavailable DAREN VANEGAS Attending Unavailable DAREN VANEGAS Attending Unavailable DAREN VANEGAS Attending Unavailable CARRIE VANEGASY Attending Unavailable Deena, GURMEET Jered L Attending Unavailable Deena, CLERK ANALYST Jered L Attending Unavailable Allergies Allergy Classification Reported Allergen(s) Allergy Type Date of Onset Reaction(s) Facility (1 source) No Known Medication Allergies; Translations: [No Known Medication Allergies] Propensity to adverse reactions (disorder) [facility] Repository Medications Current Medications Medication Drug Class(es) [...] us for your care. Normal [facility] Family Medicine Office/Clini c Noteon 02-27-2025 Family [...] this on Wednesday. pt will be seeing [facility] in [place] for second opinion. She feels all of [...] sciatica. scheduled for MRI on Wednesday at [facility]. they are requesting new order for with [...] bladder. will follow up with urogyn in [place] Ordered: MRI Spine Lumbar w/ + w/o [...] choosing us for your care. Normal [facility] Family Medicine Office/Clini c Noteon 02-20-2025 Family Medicine Office/Clinic Note Family Medicine Office/Clinic Note [facility] Staff Siobhan is a 45 year old female presenting with Groin, back, hips radiating down leg ER followup: Hospital: [facility] Visit date: 02/17/25 Symptoms the patient presented [...] see her PCP. pt will bring in [facility] paperwork. I will take over her [...] TID, # 90 cap(s), Refills(s) 0, Pharmacy: [facility]/pharmacy #[id number], 165.5, cm, 02/20/25 14:04:00 EDT, Height/Length [...] Allergies No (more content not included)... Normal [facility] Comment on above: Result Comment: Elec tronically Signed By: Jered Marquis\.br\Date and Time Signed: 02/20/25 15:59 EDT US breast RT limitedon 02-12 US breast RT limited [facility] [place] [address] Ultrasound Report Signed Patient: Siobhan Robles MR#: [id number] : 1980 Acct:[id number] Age/Sex: 45 / F ADM Date: 02/12/25 Loc: [facility] Room: Type: [facility] Attending Dr: Soni Stockton PA-C Ordering Provider: [...] Huynh M.D. 02/12/2025 1:41 PM Dictation Location: [facility] Tech: Hermila Malik Transcribed By: ABEL 02/12/25 1341 Dictated By: Glendy Huynh MD 02/12/25 1141 Signed By: 02/12/25 1341 Normal [facility] Urinalysis macro (dipstick) panel (U)on 01-24-2025 Bilirubin, UA Negative Negative - 4(70) +++ mg/dL [facility] Blood, UA Negative Negative - 50 Blaise/mcL [facility] Clarity, UA Clear [facility] Color, UA Yellow [facility] Glucose, UA Negative Negative - 1999(110) ++++ mg/dL [facility] Interpretation and review of laboratory results Normal [facility] Ketones, UA Negative Negative - 160(16) ++++ mg/dL [facility] Leukocytes, UA Negative Negative - 500+++ Adria/mcL [facility] Nitrite, UA Negative Negative - Positive [facility] pH, UA 5.5 5 - 9 [facility] Protein, UA Negative Negative - 1999(20) ++++ mg/dL [facility] Spec Grav, UA 1.03 1 - 1.03 [facility] Urobilinogen, UA 0.2 0.2 - 12 mg/dL [facility] ALL CBC WITH AUTO DIFFon BASOPHILS ABSOLUTE AUTO 0.1 [facility] Basophils/100 WBC (Bld) 0.4 % 0.2 - 2.0 % [facility] Eosinophils/100 WBC (Bld) 1.1 % 0.9 - 7.0 % [facility] Erythrocyte distribution width (RBC) [Ratio] 12.8 % 11.0 - 15.0 % [facility] Hematocrit (Bld) [Volume fraction] 40 % 36.0 - 48.0 % [facility] Hemoglobin (Bld) [Mass/Vol] 13.4 g/dL 12.0 - 16.0 g/dL [facility] IMMATURE GRANULOCYTES ABS AUTO 0.[address] [facility] Immature granulocytes/100 WBC (Bld) 0.3 % 0.0 - 0.5 % [facility] Interpretation and review of laboratory results Abnormal [facility] LYMPHOCYTES ABSOLUTE AUTO 4.[address] [facility] Lymphocytes/100 WBC (Bld) 36.8 % 20.5 - 60.0 % [facility] MCH (RBC) [Entitic mass] 30.3 pg 26.7 - 34.[address] [facility] MCHC (RBC) [Mass/Vol] 33.5 g/dL 29.9 - 35.2 g/dL [facility] MCV (RBC) [Entitic vol] 90.5 fL 81.0 - 99.[address] [facility] MONOCYTES ABSOLUTE AUTO 0.8 [facility] Monocytes/100 WBC (Bld) 6.6 % 1.7 - 12.0 % [facility] NEUTROPHILS ABSOLUTE AUTO 6.4 [facility] Neutrophils/100 WBC (Bld) 54.8 % 43.0 - 75.0 % [facility] Platelet mean volume (Bld) [Entitic vol] 10.2 fL 9.5 - 13.[address] [facility] TBH EO # 0.1 [facility] TBH PLT 318 [facility] TBH RBC 4.42 [facility] TB WBC 11.[address] [facility] Chacho 12-13-2024 L -- ---- Specimen: [id number] Received: 12/14/24 Status: CHEO Pugh Num: [id number] Spec Type: Surgical Subm Dr: Daren Vanegas Tissues: A Uterus w/ or w/o tubes ovaries except neoplastic or prolap (UTERSU, CERVIX Procedures: HE/Millie, Gross/Micro L5 ---- Age/ Patient Sex Location Account Attending Physician ---- Siobhan Robles 44/F LABELL [id number] Daren Vanegas ---- SPEC NUM: [id number] RECD: 12/14/24 STATUS: CHEO PUGH NUM: [id number] YUNG: 12/13/[address] [facility] [address]: Daren Vanegas ENTERED: 12/14/24 [facility] DR: Philomena,Lab SPEC TYPE: Surgical DEPT: GIOVANNA JENKINS ENTERED BY: [id number] RECV BY: [id number] ORDERED: HE/9, Gross/Micro L5 ORDERED: HE/9, Gross/Micro [...] face. 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- ---- Specimen: [id number] Received: 12/14/24 Status: CHEO Pugh Num: [id number] Spec Type: Surgical Subm Dr: Daren Vanegas Tissues: A Uterus w/ or w/o tubes ovaries except neoplastic or prolap (UTERSU, CERVIX Procedures: Gross/Micro L5 ---- Patient: TravisLa NenaSiobhan C [id number] (Continued) ---- Specimen: [id number] Received: 12/14/24 (Continued) Gross Description (Continued) Signed (signature on file) Jennifer Rosales MD 12/15/24 1838 ---- Specimen: [id number] Received: 12/14/24 Status: CHEO Pugh Num: [id number] Spec Type: Surgical Subm Dr: Daren Vanegas Tissues: A Uterus w/ or w/o tubes ovaries except neoplastic or prolap (UTERSU, CERVIX Procedures: Gross/Micro L5 ---- Patient: Siobhan Robles [id number] (Continued) ---- Specimen: [id number] Received: 12/14/24-0480 (Continued) Gross Description (Continued) pink, smooth and [...] Bisected full-t (more content not included)... Normal [facility] ALL TYPE AND SCREENon 2024 ABO and Rh group Nom (Bld) Blood group O Rh(D) positive [facility] , [facility] XR CHEST 2Von 11-28-2024 [place] [address] XRay Report Signed Patient: SIOBHAN ROBLES MR#: [id number] : 1980 Acct:[id number] Age/Sex: 44 / F ADM Date: 11/27/24 Loc: PST Attending Dr: Daren Vanegas D.O. Ordering Physician: Daren Vanegas D.O. Date of Service: 11/27/24 Procedure(s): XR chest 2V Accession Number(s): [id number] cc: Daren Vanegas D.O.; JERED VICTOR [place] [id number] Patient Name: SIOBHAN ROBLES MRN: TBH:[id number] date: 1980 Sex: F Assigned Patient Location: [facility] Current Patient Location: Accession/Order Number: [id number] Exam Date: 11/27/2024 10:40 Report Date: 11/28/2024 [...] Signed By: 11/28/24 1016 DD/ 1013 TD/TT: Children[facility] Tutor: [facility] Radiology, Radiologist, MD - 11/28/2024 [place] [address] XRay Report Signed Patient: SIOBHAN ROBLES MR#: [id number] : 1980 Acct:[id number] Age/Sex: 44 / F ADM Date: 11/27/24 Loc: [facility] Attending Dr: Daren Vanegas D.O. Ordering Physician: Daren Vanegas D.O. Date of Service: 11/27/24 Procedure(s): XR chest 2V Accession Number(s): [id number] cc: Daren Vanegas D.O.; JERED VICTOR [place] [address] Patient Name: SIOBHAN ROBLES MRN: [facility]:[id number] date: 1980 Sex: F Assigned Patient Location: [facility] Current Patient Location: Accession/Order Number: [id number] Exam Date: 11/27/2024 10:40 Report Date: 11/28/2024 [...] Signed By: 11/28/24 1016 DD/ 1013 TD/TT: Children'S Tutor: [facility]el[facility] Radiology Study observation (narrative) [facility] XR CHEST 2VOrdered By: Radio logist Radiology on 11-28-2024 [facility]el[facility] Work Phone: ALL CBC WITH AUTO DIFFon BASOPHILS ABSOLUTE AUTO 0.1 [facility] Basophils/100 WBC (Bld) 0.4 % 0.2 - 2.0 % [facility] Eosinophils/100 WBC (Bld) 0.9 % 0.9 - 7.0 % [facility] Erythrocyte distribution width (RBC) [Ratio] 12.7 % 11.0 - 15.0 % [facility] Hematocrit (Bld) [Volume fraction] 40.1 % 36.0 - 48.0 % [facility] Hemoglobin (Bld) [Mass/Vol] 13.4 g/dL 12.0 - 16.0 g/dL [facility] IMMATURE GRANULOCYTES ABS AUTO 0.03 [facility] Immature granulocytes/100 WBC (Bld) 0.2 % 0.0 - 0.5 % [facility] Interpretation and review of laboratory results Abnormal [facility] LYMPHOCYTES ABSOLUTE AUTO 4.[address] [facility] Lymphocytes/100 WBC (Bld) 35.5 % 20.5 - 60.0 % [facility] MCH (RBC) [Entitic mass] 30 pg 26.7 - 34.[address] [facility] MCHC (RBC) [Mass/Vol] 33.4 g/dL 29.9 - 35.2 g/dL [facility] MCV (RBC) [Entitic vol] 89.7 fL 81.0 - 99.[address] [facility] MONOCYTES ABSOLUTE AUTO 0.7 [facility] Monocytes/100 WBC (Bld) 6.1 % 1.7 - 12.0 % [facility] NEUTROPHILS ABSOLUTE AUTO 6.[address] [facility] Neutrophils/100 WBC (Bld) 56.9 % 43.0 - 75.0 % [facility] Platelet mean volume (Bld) [Entitic vol] 9.9 fL 9.5 - 13.[address] [facility] TB EO # 0.1 [facility] TB PLT 403 [facility] RBC 4.47 [facility] WBC 12.[address] [facility] [place] 10-02-2024 L -- ---- Specimen: [id number] Received: 10/03/24 Status: BEREPieter Pugh Num: [id number] Spec Type: Surgical Subm Dr: Daren Vanegas Tissues: A Endometrium - Biopsy (ENDOMETRIAL BX) Procedures: HE/2, Gross/Micro L4 ---- Age/ Patient Sex Location Account Attending Physician ---- Siobhan Robles 44/F LABELL [id number] Daren Vanegas ---- SPEC NUM: [id number] RECD: 10/03/24 STATUS: BEREPieter PUGH NUM: [id number] YUNG: 10/02/24- SUBM : Daren Vanegas ENTERED: 10/03/[address]: Philomena,Lab SPEC TYPE: Surgical DEPT: GIOVANNA JENKINS ENTERED BY: [id number] RECV BY: [id number] ORDERED: HE/2, Gross/Micro L4 ORDERED: HE/2, Gross/Micro [...] submitted in a single cassette. (1, ns, [id number]) CPT Codes 91185 ---- ---- Specimen: [id number] Received: 10/03/24 Status: CHEO Pugh Num: [id number] Spec Type: Surgical Subm Dr: Daren Vanegas Tissues: A Endometrium - Biopsy (ENDOMETRIAL BX) Procedures: Alba MAJOR/Micro L4 ---- Patient: Siobhan Robles [id number] (Continued) ---- Signed (signature on file) Jack Cárdenas MD 10/04/24 1441 Normal [facility] IGP,APTIMA HPV,AGE GDLNon AGE GDLN ACOG TESTING Note . [facility] Comment on above: TESTS RESULT FLAG UN ITS REF RANGE LAB Clinician Provided Cytology Information Source.............Cervix No. of containers..01 ThinPrep Vial Age Algo ACOG Terri... 30- 01 FLAG LEGEND: L-Low Normal,H-High Normal,LL-Alert Low,HH-Alert High <-Panic Low,>-Panic High,A-Abnormal,AA-Critical Abnormal Performed at: 01 =G [facility] [address] Chyna Guzmán MD, HPV APTIMA Negative Negative [facility] Comment on above: This nucleic acid am plification test detects fourteen high- risk HPV types (16,18,31,33,35,39,45,51,52,56,58,59,66,68) without differentiation. Performed at: =G - [facility], [place] [id number] [employer] Operator: Chyna Guzmán MD, Phone: [phone] Performed at: - [facility], [place] [id number] [employer] Operator: Chyna Guzmán MD, Phone: [phone] IGP, APTIMA HPV, RFX 16/18,45 Note . [facility] Comment on above: TESTS RESULT FLAG UN ITS REF RANGE LAB DIAGNOSIS: 02 NEGATIVE FOR INTRAEPITHELIAL LESION OR MALIGNANCY. Specimen adequacy: 02 Satisfactory for evaluation. Endocervical and/or squamous metaplastic cells (endocervical component) are present. Performed by: Jony Cochran, Inventory Taker (ASC) . 02 Note: Note 02 The [...] High,A-Abnormal,AA-Critical Abnormal Performed at: 02 WB [facility] [address] [place] [address] Chyna Guzmán MD, BRUSH-SPATULA CERVIX [facility] Cytology Cervical or vaginal smear or scraping studyOrdered By: Maral Sheehan on 08-01-2024 [facility] ALL CBC WITH AUTO DIFFon BASOPHILS ABSOLUTE AUTO 0.1 [facility] Basophils/100 WBC (Bld) 0.7 % 0.2 - 2.0 % [facility] Eosinophils/100 WBC (Bld) 1.9 % 0.9 - 7.0 % [facility] Erythrocyte distribution width (RBC) [Ratio] 13.2 % 11.0 - 15.0 % [facility] Hematocrit (Bld) [Volume fraction] 39.9 % 36.0 - 48.0 % [facility] Hemoglobin (Bld) [Mass/Vol] 12.9 g/dL 12.0 - 16.0 g/dL [facility] IMMATURE GRANULOCYTES ABS AUTO 0.02 [facility] Immature granulocytes/100 WBC (Bld) 0.2 % 0.0 - 0.5 % [facility] LYMPHOCYTES ABSOLUTE AUTO 3.5 [facility] Lymphocytes/100 WBC (Bld) 35.7 % 20.5 - 60.0 % [facility] MCH (RBC) [Entitic mass] 29.5 pg 26.7 - 34.[address] [facility] MCHC (RBC) [Mass/Vol] 32.3 g/dL 29.9 - 35.2 g/dL [facility] MCV (RBC) [Entitic vol] 91.3 fL 81.0 - 99.[address] [facility] MONOCYTES ABSOLUTE AUTO 0.6 [facility] Monocytes/100 WBC (Bld) 6.1 % 1.7 - 12.0 % [facility] NEUTROPHILS ABSOLUTE AUTO 5.4 [facility] Neutrophils/100 WBC (Bld) 55.4 % 43.0 - 75.0 % [facility] Platelet mean volume (Bld) [Entitic vol] 10.3 fL 9.5 - 13.[address] [facility] TBH EO # 0.2 [facility] TB PLT 408 [facility] TB RBC 4.37 [facility] TB WBC 9.7 [facility] XR CHEST 2 VWSon 12-01-2023 XR [...] Chaudhary MD on 12/01/2023 1:43 PM Normal [facility] CBC AUTO DIFFon 08-31-2022 BASO # 0.1 103/ul Normal 0.0-0.1 [facility] Comment on above: Performed By: #### C BC #### [facility] [address] [place] [address] Dr. Demetri Rosales Basophils/100 WBC (Bld) 0.5 % Normal 0.2-2.0 [facility] Comment on above: Performed By: #### C BC #### [facility] [address] [place] [address] Dr. Demetri Rosales EO # 0.3 103/ul Normal 0.0-0.7 [facility] Comment on above: Performed By: #### C BC #### [facility] [address] [place] [address] Dr. Demetri Rosales Eosinophils/100 WBC (Bld) 2.6 % Normal 0.9-7.0 [facility] Comment on above: Performed By: #### C BC #### [facility] [address] [place] [address] Dr. Demetri Rosales Erythrocyte distribution width (RBC) [Ratio] 13.2 % Normal 11.0-15.0 [facility] Comment on above: Performed By: #### C BC #### [facility] [address] [place] [address] Dr. Demetri Rosales Hematocrit (Bld) [Volume fraction] 40.1 % Normal 36.0-48.0 [facility] Comment on above: Performed By: #### C BC #### [facility] [address] [place] [address] Dr. Demetri Rosales Hemoglobin (Bld) [Mass/Vol] 13.2 g/dL Normal 12.0-16.0 [facility] Comment on above: Performed By: #### C BC #### [facility] [address] [place] [address] Dr. Demetri Rosales IG # 0.04 10e3/ul Critically high 0.00-0.03 [facility] Comment on above: Performed By: #### C BC #### [facility] [address] [place] [address] Dr. Demetri Rosales IG % 0.4 % Normal 0.0-0.5 [facility] Comment on above: Performed By: #### C BC #### [facility] [address] [place] [address] Dr. Demetri Rosales LYMPH # 4.1 103/ul Critically high 1.2-3.8 [facility] Comment on above: Performed By: #### C BC #### [facility] [address] [place] [address] Dr. Demetri Rosales Lymphocytes/100 WBC (Bld) 38.2 % Normal 20.5-60.0 [facility] Comment on above: Performed By: #### C BC #### [facility] [address] [place] [address] Dr. Demetri Rosales MANUAL DIFF REQ NO Normal [facility] Comment on above: Performed By: #### C BC #### [facility] [address] [place] [address] Dr. Demetri Rosales MCH (RBC) [Entitic mass] 30.4 pg Normal 26.7-34.0 [facility] Comment on above: Performed By: #### C BC #### [facility] [address] [place] [address] Dr. Demetri Rosales MCHC (RBC) [Mass/Vol] 32.9 g/dL Normal 29.9-35.2 [facility] Comment on above: Performed By: #### C BC #### [facility] [address] [place] [address] Dr. Demetri Rosales MCV (RBC) [Entitic vol] 92.4 fL Normal 81.0-99.0 [facility] Comment on above: Performed By: #### C BC #### [facility] [address] [place] [address] Dr. Demetri Rosales MONO # 0.5 103/ul Normal 0.3-0.8 [facility] Comment on above: Performed By: #### C BC #### [facility] [address] [place] [address] Dr. Demetri Rosales Monocytes/100 WBC (Bld) 4.8 % Normal 1.7-12.0 [facility] Comment on above: Performed By: #### C BC #### [facility] [address] [place] [address] Dr. Demetri Rosales NEUT # 5.7 103/ul Normal 1.4-6.5 [facility] Comment on above: Performed By: #### C BC #### [facility] [address] [place] [address] Dr. Demetri Rosales Neutrophils/100 WBC (Bld) 53.5 % Normal 43.0-75.0 [facility] Comment on above: Performed By: #### C BC #### [facility] [address] [place] [address] Dr. Demetri Rosales Platelet mean volume (Bld) [Entitic vol] 10.0 fL Normal 9.5-13.5 [facility] Comment on above: Performed By: #### C BC #### [facility] [address] [place] [address] Dr. Demetri Rosales PLT 314 103/ul Normal 150-450 [facility] Comment on above: Performed By: #### C BC #### [facility] [address] [place] [address] Dr. Demetri Rosales RBC 4.34 106/ul Normal 4.20-5.40 [facility] Comment on above: Performed By: #### C BC #### [facility] [address] [place] [address] Dr. Demetri Rosales WBC 10.7 103/ul Normal 4.0-11.0 [facility] Comment on above: Performed By: #### C BC #### [facility] [address] [place] [address] Dr. Demetri Rosales Cov[facility]on 08-18 SARS-CoV-2 (COVID-19) RNA ROMANA+probe Ql (Unsp spec) Not detected Normal NOT DETECTED [facility] Comment on above: Result Comment: This test is not yet approved or cleared by the [place] FDA. When there are no FDA-approved or cleared tests available, and other criteria are met, FDA can make tests available under an emergency access mechanism called an Emergency Use Authorization (EUA). The EUA for this test is supported by the [place] of Health and Human Service's (HHS's) declaration [...] SARS-CoV-2. Performed By: #### C VDTB #### [facility] [address] [place] [address] Dr. Demetri Rosales PREG QUANT HCGon 08-31-2022 HCG QUANT <1 Normal [facility] Comment on above: Performed By: #### P REGQNT #### [facility] [address] [place] [address] Dr. Demetri Rosales HCG RANGE SEE BELOW Normal [facility] Comment on above: Result Comment: 5-50 0.2-1 WEEK 50-500 1-2 WEEKS 100-5,000 2-3 WEEKS 500-10,000 3-4 WEEKS 1,000-50,000 4-5 WEEKS 10,000-100,000 5-6 WEEKS 15,000-200,000 6-8 WEEKS 10,000-100,000 2-3 MONTHS Performed By: #### P REGQNT #### [facility] [address] [place] [address] [address] Demetri Rosales US PELVIS AND TRANSVAGon [...] JORGE LUIS GRIJALVA Date: 2022-07-09 13:59 Normal [facility] PAP ACOG PANEL 2: 30 to 65on 01-07-2022 . . Normal [facility] Comment on above: Result Comment: Perf ormed at: WB Performed By: #### [id number] #### [facility] [address] [place] [address] [address] Demetri Rosales Age Gdln ACOG Testing 30-65 Normal [facility] Comment on above: Performed By: #### 4 [id number] #### [facility] [address] [place] [address] [address] Demteri Rosales DIAGNOSIS: Comment Normal [facility] Comment on above: Result Comment: NEGA TIVE FOR INTRAEPITHELIAL LESION OR MALIGNANCY. Performed at: WB Performed By: #### 4 [id number] #### [facility] [address] [place] [address] [address] Demetri Rosales HPV Aptima Negative Normal Negative [facility] Comment on above: Result Comment: This nucleic acid amplification test detects fourteen high-risk HPV types (16,18,31,33,35,39,45,51,52,56,58,59,66,68) without differentiation. Performed at: =G Performed By: #### 4 [id number] #### [facility] [address] [place] [address] Dr. Demetri Rosales Methodology: Comment Normal [facility] Comment on above: Result Comment: This liquid based ThinPrep(R) pap test was screened with the use of an image guided system. Performed at: WB Performed By: #### 4 [id number] #### [facility] [address] [place] [address] Dr. Demetri Rosales Note: Comment Normal [facility] Comment on above: Result Comment: The Pap smear is a screening test designed to aid in the detection of premalignant and malignant conditions of the uterine cervix. It is not a diagnostic procedure and should not be used as the sole means of detecting cervical cancer. Both false-positive and false-negative reports do occur. . Performed at: WB Performed By: #### 4 [id number] #### [facility] [address] [place] [address] Dr. Demetri Rosales Performed by: Comment Normal [facility] Comment on above: Result Comment: Eva Casas, Inventory Taker (ASCP) Performed at: WB Performed By: #### 4 [id number] #### [facility] [address] [place] [address] Dr. Demetri Rosales Specimen adequacy: Comment Normal [facility] Comment on above: Result Comment: Sati sfactory for evaluation. Endocervical and/or squamous metaplastic cells (endocervical component) are present. Performed at: WB Performed By: #### 4 [id number] #### [facility] [address] [place] [address] Dr. Demetri Rosales Vital Signs Date Time Vital Sign Value Performing Clinician Nandini dickens 02-14-2025 15:16-0400 Body mass index (BMI) [Ratio] 31.7 kg/m2 Darensarai [employer] Work Phone: [facility] 02-14-2025 15:16-0400 Body weight 89.09 kg Daren Guilherme DO Work Phone: [facility] 02-14-2025 15:16-0400 Diastolic blood pressure 82 mm[Hg] Daren Guilherme DO Work Phone: [facility] 02-14-2025 15:16-0400 Systolic blood pressure 122 mm[Hg] Daren Guilherme DO Work Phone: [facility] 02-01-2025 11:40-0400 Body mass index (BMI) [Ratio] 31.86 kg/m2 Daren Guilherme DO Work Phone: [facility] 02-01-2025 11:40-0400 Body weight 89.54 kg Daren Guilherme DO Work Phone: [facility] 02-01-2025 11:40-0400 Diastolic blood pressure 68 mm[Hg] Daren Guilherme DO Work Phone: [facility] 02-01-2025 11:40-0400 Systolic blood pressure 114 mm[Hg] Daren Guilherme DO Work Phone: [facility] 01-24-2025 11:08-0400 Body mass index (BMI) [Ratio] 31.82 kg/m2 Soni Stockton PA Work Phone: [facility] 01-24-2025 11:08-0400 Body weight 89.41 kg Soni Ramez PA Work Phone: [facility] 01-24-2025 11:08-0400 Diastolic blood pressure 82 mm[Hg] Soni Lamont PA Work Phone: [facility] 01-24-2025 11:08-0400 Systolic blood pressure 130 mm[Hg] Soni Raemz PA Work Phone: [facility] 12-20-2024 15:02-0500 Body mass index (BMI) [Ratio] 31.44 kg/m2 Soni Lamont PA Work Phone: [facility] 12-20-2024 15:02-0500 Body weight 88.36 kg Soni REZA Work Phone: [facility] 12-20-2024 15:02-0500 Diastolic blood pressure 78 mm[Hg] Soni REZA Work Phone: [facility] 12-20-2024 15:02-0500 Systolic blood pressure 120 mm[Hg] Soni REZA Work Phone: [facility] 10-02-2024 13:54-0500 Body mass index (BMI) [Ratio] 30.96 kg/m2 Daren Guilherme DO Work Phone: [facility] 10-02-2024 13:54-0500 Body weight 87 kg Daren Guilherme DO Work Phone: [facility] 10-02-2024 13:54-0500 Diastolic blood pressure 78 mm[Hg] Daren Guilherme DO Work Phone: [facility] 10-02-2024 13:54-0500 Systolic blood pressure 104 mm[Hg] Daren Guilherme DO Work Phone: [facility] 08-01-2024 08:47-0400 Body mass index (BMI) [Ratio] 29.92 kg/m2 Daren Guilherme DO Work Phone: [facility] 08-01-2024 08:47-0400 Body weight 84.1 kg Daren Guilherme DO Work Phone: [facility] 08-01-2024 08:47-0400 Diastolic blood pressure 74 mm[Hg] Daren Guilherme DO Work Phone: [facility] 08-01-2024 08:47-0400 Systolic blood pressure 116 mm[Hg] Daren Guilherme DO Work Phone: [facility] 07-17-2024 13:53-0400 Body height 167.6 cm Daren Guilherme DO Work Phone: [facility] 07-17-2024 13:53-0400 Body mass index (BMI) [Ratio] 30.18 kg/m2 Daren Guilherme DO Work Phone: [facility] 07-17-2024 13:53-0400 Body weight 84.82 kg Daern Guilherme DO Work Phone: [facility] 07-17-2024 13:53-0400 Diastolic blood pressure 68 mm[Hg] Daren Guilherme DO Work Phone: [facility] 07-17-2024 13:53-0400 Systolic blood pressure 110 mm[Hg] Daren Guilherme DO Work Phone: [facility] Healthcare Encounters Encounter Date Encounter Type Care Provider Facility Start: 02-27-2025 End: 02-27-2025 ambulatory CLERK ANALYST Jered L Deena Facility: [facility] Start: 02-22-2025 ambulatory CLERK ANALYST Jered Deena Facilit y:[facility] Start: 02-20-2025 End: 02-20-2025 ambulatory CLERK ANALYST Jered L Deena Facility: [facility] Start: [...] End: 02-12-2025 Patient encounter procedure 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 Work Phone: [facility] Start: 02-12-2025 End: 02-12-2025 ambulatory 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 Work Phone: [facility] Work Phone: Start: 02-01-2025 End: 02-01-2025 Bamboo flowsheet Daren Guilherme DO Work Phone: [facility] Start: 02-01-2025 End: 02-01-2025 Bamboo flowsheet Daren Guilherme DO Work Phone: [facility] Start: 02-01-2025 End: 02-01-2025 Postop follow up visit related to original px Daren Guilherme DO Work Phone: [facility] Comment on above: Postop check; Pelvic pain in female; Urinary tract infection without hematuria, site unspecified Start: 02-01-2025 End: 02-01-2025 ambulatory DAREN GUILHERME Not Available Start: 01-24-2025 End: 01-24-2025 Bamboo flowsheet Soni Stockton PA Work Phone: [facility] Start: 01-24-2025 End: 01-24-2025 Bamboo flowsheet Soni Stockton PA Work Phone: [facility] Start: 01-24-2025 End: 01-24-2025 ambulatory SONI STOCKTON Not Available Start: 01-24-2025 End: 01-24-2025 Postop follow up visit related to original px Soni Stockton PA Work Phone: [facility] Comment on above: Postoperative examin ation; Breast nodule; Breast pain, right Start: 12-20-2024 End: 12-20-2024 ambulatory SONI RAMEZ Not Available Start: 12-20-2024 End: 12-20-2024 Postop follow up visit related to original px Soni Stockton PA Work Phone: [facility] Comment on above: Postoperative examin [...] Unsolicited Start: 12-13-2024 End: 12-13-2024 [facility] Start: 12-13-2024 End: 12-13-2024 Departed Referred Daren Guilherme DO Work Phone: [facility] Start: [...] encounter procedure Daren Guilherme DO Work Phone: [facility] Comment on above: Pre-op examination; Menorrhagia with regular cycle; Pelvic pain in female; Dyspareunia in female; Dysmenorrhea; Fibroids Start: 10-02-2024 End: 10-02-2024 Preprocedural examination done Daren Guilherme DO Work Phone: [facility] Start: 10-02-2024 End: 10-02-2024 ambulatory Daren Guilherme Facility:[facility] Start: 10-02-2024 End: 10-02-2024 Departed Referred Daren Guilherme DO Work Phone: [facility] Start: 08-01-2024 End: 08-01-2024 Bamboo flowsheet Daren Guilherme DO Work Phone: [facility] Start: 08-01-2024 End: 08-04-2024 Bamboo flowsheet Daren Guilherme DO Work Phone: [facility] Start: 08-01-2024 End: 08-04-2024 Clinisync Result Encounter Daren Guilherme DO Work Phone: [facility] External Department Unsolicited Start: 08-01-2024 End: 08-01-2024 Patient encounter procedure Daren Guilherme DO Work Phone: [facility] Work Phone: Start: 08-01-2024 End: 08-01-2024 Periodic preventive med est patient 40-64yrs Daren Guilherme DO Work Phone: [facility] Comment on above: Well woman [...] 07-17-2024 Office outpatient visit 15 minutes Daren Guilherme DO Work Phone: [facility] Comment on above: Fibroids (Primary Dx ) Start: 07-17-2024 End: 07-17-2024 ambulatory DAREN VANEGAS Not Available Start: 12-01-2023 End: 12-05-2023 ambulatory [facility] Start: 10-06-2023 End: 10-06-2023 Lab Drop off Jered Victor [facility] Start: 09-03-2022 Encounter for preprocedural laboratory examination DR DAREN VANEGAS [facility] Start: 09-02-2022 End: 09-02-[address] DAREN VANEGAS Facility:[facility] Start: 08-31-2022 End: 09-01-[address] DAREN VANEGAS Facility:[facility] Start: 08-31-2022 End: 09-01-2022 Encounter for preprocedural laboratory examination DR DAREN VANEGAS Facility:[facility] Start: 08-30-2022 Encounter for other preprocedural examination DR DAREN VANEGAS [facility] Start: 08-25-2022 End: 08-26-[address] DAREN VANEGAS Facility:[facility] Start: 08-25-2022 End: 08-26-2022 Encounter for other preprocedural examination DR DAREN VANEGAS Facility:[facility] Start: 07-09-2022 End: 07-10-[address] DAREN VANEGAS Facility:[facility] Start: 12-31-2021 End: 12-31-[address] DAREN VANEGAS Facility:[facility] Procedures Date Procedure Procedure Detail Performing Clinician Start: 02-12-2025 Ultrasonography of r ight breast 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 Work Phone: Start: 01-24-2025 Urnls dip stick/tabl [...] Chronic postoperative pain Expected: 02/20/2025, Expires: 02/20/2026 [facility] Work Phone: Comment on above: Expected: 02/20/2025 , Expires: 02/20/2026 Start: 02-19-2025 End: 02-19-2025 Patient encounter procedure [facility] Start: 02-14-2025 End: 02-14-2025 Patient encounter procedure 02/14/2025 2:30 PM EDT Office Visit [facility] [address] [place] [address] Daren Vanegas, DO [address] [place] [place], [place] [phone] [facility] Start: 02-05-2025 End: 02-05-2025 Patient encounter procedure 02/05/2025 1:30 PM EDT Consult [facility] [address] [place] [address] Leonid Schroeder, DO [address] [place] [address] [facility] Start: 02-01-2025 End: 02-01-2026 CT Abdomen and Pelvis WO and W contrast IV CT abdomen pelvis w and wo IV contrast Imaging Routine Postop check Pelvic pain in female Expected: 02/01/2025 (Approximate), Expires: 02/01/2026 [facility] Work Phone: Comment on above: Expected: 02/01/2025 (Approximate), Expires: 02/01/2026 Start: 02-01-2025 End: 02-01-2025 Patient encounter procedure 02/01/2025 11:30 AM EDT Office Visit [facility] [address] [place] [phone] Daren Vanegas, DO [address] [place], [place] [phone] Arrived [facility] Comment on above: Arrived Start: 01-24-2025 End: 01-24-2025 Patient encounter procedure 01/24/2025 2:50 PM EDT Office Visit [facility] [address] [place] [phone] Soni Stockton PA [address] [place] [address] [facility] Start: 01-24-2025 End: 03-26-2026 US Breast - right Right breast US complete Imaging Routine Breast nodule Breast pain, right Expected: 01/24/2025, Expires: 03/26/2026 [facility] Work Phone: Comment on above: Expected: 01/24/2025 , Expires: 03/26/2026 Start: 10-02-2024 End: 10-02-2024 Patient encounter procedure 10/02/2024 1:30 PM EST Procedure Visit [facility] [address] [place] [phone] Daren Vanegas DO [address] [place], [place] [phone] [facility] Start: 08-01-2024 End: 10-01-2025 [...] EDT Ancillary Procedure [facility] [address] [place] [address] [facility] Start: 07-17-2024 End: 07-17-2025 aPTT in Blood by Coagulation assay APTT Lab Routine Fibroids Expected: 07/17/2024 (Approximate), Expires: 07/17/2025 [facility] Comment on above: Expected: 07/17/2024 (Approximate), Expires: 07/17/2025 Start: 07-17-2024 End: 07-17-2025 US for US PELVIS-TRANSVAG IF INDICATED Imaging Routine Fibroids Expected: 07/17/2024 (Approximate), Expires: 07/17/2025 [facility] Comment on above: Expected: 07/17/2024 (Approximate), Expires: 07/17/2025 Start: 07-17-2024 End: 07-17-2024 Patient encounter procedure 07/17/2024 1:30 PM EDT Office Visit [facility] [address] [place] [phone] Daren Vanegas, DO [address] [place] [address] Arrived [facility] Comment on above: Arrived CBC W Auto Different ial panel - Blood CBC and differential Lab Routine Fibroids Ordered: 07/17/2024 [facility] Work Phone: Comment on above: Ordered: 07/17/2024 hCG, quantitative, hCG, quantitative, Lab Routine Fibroids Ordered: 07/17/2024 [facility] Comment on above: Ordered: 07/17/2024 Hemoglobin A1c/Hemoglobin.total in Blood Hemoglobin A1c Lab Routine Fibroids Ordered: 07/17/2024 [facility] Comment on above: Ordered: 07/17/2024 Prothrombin time (PT ) in Blood by Coagulation assay Protime-INR Lab Routine Fibroids Ordered: 07/17/2024 [facility] Comment on above: Ordered: 07/17/2024 THIN PREP TIS PAP AN D HR HPV DNA THIN PREP TIS PAP AND HR HPV DNA Pathology and Cytology Routine Well woman exam with routine gynecological exam Ordered: 08/01/2024 [facility] Comment on above: Ordered: 08/01/2024 Thyrotropin [Units/volume] in Serum or Plasma TSH Lab Routine Fibroids Ordered: 07/17/2024 [facility] Comment on above: Ordered: 07/17/2024 Thyroxine (T4) free [Mass/volume] in Serum or Plasma T4, free Lab Routine Fibroids Ordered: 07/17/2024 [facility] Comment on above: Ordered: 07/17/2024 Payers Date Payer Category Payer Self-pay 2018 Private Health Insurance [id number] 2018 Unknown [id number] 1982 Unknown [id number] [id number] 1982 Unknown [id number] 2.16.840.1.541540.3.579.2.59 1982 Unknown [id number] 2.840.1.819403.3.579.2.59 1982 Unknown [id number] 2.840.1.467787.3.579.2.59 1982 Unknown [id number] 2.16.840.1.890725.3.579.2.59 1982 Unknown [id number] 2.16.840.1.143011.3.579.2.125 1982 Unknown [id number] 2.16.840.1.557764.3.579.2.125 1982 Unknown [id number] 2.16.840.1.105747.3.579.2.125 1982 Unknown [id number] 2.16.840.1.608995.3.579.2.1258 1982 Unknown [id number] 2.16.840.1.297994.3.579.2.125 1982 Unknown [id number] 2.16.840.1.658594.3.579.2.1258 1982 Unknown [id number] 2.16.840.1.039331.3.579.2.1259 1982 Unknown [id number] 2.16.840.1.576501.3.579.2.727 1982 Unknown [id number] 2.16.840.1.883672.3.579.2.727 1959 Unknown [id number] Medicaid [place] [employer] [id number] Unknown [id number] 2.16.840.1.173447.3.579.2.531 Unknown [id number] 2.16.840.1.964572.3.579.2.531 Unknown [id number] 2.16.840.1.728063.3.579.2.531 Social History Date Type Detail Facility Start: 10-06-2023 Tobacco smoking status Ex-smoker (finding) [facility] [place] Sex Assigned At Female [facility] Tobacco smoking status NDIS Tobacco smoking consumption unknown [facility] Work Phone: Start: 1980 Sex assigned at Not on file N [facility] Start: 12-15-2024 End: 02-13-2025 Sex Female (finding) [facility] Start: 1980 Sex Assigned At Female F [facility] Clinical Notes 09-02-2022 to 02-20-2025 Glendy Love [...] for a telehealth appointment. Patients Phone #: [phone] (mobile) Date: 02/20/2025 Time: 12:35 PM of [...] Daren Vanegas DO documented in this encounter [facility] 02-14-2025 History of Presen t illness Narrative [...] nursing note reviewed. Exam conducted with a computer help desk representative present. Vitals: Estimated body mass index is [...] scan, surgery, ultrasound documented in this encounter [facility] 02-12-2025 Radiology Diagnostic study note [facility] Main [place] [address] [place] [address] Ultrasound Report Signed Patient: Siobhan Robles MR#: [id number] : 1980 Acct:[id number] Age/Sex: 45 / F ADM Date: 5 Loc: WIUL Room: Type: [facility] Attending Dr: Soni Stockton PA-C Ordering Provider: [...] Huynh M.D. 02/12/2025 1:41 PM Dictation Location: [facility] Tech: Hermila Malik Transcribed By: ABEL 02/12/25 1341 Dictated By: Glendy Huynh MD 02/12/25 1141 Signed By: 02/12/[address] [facility] Work Phone: 02-01-2025 History of Presen t illness Narrative Reason for Appointment: Patient ID: Siobhan Robles is a 45 y.o. female who presents for Post-op Visit Patient presents today for 6 week [facility] Post Op Follow Up appointment. MEDICATIONS Current [...] nursing note reviewed. Exam conducted with a computer help desk representative present. Vitals: Estimated body mass index is [...] Daren Vanegas DO documented in this encounter [facility] 01-24-2025 History of Presen t illness Narrative [...] nursing note reviewed. Exam conducted with a computer help desk representative present. Vitals: Estimated body mass index is [...] of: JUAQUIN Mixon documented in this encounter [facility] 12-20-2024 History of Presen t illness Narrative [...] of: JUAQUIN Mixon documented in this encounter [facility] 10-02-2024 History of Presen t illness Narrative Reason for Appointment: Patient ID: Siobhan Robles is a 44 y.o. female who presents for Menstrual Problem and Pre-op Visit Patient presents today for Pre Op/Endometrial Biopsy appointment. Patient is scheduled to undergo Da Lewis assisted Laparoscopic Hysterectomy, possible exploratory laparotomy, possible BSO, possible cystoscopy on 11/01/[address] Vanegas at [facility]. MEDICATIONS No current outpatient medications ALLERGIES [...] nursing note reviewed. Exam conducted with a computer help desk representative present. Vitals: Estimated body mass index is [...] reviewed, and patient is to proceed to [facility] OR. Follow Up: Patient is to follow up at 1 & 6 weeks post operative to assess proper healing and recovery from procedure. Documented by Glendy Love LPN on behalf of: Daren Vanegas DO documented in this encounter [facility] 08-01-2024 History of Presen t illness Narrative [...] nursing note reviewed. Exam conducted with a computer help desk representative present. Vitals: Estimated body mass index is [...] Daren Vanegas DO documented in this encounter [facility] 07-17-2024 Telephone encounter Note Obtain Op Report and any pathology from surgery in August 2022. [facility] 07-17-2024 Miscellaneous Notes Obtain Op Report and any pathology from surgery in August 2022. documented in this encounter [facility] 07-17-2024 History of Presen t illness Narrative [...] Daren Vanegas DO documented in this encounter [facility] 10-06-2023 Evaluation + [facility] 10/06/23Comprehensive Metabolic Panel 10/06/23Lipid Panel 10/06/23Thyroid Stimulating Hormone 10/06/23 [facility] 09-02-2022 Note OP Note OPERATION DATE: 09/02/2022 PROCEDURE: D AND C hysteroscopy, diagnostic laparoscopy. PREOPERATIVE DIAGNOSIS: Menorrhagia, pelvic pain, enlarged uterus. POSTOPERATIVE DIAGNOSIS: Menorrhagia, pelvic pain, enlarged uterus, adenomyosis. ANESTHESIA: General. SURGEON: Daren Vanegas D.O. VIDEO EDITOR: JOSETTE Pacheco URINE OUTPUT: Yellow and clear. [...] the Recovery Room in stable condition. [facility] Evaluation note Diagnosis Well woman exam with routine gynecological exam Routine gynecological examination Breast cancer screening by mammogram documented in this encounter [facility] HealthcareEvaluation note* Diagnosis Pre-op examination Menorrhagia with regular cycle Pelvic pain in female Unspecified symptom associated with female genital organs Dyspareunia in female Dysmenorrhea Fibroids Leiomyoma of uterus, unspecified [facility] Diagnosis Fibroids- Primary Leiomyoma of uterus, unspecified [facility] encounter [facility] noteNo [facility] Work Phone: Evaluation note* Diagnosis Postoperative examination Follow-up examination, following unspecified surgery documented in this encounter [facility] Healthcare[facility] note* Diagnosis Postoperative examination Follow-up examination, following unspecified surgery Breast nodule Other (abnormal) findings on radiological examination of breast Breast pain, right documented in this encounter [facility] Healthcare[facility]* Diagnosis Postop check Follow-up examination, following unspecified surgery Pelvic pain in female Unspecified symptom associated with female genital organs Urinary tract infection without hematuria, site unspecified documented in this encounter [facility] Healthcare[facility]* Diagnosis Cyst of ovary, unspecified laterality Acute postoperative pain Other acute postoperative pain documented in this encounter [facility] Healthcare[facility] note* Diagnosis Chronic postoperative pain Other chronic postoperative pain documented in this encounter [facility] HealthcareHospital course Narrative No data available for this section [facility] No data available for this section [facility] No data available for this section [facility] Summary Purpose Family History No Family History [...] and content) DATE CREATED AUTHOR 10/28/2022 [facility] DATE CREATED AUTHOR AUTHOR'S ORGANIZ ATION 12/06/2023 [facility] DATE CREATED AUTHOR AUTHOR'S ORGANIZ ATION 02/15/2025 [facility] DATE CREATED AUTHOR AUTHOR'S ORGANIZ ATION 02/19/2025 [facility] DATE CREATED AUTHOR AUTHOR'S ORGANIZ ATION 02/28/2025 [facility] Patient Care team informatio n (unrecognized [...] BE BASED ON THE PRIMARY CLINICAL RECORDS. [employer] provides no warranty or guarantee of the accuracy or completeness of information in this document.
== END 2025-03-05 06:58 | disposition home or self-care (01) ==
LOC: MRI 06:57
PROVIDERS: PCP Nurse Practitioner; Visit Provider Obstetrics & Gynecology
DX: G89.28 Other chronic postprocedural pain (principal); N83.202 Unspecified ovarian cyst, left side
CPT/HCPCS: 72195